=== PATIENT | male | born 1940 | race Caucasian/White ===

== ENCOUNTER → 2017-08-31 10:21 | Outpatient (CLI) | payer MEDICARE, SELFPAY ==
[2017-08-31 12:51] LABS: Prostate Specific Antigen 0.077 ng/mL (0.10-4.00)
== END ==
PROVIDERS: PCP Internal Medicine; Visit Provider Physician Assistant
DX: C61 Malignant neoplasm of prostate (principal)
CPT/HCPCS: 36415; 84153

== ENCOUNTER → 2017-11-21 11:54 | Outpatient (CLI) | payer MEDICARE, SELFPAY ==
--- NOTE | 2017-11-21 | DI.CT.S_ITS ---
PROCEDURE: CT CHEST WO CON INDICATIONS: SURVEILLANCE STAGE 1 LUNG CANCER. Per technologist, patient has had a left upper lobectomy and left nephrectomy. TECHNIQUE: Noncontrast 5 mm thick sections acquired from the pulmonary apices to the posterior costophrenic angles. 7 mm thick coronal and sagittal MIP reformats were then acquired. For radiation dose reduction, the following was used: automated exposure control, adjustment of mA and/or kV according to patient size. COMPARISON: [facility], CT, CHEST/ABDOMEN WITHOUT CONTRAST, 06/04/2017, 10:18. [facility], CT, CHEST/ABD/PEL WITHOUT CONTRAST, 12/05/2016, 9:22. [facility], CT, CHEST/ABD/PEL WITH CONTRAST, 06/02/2016, 12:06. [facility], CT, CHEST/ABDOMEN WITHOUT CONTRAST, 09/09/2015, 9:47. FINDINGS: Image quality: Excellent. Lungs and pleura: Multiple small subcentimeter bilateral pulmonary nodules, greatest at the bilateral lung bases, are stable in appearance to prior exam (with largest measuring 8 mm in the right lower lobe and been partially calcified). Left apical scarring noted. There is a small left pleural effusion with adjacent atelectasis. Central airways are clear. Mediastinum: Heart size is normal. No pericardial effusion. No mediastinal adenopathy by size criteria. Thoracic aorta and central pulmonary arteries are normal in size. Mild calcific plaque of the aorta and branch vessels. There is dense coronary artery calcification, worst along the left anterior descending coronary artery. Bones and chest wall: No suspicious bony lesions. No vertebral body compression fractures. No axillary or supraclavicular adenopathy by size criteria. There are mild multilevel degenerative changes of the thoracic spine. Abdomen: Visualized upper abdominal solid organs and bowel loops appear normal in the absence of contrast. Left kidney is not seen on this exam. IMPRESSION: Suboptimal examination of soft tissues due to the lack of intravenous contrast. #1. Stable subcentimeter pulmonary nodules in the lungs bilaterally. #2. Small left pleural effusion with adjacent atelectasis. Dictated by: Slade Patel M.D. on 11/21/2017 at 12:32 Approved by: Slade Patel M.D. on 11/21/2017 at 12:49
[2017-11-21 12:55] LABS: Add Manual Diff / Slide Review NO; Basophils Percent Auto 0.6 % (0-2); Eosinophils Percent Auto 1.2 % (2-4); Hematocrit 39.2 % (41-53); Hemoglobin 13.3 g/dL (13.5-17.5); Lymphocytes Percent Auto 17.7 % (25-40); Mean Corpuscular HGB Conc 33.9 % (30-36); Mean Corpuscular Hemoglobin 30.1 PG (26-34); Mean Corpuscular Volume 88.8 fL (80-100); Monocytes Percent Auto 7.9 % (3-14); Neutrophils Absolute Auto 4900 /uL (3000-5900); Neutrophils Percent Auto 72.6 % (50-75); Platelet Count 160 X10^3/uL (150-400); Red Blood Cell Count 4.41 X10^6/uL (4.5-5.9); Red Cell Distribution Width 13.2 % (11.6-14.8); White Blood Cell Count 6.7 X10^3/uL (4.5-11.0)
[2017-11-21 13:05] LABS: Alanine Aminotransferase 21 IU/L (21-72); Albumin 4.2 g/dL (3.5-5.0); Albumin Globulin Ratio 1.4 (1.0-2.8); Alkaline Phosphatase 108 U/L (38-126); Aspartate Aminotransferase 20 IU/L (17-59); BUN Creatinine Ratio 18.1 (6-22); Bilirubin Total 0.5 mg/dL (0.2-1.3); Blood Urea Nitrogen 29 mg/dL (9-20); Calcium 9.2 mg/dL (8.4-10.2); Carbon Dioxide 22 mmol/L (22-32); Chloride 108 mmol/L (98-107); Globulin 2.9 g/dL (1.7-4.1); Glucose 95 mg/dL (80-110); HEMOLYSIS < 15 (0-50); Potassium 4.8 mmol/L (3.4-5.1); Sodium 141 mmol/L (137-145); Total Protein 7.1 g/dL (6.3-8.2)
[2017-11-21 13:35] LABS: Prostate Specific Antigen 0.129 ng/mL (0.10-4.00)
== END ==
PROVIDERS: PCP Internal Medicine; Visit Provider Nurse Practitioner Gerontology
DX: C34.92 Malignant neoplasm of unspecified part of left bronchus or lung (principal); J90 Pleural effusion, not elsewhere classified; J98.11 Atelectasis
CPT/HCPCS: 36415; 71250; 80053; 84153; 85025

== ENCOUNTER → 2018-02-13 10:11 | Outpatient (CLI) | payer MEDICARE, SELFPAY ==
[2018-02-13 14:50] LABS: Blood Urea Nitrogen 34 mg/dL (9-20); Calcium 9.2 mg/dL (8.4-10.2); Carbon Dioxide 21 mmol/L (22-32); Chloride 107 mmol/L (98-107); Cholesterol 167 mg/dL (140-199); Estimated Glomerular Filt Rate 39.2 mL/min (>60); Glucose 92 mg/dL (80-110); HDL Cholesterol 45 mg/dL (40-60); HEMOLYSIS < 15 (0-50); LDL Cholesterol Calculated 56 mg/dL (<100); Potassium 4.8 mmol/L (3.4-5.1); Sodium 144 mmol/L (137-145); Triglycerides 330 mg/dL (35-150)
== END ==
PROVIDERS: PCP Internal Medicine; Visit Provider Internal Medicine
DX: I10 Essential (primary) hypertension (principal); E78.2 Mixed hyperlipidemia
CPT/HCPCS: 36415; 80048; 80061

== ENCOUNTER → 2018-05-27 09:57 | Outpatient (CLI) | payer MEDICARE, SELFPAY ==
[2018-04-22 16:10] VITALS: BMI 44.2
--- NOTE | 2018-05-27 | DI.CT.S_ITS ---
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 TECHNIQUE: After the administration of oral contrast, 5 mm thick sections acquired from the lung apices to the symphysis pubis. 5 mm thick coronal and sagittal reformats acquired, with additional 7 mm coronal MIP reformats through the lungs. For radiation dose reduction, the following was used: automated exposure control, adjustment of mA and/or kV according to patient size. COMPARISON: [facility], CT, CHEST/ABD/PEL WITHOUT CONTRAST, 12/05/2016, 9:22. [facility], CT, CHEST/ABD/PEL WITH CONTRAST, 06/02/2016, 12:06. [facility], [place], PET/CT WHOLE BODY EXTENDED, 10/15/2015, 10:42. [facility], CT, CHEST/ABDOMEN WITHOUT CONTRAST, 06/04/2017, 10:18. [facility], CT, CT CHEST WO CON, 11/21/2017, 12:02. FINDINGS: Image quality: Excellent. CHEST: Lungs and pleura: There is a small left effusion, unchanged from last exam. Left basilar subpleural septal thickening and mild infiltrates/atelectasis. There are tiny nodules in the left upper and lower lobes, unchanged in size; some nodules are calcified. A scarlike densities noted in the left upper lobe. Small subcentimeter calcified and noncalcified nodules are also noted in the right lower lobe measuring up to 8 mm (series 3 image 49 and 52), unchanged in size. No acute pulmonary opacities. No pleural effusions or pneumothorax. Central and peripheral airways are patent are normal in caliber. Mediastinum: Heart size is normal. No pericardial effusion. No mediastinal adenopathy by CT size criteria. Thoracic aorta and central pulmonary arteries are normal in size. Esophagus is normal in caliber. No hiatal hernia. Chest wall: No axillary or supraclavicular adenopathy by size criteria. Thyroid gland is normal. ABDOMEN: Solid organs: Liver is normal in size. Gallbladder is normal. Pancreas is normal in contours. Spleen is normal in size. No adrenal nodules. Left kidney is absent, presumably surgically removed. Right kidney is normal in size, without hydronephrosis or nephrolithiasis. Peritoneum and bowel: Small and large bowel loops are normal in caliber and wall thickness. No free fluid or air. Nodes and vessels: No retroperitoneal or mesenteric adenopathy by size criteria. There is a calcified nodule in the mesentery, probably an old granuloma. Aorta and inferior vena cava are normal in size. Miscellaneous: No ventral hernias. PELVIS: Genitourinary: Bladder wall thickness is uniform. There is mild 40 distended. The prostate contains multiple metallic implants. Miscellaneous: No inguinal hernias or adenopathy. Bones: No suspicious bony lesions. No vertebral body compression fractures. Degenerative changes are noted. IMPRESSION: 1. Stable exam. No metastatic disease identified on this non-enhanced CT chest, abdomen and pelvis. No significant change from last exam. 2. Stable subcentimeter lung nodules bilaterally. 3. Stable small left effusion. 4. Scar like density in the left upper lobe is unchanged. Dictated by: Hardy Spain M.D. on 05/27/2018 at 17:14 Approved by: Hardy Spain M.D. on 05/27/2018 at 22:57
== END ==
PROVIDERS: PCP Internal Medicine; Referring Provider Urology; Visit Provider Internal Medicine Hematology & Oncology
DX: C61 Malignant neoplasm of prostate (principal); C64.2 Malignant neoplasm of left kidney, except renal pelvis; J90 Pleural effusion, not elsewhere classified; R91.8 Other nonspecific abnormal finding of lung field
CPT/HCPCS: 71250; 74176

== ENCOUNTER → 2018-07-29 09:33 | Outpatient (CLI) | payer MEDICARE, SELFPAY ==
[2018-04-22 16:10] VITALS: BMI 44.2
--- NOTE | 2018-07-29 09:36 | DI.NM.S_ITS ---
PROCEDURE: GA BONE SCAN WHOLE BODY RADIOPHARMACEUTICAL: 20.8 mCi Tc-99m MDP IV. INDICATIONS: LUNG CANCER TECHNIQUE: Delayed whole-body scintigrams were obtained approximately 3-4 hours after intravenous injection of radiotracer. Anterior and posterior views were acquired from vertex to feet. COMPARISON: [place], [place], PET/CT WHOLE BODY EXTENDED, 10/15/2015, 10:42. [facility], STROKE PROTOCOL, 01/31/2016, 18:07. [facility], [place], BONE SCAN WHOLE BODY, 03/26/2014, 13:16. FINDINGS: As was previously the case on prior nuclear medicine bone scanning from 03/26/14 there is a mild asymmetric increased amount of isotope deposition within the orbital ridge laterally on the right, virtually identical to the previously noted finding. Knee joint osteoarthritis has been treated with what appears to be medial unicompartmental knee arthroplasty procedures bilaterally. No osseous metastatic disease is found. IMPRESSION: No airplane coverer time at the superior right lateral orbital rim on the right, where mild elevated isotope uptake is virtually identical in appearance to that present in March of 2014. No definite metastatic disease. Dictated by: aSlvador Bethea M.D. on 07/29/2018 at 15:12 Approved by: Salvador Bethea M.D. on 07/29/2018 at 15:16
== END ==
PROVIDERS: Family Provider Urology; PCP Internal Medicine; Visit Provider Internal Medicine Hematology & Oncology
DX: C34.90 Malignant neoplasm of unspecified part of unspecified bronchus or lung (principal)
CPT/HCPCS: 78306; A9503

== ENCOUNTER → 2018-09-09 12:28 | Outpatient (CLI) | payer MEDICARE, SELFPAY ==
[2018-04-22 16:10] VITALS: BMI 44.2
--- NOTE | 2018-09-09 12:29 | DI.US.S_ITS ---
PROCEDURE: US SOFT TISSUE HEAD AND NECK INDICATIONS: PROSTATE CANCER, RENAL CELL CARCINOMA, LUNG CANCER TECHNIQUE: Real-time scanning was performed of the neck region of interest, with image documentation. COMPARISON: None. FINDINGS: Focal, solid-appearing hypoechoic mass present corresponding to the palpable abnormality measuring 2.4 x 1.4 x 2.5 cm. IMPRESSION: Solid mass corresponding to the palpable abnormality. Findings are nonspecific and differential would include both benign and malignant etiology. If indicated sonographically directed fine needle aspiration could be performed for pathologic diagnosis. Dictated by: Amado FERMIN Interpreted: Salvador Bethea MD on 09/09/2018 at 14:10 Approved by: Salvador Bethea M.D. on 09/09/2018 at 14:46
== END ==
PROVIDERS: Family Provider Urology; PCP Internal Medicine; Visit Provider Internal Medicine Hematology & Oncology
DX: C61 Malignant neoplasm of prostate (principal); R22.1 Localized swelling, mass and lump, neck; C34.90 Malignant neoplasm of unspecified part of unspecified bronchus or lung; C64.9 Malignant neoplasm of unspecified kidney, except renal pelvis
CPT/HCPCS: 76536

== ENCOUNTER → 2018-10-01 09:53 | Outpatient (CLI) | payer MEDICARE, SELFPAY ==
[2018-04-22 16:10] VITALS: BMI 44.2
[2018-10-01 11:20] LABS: Add Manual Diff / Slide Review NO; Basophils Absolute Auto 0 /uL (0-100); Basophils Percent Auto 0.5 % (0-2); Eosinophils Absolute Auto 100 /uL (0-450); Eosinophils Percent Auto 1.3 % (2-4); Hematocrit 40.3 % (41-53); Hemoglobin 13.5 g/dL (13.5-17.5); Lymphocytes Absolute Auto 1100 /uL (1100-4500); Lymphocytes Percent Auto 14.8 % (25-40); Mean Corpuscular HGB Conc 33.5 % (30-36); Mean Corpuscular Hemoglobin 29.9 PG (26-34); Mean Corpuscular Volume 89.4 fL (80-100); Monocytes Absolute Auto 600 /uL (0-900); Monocytes Percent Auto 7.8 % (3-14); Neutrophils Absolute Auto 5500 /uL (1500-7000); Neutrophils Percent Auto 75.6 % (50-75); Platelet Count 171 X10^3/uL (150-400); Red Cell Distribution Width 12.8 % (11.6-14.8); White Blood Cell Count 7.3 X10^3/uL (4.5-11.0)
[2018-10-01 11:33] LABS: Alanine Aminotransferase 13 IU/L (21-72); Albumin 4.1 g/dL (3.5-5.0); Albumin Globulin Ratio 1.4 (1.0-2.8); Alkaline Phosphatase 100 U/L (38-126); Aspartate Aminotransferase 18 IU/L (17-59); BUN Creatinine Ratio 13.7 (6-22); Bilirubin Total 0.5 mg/dL (0.2-1.3); Blood Urea Nitrogen 26 mg/dL (9-20); Calcium 9.5 mg/dL (8.4-10.2); Carbon Dioxide 22 mmol/L (22-32); Chloride 109 mmol/L (98-107); Estimated Glomerular Filt Rate 34.4 mL/min (>60); Glucose 109 mg/dL (80-110); HEMOLYSIS < 15 (0-50); Lactate Dehydrogenase 421 U/L (313-618); Potassium 4.6 mmol/L (3.4-5.1); Sodium 143 mmol/L (137-145); Total Protein 7.1 g/dL (6.3-8.2)
== END ==
PROVIDERS: PCP Internal Medicine; Visit Provider Internal Medicine Hematology & Oncology
DX: C34.90 Malignant neoplasm of unspecified part of unspecified bronchus or lung (principal)
CPT/HCPCS: 80053; 83615; 85025

== ENCOUNTER 2018-10-09 07:44 | Day surgery (SDC) | payer MEDICARE, SELFPAY ==
[2018-04-22 16:10] VITALS: BMI 44.2
[2018-09-25 13:25] VITALS: BMI 45.6
[2018-10-09] VITALS (8 sets, daily range): BP systolic 96–139; BP diastolic 50–77; PULSE 67–86; RESP 13–19; TEMP 36.1–36.7; O2SAT 96–100; BMI 44.8
--- NOTE | 2018-10-09 | PATH_ITS ---
[facility] Accession Number: [id number] . 01 Material submitted: . PART A: neck - RIGHT POSTERIOR NECK MASS PART B: neck - ADDITIONAL SUPERIOR MARGIN RIGHT POSTERIOR NECK MASS . 01 Clinical history: . A. SHORT STITCH SUPERIOR; LONG STITCH LATERAL; DOUBLE STITCH DEEP . 01 Diagnosis: A. Soft Tissue, Posterior Neck Mass, Excision: Mature adipose tissue and fibrous tissue. See comment. . B. Soft Tissue, Additional Superior Margin, Right Posterior Neck Mass, Excision: Mature adipose tissue and fibrous tissue. See comment. [facility]/10/15/2018 . 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 Features of malignancy are not identified. . 01 Electronically signed: . Hanane Greenifeld MD, Pathologist NPI- [id number] . 01 Gross description: . (A) Received in formalin, labeled right posterior neck mass, long lateral, short superior, double deep, is a piece of sarah-geronimo rubbery tissue (3.7 cm AP, 2.2 cm SI, 4.5 cm ML) with an overlying ellipse of sarah-geronimo dull smooth skin (0.4 cm SI, 2.5 cm ML). The specimen is oriented with three black sutures (long-lateral, short-superior, double-deep). The tissue is fatty with a homogeneous unremarkable cut surface. Ink code: yellow-posterior; black-superior; orange-inferior; blue-lateral; green-medial. [employer] tissue with margins submitted in cassettes A1-A4. (B) Received in formalin, labeled additional superior margin right posterior neck, is an unoriented piece of geronimo-yellow rubbery adipose tissue (2.5 x 1.5 x 0.7 cm) with a homogeneous unremarkable cut surface. The tissue is inked black, bisected, and entirely submitted in cassettes A1-A2. ([id number]) /MRV . 01 Microscopic: . The slides show an adipocytic lesion composed of mature adipocytes with minimal or no variation in size and shape, traversed by fibrous bands of mature collagen. Atypical features including atypical spindle cells and adipocytes with enlarged, pleomorphic and hyperchromatic nuclei are not identified. . 01 Pathologist provided ICD-10: D17.9 . 01 CPT . 337532, [id number] Performed at: 01 [facility] [address] [place] [address] [facility], [place], [place] [id number] MD Nuar Malave MD Phone: [phone]
[2018-10-09] MEDS: LACTATED RINGERS 1,000 ML 42 ML IV (08:20)
--- NOTE | 2018-10-09 08:47 | PM.HP.1 ---
History of Present Illness Date Patient Seen: 10/09/18 Time Patient Seen: 08:47 Chief complaint: [id number] Narrative: pt seen and examened health unchanged since recent clinic note R posterior neck excisional biopsy planned Patient History Medical History (Updated 10/02/18 @ 12:07 by Eleanor Bosch, RN) Prostate cancer (Acute ~2013) CAD (coronary artery disease) (Acute) CKD (chronic kidney disease) (Acute) COPD (chronic obstructive pulmonary disease) (Acute) Dizziness (Acute) Former smoker (Acute) Glucose intolerance (Acute) HLD (hyperlipidemia) (Acute) HTN (hypertension) (Acute) LBBB (left bundle branch block) (Acute) Morbid obesity (Acute) Myocardial infarction (Acute ~2002) Perforated nasal septum (Acute) Renal carcinoma (Acute) Tibial plateau fracture, right (Acute ~09/2017) Surgical History (Updated 10/09/18 @ 08:11 by Kaylyn Maher RN) History of colonoscopy (Acute) Hx of bilateral cataract extraction (Acute ~2016) Hx of heart artery stent (Acute ~2002) H/O left nephrectomy (Resolved ~2014) History of bilateral knee replacement (Resolved) History of lobectomy of lung (Resolved ~2015) Social History (Updated 09/24/18 @ 10:45 by Padmaja Gomez RN) household members: children occupational status: previously employed Smoking Status: Current every day smoker Tobacco: How many years used: 40 alcohol intake: current substance use type: does not use Family & Social History Social History: household members children Tobacco & Substance use: Tobacco type cigarettes Smoking Status Current every day smoker Smoking packs per day 2 alcohol intake current alcohol intake frequency a few times a week Substance Use Type does not use Meds Home Medications Medication Instructions Recorded Confirmed Type Combivent Respimat 1 puff INH PRN PRN #0 12/25/16 10/09/18 History acetaminophen [Tylenol Extra 500 mg PO PRN PRN #0 03/23/17 09/25/18 History Strength] amlodipine 5 mg PO DAILY 11/26/17 10/09/18 History aspirin 81 mg PO DAILY 11/26/17 10/09/18 History atorvastatin [Lipitor] 20 mg PO DAILY 11/26/17 10/09/18 History calcium carbonate-vitamin D3 1 tab PO BID 11/26/17 10/09/18 History [Calcium with Vitamin D] carvedilol 25 mg PO BID 11/26/17 10/09/18 History doimsetd-hnv-QC-lycopen-lutein 1 tab PO DAILY 11/26/17 10/09/18 History [Centrum Silver] losartan-hydrochlorothiazide 1 tab PO DAILY 06/03/18 10/09/18 History vitamins A,C,N-itjy-csejnk 14,320 1 cap PO BID 09/24/18 10/09/18 History unit-226 mg-200 unit capsule Allergies Allergy/AdvReac Type Severity Reaction Status Date / Time tamsulosin [TAMSULOSIN] Allergy Severe DIZZINESS, Verified 10/09/18 08:02 LIGHTHEADEDNESS tetanus and diphtheria Allergy Severe HIVES Verified 10/09/18 08:02 toxoids [tetanus & diphtheria toxoids] Penicillins Allergy Unknown PT UNSURE Verified 10/09/18 08:02 OF REACTION Exam Vital Signs (past 8 hours): - 10/09/18 08:17 Temperature 97.8 F Pulse Rate 86 Respiratory Rate 16 Blood Pressure 139/77 Pulse Oximetry 97 Oxygen Delivery Method Room Air
[2018-10-09] MEDS: CEFAZOLIN 2 GM/100 ML FROZ.PIGGY IV (08:50)
[2018-10-09] MEDS: LIDOCAINE 1% W/EPI INJ 20 ML INJ (09:26)
--- NOTE | 2018-10-09 10:33 | SUR.PHASEI ---
Post op PACU Note: patient arrive to PACU sedated, respirations regular and unlabored. VSS, with O2 Sat WNL. Incision on posterior neck CDI, no drainage or swelling noted. ICE pack applied to surgical site at time of arrival. IV site patent. Pt. awake and alert at 1027. Sitting up. Tolerating PO liquids without nausea. Denies any pain or discomfort. Stable for transfer to [facility].
--- NOTE | 2018-10-09 10:52 | P.OP_ITS ---
Operative Date/Time/Diagnoses Date of procedure: 10/09/18 Time of procedure: 10:44 Pre-op diagnosis: R posterior neck mass Procedure & Clinicians Procedure: Excisional biopsy of right posterior neck mass -excise tissue 4.5 by 3 cm Same procedure as scheduled: Yes Indications: 78-year-old with known history of lung cancer presents with a enlarging mass on his posterior right neck Surgeon: Reginald Capps Click Yes if Unassisted: Yes Anesthesia Type: General Operative Notes Findings: Posterior neck mass taken with significant margin Closure Type: primary Specimen(s): other (Right posterior neck mass) Estimated Blood Loss (mL): 5 Procedure in detail: Patient was taken to the operating room he was placed in the lateral decubitus position with his left side down. He was sedated. A time-out was completed. He was prepped and draped in usual sterile fashion. The palpable right posterior neck mass which was in the midportion the posterior neck was identified and readily palpable. A field block of 1% lidocaine with epinephrine was placed. Small curvilinear incision to remove an ellipse of tissue directly over the mass was taken. The skin and subcutaneous tissue were divided until the mass was readily palpable. Small skin flaps approximately 1 cm were raised. The mass which was soft somewhat mobile was then excised out of the deep subcutaneous tissue of the neck circumferentially. The deepest margin was fascia of the erector spinae muscle. The mass was removed out of the navdeep ent oriented and marked with orientation sutures. Short stitch superior, long stitch lateral, double stitch deep -the ellipse skin marked superficial. At this point it appeared that there was a small finger-like projection of potential fatty tumor/lipoma extending superiorly -this was grasped with an Allis clamp and removed without incident with moderate. The deep tissue was then infiltrated with lidocaine. Hemostasis was confirmed several small bleeders were cauterized. The wound was then irrigated. A 3 layer closure was then performed. Two 0 Vicryl sutures were used for a deep tissue/Osorio's fascia layer as well as the deep dermal layers. Skin itself was closed using 3 0 monofilament absorbable suture in subcuticular fashion. Skin glue was applied. Patient was awakened and brought to PACU without incident Complications: none Condition: stable Disposition: PACU Plan for aftercare: Follow-up in clinic
== END 2018-10-09 11:12 | disposition home or self-care (01) ==
LOC: OR 07:47
PROVIDERS: PCP Internal Medicine; Visit Provider Surgery
PROC: (CPT 21552; principal; 2018-10-09 08:45)
DX: D17.9 Benign lipomatous neoplasm, unspecified (principal); F17.210 Nicotine dependence, cigarettes, uncomplicated; I25.10 Atherosclerotic heart disease of native coronary artery without angina pectoris; N18.9 Chronic kidney disease, unspecified; J44.9 Chronic obstructive pulmonary disease, unspecified; E66.01 Morbid (severe) obesity due to excess calories; I25.2 Old myocardial infarction; I12.9 Hypertensive chronic kidney disease with stage 1 through stage 4 chronic kidney disease, or unspecified chronic kidney disease
CPT/HCPCS: 21552; 88304; J0690; J2250; J2704

== ENCOUNTER → 2018-12-20 09:48 | Outpatient (CLI) | payer MEDICARE, SELFPAY ==
[2018-04-22 16:10] VITALS: BMI 44.2
[2018-12-20 11:12] LABS: Add Manual Diff / Slide Review NO; Basophils Absolute Auto 0 /uL (0-100); Basophils Percent Auto 0.6 % (0-2); Eosinophils Absolute Auto 100 /uL (0-450); Eosinophils Percent Auto 1.3 % (2-4); Hematocrit 40.7 % (41-53); Hemoglobin 13.6 g/dL (13.5-17.5); Lymphocytes Absolute Auto 1100 /uL (1100-4500); Lymphocytes Percent Auto 15.8 % (25-40); Mean Corpuscular HGB Conc 33.3 % (30-36); Mean Corpuscular Hemoglobin 29.5 PG (26-34); Mean Corpuscular Volume 88.7 fL (80-100); Monocytes Absolute Auto 500 /uL (0-900); Monocytes Percent Auto 7.6 % (3-14); Neutrophils Absolute Auto 5200 /uL (1500-7000); Neutrophils Percent Auto 74.7 % (50-75); Platelet Count 165 X10^3/uL (150-400); Red Blood Cell Count 4.59 X10^6/uL (4.5-5.9); Red Cell Distribution Width 13.5 % (11.6-14.8)
[2018-12-20 11:29] LABS: Alanine Aminotransferase 13 IU/L (21-72); Albumin 4.1 g/dL (3.5-5.0); Albumin Globulin Ratio 1.4 (1.0-2.8); Alkaline Phosphatase 98 U/L (38-126); Aspartate Aminotransferase 20 IU/L (17-59); BUN Creatinine Ratio 15.8 (6-22); Bilirubin Total 0.5 mg/dL (0.2-1.3); Blood Urea Nitrogen 30 mg/dL (9-20); Calcium 9.3 mg/dL (8.4-10.2); Carbon Dioxide 23 mmol/L (22-32); Chloride 107 mmol/L (98-107); Estimated Glomerular Filt Rate 34.4 mL/min (>60); Globulin 2.9 g/dL (1.7-4.1); Glucose 116 mg/dL (80-110); HEMOLYSIS < 15 (0-50); Potassium 4.9 mmol/L (3.4-5.1); Sodium 141 mmol/L (137-145)
[2018-12-20 11:56] LABS: Prostate Specific Antigen 0.195 ng/mL (0.10-4.00)
== END ==
PROVIDERS: Internal Medicine Hematology & Oncology; PCP Internal Medicine; Visit Provider Radiology Radiation Oncology
DX: Z85.46 Personal history of malignant neoplasm of prostate (principal); C34.90 Malignant neoplasm of unspecified part of unspecified bronchus or lung
CPT/HCPCS: 36415; 80053; 84153; 84403; 85025

== ENCOUNTER → 2019-09-30 09:31 | Outpatient (CLI) | payer MEDICARE, SELFPAY ==
[2018-04-22 16:10] VITALS: BMI 44.2
--- NOTE | 2019-09-30 09:37 | DI.CT.S_ITS ---
PROCEDURE: CT CHEST ABD PEL WO CON INDICATIONS: multiple cancer f/u TECHNIQUE: After the administration of oral contrast, 5 mm thick sections acquired from the lung apices to the symphysis pubis. 5 mm thick coronal and sagittal reformats acquired, with additional 7 mm coronal MIP reformats through the lungs. For radiation dose reduction, the following was used: automated exposure control, adjustment of mA and/or kV according to patient size. COMPARISON: [facility], CT, CT CHEST WO CON, 11/21/2017, 12:02. [facility], [place], [place] BONE SCAN WHOLE BODY, 07/29/2018, 12:58. [facility], CT, CT CHEST ABD PEL WO CON, 05/27/2018, 10:44. FINDINGS: Image quality: Excellent. CHEST: Lungs and pleura: Small pulmonary nodules are present bilaterally, unchanged. Some nodules are calcified, likely benign such as old granulomas. There is a scar in the left upper lobe. There is subpleural septal thickening bilaterally, more pronounced in left lung, unchanged. A small left pleural effusion is present, unchanged. No pneumothorax. Central and peripheral airways are patent are normal in caliber. Mediastinum: Heart size is normal. No pericardial effusion. There is mild to moderate coronary artery atherosclerosis. No mediastinal adenopathy by CT size criteria. Thoracic aorta and central pulmonary arteries are normal in size. Esophagus is normal in caliber. No hiatal hernia. Chest wall: No axillary or supraclavicular adenopathy by size criteria. Thyroid gland is normal. ABDOMEN: Solid organs: Liver is normal in size. Gallbladder is unremarkable. Pancreas is normal in contours. Spleen is normal in size. No adrenal nodules. Left kidney is absent. Right kidney is normal in size, without hydronephrosis or nephrolithiasis. Peritoneum and bowel: Small and large bowel loops are normal in caliber and wall thickness. No free fluid or air. Nodes and vessels: No retroperitoneal or mesenteric adenopathy by size criteria. Aorta and inferior vena cava are normal in size. Miscellaneous: No ventral hernias. PELVIS: Genitourinary: Bladder wall appears mildly thickened. No bladder stones or mass. Surgical clips in the area of the prostate. Miscellaneous: No inguinal hernias or adenopathy. Bones: No suspicious bony lesions. No vertebral body compression fractures. IMPRESSION: 1. Multiple pulmonary nodules are present bilaterally are stable. Some nodules are calcified compatible with old granulomas. 2. Stable small left effusion. 3. Mild bladder wall thickening. 4. Left nephrectomy. Please note the exam was performed without intravenous or oral contrast, which decrease the sensitivity of the test. Dictated by: Hardy Spain M.D. on 09/30/2019 at 12:24 Approved by: Hardy Spain M.D. on 10/01/2019 at 10:34
== END ==
PROVIDERS: PCP Internal Medicine; Referring Provider Internal Medicine Hematology & Oncology; Visit Provider Internal Medicine Hematology & Oncology
DX: Z08 Encounter for follow-up examination after completed treatment for malignant neoplasm; Z85.46 Personal history of malignant neoplasm of prostate; Z85.528 Personal history of other malignant neoplasm of kidney; Z85.118 Personal history of other malignant neoplasm of bronchus and lung; R91.8 Other nonspecific abnormal finding of lung field; I25.10 Atherosclerotic heart disease of native coronary artery without angina pectoris; J90 Pleural effusion, not elsewhere classified; Z90.5 Acquired absence of kidney
CPT/HCPCS: 71250; 74176

== ENCOUNTER → 2020-03-03 14:49 | Outpatient (ROUT) | payer MEDICARE, SELFPAY ==
[2018-04-22 16:10] VITALS: BMI 44.2
[2020-03-03 15:19] LABS: Add Manual Diff / Slide Review NO; Basophils Absolute Auto 100 /uL (0-100); Basophils Percent Auto 0.7 % (0-2); Eosinophils Absolute Auto 100 /uL (0-450); Eosinophils Percent Auto 1.2 % (2-4); Hematocrit 40.3 % (41-53); Hemoglobin 13.4 g/dL (13.5-17.5); Lymphocytes Absolute Auto 800 /uL (1100-4500); Mean Corpuscular HGB Conc 33.2 % (30-36); Mean Corpuscular Hemoglobin 29.3 PG (26-34); Mean Corpuscular Volume 88.3 fL (80-100); Monocytes Absolute Auto 700 /uL (0-900); Monocytes Percent Auto 9.2 % (3-14); Neutrophils Absolute Auto 5900 /uL (1500-7000); Neutrophils Percent Auto 77.9 % (50-75); Platelet Count 150 X10^3/uL (150-400); Red Blood Cell Count 4.57 X10^6/uL (4.5-5.9); Red Cell Distribution Width 13.9 % (11.6-14.8); White Blood Cell Count 7.6 X10^3/uL (4.5-11.0)
[2020-03-03 15:35] LABS: BUN Creatinine Ratio 19.4 (6-22); Blood Urea Nitrogen 30 mg/dL (9-20); Calcium 9.3 mg/dL (8.4-10.2); Carbon Dioxide 28 mmol/L (22-32); Chloride 104 mmol/L (98-107); Cholesterol 117 mg/dL (140-199); Estimated Glomerular Filt Rate 43.4 mL/min (>60); Glucose 100 mg/dL (80-110); HDL Cholesterol 39 mg/dL (40-60); HEMOLYSIS 20 (0-50); LDL Cholesterol Calculated 28 mg/dL (<100); Phosphorous 4.3 mg/dL (2.3-3.7); Sodium 139 mmol/L (137-145); Triglycerides 248 mg/dL (35-150)
[2020-03-03 15:36] LABS: Potassium 5.4 mmol/L (3.4-5.1)
[2020-03-03 15:51] LABS: Vitamin D 25 Hydroxy (D3) 31.2 ng/mL (30.0-100.0)
[2020-03-04 07:09] LABS: Parathyroid Hormone Int 60 pg/mL (15-65)
== END ==
PROVIDERS: PCP Internal Medicine; Visit Provider Internal Medicine
DX: E78.2 Mixed hyperlipidemia (principal); N18.30 Chronic kidney disease, stage 3 unspecified
CPT/HCPCS: 80048; 80061; 82306; 83970; 84100; 85025

== ENCOUNTER → 2020-04-16 09:54 | Outpatient (CLI) | payer MEDICARE, SELFPAY ==
[2018-04-22 16:10] VITALS: BMI 44.2
--- NOTE | 2020-04-16 09:56 | DI.CT.S_ITS ---
PROCEDURE: CT CHEST ABD PEL WO CON INDICATIONS: multiple cancer f/u TECHNIQUE: After the administration of oral contrast, 5 mm thick sections acquired from the lung apices to the symphysis pubis. 5 mm thick coronal and sagittal reformats acquired, with additional 7 mm coronal MIP reformats through the lungs. For radiation dose reduction, the following was used: automated exposure control, adjustment of mA and/or kV according to patient size. PO contrast. COMPARISON: [place], PET/CT WHOLE BODY EXTENDED, 10/15/2015, 10:42. [facility], CT, CT CHEST ABD PEL WO CON, 09/30/2019, 9:33. FINDINGS: Image quality: Excellent. CHEST: Lungs and pleura: Scattered calcified granuloma. Scarring in the left upper lobe. Left lower lobe a septal thickening, unchanged. Small left pleural effusion. No pneumothorax. Central and peripheral airways are patent are normal in caliber. Mediastinum: Heart size is normal. Coronary artery calcifications. No pericardial effusion. No mediastinal adenopathy by CT size criteria. Thoracic aorta and central pulmonary arteries are normal in size. Esophagus is normal in caliber. No hiatal hernia. Chest wall: No axillary or supraclavicular adenopathy by size criteria. Thyroid gland is unremarkable . ABDOMEN: Solid organs: Liver is normal in size. Hepatic steatosis. Gallbladder is within normal limits . Pancreas is normal in contours. Spleen is normal in size. No adrenal nodules. No mass in the left nephrectomy bed. Mid right ureter is patulous. No hydronephrosis of the right kidney. Peritoneum and bowel: Small and large bowel loops are normal in caliber and wall thickness. Normal appendix. No free fluid or air. Nodes and vessels: No retroperitoneal or mesenteric adenopathy by size criteria. Aorta and inferior vena cava are normal in size. Moderate calcified atherosclerotic plaque. Miscellaneous: Small fat containing periumbilical hernia. PELVIS: Genitourinary: Bladder wall thickness is normal. Miscellaneous: No inguinal hernias or adenopathy. Bones: No suspicious bony lesions. No vertebral body compression fractures. IMPRESSION: Evaluation of the solid parenchymal organs is limited without IV contrast. 1. No recurrent mass in the left nephrectomy bed. 2. No enlarged adenopathy. 3. Stable scarring in the left upper lobe. 4. Small left pleural effusion, unchanged. Dictated by: Cristian Angeles M.D. on 04/16/2020 at 10:19 Approved by: Cristian Angeles M.D. on 04/16/2020 at 10:35
== END ==
PROVIDERS: PCP Internal Medicine; Referring Provider Internal Medicine Hematology & Oncology; Visit Provider Internal Medicine Hematology & Oncology
DX: Z08 Encounter for follow-up examination after completed treatment for malignant neoplasm; Z85.46 Personal history of malignant neoplasm of prostate; Z85.528 Personal history of other malignant neoplasm of kidney; Z85.118 Personal history of other malignant neoplasm of bronchus and lung; J90 Pleural effusion, not elsewhere classified; Z90.5 Acquired absence of kidney
CPT/HCPCS: 71250; 74176

== ENCOUNTER → 2020-10-13 09:44 | Outpatient (CLI) | payer MEDICARE, SELFPAY ==
[2018-04-22 16:10] VITALS: BMI 44.2
--- NOTE | 2020-10-13 09:46 | DI.CT.S_ITS ---
PROCEDURE: CT CHEST ABD PEL WO CON INDICATIONS: 80-year-old male with history of lung, renal and prostate cancer status post left nephrectomy TECHNIQUE: After the administration of oral contrast, 5 mm thick sections acquired from the lung apices to the symphysis pubis. 5 mm thick coronal and sagittal reformats acquired, with additional 7 mm coronal MIP reformats through the lungs. For radiation dose reduction, the following was used: automated exposure control, adjustment of mA and/or kV according to patient size. COMPARISON: [facility], CT, CT CHEST ABD PEL WO CON, 04/16/2020, 10:56. FINDINGS: Chest: Cardiovascular: Heart size is normal. Atherosclerotic aortic calcification noted without evidence of aneurysm. Dense coronary artery calcification. Lungs and pleural spaces: Scattered calcified granulomas are unchanged the prior exam. There is scarring in the left upper lobe, and small to moderate left pleural effusion, stable. Emphysematous changes noted in the left upper lung with left lateral septal chronic thickening also stable. Lymph nodes: Scattered pretracheal lymph nodes are subcentimeter and unchanged with preserved fatty hilum. No adenopathy. Mediastinum: Anterior mediastinum unremarkable. No hiatal hernia. Bones: Unremarkable. No acute fracture. Other: Thyroid unremarkable. Abdomen and Pelvis: Liver: Normal in size and attenuation. No contour deformity present. Biliary system: No calcified cholelithiasis or pericholecystic inflammation. No intra or extrahepatic bile duct dilatation. Pancreas: Unremarkable without mass or inflammation evident. Spleen: Normal in size and density. Adrenals: Normal morphology and density. Reproductive system: Metallic densities in the prostate bed of the reflect fiducial markers or brachytherapy seeds, unchanged. Prostate unremarkable in size. Urinary system: Left nephrectomy. Noncontrast right kidney unremarkable without hydronephrosis or calculi. Gastrointestinal system: The bowel appears unremarkable with no evidence of bowel obstruction or inflammation. The stomach appears unremarkable. No findings to suggest acute appendicitis. Peritoneal spaces: No intra- or retroperitoneal adenopathy. No free air. No free fluid. Vasculature: Atherosclerotic calcification in the abdominal aorta noted without evidence of aneurysm. Musculoskeletal: Normal bone mineralization. No acute fractures. Abdominal wall intact without evidence of ventral or inguinal hernias. No lytic or blastic lesion. Please note, lack of intravenous contrast precludes definitive evaluation of vasculature and solid organs, particularly for neoplasm. IMPRESSION: 1. Stable CT chest abdomen and pelvis without evidence of metastatic disease. 2. Left upper lobe scarring, calcified granulomas and chronic pulmonary changes including left pleural effusion. 3. Left nephrectomy without recurrent or residual disease. 4. Stable prostate with either fiducial markers or brachytherapy seeds. Dictated by: Best Maldonado M.D. on 10/13/2020 at 14:55 Approved by: Best Maldonado M.D. on 10/13/2020 at 15:22
[2020-10-13 10:27] LABS: Add Manual Diff / Slide Review NO; Basophils Absolute Auto 0 /uL (0-100); Basophils Percent Auto 0.5 % (0-2); Eosinophils Absolute Auto 100 /uL (0-450); Eosinophils Percent Auto 1.1 % (2-4); Hematocrit 44.7 % (41-53); Lymphocytes Absolute Auto 1300 /uL (1100-4500); Lymphocytes Percent Auto 15.9 % (25-40); Mean Corpuscular HGB Conc 33.5 % (30-36); Mean Corpuscular Hemoglobin 29.5 PG (26-34); Mean Corpuscular Volume 88.2 fL (80-100); Monocytes Absolute Auto 700 /uL (0-900); Monocytes Percent Auto 8.9 % (3-14); Neutrophils Absolute Auto 6100 /uL (1500-7000); Neutrophils Percent Auto 73.6 % (50-75); Platelet Count 159 X10^3/uL (150-400); Red Blood Cell Count 5.07 X10^6/uL (4.5-5.9); Red Cell Distribution Width 13.4 % (11.6-14.8); White Blood Cell Count 8.3 X10^3/uL (4.5-11.0)
[2020-10-13 10:42] LABS: Alanine Aminotransferase 21 IU/L (<50); Albumin 4.2 g/dL (3.5-5.0); Albumin Globulin Ratio 1.3 (1.0-2.8); Alkaline Phosphatase 115 U/L (38-126); Aspartate Aminotransferase 28 IU/L (17-59); BUN Creatinine Ratio 16.4 (6-22); Bilirubin Total 0.6 mg/dL (0.2-1.3); Blood Urea Nitrogen 32 mg/dL (9-20); Calcium 9.6 mg/dL (8.4-10.2); Carbon Dioxide 21 mmol/L (22-32); Chloride 108 mmol/L (98-107); Estimated Glomerular Filt Rate 33.2 mL/min (>60); Globulin 3.2 g/dL (1.7-4.1); Glucose 106 mg/dL (80-110); HEMOLYSIS 21 (0-50); Potassium 5.3 mmol/L (3.4-5.1); Sodium 140 mmol/L (137-145); Total Protein 7.4 g/dL (6.3-8.2)
== END ==
PROVIDERS: PCP Internal Medicine; Referring Provider Internal Medicine Hematology & Oncology; Visit Provider Internal Medicine Hematology & Oncology
DX: C34.90 Malignant neoplasm of unspecified part of unspecified bronchus or lung (principal); C61 Malignant neoplasm of prostate; C64.2 Malignant neoplasm of left kidney, except renal pelvis; J98.4 Other disorders of lung; J90 Pleural effusion, not elsewhere classified; Z90.5 Acquired absence of kidney
CPT/HCPCS: 36415; 71250; 74176; 80053; 85025

== ENCOUNTER → 2021-10-05 11:06 | Outpatient (CLI) | payer MEDICARE, SELFPAY ==
[2018-04-22 16:10] VITALS: BMI 44.2
[2021-10-05 11:25] LABS: Add Manual Diff / Slide Review NO; Basophils Absolute Auto 0 /uL (0-100); Basophils Percent Auto 0.4 % (0-2); Eosinophils Absolute Auto 100 /uL (0-450); Eosinophils Percent Auto 1.4 % (2-4); Hematocrit 42.1 % (41-53); Hemoglobin 14.3 g/dL (13.5-17.5); Lymphocytes Absolute Auto 1100 /uL (1100-4500); Lymphocytes Percent Auto 13.2 % (25-40); Mean Corpuscular Hemoglobin 29.9 PG (26-34); Monocytes Absolute Auto 600 /uL (0-900); Monocytes Percent Auto 7.3 % (3-14); Neutrophils Absolute Auto 6400 /uL (1500-7000); Neutrophils Percent Auto 77.7 % (50-75); Platelet Count 152 X10^3/uL (150-400); Red Blood Cell Count 4.78 X10^6/uL (4.5-5.9); Red Cell Distribution Width 13.1 % (11.6-14.8); White Blood Cell Count 8.2 X10^3/uL (4.5-11.0)
[2021-10-05 11:43] LABS: Alanine Aminotransferase 24 IU/L (<50); Albumin 4.4 g/dL (3.5-5.0); Albumin Globulin Ratio 1.3 (1.0-2.8); Alkaline Phosphatase 113 U/L (38-126); Aspartate Aminotransferase 29 IU/L (17-59); Bilirubin Total 0.5 mg/dL (0.2-1.3); Blood Urea Nitrogen 42 mg/dL (9-20); Calcium 8.9 mg/dL (8.4-10.2); Carbon Dioxide 27 mmol/L (22-32); Chloride 104 mmol/L (98-107); Estimated Glomerular Filt Rate 31 mL/min (>60); Globulin 3.3 g/dL (1.7-4.1); Glucose 113 mg/dL (80-110); HEMOLYSIS 35 (0-50); Potassium 4.9 mmol/L (3.4-5.1); Sodium 140 mmol/L (137-145); Total Protein 7.7 g/dL (6.3-8.2)
[2021-10-05 11:44] LABS: Cholesterol 146 mg/dL (140-199); HDL Cholesterol 38 mg/dL (40-60); LDL Cholesterol Calculated 70 mg/dL (<100); Triglycerides 189 mg/dL (35-150)
[2021-10-05 12:13] LABS: Prostate Specific Antigen 0.131 ng/mL (0.10-4.00)
== END ==
PROVIDERS: PCP Internal Medicine; Referring Provider Internal Medicine Hematology & Oncology; Visit Provider Internal Medicine Hematology & Oncology
DX: E78.2 Mixed hyperlipidemia (principal); R97.20 Elevated prostate specific antigen [PSA]; C34.90 Malignant neoplasm of unspecified part of unspecified bronchus or lung; C61 Malignant neoplasm of prostate; C64.2 Malignant neoplasm of left kidney, except renal pelvis
CPT/HCPCS: 36415; 80053; 80061; 84153; 85025

== ENCOUNTER → 2021-10-12 09:55 | Outpatient (CLI) | payer MEDICARE, SELFPAY ==
[2018-04-22 16:10] VITALS: BMI 44.2
--- NOTE | 2021-10-12 09:56 | DI.CT.S_ITS ---
PROCEDURE: CT CHEST ABD PEL WO CON INDICATIONS: prostate cancer, lung cancer and RCC TECHNIQUE: After the administration of oral contrast, 5 mm thick sections acquired from the lung apices to the symphysis pubis. 5 mm thick coronal and sagittal reformats acquired, with additional 7 mm coronal MIP reformats through the lungs. For radiation dose reduction, the following was used: automated exposure control, adjustment of mA and/or kV according to patient size. COMPARISON: [facility], CT, CT CHEST ABD PEL WO CON, 10/13/2020, 9:58. FINDINGS: Image quality: Excellent. CHEST: Lungs and pleura: The lungs have emphysematous changes. Peripheral subpleural fibrotic changes are unchanged. Granulomatous calcifications are present in the lower lobes.. Small left pleural effusion. Central and peripheral airways are patent and normal in caliber. Mediastinum: Heart size is normal. The coronary arteries have atherosclerotic calcifications. No pericardial effusion. No mediastinal adenopathy by size criteria. Thoracic aorta and central pulmonary arteries are normal in size. Esophagus is normal in caliber. No hiatal hernia. Chest wall: No axillary or supraclavicular adenopathy by size criteria. Thyroid gland is normal . ABDOMEN: Solid organs: Liver: The liver has no mass or intrahepatic biliary ductal dilatation. The portal vein and hepatic veins are patent. Biliary: The gallbladder has no gallstones, pericholecystic fluid, gallbladder wall thickening, or surrounding inflammatory change. Pancreas: The pancreas has no mass or ductal dilatation. There is no surrounding inflammation. Spleen: Normal size. There are no masses. Adrenals: No hypertrophy or nodules. Kidneys: Status post left nephrectomy. The right kidney has stranding surround the kidney, likely related to age and unchanged compared to the prior CT. No solid mass. No cystic mass. Bowel: The distal esophagus and stomach are normal. The small bowel has a normal caliber and appearance. The terminal ileum is normal. The large bowel has a normal caliber and appearance. The appendix is normal. No free fluid or air. Nodes and vessels: No retroperitoneal or mesenteric adenopathy by size criteria. The aorta has atherosclerosis with no aneurysmal dilatation. The IVC has a normal caliber. Abdominal wall: No abdominal wall mass or hernia. PELVIS: Genitourinary: The bladder is decompressed with wall thickening unchanged in appearance compared to the prior CT. No bladder calcifications. The prostate contains multiple metallic beads. BONES: No suspicious bony lesions. Degenerative changes with no focal abnormality. No vertebral body compression fractures. IMPRESSION: 1. No evidence of metastatic disease to the chest, abdomen, or pelvis. 2. Left nephrectomy without recurrent or residual disease. 3. Stable appearance of the prostate with brachytherapy seeds. 4. Small left pleural effusion. Dictated by: Stephen Hamilton M.D. on 10/12/2021 at 14:40 Approved by: Stephen Hamilton M.D. on 10/12/2021 at 14:50
== END ==
PROVIDERS: PCP Internal Medicine; Referring Provider Internal Medicine Hematology & Oncology; Visit Provider Internal Medicine Hematology & Oncology
DX: Z08 Encounter for follow-up examination after completed treatment for malignant neoplasm; J90 Pleural effusion, not elsewhere classified; Z85.46 Personal history of malignant neoplasm of prostate; Z85.528 Personal history of other malignant neoplasm of kidney; Z85.118 Personal history of other malignant neoplasm of bronchus and lung; Z90.5 Acquired absence of kidney
CPT/HCPCS: 71250; 74176

== ENCOUNTER → 2022-10-06 09:08 | Outpatient (CLI) | payer MEDICARE, SELFPAY ==
[2018-04-22 16:10] VITALS: BMI 44.2
[2022-10-06 09:43] LABS: Add Manual Diff / Slide Review NO; Basophils Absolute Auto 0 /uL (0-100); Basophils Percent Auto 0.4 % (0-2); Eosinophils Absolute Auto 100 /uL (0-450); Eosinophils Percent Auto 1.2 % (2-4); Lymphocytes Absolute Auto 900 /uL (1100-4500); Lymphocytes Percent Auto 10.3 % (25-40); Mean Corpuscular HGB Conc 33.4 % (30-36); Mean Corpuscular Hemoglobin 29.3 PG (26-34); Mean Corpuscular Volume 87.7 fL (80-100); Monocytes Absolute Auto 700 /uL (0-900); Monocytes Percent Auto 7.9 % (3-14); Neutrophils Absolute Auto 6900 /uL (1500-7000); Neutrophils Percent Auto 80.2 % (50-75); Platelet Count 145 X10^3/uL (150-400); Red Blood Cell Count 4.45 X10^6/uL (4.5-5.9); White Blood Cell Count 8.6 X10^3/uL (4.5-11.0)
[2022-10-06 09:54] LABS: Alanine Aminotransferase 29 IU/L (<50); Albumin 3.9 g/dL (3.5-5.0); Albumin Globulin Ratio 1.1 (1.0-2.8); Alkaline Phosphatase 135 U/L (38-126); Aspartate Aminotransferase 28 IU/L (17-59); BUN Creatinine Ratio 20.8 (6-22); Bilirubin Total 0.5 mg/dL (0.2-1.3); Blood Urea Nitrogen 45 mg/dL (9-20); Calcium 8.8 mg/dL (8.4-10.2); Carbon Dioxide 25 mmol/L (22-32); Chloride 108 mmol/L (98-107); Estimated Glomerular Filt Rate 30 mL/min (>60); Globulin 3.4 g/dL (1.7-4.1); Glucose 110 mg/dL (80-110); HEMOLYSIS 23 (0-50); Potassium 5.2 mmol/L (3.4-5.1); Sodium 140 mmol/L (137-145); Total Protein 7.3 g/dL (6.3-8.2)
[2022-10-06 10:24] LABS: Prostate Specific Antigen 0.105 ng/mL (0.10-4.00)
[2022-10-06 10:27] LABS: Testosterone 117 ng/dL (71.8-623)
== END ==
PROVIDERS: Internal Medicine Hematology & Oncology; PCP Internal Medicine; Referring Provider Internal Medicine; Visit Provider Internal Medicine
DX: C34.90 Malignant neoplasm of unspecified part of unspecified bronchus or lung (principal); C61 Malignant neoplasm of prostate; C64.2 Malignant neoplasm of left kidney, except renal pelvis
CPT/HCPCS: 36415; 80053; 84153; 84403; 85025

== ENCOUNTER → 2022-10-12 12:44 | Outpatient (CLI) | payer MEDICARE, SELFPAY ==
[2018-04-22 16:10] VITALS: BMI 44.2
--- NOTE | 2022-10-12 12:46 | DI.CT.S_ITS ---
PROCEDURE: CT CHEST ABD PEL WO CON INDICATIONS: prostate cancer, lung cancer, RCC TECHNIQUE: After the administration of oral contrast, 5 mm thick sections acquired from the lung apices to the symphysis pubis. 5 mm thick coronal and sagittal reformats acquired, with additional 7 mm coronal MIP reformats through the lungs. For radiation dose reduction, the following was used: automated exposure control, adjustment of mA and/or kV according to patient size. COMPARISON: [facility], CT, CT CHEST ABD PEL WO CON, 10/12/2021, 10:02. FINDINGS: Image quality: Excellent. Evaluation of the solid parenchymal organs is limited without IV contrast. CHEST: Lungs and pleura: Interlobular septal thickening. Multiple scattered calcified granulomas. A few pulmonary nodules measuring 0.4 cm or less. These findings appear similar to last year. Small left pleural effusion is slightly decreased. No pneumothorax. Central and peripheral airways are patent are normal in caliber. Mediastinum: Heart size is normal. Three-vessel coronary artery calcifications. No pericardial effusion. No mediastinal adenopathy by CT size criteria. Thoracic aorta and central pulmonary arteries are normal in size. Esophagus is normal in caliber. No hiatal hernia. Chest wall: No axillary or supraclavicular adenopathy by size criteria. Thyroid gland is unremarkable. ABDOMEN: Solid organs: Liver is normal in size. Hepatic steatosis. Gallbladder is decompressed. Haziness of the pericholecystic fat, similar to last year. Pancreas is normal in contours. Spleen is normal in size. No adrenal nodules. Left nephrectomy. No mass in the nephrectomy bed. No right hydronephrosis. Peritoneum and bowel: Small and large bowel loops are normal in caliber and wall thickness. Normal appendix. No free fluid or air. Nodes and vessels: No retroperitoneal or mesenteric adenopathy by size criteria. Aorta and inferior vena cava are normal in size. Miscellaneous: No ventral hernias. PELVIS: Genitourinary: Bladder is decompressed. This limits evaluation. Prostate fiducial markers. Miscellaneous: No inguinal hernias or adenopathy. Bones: No suspicious bony lesions. DDD. No vertebral body compression fractures. IMPRESSION: Evaluation of the solid parenchymal organs is limited without IV contrast. 1. Similar pulmonary reticular thickening. Chronic small left pleural effusion is slightly decreased. 2. No enlarged lymph nodes identified. 3. Left nephrectomy. No mass. 4. Similar chronic pericholecystic fat stranding. This could be seen in the setting of chronic cholecystitis. The gallbladder is not distended. Recommend clinical correlation. 5. Prostate fiducial markers. No suspicious osseous lesion seen. Dictated by: Cristian Angeles M.D. on 10/12/2022 at 14:19 Approved by: Cristian Angeles M.D. on 10/12/2022 at 14:30
== END ==
PROVIDERS: PCP Internal Medicine; Referring Provider Internal Medicine Hematology & Oncology; Visit Provider Internal Medicine Hematology & Oncology
DX: C34.90 Malignant neoplasm of unspecified part of unspecified bronchus or lung (principal); C61 Malignant neoplasm of prostate; C64.2 Malignant neoplasm of left kidney, except renal pelvis; J90 Pleural effusion, not elsewhere classified; R91.8 Other nonspecific abnormal finding of lung field; K76.0 Fatty (change of) liver, not elsewhere classified; I25.10 Atherosclerotic heart disease of native coronary artery without angina pectoris; Z90.5 Acquired absence of kidney
CPT/HCPCS: 71250; 74176

== ENCOUNTER → 2022-11-20 10:12 | Outpatient (CLI) | payer MEDICARE, SELFPAY ==
[2018-04-22 16:10] VITALS: BMI 44.2
== END ==
PROVIDERS: PCP Internal Medicine; Referring Provider Dermatology; Visit Provider Surgery
DX: L59.8 Other specified disorders of the skin and subcutaneous tissue related to radiation (principal); S01.00XA Unspecified open wound of scalp, initial encounter
CPT/HCPCS: 11042; 99203; 99213

== ENCOUNTER → 2022-11-28 10:29 | Outpatient (CLI) | payer MEDICARE, SELFPAY ==
[2018-04-22 16:10] VITALS: BMI 44.2
== END ==
PROVIDERS: PCP Internal Medicine; Referring Provider Dermatology; Visit Provider Surgery
DX: L59.8 Other specified disorders of the skin and subcutaneous tissue related to radiation (principal); S01.00XA Unspecified open wound of scalp, initial encounter
CPT/HCPCS: 11042

== ENCOUNTER → 2022-12-05 10:26 | Outpatient (CLI) | payer MEDICARE, SELFPAY ==
[2018-04-22 16:10] VITALS: BMI 44.2
== END ==
PROVIDERS: Family Provider Internal Medicine; PCP Internal Medicine; Referring Provider Dermatology; Visit Provider Surgery
DX: L59.8 Other specified disorders of the skin and subcutaneous tissue related to radiation (principal); S01.00XA Unspecified open wound of scalp, initial encounter
CPT/HCPCS: 15275; Q4196

== ENCOUNTER → 2022-12-13 09:19 | Outpatient (CLI) | payer MEDICARE, SELFPAY ==
[2018-04-22 16:10] VITALS: BMI 44.2
== END ==
PROVIDERS: Family Provider Internal Medicine; PCP Internal Medicine; Referring Provider Dermatology; Visit Provider Surgery
DX: L59.8 Other specified disorders of the skin and subcutaneous tissue related to radiation (principal); S01.00XA Unspecified open wound of scalp, initial encounter; I89.0 Lymphedema, not elsewhere classified
CPT/HCPCS: 15275; Q4196

== ENCOUNTER → 2022-12-19 10:33 | Outpatient (CLI) | payer MEDICARE, SELFPAY ==
[2018-04-22 16:10] VITALS: BMI 44.2
== END ==
PROVIDERS: Family Provider Internal Medicine; PCP Internal Medicine; Referring Provider Dermatology; Visit Provider Surgery
DX: L59.8 Other specified disorders of the skin and subcutaneous tissue related to radiation (principal); S01.00XA Unspecified open wound of scalp, initial encounter
CPT/HCPCS: 15275; 99213; Q4196

== ENCOUNTER → 2022-12-26 10:18 | Outpatient (CLI) | payer MEDICARE, SELFPAY ==
[2018-04-22 16:10] VITALS: BMI 44.2
== END ==
PROVIDERS: Family Provider Internal Medicine; PCP Internal Medicine; Referring Provider Dermatology; Visit Provider Surgery
DX: S01.00XA Unspecified open wound of scalp, initial encounter (principal); L59.8 Other specified disorders of the skin and subcutaneous tissue related to radiation; I89.0 Lymphedema, not elsewhere classified
CPT/HCPCS: 15275; 99212; Q4196

== ENCOUNTER → 2023-01-02 10:48 | Outpatient (CLI) | payer MEDICARE, SELFPAY ==
[2018-04-22 16:10] VITALS: BMI 44.2
== END ==
PROVIDERS: Family Provider Internal Medicine; PCP Internal Medicine; Referring Provider Dermatology; Visit Provider Surgery
DX: L59.8 Other specified disorders of the skin and subcutaneous tissue related to radiation (principal); S01.00XA Unspecified open wound of scalp, initial encounter; I10 Essential (primary) hypertension; Z85.828 Personal history of other malignant neoplasm of skin; Z92.3 Personal history of irradiation; Z85.118 Personal history of other malignant neoplasm of bronchus and lung; Z85.46 Personal history of malignant neoplasm of prostate; Z85.528 Personal history of other malignant neoplasm of kidney
CPT/HCPCS: 15275; Q4160

== ENCOUNTER → 2023-01-08 11:16 | Outpatient (CLI) | payer MEDICARE, SELFPAY ==
[2018-04-22 16:10] VITALS: BMI 44.2
== END ==
PROVIDERS: Family Provider Internal Medicine; PCP Internal Medicine; Referring Provider Dermatology; Visit Provider Surgery
DX: L59.8 Other specified disorders of the skin and subcutaneous tissue related to radiation (principal); S01.00XA Unspecified open wound of scalp, initial encounter
CPT/HCPCS: 15275; Q4196

== ENCOUNTER → 2023-01-16 10:43 | Outpatient (CLI) | payer MEDICARE, SELFPAY ==
[2018-04-22 16:10] VITALS: BMI 44.2
== END ==
PROVIDERS: Family Provider Internal Medicine; PCP Internal Medicine; Referring Provider Dermatology; Visit Provider Surgery
DX: L59.8 Other specified disorders of the skin and subcutaneous tissue related to radiation (principal); S01.00XD Unspecified open wound of scalp, subsequent encounter
CPT/HCPCS: 15275; 99213; Q4160

== ENCOUNTER → 2023-01-23 09:22 | Outpatient (CLI) | payer MEDICARE, SELFPAY ==
[2018-04-22 16:10] VITALS: BMI 44.2
== END ==
PROVIDERS: Family Provider Internal Medicine; PCP Internal Medicine; Referring Provider Dermatology; Visit Provider Surgery
DX: L59.8 Other specified disorders of the skin and subcutaneous tissue related to radiation (principal); S01.00XA Unspecified open wound of scalp, initial encounter; I89.0 Lymphedema, not elsewhere classified
CPT/HCPCS: 15275; Q4160

== ENCOUNTER → 2023-01-30 10:35 | Outpatient (CLI) | payer MEDICARE, SELFPAY ==
[2018-04-22 16:10] VITALS: BMI 44.2
== END ==
PROVIDERS: Family Provider Internal Medicine; PCP Internal Medicine; Referring Provider Dermatology; Visit Provider Surgery
DX: L59.8 Other specified disorders of the skin and subcutaneous tissue related to radiation (principal); S01.00XA Unspecified open wound of scalp, initial encounter; I89.0 Lymphedema, not elsewhere classified
CPT/HCPCS: 15275; Q4160

== ENCOUNTER → 2023-02-06 10:04 | Outpatient (CLI) | payer MEDICARE, SELFPAY ==
[2018-04-22 16:10] VITALS: BMI 44.2
== END ==
PROVIDERS: Family Provider Internal Medicine; PCP Internal Medicine; Referring Provider Dermatology; Visit Provider Surgery
DX: L59.8 Other specified disorders of the skin and subcutaneous tissue related to radiation (principal); S01.00XA Unspecified open wound of scalp, initial encounter
CPT/HCPCS: 15275; Q4160

== ENCOUNTER → 2023-02-13 09:45 | Outpatient (CLI) | payer MEDICARE, SELFPAY ==
[2018-04-22 16:10] VITALS: BMI 44.2
== END ==
PROVIDERS: Family Provider Internal Medicine; PCP Internal Medicine; Referring Provider Dermatology; Visit Provider Surgery
DX: T81.89XA Other complications of procedures, not elsewhere classified, initial encounter (principal); L59.8 Other specified disorders of the skin and subcutaneous tissue related to radiation; S01.00XA Unspecified open wound of scalp, initial encounter; I10 Essential (primary) hypertension; Z85.828 Personal history of other malignant neoplasm of skin; Z85.118 Personal history of other malignant neoplasm of bronchus and lung; Z85.46 Personal history of malignant neoplasm of prostate; Z85.528 Personal history of other malignant neoplasm of kidney; Z92.3 Personal history of irradiation; Z90.5 Acquired absence of kidney
CPT/HCPCS: 15275; Q4160

== ENCOUNTER 2023-02-20 13:39 | Emergency (ER) | payer MEDICARE, SELFPAY ==
[2018-04-22 16:10] VITALS: BMI 44.2
[2023-02-20] VITALS (14 sets, daily range): BP systolic 136–161; BP diastolic 60–67; PULSE 53–65; RESP 14–24; TEMP 36.6; O2SAT 92–96; BMI 46.6
--- NOTE | 2023-02-20 13:50 | DI.RAD.S_ITS ---
PROCEDURE: XR CHEST 1V INDICATIONS: Shortness of breath TECHNIQUE: One view of the chest was acquired. COMPARISON: None. FINDINGS: Surgical changes and devices: None. Lungs and pleura: Bilateral lung interstitial prominence of central pulmonary vascular congestion. No pleural effusions or pneumothorax. Mediastinum: Mediastinal contours appear normal. Heart is enlarged. Bones and chest wall: No suspicious bony lesions. Overlying soft tissues appear unremarkable. IMPRESSION: Cardiomegaly with central pulmonary vascular congestion interstitial prominence concerning for CHF/fluid overload. Dictated by: Rosaura Orozco MD, PhD on 02/20/2023 at 14:53 Approved by: Rosaura Orozco MD, PhD on 02/20/2023 at 14:53
[2023-02-20 14:10] LABS: Add Manual Diff / Slide Review NO; Basophils Absolute Auto 0 /uL (0-100); Basophils Percent Auto 0.3 % (0-2); Eosinophils Absolute Auto 100 /uL (0-450); Eosinophils Percent Auto 0.9 % (2-4); Hematocrit 39.3 % (41-53); Hemoglobin 12.8 g/dL (13.5-17.5); Lymphocytes Absolute Auto 600 /uL (1100-4500); Lymphocytes Percent Auto 7.9 % (25-40); Mean Corpuscular HGB Conc 32.6 % (30-36); Mean Corpuscular Hemoglobin 29.1 PG (26-34); Mean Corpuscular Volume 89.3 fL (80-100); Monocytes Absolute Auto 500 /uL (0-900); Monocytes Percent Auto 6.7 % (3-14); Neutrophils Absolute Auto 6300 /uL (1500-7000); Neutrophils Percent Auto 84.2 % (50-75); Platelet Count 101 X10^3/uL (150-400); Red Cell Distribution Width 15.3 % (11.6-14.8); White Blood Cell Count 7.5 X10^3/uL (4.5-11.0)
[2023-02-20 14:17] LABS: Alanine Aminotransferase 78 IU/L (<50); Albumin Globulin Ratio 1.3 (1.0-2.8); Alkaline Phosphatase 142 U/L (38-126); Aspartate Aminotransferase 49 IU/L (17-59); BUN Creatinine Ratio 27.6 (6-22); Bilirubin Total 0.6 mg/dL (0.2-1.3); Blood Urea Nitrogen 50 mg/dL (9-20); Calcium 9.5 mg/dL (8.4-10.2); Carbon Dioxide 22 mmol/L (22-32); Chloride 109 mmol/L (98-107); Creatine Kinase 116 U/L (55-170); Estimated Glomerular Filt Rate 37 mL/min (>60); Globulin 3.2 g/dL (1.7-4.1); Glucose 89 mg/dL (80-110); HEMOLYSIS 16 (0-50); Lipase 142 U/L (23-300); Sodium 139 mmol/L (137-145); Total Protein 7.2 g/dL (6.3-8.2)
[2023-02-20 14:26] LABS: NT-proBNP (BNP-Adult 18+) 555 pg/mL (<450)
[2023-02-20 14:29] LABS: Troponin I < 0.012 ng/mL (0.01-0.034)
--- NOTE | 2023-02-20 14:32 | ED.GENADULT ---
HPI - General Adult General Chief complaint: Shortness of Breath/Dyspnea Stated complaint: sent from [facility] shortness of breath dizzy Time Seen by Provider: 02/20/23 13:49 Source: patient and family Mode of arrival: Wheelchair History of Present Illness HPI narrative: 82-year-old male. Is somewhat hard of hearing so much of the HPI and review of systems is provided by family at bedside. Patient was sent from the walk-in clinic for evaluation of shortness of breath. He has a history of COPD. No known diagnosis of heart failure although he is on carvedilol. He is not on anticoagulation. He is a DNR. Has had a cough. Not on oxygen. Patient's family at bedside states that he has been progressively worsening shortness of breath specifically with exertion for some time now. It was his family that brought him to the walk-in clinic and eventually to the emergency department today. Patient denies chest pain. Does have lower extremity swelling with this does not appear to be new. Related Data Home Medications Medication Instructions Recorded Confirmed ipratropium 20 mcg-albuterol 100 1 puff INH PRN PRN COPD ##0 12/25/16 02/20/23 mcg/actuation mist for inhalation (Combivent Respimat) acetaminophen 500 mg tablet 500 mg PO PRN PRN Pain (Scale 03/23/17 02/20/23 (Tylenol Extra Strength) Score 4-6) ##0 aspirin 81 mg tablet,delayed 81 mg PO DAILY 11/26/17 02/20/23 release calcium carbonate 600 mg-vitamin 1 tab PO BID 11/26/17 02/20/23 D3 10 mcg (400 unit) tablet (Calcium with Vitamin D) omyzzhpd-bni-rhcsp acid 0.4 1 tab PO DAILY 11/26/17 02/20/23 mg-lycopene 300 mcg-lutein 250 mcg tablet (Centrum Silver) vitamins A,C,Z-hmec-jtsgyv 4,296 1 cap PO BID 09/24/18 02/20/23 mcg-226 mg-90 mg capsule (PreserVision AREDS) metronidazole 0.75 % topical cream 1 applic topical BID 10/05/21 02/20/23 Previous Rx's Medication Instructions Recorded losartan 100 1 tab PO DAILY #90 tabs 06/01/22 mg-hydrochlorothiazide 25 mg tablet triamcinolone acetonide 0.1 % 1 applic topical TID PRN Rash #30 09/14/22 topical cream grams atorvastatin 20 mg tablet (Lipitor) 20 mg PO DAILY #90 tabs 10/02/22 mupirocin 2 % topical ointment 1 applic topical TID #15 grams 01/06/23 amlodipine 5 mg tablet 5 mg PO DAILY #90 tabs 02/19/23 carvedilol 25 mg tablet 25 mg PO BID #180 tabs 02/19/23 furosemide 20 mg tablet (Lasix) 40 mg (2 x 20 mg) PO DAILY #60 tabs 02/20/23 Allergies Allergy/AdvReac Type Severity Reaction Status Date / Time tamsulosin [TAMSULOSIN] Allergy Severe DIZZINESS, Verified 02/20/23 13:09 LIGHTHEADEDNESS tetanus and diphtheria Allergy Severe HIVES Verified 02/20/23 13:09 toxoids [tetanus & diphtheria toxoids] Penicillins Allergy Unknown PT UNSURE Verified 02/20/23 13:09 OF REACTION Review of Systems Constitutional Constitutional: Reports system reviewed and no additional complaints, except as documented Cardiovascular Cardiovascular: Reports system reviewed and no additional complaints, except as documented Respiratory Respiratory: Reports system reviewed and no additional complaints, except as documented Gastrointestinal Gastrointestinal: Reports system reviewed and no additional complaints, except as documented Musculoskeletal Musculoskeletal: Reports system reviewed and no additional complaints, except as documented Integumentary/Breasts Skin/Breast: Reports system reviewed and no additional complaints, except as documented Neurologic Neurologic: Reports system reviewed and no additional complaints, except as documented Patient History Medical History Allergic rhinitis 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 Do not resuscitate Severe obesity (BMI >= 40) Chronic kidney disease, stage 3b Mixed hyperlipidemia Essential hypertension Fractures Mumps Measles Chicken pox Retinal detachment Hearing loss Cataracts, bilateral Tibial plateau fracture, right (~09/2017) Dizziness Perforated nasal septum Glucose intolerance LBBB (left bundle branch block) CKD (chronic kidney disease) CAD (coronary artery disease) Former smoker COPD (chronic obstructive pulmonary disease) Surgical History Anesthesia Hx of bilateral cataract extraction (~2016) History of colonoscopy Hx of heart artery stent (~2002) History of bilateral knee replacement History of lobectomy of lung (~2015) H/O left nephrectomy (~2014) Social History household members: children occupational status: previously employed Smoking Status: Former smoker Tobacco: How many years used: 40 alcohol intake: current substance use type: does not use Smoking Status: Former smoker alcohol intake frequency: a few times a week Substance Use Type: does not use Exam Initial Vital Signs Initial Vital Signs: Vital Signs Temperature 97.9 F 02/20/23 13:42 Pulse Rate 65 02/20/23 13:42 Respiratory Rate 24 02/20/23 13:42 Blood Pressure 141/63 H 02/20/23 13:42 Pulse Oximetry 96 02/20/23 13:42 Oxygen Delivery Method Room Air 02/20/23 13:42 HENMT Head: normal to inspection and normocephalic Resp Effort & Inspection: not labored and tachypneic Auscultation: clear to auscultation bilaterally Cardio Rate: regular rate Rhythm: regular rhythm GI Inspection: normal to inspection Skin General: no rashes or lesions noted Neuro General: patient alert, patient awake and moves all extremities Extrem General: edema Course Orders Ordered: ED Orders 02/20/23 13:50 XR chest 1V Stat EKG-12 Lead Stat Measure peak expiratory flow ONCE RT Consult Eval and Treat NOW 02/20/23 14:00 Complete Blood Count AUTO DIFF Stat Comprehensive Metabolic Panel Stat D Dimer Stat Lipase Stat NT-proBNP (BNP-Adult 18+) Stat Troponin & CK Cardiac Panel Stat 02/20/23 14:24 Respiratory Panel (Film Array) Stat 02/20/23 14:31 ABG [Arterial Blood Gas] Stat 02/20/23 15:50 Venous Blood Gas Stat Discontinued Medications Furosemide 60 mg/ Sodium (Chloride) 56 mls @ 112 mls/hr IV NOW ONE Stop: 02/20/23 15:19 Last Infusion: 02/20/23 16:10 Dose: Infused Documented By: Admin: 02/20/23 15:50 Dose: 112 mls/hr Documented By: TRAVIS Vital Signs Vital signs: Vital Signs - 8 hr 02/20/23 13:42 02/20/23 14:35 02/20/23 15:00 Temperature 97.9 F Pulse Rate 65 58 L 53 L Respiratory Rate 24 15 16 Blood Pressure 141/63 H Pulse Oximetry 96 95 92 Oxygen Delivery Method Room Air 02/20/23 15:06 02/20/23 15:06 02/20/23 15:30 Temperature Pulse Rate 56 L 59 L Respiratory Rate 16 14 Blood Pressure 161/67 H Pulse Oximetry 93 92 Oxygen Delivery Method 02/20/23 15:31 02/20/23 15:31 02/20/23 16:00 Temperature Pulse Rate 59 L 55 L Respiratory Rate 15 14 Blood Pressure 136/65 Pulse Oximetry 93 95 Oxygen Delivery Method 02/20/23 16:02 02/20/23 16:02 02/20/23 16:30 Temperature Pulse Rate 53 L 55 L Respiratory Rate 15 18 Blood Pressure 141/65 H Pulse Oximetry 94 95 Oxygen Delivery Method 02/20/23 17:00 02/20/23 17:30 02/20/23 18:00 Temperature Pulse Rate 55 L 63 Respiratory Rate 14 15 Blood Pressure 145/60 H Pulse Oximetry 95 94 Oxygen Delivery Method 02/20/23 18:00 02/20/23 18:30 02/20/23 18:31 Temperature Pulse Rate 53 L 58 L 56 L Respiratory Rate 14 19 18 Blood Pressure Pulse Oximetry 94 95 95 Oxygen Delivery Method Room Air 02/20/23 18:31 Temperature Pulse Rate Respiratory Rate Blood Pressure 145/67 H Pulse Oximetry Oxygen Delivery Method Medical Decision Making Lab Data Lab results reviewed: Yes I reviewed the patient's lab results. 02/20/23 14:00 02/20/23 14:00 Labs: Lab Results 02/20/23 02/20/23 02/20/23 Range/Units 14:00 14:00 14:24 WBC 7.5 (4.5-11.0) X10^3/uL RBC 4.40 L (4.5-5.9) X10^6/uL Hgb 12.8 L (13.5-17.5) g/dL Hct 39.3 L (41-53) % MCV 89.3 (80-100) fL MCH 29.1 (26-34) PG MCHC 32.6 (30-36) % RDW 15.3 H (11.6-14.8) % Plt Count 101 L (150-400) X10^3/uL Neut % (Auto) 84.2 H (50-75) % Lymph % (Auto) 7.9 L (25-40) % Lucas % (Auto) 6.7 (3-14) % Eos % (Auto) 0.9 L (2-4) % Baso % (Auto) 0.3 (0-2) % Neut # (Auto) 6300 (8369-1446) /uL Lymph # (Auto) 600 L (8878-8583) /uL Lucas # (Auto) 500 (0-900) /uL Eos # (Auto) 100 (0-450) /uL Baso # (Auto) 0 (0-100) /uL D-Dimer 328 (<500) ng/ml VBG pH (7.33-7.43) VBG pCO2 (45-50) mmHg VBG pO2 (35-45) mmHg VBG HCO3 (24-28) mmol/L VBG Total CO2 (24-29) mmol/L VBG O2 Saturation (70-75) % VBG Base Excess (0-4) mmol/L FiO2 Sodium 139 (137-145) mmol/L Potassium 5.0 (3.4-5.1) mmol/L Chloride 109 H (98-107) mmol/L Carbon Dioxide 22 (22-32) mmol/L BUN 50 H (9-20) mg/dL Creatinine 1.81 H (0.66-1.25) mg/dL Estimated GFR 37 L (>60) mL/min BUN/Creatinine Ratio 27.6 H (6-22) Glucose 89 (80-110) mg/dL Calcium 9.5 (8.4-10.2) mg/dL Total Bilirubin 0.6 (0.2-1.3) mg/dL AST 49 (17-59) IU/L ALT 78 H (<50) IU/L Alkaline Phosphatase 142 H (38-126) U/L Total Creatine Kinase 116 (55-170) U/L Troponin I Cancelled < 0.012 NT-Pro-B Natriuret Pep 555 H (<450) pg/mL Total Protein 7.2 (6.3-8.2) g/dL Albumin 4.0 (3.5-5.0) g/dL Globulin 3.2 (1.7-4.1) g/dL Albumin/Globulin Ratio 1.3 (1.0-2.8) Lipase 142 (23-300) U/L Chlamy pneumoniae PCR Not detected (Not Detect) Adenovirus (PCR) Not detected (Not Detect) B.parapertussis DNA PCR Not detected (Not Detecte) Coronavirus OC43 (PCR) Not detected (Not Detect) Coronavirus HKU1 (PCR) Not detected (Not Detect) Coronavirus 229E (PCR) Not detected (Not Detect) SARS-CoV-2 (PCR) Not detected (Not Detecte) Coronavirus NL63 (PCR) Not detected (Not Detect) Human Metapneumovir PCR Not detected (Not Detect) Influenza Type A (PCR) Not detected (Not Detect) Influenza Type B (PCR) Not detected (Not Detect) M. pneumoniae (PCR) Not detected (Not Detect) Parainfluenza 1 (PCR) Not detected (Not Detect) Parainfluenza 2 (PCR) Not detected (Not Detect) Parainfluenza 3 (PCR) Not detected (Not Detect) Parainfluenza 4 (PCR) Not detected (Not Detect) RSV (PCR) Not detected (Not Detect) Entero/Rhino (PCR) Not detected (Not Detect) 02/20/23 Range/Units 15:50 WBC (4.5-11.0) X10^3/uL RBC (4.5-5.9) X10^6/uL Hgb (13.5-17.5) g/dL Hct (41-53) % MCV (80-100) fL MCH (26-34) PG MCHC (30-36) % RDW (11.6-14.8) % Plt Count (150-400) X10^3/uL Neut % (Auto) (50-75) % Lymph % (Auto) (25-40) % Lucas % (Auto) (3-14) % Eos % (Auto) (2-4) % Baso % (Auto) (0-2) % Neut # (Auto) (3854-3114) /uL Lymph # (Auto) (3300-6152) /uL Lucas # (Auto) (0-900) /uL Eos # (Auto) (0-450) /uL Baso # (Auto) (0-100) /uL D-Dimer (<500) ng/ml VBG pH 7.25 L (7.33-7.43) VBG pCO2 53.3 H (45-50) mmHg VBG pO2 59 H (35-45) mmHg VBG HCO3 23 L (24-28) mmol/L VBG Total CO2 25 (24-29) mmol/L VBG O2 Saturation 85 H (70-75) % VBG Base Excess -4.0 L (0-4) mmol/L FiO2 21 Sodium (137-145) mmol/L Potassium (3.4-5.1) mmol/L Chloride (98-107) mmol/L Carbon Dioxide (22-32) mmol/L BUN (9-20) mg/dL Creatinine (0.66-1.25) mg/dL Estimated GFR (>60) mL/min BUN/Creatinine Ratio (6-22) Glucose (80-110) mg/dL Calcium (8.4-10.2) mg/dL Total Bilirubin (0.2-1.3) mg/dL AST (17-59) IU/L ALT (<50) IU/L Alkaline Phosphatase (38-126) U/L Total Creatine Kinase (55-170) U/L Troponin I NT-Pro-B Natriuret Pep (<450) pg/mL Total Protein (6.3-8.2) g/dL Albumin (3.5-5.0) g/dL Globulin (1.7-4.1) g/dL Albumin/Globulin Ratio (1.0-2.8) Lipase (23-300) U/L Chlamy pneumoniae PCR (Not Detect) Adenovirus (PCR) (Not Detect) B.parapertussis DNA PCR (Not Detecte) Coronavirus OC43 (PCR) (Not Detect) Coronavirus HKU1 (PCR) (Not Detect) Coronavirus 229E (PCR) (Not Detect) SARS-CoV-2 (PCR) (Not Detecte) Coronavirus NL63 (PCR) (Not Detect) Human Metapneumovir PCR (Not Detect) Influenza Type A (PCR) (Not Detect) Influenza Type B (PCR) (Not Detect) M. pneumoniae (PCR) (Not Detect) Parainfluenza 1 (PCR) (Not Detect) Parainfluenza 2 (PCR) (Not Detect) Parainfluenza 3 (PCR) (Not Detect) Parainfluenza 4 (PCR) (Not Detect) RSV (PCR) (Not Detect) Entero/Rhino (PCR) (Not Detect) Imaging Data Chest x-ray: Radiologist's Impression: PROCEDURE: XR CHEST 1V INDICATIONS: Shortness of breath TECHNIQUE: One view of the chest was acquired. COMPARISON: None. FINDINGS: Surgical changes and devices: None. Lungs and pleura: Bilateral lung interstitial prominence of central pulmonary vascular congestion. No pleural effusions or pneumothorax. Mediastinum: Mediastinal contours appear normal. Heart is enlarged. Bones and chest wall: No suspicious bony lesions. Overlying soft tissues appear unremarkable. IMPRESSION: Cardiomegaly with central pulmonary vascular congestion interstitial prominence concerning for CHF/fluid overload. ECG Data Attestation: I personally reviewed and interpreted this ECG as follows: Interpretation: Ventricular rate of 66 Left bundle-branch block QTC 515 MDM Narrative Medical decision making narrative: Patient does have history of COPD. He is not retaining CO2. His chest x-ray does show pulmonary edema but no signs of pneumonia. The rest of his respiratory panel is negative. Kidney functions unremarkable. He does have lower extremity edema. D-dimer is negative. Low suspicion for ACS. He ambulated around the emergency department here. Lowest oxygen saturation was 93%. He stated that he was not short of breath. He did diurese after receiving IV Lasix. Plan will be to discharge home with Lasix. He should follow-up with his primary doctor to discuss the indications for an echocardiogram. He was given return precautions. Discharge Plan Departure Patient Disposition: Home Clinical Impression: Pulmonary edema, Shortness of breath Instructions: DI for Shortness of Breath Activity Restrictions/Additional Instructions: Recommend that you continue to take all of your medications as directed. We are going to start you on a medicine called furosemide/Lasix. This medicine will make you urinate so I suggest that you take it in the morning. Also recommend that tomorrow you contact your primary doctor for follow-up to discuss the indications for a echocardiogram. Return to the emergency department for new or worsening symptoms. Prescriptions: New furosemide [Lasix] 20 mg tablet 40 mg PO DAILY Qty: 60 0RF No Action mupirocin 2 % ointment 1 applic topical TID Qty: 15 0RF Combivent Respimat 4 GM mist 1 puff INH PRN PRN (Reason: COPD) Qty: 0 Patient Comments: ? 2 months ago acetaminophen [Tylenol Extra Strength] 500 MG tablet 500 mg PO PRN PRN (Reason: Pain (Scale Score 4-6)) Qty: 0 losartan-hydrochlorothiazide 100-25 mg tablet 1 tab PO DAILY Qty: 90 3RF atorvastatin [Lipitor] 20 mg tablet 20 mg PO DAILY Qty: 90 3RF amlodipine 5 mg tablet 5 mg PO DAILY Qty: 90 4RF carvedilol 25 mg tablet 25 mg PO BID Qty: 180 4RF metronidazole 0.75 % cream 1 applic topical BID Patient Comments: APPLY TOPICALLY A THIN LAYER TO WHOLE FACE EVERY MORNING AND NIGHT triamcinolone acetonide 0.1 % cream 1 applic topical TID PRN (Reason: Rash) Qty: 30 5RF PreserVision AREDS 14,320-226-200 fgkc-mp-bfhz capsule 1 cap PO BID aspirin 81 mg Tablet,Delayed Release (Dr/Ec) 81 mg PO DAILY Centrum Silver 0.4-300-250 mg-mcg-mcg Tablet 1 tab PO DAILY calcium carbonate-vitamin D3 [Calcium with Vitamin D] 600 mg(1,500mg) -400 unit Tablet 1 tab PO BID Referrals: Sam Danielson MD [Primary Care Provider] - Stand Alone Forms: Patient Portal/API
[2023-02-20] MEDS: FUROSEMIDE 60 MG in SODIUM CHLORIDE 0.9% 50 ML 112 MG IV (15:50)
[2023-02-20 15:53] LABS: Adenovirus Not Detected (Not Detect); B. parapertussis Not Detected (Not Detecte); Bordetella pertussis Not Detected (Not Detect); Chlamydophila pneumoniae Not Detected (Not Detect); Coronavirus 229E Not Detected (Not Detect); Coronavirus HKU1 Not Detected (Not Detect); Coronavirus NL 63 Not Detected (Not Detect); Coronavirus OC43 Not Detected (Not Detect); Human Metapneumovirus Not Detected (Not Detect); Human Rhinovirus/Enterovirus Not Detected (Not Detect); Influenza A Not Detected (Not Detect); Influenza B Not Detected (Not Detect); Mycoplasma pneumoniae Not Detected (Not Detect); Parainfluenza Virus 1 Not Detected (Not Detect); Parainfluenza Virus 2 Not Detected (Not Detect); Parainfluenza Virus 3 Not Detected (Not Detect); Parainfluenza Virus 4 Not Detected (Not Detect); Respiratory Syncytial Virus Not Detected (Not Detect); SARS- CoV-2 Not Detected (Not Detecte)
[2023-02-20 16:08] LABS: pH VBG 7.25 (7.33-7.43)
[2023-02-20 16:09] LABS: HCO3 VBG 23 mmol/L (24-28); Oxygen Saturation VBG 85 % (70-75); PCO2 VBG 53.3 mmHg (45-50); PO2 VBG 59 mmHg (35-45); Total CO2 VBG 25 mmol/L (24-29)
[2023-02-20 16:17] LABS: D Dimer 328 ng/ml (<500)
[2023-02-20 16:19] LABS: Fractionated Inspired Oxygen 21
== END 2023-02-20 18:55 | disposition home or self-care (01) ==
PROVIDERS: Emergency Provider Emergency Medicine; Family Provider Internal Medicine; PCP Internal Medicine
DX: J81.1 Chronic pulmonary edema (principal); R06.02 Shortness of breath; J44.9 Chronic obstructive pulmonary disease, unspecified; Z20.822 Contact with and (suspected) exposure to COVID-19
CPT/HCPCS: 36415; 71045; 80053; 82550; 82805; 83690; 83880; 84484; 85025; 85379; 87633; 93005; 93010; 96365; 99284; J1940

== ENCOUNTER → 2023-02-27 11:10 | Outpatient (CLI) | payer MEDICARE, SELFPAY ==
[2018-04-22 16:10] VITALS: BMI 44.2
[2023-02-27 13:36] LABS: BUN Creatinine Ratio 26.6 (6-22); Blood Urea Nitrogen 62 mg/dL (9-20); Calcium 9.4 mg/dL (8.4-10.2); Carbon Dioxide 29 mmol/L (22-32); Chloride 102 mmol/L (98-107); Estimated Glomerular Filt Rate 27 mL/min (>60); Glucose 74 mg/dL (80-110); HEMOLYSIS < 15 (0-50); Potassium 4.5 mmol/L (3.4-5.1); Sodium 140 mmol/L (137-145)
== END ==
PROVIDERS: Family Provider Internal Medicine; PCP Internal Medicine; Referring Provider Internal Medicine; Visit Provider Internal Medicine
DX: J81.1 Chronic pulmonary edema (principal); R06.02 Shortness of breath
CPT/HCPCS: 36415; 80048

== ENCOUNTER → 2023-02-27 11:20 | Outpatient (CLI) | payer MEDICARE, SELFPAY ==
[2018-04-22 16:10] VITALS: BMI 44.2
== END ==
PROVIDERS: Family Provider Internal Medicine; PCP Internal Medicine; Referring Provider Internal Medicine; Visit Provider Surgery
DX: L59.8 Other specified disorders of the skin and subcutaneous tissue related to radiation (principal); I89.0 Lymphedema, not elsewhere classified; S01.00XD Unspecified open wound of scalp, subsequent encounter; I10 Essential (primary) hypertension
CPT/HCPCS: 15275; 99212; 99214; Q4196

== ENCOUNTER → 2023-03-06 14:37 | Outpatient (CLI) | payer MEDICARE, SELFPAY ==
[2018-04-22 16:10] VITALS: BMI 44.2
== END ==
PROVIDERS: Family Provider Internal Medicine; PCP Internal Medicine; Referring Provider Dermatology; Visit Provider Surgery
DX: L59.8 Other specified disorders of the skin and subcutaneous tissue related to radiation (principal); I89.0 Lymphedema, not elsewhere classified; S01.00XD Unspecified open wound of scalp, subsequent encounter
CPT/HCPCS: 15275; 99212; Q4160

== ENCOUNTER → 2023-03-08 09:05 | Outpatient (CLI) | payer MEDICARE, SELFPAY ==
[2018-04-22 16:10] VITALS: BMI 44.2
--- NOTE | 2023-03-08 | DI.ECHO.S_ITS ---
[facility]---------+ [facility] +---------+ : : [address] [place] : : : : [id number] : : : : Phone: [phone]---------+ Echocardiogram Report + + :Name: PRINCESS DILLARD Study Date: 03/08/2023 Height: 68 in : :[facility] ReadingLocation: Weight: 294 lb : : Gender: Male BSA: 2.4 m2 : :: 1940 Age: 82 yrs BP: 138/68 mmHg: :Reason For Study: HEART FAILURE : :Ordering Physician: LAURI, : :TENNILLE Performed By: Halle Palumbo : :Referring: TENNILLE CARREON : + + Interpretation Summary The left ventricle is normal in size and wall thickness. The ejection fraction is estimated to be 55-60%. There is basal inferior wall akinesis. Thin and bright LV wall segment suggests a myocardial infarction along the same basal inferior segment. The right ventricle is grossly normal size. The right ventricular systolic function is normal. The right ventricular systolic pressure is estimated to be at least 55 mmHg based on an estimated right atrial pressure of 15 mm Hg. Procedure: A two-dimensional transthoracic echocardiogram with color flow and Doppler was performed in limited views only. The study quality was technically difficult. A contrast injection of Definity was performed to improve assessment of LV function. The patient was in sinus rhythm with heart rates between 62-70 bpm during the exam. Left Ventricle: The left ventricle is normal in size and wall thickness. The ejection fraction is estimated to be 55-60%. There is basal inferior wall akinesis. Thin and bright LV wall segment suggests a myocardial infarction. Right Ventricle: The right ventricle is grossly normal size. The right ventricular systolic function is normal. Aortic Valve: The aortic valve opens well. There is no aortic valve stenosis. Tricuspid Valve: There is mild tricuspid regurgitation. The right ventricular systolic pressure is estimated to be at least 55 mmHg based on an estimated right atrial pressure of 15 mm Hg. Great Vessels: The IVC is dilated (diameter is greater than 2.1 cm) and it collapses less than 50% with a sniff. This suggests a high right atrial pressure of 15 mm Hg. Pericardium/ Pleura There is no pericardial effusion. There is no pleural effusion. MMode/2D Measurements & Calculations LVIDd: 4.6 cm LA A4 area: 20.4 cm2 LVIDs: 3.0 cm FS: 34.1 % IVSd: 1.1 cm LVPWd: 0.94 cm LV wick. diameter/BSA (cm/m^2): 1.9 LV sys. diameter/BSA (cm/m^2): 1.3 RA area: 19.4 cm2 TAPSE: 1.7 cm IVC diam: 2.1 cm Doppler Measurements & Calculations Ao V2 max: 148.5 cm/sec LVOT Max Mario: 97.8 cm/sec Ao V2 mean: 98.8 cm/sec LV V1 max P.8 mmHg Ao max P.8 mmHg LV V1 VTI: 21.0 cm Ao mean P.6 mmHg sev ratio: 0.67 Ao V2 VTI: 31.6 cm TR max mario: 314.5 cm/sec TR max P.6 mmHg Reading Physician:04:16 PM
== END ==
PROVIDERS: Family Provider Internal Medicine; PCP Internal Medicine; Referring Provider Internal Medicine; Visit Provider Internal Medicine
DX: I07.1 Rheumatic tricuspid insufficiency (principal); J81.1 Chronic pulmonary edema; I50.9 Heart failure, unspecified; R06.02 Shortness of breath
CPT/HCPCS: 93307; Q9957

== ENCOUNTER → 2023-03-14 09:53 | Outpatient (CLI) | payer MEDICARE, SELFPAY ==
[2018-04-22 16:10] VITALS: BMI 44.2
== END ==
PROVIDERS: Family Provider Internal Medicine; PCP Internal Medicine; Referring Provider Dermatology; Visit Provider Surgery
DX: S01.00XA Unspecified open wound of scalp, initial encounter (principal); L59.8 Other specified disorders of the skin and subcutaneous tissue related to radiation; Z90.5 Acquired absence of kidney; I25.2 Old myocardial infarction; I10 Essential (primary) hypertension
CPT/HCPCS: 15275; 99213; Q4160

== ENCOUNTER → 2023-03-19 11:32 | Outpatient (CLI) | payer MEDICARE, SELFPAY ==
[2018-04-22 16:10] VITALS: BMI 44.2
[2023-03-19 17:46] LABS: BUN Creatinine Ratio 21.1 (6-22); Blood Urea Nitrogen 48 mg/dL (9-20); Calcium 9.5 mg/dL (8.4-10.2); Carbon Dioxide 23 mmol/L (22-32); Chloride 106 mmol/L (98-107); Estimated Glomerular Filt Rate 28 mL/min (>60); Glucose 88 mg/dL (80-110); HEMOLYSIS < 15 (0-50); Potassium 5.1 mmol/L (3.4-5.1); Sodium 138 mmol/L (137-145)
[2023-03-21 17:36] LABS: Prostate Specific Antigen 0.162 ng/mL (0.10-4.00)
== END ==
PROVIDERS: Family Provider Internal Medicine; PCP Internal Medicine; Referring Provider Internal Medicine; Visit Provider Internal Medicine
DX: N18.32 Chronic kidney disease, stage 3b (principal); C61 Malignant neoplasm of prostate
CPT/HCPCS: 36415; 80048; 84153

== ENCOUNTER → 2023-03-20 10:00 | Outpatient (CLI) | payer MEDICARE, SELFPAY ==
[2018-04-22 16:10] VITALS: BMI 44.2
--- NOTE | 2023-03-22 11:41 | PC.NURSE ---
SHANTEL: left voicemail for patient to call and discuss.
== END ==
PROVIDERS: Family Provider Internal Medicine; PCP Internal Medicine; Referring Provider Dermatology; Visit Provider Surgery
DX: L59.8 Other specified disorders of the skin and subcutaneous tissue related to radiation (principal); S01.00XA Unspecified open wound of scalp, initial encounter; I11.0 Hypertensive heart disease with heart failure; I25.2 Old myocardial infarction
CPT/HCPCS: 15275; Q4160

== ENCOUNTER → 2023-03-26 10:01 | Outpatient (CLI) | payer MEDICARE, SELFPAY ==
[2018-04-22 16:10] VITALS: BMI 44.2
--- NOTE | 2023-03-26 10:04 | DI.CT.S_ITS ---
PROCEDURE: CT CHEST ABD PEL WO CON INDICATIONS: prostate,kidney and lung cancers TECHNIQUE: After the administration of oral contrast, 5 mm thick sections acquired from the lung apices to the symphysis pubis. 5 mm thick coronal and sagittal reformats acquired, with additional 7 mm coronal MIP reformats through the lungs. For radiation dose reduction, the following was used: automated exposure control, adjustment of mA and/or kV according to patient size. COMPARISON: [facility], CT, CT CHEST ABD PEL WO CON, 10/12/2022, 13:07. FINDINGS: Image quality: Excellent. CHEST: Lungs and pleura: Stable tree-in-bud nodules within the upper lobes. Stable reticulation of the lung bases. Calcified granuloma in the right lower lobe. Small left pleural effusion, decreased from prior. Similar pulmonary micro nodules. Mediastinum: Heart size is mildly enlarged. No pericardial effusion. No mediastinal adenopathy by CT size criteria. Thoracic aorta and central pulmonary arteries are normal in size. Esophagus is normal in caliber. No hiatal hernia. Three-vessel coronary calcifications. Chest wall: No axillary or supraclavicular adenopathy by size criteria. Thyroid gland is unremarkable . ABDOMEN: Solid organs: Liver is normal in size. Gallbladder demonstrates pericholecystic fat stranding but no hydrops or radiopaque stones. . Pancreas is normal in contours. Spleen is normal in size. No adrenal nodules. Left nephrectomy. Normal appearance of the right kidney. Peritoneum and bowel: Small and large bowel loops are normal in caliber and wall thickness. No free fluid or air. Nodes and vessels: No retroperitoneal or mesenteric adenopathy by size criteria. Aorta and inferior vena cava are normal in size. Miscellaneous: No ventral hernias. PELVIS: Genitourinary: Bladder wall thickness is normal. Prostate fiducial markers. Miscellaneous: Trace fat within the left inguinal canal. No adenopathy. Bones: No suspicious bony lesions. No vertebral body compression fractures. Stable dense lesions within the L3 vertebral body and T6. IMPRESSION: Similar bibasilar reticulation within the lungs, and small left pleural effusion. No measurable pulmonary malignancy. Left nephrectomy without evidence of local recurrence or belkys disease. Prostate fiducial markers, without pelvic adenopathy or aggressive bony abnormality. Dictated by: Bartolo Gifford M.D. on 03/26/2023 at 12:57 Approved by: Bartolo Gifford M.D. on 03/26/2023 at 13:01
== END ==
PROVIDERS: Family Provider Internal Medicine; PCP Internal Medicine; Referring Provider Internal Medicine; Visit Provider Internal Medicine
DX: C34.90 Malignant neoplasm of unspecified part of unspecified bronchus or lung (principal); C61 Malignant neoplasm of prostate; C64.2 Malignant neoplasm of left kidney, except renal pelvis; J90 Pleural effusion, not elsewhere classified; Z90.5 Acquired absence of kidney
CPT/HCPCS: 71250; 74176

== ENCOUNTER → 2023-03-26 13:42 | Outpatient (CLI) | payer MEDICARE, SELFPAY ==
[2018-04-22 16:10] VITALS: BMI 44.2
== END ==
PROVIDERS: Family Provider Internal Medicine; PCP Internal Medicine; Referring Provider Dermatology; Visit Provider Surgery
DX: L59.8 Other specified disorders of the skin and subcutaneous tissue related to radiation (principal); I89.0 Lymphedema, not elsewhere classified; S01.00XD Unspecified open wound of scalp, subsequent encounter; C34.90 Malignant neoplasm of unspecified part of unspecified bronchus or lung; C61 Malignant neoplasm of prostate; C64.2 Malignant neoplasm of left kidney, except renal pelvis; J90 Pleural effusion, not elsewhere classified; Z90.5 Acquired absence of kidney
CPT/HCPCS: 71250; 74176; 99183; G0277

== ENCOUNTER → 2023-03-27 14:01 | Outpatient (CLI) | payer MEDICARE, SELFPAY ==
[2018-04-22 16:10] VITALS: BMI 44.2
== END ==
PROVIDERS: Family Provider Internal Medicine; PCP Internal Medicine; Referring Provider Dermatology; Visit Provider Surgery
DX: L59.8 Other specified disorders of the skin and subcutaneous tissue related to radiation (principal); I89.0 Lymphedema, not elsewhere classified; S01.00XD Unspecified open wound of scalp, subsequent encounter
CPT/HCPCS: 15275; 99183; 99212; 99213; G0277; Q4160

== ENCOUNTER → 2023-03-28 14:08 | Outpatient (CLI) | payer MEDICARE, SELFPAY ==
[2018-04-22 16:10] VITALS: BMI 44.2
== END ==
PROVIDERS: Family Provider Internal Medicine; PCP Internal Medicine; Referring Provider Dermatology; Visit Provider Surgery
DX: L59.8 Other specified disorders of the skin and subcutaneous tissue related to radiation (principal); I89.0 Lymphedema, not elsewhere classified; S01.00XD Unspecified open wound of scalp, subsequent encounter
CPT/HCPCS: 99183; G0277

== ENCOUNTER → 2023-03-29 14:13 | Outpatient (CLI) | payer MEDICARE, SELFPAY ==
[2018-04-22 16:10] VITALS: BMI 44.2
== END ==
PROVIDERS: Family Provider Internal Medicine; PCP Internal Medicine; Referring Provider Dermatology; Visit Provider Physician Assistant
DX: L59.8 Other specified disorders of the skin and subcutaneous tissue related to radiation (principal); I89.0 Lymphedema, not elsewhere classified; S01.00XD Unspecified open wound of scalp, subsequent encounter
CPT/HCPCS: 99183; G0277

== ENCOUNTER → 2023-04-04 13:23 | Outpatient (CLI) | payer MEDICARE, SELFPAY ==
[2018-04-22 16:10] VITALS: BMI 44.2
== END ==
LOC: WC 13:24
PROVIDERS: Family Provider Internal Medicine; PCP Internal Medicine; Referring Provider Internal Medicine; Visit Provider Surgery
DX: L59.8 Other specified disorders of the skin and subcutaneous tissue related to radiation (principal); S01.00XA Unspecified open wound of scalp, initial encounter
CPT/HCPCS: 99183; 99212; G0277

== ENCOUNTER → 2023-04-05 13:27 | Outpatient (CLI) | payer MEDICARE, SELFPAY ==
[2018-04-22 16:10] VITALS: BMI 44.2
== END ==
LOC: WC 13:28
PROVIDERS: Family Provider Internal Medicine; PCP Internal Medicine; Referring Provider Dermatology; Visit Provider Physician Assistant
DX: L59.8 Other specified disorders of the skin and subcutaneous tissue related to radiation (principal); I89.0 Lymphedema, not elsewhere classified; S01.00XD Unspecified open wound of scalp, subsequent encounter
CPT/HCPCS: 99183; G0277

== ENCOUNTER → 2023-04-06 13:02 | Outpatient (CLI) | payer MEDICARE, SELFPAY ==
[2018-04-22 16:10] VITALS: BMI 44.2
== END ==
LOC: WC 13:07
PROVIDERS: Family Provider Internal Medicine; PCP Internal Medicine; Referring Provider Dermatology; Visit Provider Surgery
DX: L59.8 Other specified disorders of the skin and subcutaneous tissue related to radiation (principal); I89.0 Lymphedema, not elsewhere classified; S01.00XD Unspecified open wound of scalp, subsequent encounter
CPT/HCPCS: 99183; G0277

== ENCOUNTER → 2023-04-10 14:48 | Outpatient (CLI) | payer MEDICARE, SELFPAY ==
[2018-04-22 16:10] VITALS: BMI 44.2
== END ==
LOC: WC 14:50
PROVIDERS: Family Provider Internal Medicine; PCP Internal Medicine; Referring Provider Dermatology; Visit Provider Surgery
DX: L59.8 Other specified disorders of the skin and subcutaneous tissue related to radiation (principal); I89.0 Lymphedema, not elsewhere classified; S01.00XD Unspecified open wound of scalp, subsequent encounter
CPT/HCPCS: 99183; G0277

== ENCOUNTER → 2023-04-11 12:58 | Outpatient (CLI) | payer MEDICARE, SELFPAY ==
[2018-04-22 16:10] VITALS: BMI 44.2
== END ==
LOC: WC 13:00
PROVIDERS: Family Provider Internal Medicine; PCP Internal Medicine; Referring Provider Dermatology; Visit Provider Surgery
DX: L59.8 Other specified disorders of the skin and subcutaneous tissue related to radiation (principal); S01.00XA Unspecified open wound of scalp, initial encounter; H91.23 Sudden idiopathic hearing loss, bilateral; I10 Essential (primary) hypertension
CPT/HCPCS: 97602; 99214

== ENCOUNTER → 2023-04-16 13:04 | Outpatient (CLI) | payer MEDICARE, SELFPAY ==
[2018-04-22 16:10] VITALS: BMI 44.2
== END ==
LOC: WC 13:07
PROVIDERS: Family Provider Internal Medicine; PCP Internal Medicine; Referring Provider Dermatology; Visit Provider Surgery
DX: L59.8 Other specified disorders of the skin and subcutaneous tissue related to radiation (principal); S01.00XD Unspecified open wound of scalp, subsequent encounter
CPT/HCPCS: 99212; 99213

== ENCOUNTER 2023-04-18 14:30 | Outpatient (RCR) | payer MEDICARE, SELFPAY ==
[2018-04-22 16:10] VITALS: BMI 44.2
--- NOTE | 2023-01-02 16:00 | PT.OPPOC ---
Physical, Occupational & Speech Therapy At [facility] Current Diagnoses Lymphedema, not elsewhere classified (01/03/23) Visit Care Team Role Provider Type Sam Danielson MD Family Provider Physician Primary Care Provider Specialty: Internal Medicine Address: [address] [place] [address], [id number] Email: [email or web address] Vora MD Attending Provider Physician Referring Provider Specialty: Wound Care Address: [address] [place] [address], [id number] Email: [email or web address] Plan Of Care PT-OP-T Assessment and Plan Start: 01/01/23 14:47 Freq: Status: Active Protocol: Document 01/02/23 12:31 SAK (Rec: 01/02/23 17:55 [facility] [id number]) Physical Therapy Assessment Rehab Potential Rehabilitation Potential Good Evaluation Complexity Number of Personal Factors/Comorbidities 3 or More Number of Body Systems Impaired 3 Clinical Presentation at Evaluation Evolving Impairments Impairments Activity Tolerance,Edema Goals Two Impairment activity intolerance Impairment LYmphedema Life impact scale 48% Short Term Goal (STG) Improve Lymphedema Life Impact scale to no greater than 38% as measure of improved activity tolerance and quality of life STG Duration 02/16/23 [facility] Goal (LTG) Improve lymphedema Life Impact scale to no greater than 25% as measure of improved activity tolerance and quality of life. LTG Duration 04/02/23 One Impairment lymphedema manny LE's Short Term Goal (STG) Patient to be instructed in all aspects of lymphedema care to include skin care, manual lymphatic drainage, compression and lymphedema exercises STG Duration 02/16/23 Engineer Systems Goal (LTG) Decrease lymphedema to stable level (no increase or decrease greater than 1 cm over the course of 1 week), patient to be independent with all aspects of lymphedema self- care including obtaining appropriate compression garments. LTG Duration 04/02/23 Assessment Summary Assessment Patient presents to PT with 2 year history function-limiting and worsening lymphedema stage III with skin changes including hyperkeratosis, fibrosis, and papillomas lower legs and hyperkeratosis and fibrosis upper legs. Currently wearing knee high compression stockings but only 30% of the time per his report. Has had no other treatment for his lymphedema. He is at high risk for further complications of lymphedema such as cellulitis and open wounds due to his poorly managed lymphedema. He has sedentary lifestyle. Lives with his daughter who is a nurse and will be included in patient education as able to help her father manage his lymphedema. Recommend CDT ( complete decongestive therapy) which includes skin care, manual lymphatic drainage, compression, and lymphedema exercises. POC was discussed and patient was in agreement. Physical Therapy Plan Frequency and Duration Frequency of Treatment 20 visits Duration of treatment (weeks) 12 Plan of Care Start Date 01/02/23 Plan of Care End Date 04/03/23 Therapeutic Interventions Therapeutic Interventions Gait Training,Home Exercise Program,Lymphedema Management, Manual Therapy,Self-Care/Home Management,Soft Tissue Mobilization,Therapeutic Activities,Therapeutic Exercises Modalities Vasopneumatic Devices Next Visit Focus/Plan Next Note Type Treatment Note Next Visit Plan Provide skin care and MLD, trial sequential pneumatic pump, application of compression which may be current compression stockings with Comprilan trial if doesn' t have larger footwear. REview lymphedema exercises and self MLD. Plan of Care Dates Plan of Care Start Date 01/02/23 Plan of Care End Date 04/03/23 Electronically Signed by: Radha Tobias, PT 01/03/23 0849 If you are in agreement with this Plan of Care, please return a signed and dated copy. I have reviewed this Plan of Care and certify that the skilled therapy services above are required to meet the patient?s needs. Physician Signature Date Printed Name and Credentials Clinical Instructor Signature Printed Name and Credentials
--- NOTE | 2023-01-02 16:00 | PT.OIE ---
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 Tibial plateau fracture, right (~09/2017) Past Surgical History (Last Reviewed 09/14/22 @ 03:52 by Sam Danielson MD) Anesthesia H/O left nephrectomy (~2014) History of bilateral knee replacement History of colonoscopy History of lobectomy of lung (~2015) Hx of bilateral cataract extraction (~2016) Hx of heart artery stent (~2002) Visit Care Team Role Provider Type Sam Danielson MD Family Provider Physician Primary Care Provider Specialty: Internal Medicine Address: [address] [place] [address], [facility] Email: [email or web address] Vora MD Attending Provider Physician Referring Provider Specialty: Wound Care Address: [address] [place] [address], [facility] Email: [email or web address] Physical Therapy Initial Evaluation PT-OP-A Visit Information Start: 01/01/23 14:47 Freq: Status: Active Protocol: Document 01/02/23 12:31 [facility]LEJANDR[facility] (Rec: 01/02/23 13:53 [facility] [id number]) Out-Patient Physical Therapy Visit Information Visit Information Visit Type Initial Evaluation Visit Start Time 12:31 Visit Stop Time 14:00 Total Visit Minutes 89 Visit Number 1 Evaluation Information Evaluation Date 01/02/23 Precautions Precautions PMH:Medical History (Updated 09/14/22 @ 10:43 by Sam Danielson MD) Allergic rhinitis CAD (coronary artery disease) Cataracts, bilateral Chicken pox Chronic kidney disease, stage 3b CKD (chronic kidney disease) COPD (chronic obstructive pulmonary disease) Dizziness Do not resuscitate Essential hypertension Former smoker Fractures Glucose intolerance Hearing loss LBBB (left bundle branch block ) Measles Mixed hyperlipidemia Mumps Perforated nasal septum Retinal detachment Severe obesity (BMI >= 40) 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 Tibial plateau fracture, right (~09/2017) Prostate cancer with radiation Surgical History (Reviewed 11/29 @ 03:52 by Sam Dnaielson MD) Anesthesia H/O left nephrectomy (~2014) History of bilateral knee replacement History of colonoscopy History of lobectomy of lung ( ~2015) Hx of bilateral cataract extraction (~2016) Hx of heart artery stent (~ 2002) PT-OP-B Current Condition Start: 01/01/23 14:47 Freq: Status: Active Protocol: Document 01/02/23 12:31 [facility] (Rec: 01/02/23 13:53 [facility] [id number]) Current Condition History of Current Condition Onset Date 2 years ago Current Complaints swelling bilateral legs History of Current Condition First noticed swelling bilateral legs about 2 years ago, [facility] doctor recommended compression stockings, has been wearing knee high compression stockings since then but admits to only wearing about 30% of the time . States seems like getting worse and has skin changes with thickening and blistering . Patient admits to sedentary lifestyle, only exercise is 2days per week pulmonary rehab maintenance. States sits and reads and watches TV a lot. No other treatment for his lymphedema. Lives with daughter (nurse at ) and son -in-law. Prior Treatments and Tests radiation to prostate, left kidney removed, left upper lung lobe removed. 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 Dr. Andrews for kidney issues. 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 Baseline Function- Recreation/Hobbies reads and watches TV Current Functional Impairments (Reported) Functional Limitations- ADL's increased time Functional Limitations- Mobility/Gait more limited, legs are heavy Functional Limitations- Work/School retired Functional Limitations- Recreation/ able to read and watch TV Hobbies PT-OP-C Subjective Start: 01/01/23 14:47 Freq: Status: Active Protocol: Document 01/02/23 12:31 [facility] (Rec: 01/02/23 17:55 [facility] [id number]) Patient Questionnaires Lymphedema Life Impact Score Lymphedema Score 47 OP-PT Pain Assessment Pain Assessment Grid Paper Pain Assessment Grid Completed Yes Location manny LE's Intensity 3 PT-OP-G Mobility & Gait Start: 01/01/23 14:47 Freq: Status: Active Protocol: Document 01/02/23 12:31 [facility] (Rec: 01/02/23 17:55 [facility] [id number]) OP Mobility Evaluation Bed Mobility Supine to and from Sit indep but labored Transfers Sit to Stand indep but labored OP Gait Assessment Gait Gait Assistance Required: Independent Assistive Devices Assistive Device Tripod Cane/Hurry Cane Gait Deviations General Gait Pattern Decreased Stride Length, Decreased Feet Clearance Comments Gait Comments limited by edema, generalized weakness PT-OP-J Posture/Palpation/Skin Start: 01/01/23 14:47 Freq: Status: Active Protocol: Document 01/02/23 12:31 [facility] (Rec: 01/02/23 17:55 [facility] [id number]) Palpation Assessment Location manny LE's Palpation Findings Edema,Soft Tissue Tightness Skin Assessment Other Assessments Skin Assessment Comments hyperkeratosis, multiple areas of pappilomas PT-OP-M Strength Start: 01/01/23 14:47 Freq: Status: Active Protocol: Document 01/02/23 12:31 [facility] (Rec: 01/02/23 17:55 [facility] [id number]) Hip Strength Hip Manual Muscle Testing manny Comments grossly 3+ throughout Knee Strength Knee Manual Muscle Testing manny Flexion (S2) 4 Good Extension (L3) 4 Good Ankle/Foot Strength Ankle and Foot Manual Muscle Testing manny Dorsiflexion (L4) 4- Good- Plantarflexion (S1) 4- Good- PT-OP-N Lymphedema Start: 01/01/23 14:47 Freq: Status: Active Protocol: Document 01/02/23 12:31 [facility] (Rec: 01/02/23 13:53 [facility] [id number]) Lymphedema Measurements Lower Extremity Circumference Measurements Right Affected MT Heads 26.8 cm Mid-foot 26.8 cm Medial Malleolus 36.3 cm 10 cm From Medial Malleolus 40.9 cm 20 cm From Medial Malleolus 50.3 cm 30 cm From Medial Malleolus 52.3 cm 40 cm From Medial Malleolus 51.7 cm 50 cm From Medial Malleolus 59.8 cm 60 cm From Medial Malleolus 68.1 cm 70 cm From Medial Malleolus 73.4 cm Knee Joint 51.7 cm Left Affected MT Heads 27.2 cm Mid-foot 27.6 cm Medial Malleolus 37.8 cm 10 cm From Medial Malleolus 40.1 cm 20 cm From Medial Malleolus 49.9 cm 30 cm From Medial Malleolus 52.2 cm 40 cm From Medial Malleolus 50.4 cm 50 cm From Medial Malleolus 57.3 cm 60 cm From Medial Malleolus 66.2 cm 70 cm From Medial Malleolus 72.7 cm Knee Joint 50.4 cm - from anterior ankle crease Comments Lymphedema Comments manny LE lymphedema most severe below the knee with multiple areas of hyperkeratosis and pappilomas, no open areas at this time. Positive Stemmer sign PT-OP-Q Treatments Start: 01/01/23 14:47 Freq: Status: Active Protocol: Document 01/02/23 12:31 [facility] (Rec: 01/02/23 17:55 [facility] [id number]) Lymphedema Treatment Manual Lymphatic Drainage Location manny LE's Duration 20 Lymphedema Wrapping Body Location left LE Materials Tricofix size G, Artiflex (2), Comprilan 6,8,10 Other demonstration to patient what is involved in bandaging; unable to fit foot in shoe and not willing to wear slipper or shoe cover; patient to try to find or obtain appropriate footwear to allow him to be bandaged. Sequential Lymphedema Exercises Location instructed and issued written handout Compression Garment Assessment Compression Garment Assessment Details patient educated in importance of wearing daily Patient Education Lymphedema Pathology patient educated usingposters Lymphedema Prevention patient educated in importance of increased movement and exercise Lymphedema Precautions patient educated Compression Garments initiated instruction in options Self Manual Lymphatic Drainage instructed and issued handout Sequential Lymphedema Exercises instructed including importance of exercise while wearing compression PT-OP-T Assessment and Plan Start: 01/01/23 14:47 Freq: Status: Active Protocol: Document 01/02/23 12:31 [facility] (Rec: 01/02/23 17:55 [facility] [id number]) Physical Therapy Assessment Rehab Potential Rehabilitation Potential Good Evaluation Complexity Number of Personal Factors/Comorbidities 3 or More Number of Body Systems Impaired 3 Clinical Presentation at Evaluation Evolving Impairments Impairments Activity Tolerance,Edema Goals Two Impairment activity intolerance Impairment LYmphedema Life impact scale 48% Short Term Goal (STG) Improve Lymphedema Life Impact scale to no greater than 38% as measure of improved activity tolerance and quality of life STG Duration 02/16/23 [employer] Goal (LTG) Improve lymphedema Life Impact scale to no greater than 25% as measure of improved activity tolerance and quality of life. LTG Duration 04/02/23 One Impairment lymphedema manny LE's Short Term Goal (STG) Patient to be instructed in all aspects of lymphedema care to include skin care, manual lymphatic drainage, compression and lymphedema exercises STG Duration 02/16/23 [employer] Goal (LTG) Decrease lymphedema to stable level (no increase or decrease greater than 1 cm over the course of 1 week), patient to be independent with all aspects of lymphedema self- care including obtaining appropriate compression garments. LTG Duration 04/02/23 Assessment Summary Assessment Patient presents to PT with 2 year history function-limiting and worsening lymphedema stage III with skin changes including hyperkeratosis, fibrosis, and papillomas lower legs and hyperkeratosis and fibrosis upper legs. Currently wearing knee high compression stockings but only 30% of the time per his report. Has had no other treatment for his lymphedema. He is at high risk for further complications of lymphedema such as cellulitis and open wounds due to his poorly managed lymphedema. He has sedentary lifestyle. Lives with his daughter who is a nurse and will be included in patient education as able to help her father manage his lymphedema. Recommend CDT ( complete decongestive therapy) which includes skin care, manual lymphatic drainage, compression, and lymphedema exercises. POC was discussed and patient was in agreement. Physical Therapy Plan Frequency and Duration Frequency of Treatment 20 visits Duration of treatment (weeks) 12 Plan of Care Start Date 01/02/23 Plan of Care End Date 04/03/23 Therapeutic Interventions Therapeutic Interventions Gait Training,Home Exercise Program,Lymphedema Management, Manual Therapy,Self-Care/Home Management,Soft Tissue Mobilization,Therapeutic Activities,Therapeutic Exercises Modalities Vasopneumatic Devices Next Visit Focus/Plan Next Note Type Treatment Note Next Visit Plan Provide skin care and MLD, trial sequential pneumatic pump, application of compression which may be current compression stockings with Comprilan trial if doesn' t have larger footwear. REview lymphedema exercises and self MLD.
--- NOTE | 2023-01-03 12:29 | PT.OTN ---
Current Diagnoses Lymphedema, not elsewhere classified (01/03/23) Physical Therapy Treatment Note PT-OP-A Visit Information Start: 01/01/23 14:47 Freq: Status: Active Protocol: Document 01/03/23 10:12 [facility] (Rec: 01/03/23 10:17 [facility] [id number]) Out-Patient Physical Therapy Visit Information Visit Information Visit Type Treatment Note Visit Start Time 08:45 Visit Stop Time 10:10 Total Visit Minutes 85 Visit Number 2 Evaluation Information Evaluation Date 01/02/23 Precautions Precautions PMH:Medical History (Updated 09/14/22 @ 10:43 by Sam Danielson MD) Allergic rhinitis CAD (coronary artery disease) Cataracts, bilateral Chicken pox Chronic kidney disease, stage 3b CKD (chronic kidney disease) COPD (chronic obstructive pulmonary disease) Dizziness Do not resuscitate Essential hypertension Former smoker Fractures Glucose intolerance Hearing loss LBBB (left bundle branch block ) Measles Mixed hyperlipidemia Mumps Perforated nasal septum Retinal detachment Severe obesity (BMI >= 40) 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 Tibial plateau fracture, right (~09/2017) Prostate cancer with radiation Surgical History (Reviewed 11/29 @ 03:52 by Sam Danielson MD) Anesthesia H/O left nephrectomy (~2014) History of bilateral knee replacement History of colonoscopy History of lobectomy of lung ( ~2015) Hx of bilateral cataract extraction (~2016) Hx of heart artery stent (~ 2002) PT-OP-B Current Condition Start: 01/01/23 14:47 Freq: Status: Active Protocol: Document 01/03/23 10:12 [facility] (Rec: 01/03/23 10:17 [facility] [id number]) Current Condition History of Current Condition Onset Date 2 years ago Current Complaints swelling bilateral legs History of Current Condition First noticed swelling bilateral legs about 2 years ago, [facility] doctor recommended compression stockings, has been wearing knee high compression stockings since then but admits to only wearing about 30% of the time . States seems like getting worse and has skin changes with thickening and blistering . Patient admits to sedentary lifestyle, only exercise is 2days per week pulmonary rehab maintenance. States sits and reads and watches TV a lot. No other treatment for his lymphedema. Lives with daughter (nurse at ) and son -in-law. Prior Treatments and Tests radiation to prostate, left kidney removed, left upper lung lobe removed. 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 Dr. Andrews for kidney issues. Treatment Goals Patient/Caregiver Goals Decrease swelling and help him to self-manage his edema, prevent worsening PT-OP-C Subjective Start: 01/01/23 14:47 Freq: Status: Active Protocol: Document 01/02/23 12:31 [facility] (Rec: 01/02/23 17:55 [facility] [id number]) Patient Questionnaires Lymphedema Life Impact Score Lymphedema Score 47 OP-PT Pain Assessment Pain Assessment Grid Paper Pain Assessment Grid Completed Yes Location manny LE's Intensity 3 PT-OP-G Mobility & Gait Start: 01/01/23 14:47 Freq: Status: Active Protocol: Document 01/02/23 12:31 [facility] (Rec: 01/02/23 17:55 [facility] [id number]) OP Mobility Evaluation Bed Mobility Supine to and from Sit indep but labored Transfers Sit to Stand indep but labored OP Gait Assessment Gait Gait Assistance Required: Independent Assistive Devices Assistive Device Tripod Cane/Hurry Cane Gait Deviations General Gait Pattern Decreased Stride Length, Decreased Feet Clearance Comments Gait Comments limited by edema, generalized weakness PT-OP-J Posture/Palpation/Skin Start: 01/01/23 14:47 Freq: Status: Active Protocol: Document 01/02/23 12:31 [facility] (Rec: 01/02/23 17:55 [facility] [id number]) Palpation Assessment Location manny LE's Palpation Findings Edema,Soft Tissue Tightness Skin Assessment Other Assessments Skin Assessment Comments hyperkeratosis, multiple areas of pappilomas PT-OP-M Strength Start: 01/01/23 14:47 Freq: Status: Active Protocol: Document 01/02/23 12:31 [facility] (Rec: 01/02/23 17:55 [facility] [id number]) Hip Strength Hip Manual Muscle Testing manny Comments grossly 3+ throughout Knee Strength Knee Manual Muscle Testing manny Flexion (S2) 4 Good Extension (L3) 4 Good Ankle/Foot Strength Ankle and Foot Manual Muscle Testing manny Dorsiflexion (L4) 4- Good- Plantarflexion (S1) 4- Good- PT-OP-N Lymphedema Start: 01/01/23 14:47 Freq: Status: Active Protocol: Document 01/02/23 12:31 [facility] (Rec: 01/02/23 13:53 [facility] [id number]) Lymphedema Measurements Lower Extremity Circumference Measurements Right Affected MT Heads 26.8 cm Mid-foot 26.8 cm Medial Malleolus 36.3 cm 10 cm From Medial Malleolus 40.9 cm 20 cm From Medial Malleolus 50.3 cm 30 cm From Medial Malleolus 52.3 cm 40 cm From Medial Malleolus 51.7 cm 50 cm From Medial Malleolus 59.8 cm 60 cm From Medial Malleolus 68.1 cm 70 cm From Medial Malleolus 73.4 cm Knee Joint 51.7 cm Left Affected MT Heads 27.2 cm Mid-foot 27.6 cm Medial Malleolus 37.8 cm 10 cm From Medial Malleolus 40.1 cm 20 cm From Medial Malleolus 49.9 cm 30 cm From Medial Malleolus 52.2 cm 40 cm From Medial Malleolus 50.4 cm 50 cm From Medial Malleolus 57.3 cm 60 cm From Medial Malleolus 66.2 cm 70 cm From Medial Malleolus 72.7 cm Knee Joint 50.4 cm - from anterior ankle crease Comments Lymphedema Comments manny LE lymphedema most severe below the knee with multiple areas of hyperkeratosis and pappilomas, no open areas at this time. Positive Stemmer sign PT-OP-Q Treatments Start: 01/01/23 14:47 Freq: Status: Active Protocol: Document 01/03/23 10:12 [facility] (Rec: 01/03/23 10:19 [facility] [id number]) Lymphedema Treatment Manual Lymphatic Drainage Location manny LE's Duration 60 Comments alternating with sequential pneumatic pump each leg 30 min each Lymphedema Wrapping Materials patient compression stockings, black foam, coban toes to knee. Sequential Lymphedema Exercises Location reviewed and stressed importance Compression Garment Assessment Compression Garment Assessment Details good fit of compression garments don't appear to be 20 -30 mm Hg, compression not adequate. Encouraged daily wear, consider thigh high garments. Trial today Coban over stockings, thinner than Comprilan to allow patient to don shoes. PT-OP-T Assessment and Plan Start: 01/01/23 14:47 Freq: Status: Active Protocol: Document 01/03/23 10:12 [facility] (Rec: 01/03/23 10:17 [facility] [id number]) Physical Therapy Assessment Impairments Impairments Activity Tolerance,Edema Goals Two Impairment activity intolerance Impairment LYmphedema Life impact scale 48% Short Term Goal (STG) Improve Lymphedema Life Impact scale to no greater than 38% as measure of improved activity tolerance and quality of life STG Duration 02/16/23 Group Home Goal (LTG) Improve lymphedema Life Impact scale to no greater than 25% as measure of improved activity tolerance and quality of life. LTG Duration 04/02/23 One Impairment lymphedema manny LE's Short Term Goal (STG) Patient to be instructed in all aspects of lymphedema care to include skin care, manual lymphatic drainage, compression and lymphedema exercises STG Duration 02/16/23 Group Home Goal (LTG) Decrease lymphedema to stable level (no increase or decrease greater than 1 cm over the course of 1 week), patient to be independent with all aspects of lymphedema self- care including obtaining appropriate compression garments. LTG Duration 04/02/23 Assessment Summary Assessment Trial sequential pneumatic pump low pressure to assess tolerance, MLD, review lymphedema exercises, trial Coban over patient current compression garments with black foam over papillomas bilateral lower legs under Coban for cushion and massage effect. Physical Therapy Plan Frequency and Duration Frequency of Treatment 20 visits Duration of treatment (weeks) 12 Plan of Care Start Date 01/02/23 Plan of Care End Date 04/03/23 Therapeutic Interventions Therapeutic Interventions Gait Training,Home Exercise Program,Lymphedema Management, Manual Therapy,Self-Care/Home Management,Soft Tissue Mobilization,Therapeutic Activities,Therapeutic Exercises Modalities Vasopneumatic Devices Next Visit Focus/Plan Next Note Type Treatment Note Next Visit Plan ASsess response to today's treatment, continue CDT for lymphedema management. Modify compression as indicated. End with recumbant elliptical after MLD and compression application to facilitate further lymphatic flow.
--- NOTE | 2023-01-03 12:30 | PT.OTN ---
Current Diagnoses Lymphedema, not elsewhere classified (01/03/23) Physical Therapy Treatment Note PT-OP-A Visit Information Start: 01/01/23 14:47 Freq: Status: Active Protocol: Document 01/03/23 10:12 [facility] (Rec: 01/03/23 10:17 [facility] [id number]) Out-Patient Physical Therapy Visit Information Visit Information Visit Type Treatment Note Visit Start Time 08:45 Visit Stop Time 10:10 Total Visit Minutes 85 Visit Number 2 Evaluation Information Evaluation Date 01/02/23 Precautions Precautions PMH:Medical History (Updated 09/14/22 @ 10:43 by Sam Danielson MD) Allergic rhinitis CAD (coronary artery disease) Cataracts, bilateral Chicken pox Chronic kidney disease, stage 3b CKD (chronic kidney disease) COPD (chronic obstructive pulmonary disease) Dizziness Do not resuscitate Essential hypertension Former smoker Fractures Glucose intolerance Hearing loss LBBB (left bundle branch block ) Measles Mixed hyperlipidemia Mumps Perforated nasal septum Retinal detachment Severe obesity (BMI >= 40) 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 Tibial plateau fracture, right (~09/2017) Prostate cancer with radiation Surgical History (Reviewed 11/29 @ 03:52 by Sam Danielson MD) Anesthesia H/O left nephrectomy (~2014) History of bilateral knee replacement History of colonoscopy History of lobectomy of lung ( ~2015) Hx of bilateral cataract extraction (~2016) Hx of heart artery stent (~ 2002) PT-OP-B Current Condition Start: 01/01/23 14:47 Freq: Status: Active Protocol: Document 01/03/23 10:12 [facility] (Rec: 01/03/23 10:17 [facility] [id number]) Current Condition History of Current Condition Onset Date 2 years ago Current Complaints swelling bilateral legs History of Current Condition First noticed swelling bilateral legs about 2 years ago, [facility] doctor recommended compression stockings, has been wearing knee high compression stockings since then but admits to only wearing about 30% of the time . States seems like getting worse and has skin changes with thickening and blistering . Patient admits to sedentary lifestyle, only exercise is 2days per week pulmonary rehab maintenance. States sits and reads and watches TV a lot. No other treatment for his lymphedema. Lives with daughter (nurse at ) and son -in-law. Prior Treatments and Tests radiation to prostate, left kidney removed, left upper lung lobe removed. 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 Dr. Andrews for kidney issues. Treatment Goals Patient/Caregiver Goals Decrease swelling and help him to self-manage his edema, prevent worsening PT-OP-C Subjective Start: 01/01/23 14:47 Freq: Status: Active Protocol: Document 01/02/23 12:31 [facility] (Rec: 01/02/23 17:55 [facility] [id number]) Patient Questionnaires Lymphedema Life Impact Score Lymphedema Score 47 OP-PT Pain Assessment Pain Assessment Grid Paper Pain Assessment Grid Completed Yes Location manny LE's Intensity 3 PT-OP-G Mobility & Gait Start: 01/01/23 14:47 Freq: Status: Active Protocol: Document 01/02/23 12:31 [facility] (Rec: 01/02/23 17:55 [facility] [id number]) OP Mobility Evaluation Bed Mobility Supine to and from Sit indep but labored Transfers Sit to Stand indep but labored OP Gait Assessment Gait Gait Assistance Required: Independent Assistive Devices Assistive Device Tripod Cane/Hurry Cane Gait Deviations General Gait Pattern Decreased Stride Length, Decreased Feet Clearance Comments Gait Comments limited by edema, generalized weakness PT-OP-J Posture/Palpation/Skin Start: 01/01/23 14:47 Freq: Status: Active Protocol: Document 01/02/23 12:31 [facility] (Rec: 01/02/23 17:55 [facility] [id number]) Palpation Assessment Location manny LE's Palpation Findings Edema,Soft Tissue Tightness Skin Assessment Other Assessments Skin Assessment Comments hyperkeratosis, multiple areas of pappilomas PT-OP-M Strength Start: 01/01/23 14:47 Freq: Status: Active Protocol: Document 01/02/23 12:31 [facility] (Rec: 01/02/23 17:55 [facility] [id number]) Hip Strength Hip Manual Muscle Testing manny Comments grossly 3+ throughout Knee Strength Knee Manual Muscle Testing manny Flexion (S2) 4 Good Extension (L3) 4 Good Ankle/Foot Strength Ankle and Foot Manual Muscle Testing manny Dorsiflexion (L4) 4- Good- Plantarflexion (S1) 4- Good- PT-OP-N Lymphedema Start: 01/01/23 14:47 Freq: Status: Active Protocol: Document 01/02/23 12:31 [facility] (Rec: 01/02/23 13:53 [facility] [id number]) Lymphedema Measurements Lower Extremity Circumference Measurements Right Affected MT Heads 26.8 cm Mid-foot 26.8 cm Medial Malleolus 36.3 cm 10 cm From Medial Malleolus 40.9 cm 20 cm From Medial Malleolus 50.3 cm 30 cm From Medial Malleolus 52.3 cm 40 cm From Medial Malleolus 51.7 cm 50 cm From Medial Malleolus 59.8 cm 60 cm From Medial Malleolus 68.1 cm 70 cm From Medial Malleolus 73.4 cm Knee Joint 51.7 cm Left Affected MT Heads 27.2 cm Mid-foot 27.6 cm Medial Malleolus 37.8 cm 10 cm From Medial Malleolus 40.1 cm 20 cm From Medial Malleolus 49.9 cm 30 cm From Medial Malleolus 52.2 cm 40 cm From Medial Malleolus 50.4 cm 50 cm From Medial Malleolus 57.3 cm 60 cm From Medial Malleolus 66.2 cm 70 cm From Medial Malleolus 72.7 cm Knee Joint 50.4 cm - from anterior ankle crease Comments Lymphedema Comments manny LE lymphedema most severe below the knee with multiple areas of hyperkeratosis and pappilomas, no open areas at this time. Positive Stemmer sign PT-OP-Q Treatments Start: 01/01/23 14:47 Freq: Status: Active Protocol: Document 01/03/23 10:12 [facility] (Rec: 01/03/23 10:19 [facility] [id number]) Lymphedema Treatment Manual Lymphatic Drainage Location manny LE's Duration 60 Comments alternating with sequential pneumatic pump each leg 30 min each Lymphedema Wrapping Materials patient compression stockings, black foam, coban toes to knee. Sequential Lymphedema Exercises Location reviewed and stressed importance Compression Garment Assessment Compression Garment Assessment Details good fit of compression garments don't appear to be 20 -30 mm Hg, compression not adequate. Encouraged daily wear, consider thigh high garments. Trial today Coban over stockings, thinner than Comprilan to allow patient to don shoes. PT-OP-R Modalities Start: 01/01/23 14:47 Freq: Status: Active Protocol: Document 01/03/23 10:12 [facility] (Rec: 01/03/23 12:30 [facility] [id number]) Compression Pump Treatment Treatment Location Left Leg Pressure Amount (mmHg) (mmHG) 35 Inflation Time (Seconds) 30 Deflation Time (Seconds) 10 Treatment Duration (minutes) 30 Treatment Tolerance Good Right Leg Pressure Amount (mmHg) (mmHG) 35 Inflation Time (Seconds) 30 Deflation Time (Seconds) 10 Treatment Duration (minutes) 30 Treatment Tolerance Good PT-OP-T Assessment and Plan Start: 01/01/23 14:47 Freq: Status: Active Protocol: Document 01/03/23 10:12 [facility] (Rec: 01/03/23 10:17 [facility] [id number]) Physical Therapy Assessment Impairments Impairments Activity Tolerance,Edema Goals Two Impairment activity intolerance Impairment LYmphedema Life impact scale 48% Short Term Goal (STG) Improve Lymphedema Life Impact scale to no greater than 38% as measure of improved activity tolerance and quality of life STG Duration 02/16/23 Community Association Manager Goal (LTG) Improve lymphedema Life Impact scale to no greater than 25% as measure of improved activity tolerance and quality of life. LTG Duration 04/02/23 One Impairment lymphedema manny LE's Short Term Goal (STG) Patient to be instructed in all aspects of lymphedema care to include skin care, manual lymphatic drainage, compression and lymphedema exercises STG Duration 02/16/23 Community Association Manager Goal (LTG) Decrease lymphedema to stable level (no increase or decrease greater than 1 cm over the course of 1 week), patient to be independent with all aspects of lymphedema self- care including obtaining appropriate compression garments. LTG Duration 04/02/23 Assessment Summary Assessment Trial sequential pneumatic pump low pressure to assess tolerance, MLD, review lymphedema exercises, trial Coban over patient current compression garments with black foam over papillomas bilateral lower legs under Coban for cushion and massage effect. Physical Therapy Plan Frequency and Duration Frequency of Treatment 20 visits Duration of treatment (weeks) 12 Plan of Care Start Date 01/02/23 Plan of Care End Date 04/03/23 Therapeutic Interventions Therapeutic Interventions Gait Training,Home Exercise Program,Lymphedema Management, Manual Therapy,Self-Care/Home Management,Soft Tissue Mobilization,Therapeutic Activities,Therapeutic Exercises Modalities Vasopneumatic Devices Next Visit Focus/Plan Next Note Type Treatment Note Next Visit Plan ASsess response to today's treatment, continue CDT for lymphedema management. Modify compression as indicated. End with recumbant elliptical after MLD and compression application to facilitate further lymphatic flow.
--- NOTE | 2023-01-09 15:20 | PT.OTN ---
Current Diagnoses Lymphedema, not elsewhere classified (01/09/23) Physical Therapy Treatment Note PT-OP-A Visit Information Start: 01/01/23 14:47 Freq: Status: Active Protocol: Document 01/09/23 13:30 [facility] (Rec: 01/09/23 13:45 [facility] [id number]) Out-Patient Physical Therapy Visit Information Visit Information Visit Type Treatment Note Visit Note Had difficulty trying to self- bandage with Coban. On antibiotics for ingrown toenail Visit Start Time 13:30 Visit Stop Time 15:00 Total Visit Minutes 90 Visit Number 3 Evaluation Information Evaluation Date 01/02/23 Precautions Precautions PMH:Medical History (Updated 09/14/22 @ 10:43 by Sam Danielson MD) Allergic rhinitis CAD (coronary artery disease) Cataracts, bilateral Chicken pox Chronic kidney disease, stage 3b CKD (chronic kidney disease) COPD (chronic obstructive pulmonary disease) Dizziness Do not resuscitate Essential hypertension Former smoker Fractures Glucose intolerance Hearing loss LBBB (left bundle branch block ) Measles Mixed hyperlipidemia Mumps Perforated nasal septum Retinal detachment Severe obesity (BMI >= 40) 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 Tibial plateau fracture, right (~09/2017) Prostate cancer with radiation Surgical History (Reviewed 11/29 @ 03:52 by Sam Danielson MD) Anesthesia H/O left nephrectomy (~2014) History of bilateral knee replacement History of colonoscopy History of lobectomy of lung ( ~2015) Hx of bilateral cataract extraction (~2016) Hx of heart artery stent (~ 2002) PT-OP-B Current Condition Start: 01/01/23 14:47 Freq: Status: Active Protocol: Document 01/09/23 13:30 [facility] (Rec: 01/09/23 13:45 [facility] [id number]) Current Condition History of Current Condition Onset Date 2 years ago Current Complaints swelling bilateral legs History of Current Condition First noticed swelling bilateral legs about 2 years ago, [facility] doctor recommended compression stockings, has been wearing knee high compression stockings since then but admits to only wearing about 30% of the time . States seems like getting worse and has skin changes with thickening and blistering . Patient admits to sedentary lifestyle, only exercise is 2days per week pulmonary rehab maintenance. States sits and reads and watches TV a lot. No other treatment for his lymphedema. Lives with daughter (nurse at ) and son -in-law. Prior Treatments and Tests radiation to prostate, left kidney removed, left upper lung lobe removed. 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 Dr. Andrews for kidney issues. Treatment Goals Patient/Caregiver Goals Decrease swelling and help him to self-manage his edema, prevent worsening PT-OP-C Subjective Start: 01/01/23 14:47 Freq: Status: Active Protocol: Document 01/09/23 13:30 [facility] (Rec: 01/09/23 15:06 [facility] [id number]) OP-PT Subjective Patient Comments Patient Comments No new c/o. Didn't look at compression options. Coban and foam felt ok, not sure if noticing change in circumference. PT-OP-G Mobility & Gait Start: 01/01/23 14:47 Freq: Status: Active Protocol: Document 01/02/23 12:31 [facility] (Rec: 01/02/23 17:55 [facility] [id number]) OP Mobility Evaluation Bed Mobility Supine to and from Sit indep but labored Transfers Sit to Stand indep but labored OP Gait Assessment Gait Gait Assistance Required: Independent Assistive Devices Assistive Device Tripod Cane/Hurry Cane Gait Deviations General Gait Pattern Decreased Stride Length, Decreased Feet Clearance Comments Gait Comments limited by edema, generalized weakness PT-OP-J Posture/Palpation/Skin Start: 01/01/23 14:47 Freq: Status: Active Protocol: Document 01/02/23 12:31 [facility] (Rec: 01/02/23 17:55 [facility] [id number]) Palpation Assessment Location manny LE's Palpation Findings Edema,Soft Tissue Tightness Skin Assessment Other Assessments Skin Assessment Comments hyperkeratosis, multiple areas of pappilomas PT-OP-M Strength Start: 01/01/23 14:47 Freq: Status: Active Protocol: Document 01/02/23 12:31 [facility] (Rec: 01/02/23 17:55 [facility] [id number]) Hip Strength Hip Manual Muscle Testing manny Comments grossly 3+ throughout Knee Strength Knee Manual Muscle Testing manny Flexion (S2) 4 Good Extension (L3) 4 Good Ankle/Foot Strength Ankle and Foot Manual Muscle Testing manny Dorsiflexion (L4) 4- Good- Plantarflexion (S1) 4- Good- PT-OP-N Lymphedema Start: 01/01/23 14:47 Freq: Status: Active Protocol: Document 01/09/23 13:30 [facility] (Rec: 01/09/23 14:00 [facility] [id number]) Lymphedema Measurements Lower Extremity Circumference Measurements Right Affected MT Heads 26.1 cm Mid-foot 26.9 cm Medial Malleolus 35.4 cm 10 cm From Medial Malleolus 39.6 cm 20 cm From Medial Malleolus 48.1 cm 30 cm From Medial Malleolus 49.2 cm 40 cm From Medial Malleolus 50.2 cm 50 cm From Medial Malleolus 58.3 cm 60 cm From Medial Malleolus 66.4 cm 70 cm From Medial Malleolus 72.8 cm Knee Joint 50.2 cm Left Affected MT Heads 26 cm Mid-foot 27 cm Medial Malleolus 36 cm 10 cm From Medial Malleolus 39 cm 20 cm From Medial Malleolus 48.5 cm 30 cm From Medial Malleolus 50.5 cm 40 cm From Medial Malleolus 49.2 cm 50 cm From Medial Malleolus 57 cm 60 cm From Medial Malleolus 64 cm 70 cm From Medial Malleolus 73 cm Knee Joint 49.2 cm - from anterior ankle crease PT-OP-Q Treatments Start: 01/01/23 14:47 Freq: Status: Active Protocol: Document 01/09/23 13:30 [facility] (Rec: 01/09/23 13:45 [facility] [id number]) Cardio Equipment Recumbent Stepper (Sci-Fit) Duration (Minutes) 5 Resistance 1 Seat Position 10 Other To facilitate lymphatic flow after application of compression Lymphedema Treatment Manual Lymphatic Drainage Location manny LE's Duration 60 Comments alternating with sequential pneumatic pump each leg 30 min each at 40 mm Hg Lymphedema Wrapping Materials patient compression stockings with PT assist, black foam, coban toes to knee. Sequential Lymphedema Exercises Comments Sci-Fit as above Compression Garment Assessment Compression Garment Assessment Details Wearing 20-30 mm Hg compression today, agreeable to bring second pair compression stockings next session for trial layering Other Other Cetaphil lotion application manny LE's PT-OP-R Modalities Start: 01/01/23 14:47 Freq: Status: Active Protocol: Document 01/09/23 13:30 [facility] (Rec: 01/09/23 13:45 [facility] [id number]) Compression Pump Treatment Treatment Location Left Leg Pressure Amount (mmHg) (mmHG) 40 Inflation Time (Seconds) 30 Deflation Time (Seconds) 10 Treatment Duration (minutes) 30 Treatment Tolerance Good Treatment Comments decreased circumferential measurements with flattening of areas of elephentiasis/ hyperkeratosis Right Leg Pressure Amount (mmHg) (mmHG) 40 Inflation Time (Seconds) 30 Deflation Time (Seconds) 10 Treatment Duration (minutes) 30 Treatment Tolerance Good Treatment Comments decreased circumferential measurements after with visible flattending of areas of elephantiasis/ hyperkeratosis PT-OP-T Assessment and Plan Start: 01/01/23 14:47 Freq: Status: Active Protocol: Document 01/09/23 13:30 [facility] (Rec: 01/09/23 13:45 [facility] [id number]) Physical Therapy Assessment Impairments Impairments Activity Tolerance,Edema Goals Two Impairment activity intolerance Impairment LYmphedema Life impact scale 48% Short Term Goal (STG) Improve Lymphedema Life Impact scale to no greater than 38% as measure of improved activity tolerance and quality of life STG Duration 02/16/23 Halfway Goal (LTG) Improve lymphedema Life Impact scale to no greater than 25% as measure of improved activity tolerance and quality of life. LTG Duration 04/02/23 One Impairment lymphedema manny LE's Short Term Goal (STG) Patient to be instructed in all aspects of lymphedema care to include skin care, manual lymphatic drainage, compression and lymphedema exercises STG Duration 02/16/23 Sign Painter Apprentice Goal (LTG) Decrease lymphedema to stable level (no increase or decrease greater than 1 cm over the course of 1 week), patient to be independent with all aspects of lymphedema self- care including obtaining appropriate compression garments. LTG Duration 04/02/23 Assessment Summary Assessment Circumferential measurements consistently decreased. Better tolerance for new Aeros pneumatic pump just obtained in PT department, inc pressure to 40 mm Hg. Improving skin condition with lotion application and MLD with extra attention to fibrotic areas of skin. Physical Therapy Plan Frequency and Duration Frequency of Treatment 20 visits Duration of treatment (weeks) 12 Plan of Care Start Date 01/02/23 Plan of Care End Date 04/03/23 Therapeutic Interventions Therapeutic Interventions Gait Training,Home Exercise Program,Lymphedema Management, Manual Therapy,Self-Care/Home Management,Soft Tissue Mobilization,Therapeutic Activities,Therapeutic Exercises Modalities Vasopneumatic Devices Next Visit Focus/Plan Next Note Type Treatment Note Next Visit Plan Continue CDT for lymphedema management. Increase compression of pump to 45 mm Hg if tolerated. Trial double layer compression if patient brings second pair of compression stockings. Further discussion of compression options.
--- NOTE | 2023-01-11 14:53 | PT.OTN ---
Current Diagnoses Lymphedema, not elsewhere classified (01/11/23) Physical Therapy Treatment Note PT-OP-A Visit Information Start: 01/01/23 14:47 Freq: Status: Active Protocol: Document 01/11/23 13:18 [facility] (Rec: 01/11/23 13:53 [facility] [id number]) Out-Patient Physical Therapy Visit Information Visit Information Visit Type Treatment Note Visit Start Time 13:30 Visit Stop Time 15:00 Total Visit Minutes 90 Visit Number 3 Evaluation Information Evaluation Date 01/02/23 Precautions Precautions PMH:Medical History (Updated 09/14/22 @ 10:43 by Sam Danielson MD) Allergic rhinitis CAD (coronary artery disease) Cataracts, bilateral Chicken pox Chronic kidney disease, stage 3b CKD (chronic kidney disease) COPD (chronic obstructive pulmonary disease) Dizziness Do not resuscitate Essential hypertension Former smoker Fractures Glucose intolerance Hearing loss LBBB (left bundle branch block ) Measles Mixed hyperlipidemia Mumps Perforated nasal septum Retinal detachment Severe obesity (BMI >= 40) 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 Tibial plateau fracture, right (~09/2017) Prostate cancer with radiation Surgical History (Reviewed 11/29 @ 03:52 by Sam Danielson MD) Anesthesia H/O left nephrectomy (~2014) History of bilateral knee replacement History of colonoscopy History of lobectomy of lung ( ~2015) Hx of bilateral cataract extraction (~2016) Hx of heart artery stent (~ 2002) PT-OP-B Current Condition Start: 01/01/23 14:47 Freq: Status: Active Protocol: Document 01/09/23 13:30 [facility] (Rec: 01/09/23 13:45 [facility] [id number]) Current Condition History of Current Condition Onset Date 2 years ago Current Complaints swelling bilateral legs History of Current Condition First noticed swelling bilateral legs about 2 years ago, [facility] doctor recommended compression stockings, has been wearing knee high compression stockings since then but admits to only wearing about 30% of the time . States seems like getting worse and has skin changes with thickening and blistering . Patient admits to sedentary lifestyle, only exercise is 2days per week pulmonary rehab maintenance. States sits and reads and watches TV a lot. No other treatment for his lymphedema. Lives with daughter (nurse at ) and son -in-law. Prior Treatments and Tests radiation to prostate, left kidney removed, left upper lung lobe removed. 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 Dr. Andrews for kidney issues. Treatment Goals Patient/Caregiver Goals Decrease swelling and help him to self-manage his edema, prevent worsening PT-OP-C Subjective Start: 01/01/23 14:47 Freq: Status: Active Protocol: Document 01/11/23 13:18 [facility] (Rec: 01/11/23 13:53 [facility] [id number]) OP-PT Subjective Patient Comments Patient Comments no new c/o. PT-OP-G Mobility & Gait Start: 01/01/23 14:47 Freq: Status: Active Protocol: Document 01/02/23 12:31 [facility] (Rec: 01/02/23 17:55 [facility] [id number]) OP Mobility Evaluation Bed Mobility Supine to and from Sit indep but labored Transfers Sit to Stand indep but labored OP Gait Assessment Gait Gait Assistance Required: Independent Assistive Devices Assistive Device Tripod Cane/Hurry Cane Gait Deviations General Gait Pattern Decreased Stride Length, Decreased Feet Clearance Comments Gait Comments limited by edema, generalized weakness PT-OP-J Posture/Palpation/Skin Start: 01/01/23 14:47 Freq: Status: Active Protocol: Document 01/02/23 12:31 [facility] (Rec: 01/02/23 17:55 [facility] [id number]) Palpation Assessment Location manny LE's Palpation Findings Edema,Soft Tissue Tightness Skin Assessment Other Assessments Skin Assessment Comments hyperkeratosis, multiple areas of pappilomas PT-OP-M Strength Start: 01/01/23 14:47 Freq: Status: Active Protocol: Document 01/02/23 12:31 [facility] (Rec: 01/02/23 17:55 [facility] [id number]) Hip Strength Hip Manual Muscle Testing manny Comments grossly 3+ throughout Knee Strength Knee Manual Muscle Testing manny Flexion (S2) 4 Good Extension (L3) 4 Good Ankle/Foot Strength Ankle and Foot Manual Muscle Testing manny Dorsiflexion (L4) 4- Good- Plantarflexion (S1) 4- Good- PT-OP-N Lymphedema Start: 01/01/23 14:47 Freq: Status: Active Protocol: Document 01/11/23 13:18 [facility] (Rec: 01/11/23 13:53 [facility] [id number]) Lymphedema Measurements Lower Extremity Circumference Measurements Right Affected MT Heads 27 cm Mid-foot 26 cm Medial Malleolus 33.8 cm 10 cm From Medial Malleolus 37.1 cm 20 cm From Medial Malleolus 46.8 cm 30 cm From Medial Malleolus 47.5 cm 40 cm From Medial Malleolus 53 cm 50 cm From Medial Malleolus 58 cm 60 cm From Medial Malleolus 66.8 cm 70 cm From Medial Malleolus 72 cm Knee Joint 49 cm - from anterior ankle crease Left Affected MT Heads 26.7 cm Mid-foot 26.6 cm Medial Malleolus 34.4 cm 10 cm From Medial Malleolus 37.4 cm 20 cm From Medial Malleolus 47 cm 30 cm From Medial Malleolus 49.2 cm 40 cm From Medial Malleolus 48.8 cm 50 cm From Medial Malleolus 57 cm 60 cm From Medial Malleolus 66 cm 70 cm From Medial Malleolus 72 cm Knee Joint 48.8 cm - from anterior ankle crease PT-OP-Q Treatments Start: 01/01/23 14:47 Freq: Status: Active Protocol: Document 01/11/23 13:18 [facility] (Rec: 01/11/23 14:50 [facility] [id number]) Cardio Equipment Recumbent Stepper (Sci-Fit) Duration (Minutes) 5 Resistance 1 Seat Position 10 Other To facilitate lymphatic flow after application of compression Lymphedema Treatment Manual Lymphatic Drainage Location manny LE's Duration 60 Comments alternating with sequential pneumatic pump each leg 30 min each at 40 mm Hg Lymphedema Wrapping Materials patient compression stockings with PT assist: right with 20- 30 mm Hg stocking topped with 15-20 mm Hg stocking. Left side 20-30 mm Hg stocking only due to ingrown toenail, couldn't tolerate second stocking Sequential Lymphedema Exercises Comments Sci-Fit as above Patient reports compliance to HEP Compression Garment Assessment Compression Garment Assessment Details Good fit of 2 compression stockings layered on right, unable to tolerate on left due to ingrown toenail Other Other Cetaphil lotion application manny LE's PT-OP-R Modalities Start: 01/01/23 14:47 Freq: Status: Active Protocol: Document 01/11/23 13:18 [facility] (Rec: 01/11/23 14:50 [facility] [id number]) Compression Pump Treatment Treatment Location Left Leg Pressure Amount (mmHg) (mmHG) 45 Inflation Time (Seconds) 30 Deflation Time (Seconds) 10 Treatment Duration (minutes) 30 Treatment Tolerance Good Treatment Comments decreased circumferential measurements with flattening of areas of elephentiasis/ hyperkeratosis Right Leg Pressure Amount (mmHg) (mmHG) 45 Inflation Time (Seconds) 30 Deflation Time (Seconds) 10 Treatment Duration (minutes) 30 Treatment Tolerance Good Treatment Comments decreased circumferential measurements after with visible flattending of areas of elephantiasis/ hyperkeratosis PT-OP-T Assessment and Plan Start: 01/01/23 14:47 Freq: Status: Active Protocol: Document 01/11/23 13:18 [facility] (Rec: 01/11/23 13:53 [facility] [id number]) Physical Therapy Assessment Impairments Impairments Activity Tolerance,Edema Goals Two Impairment activity intolerance Impairment LYmphedema Life impact scale 48% Short Term Goal (STG) Improve Lymphedema Life Impact scale to no greater than 38% as measure of improved activity tolerance and quality of life STG Duration 02/16/23 Laborer Tree Tapping Goal (LTG) Improve lymphedema Life Impact scale to no greater than 25% as measure of improved activity tolerance and quality of life. LTG Duration 04/02/23 One Impairment lymphedema manny LE's Short Term Goal (STG) Patient to be instructed in all aspects of lymphedema care to include skin care, manual lymphatic drainage, compression and lymphedema exercises STG Duration 02/16/23 Fdc Goal (LTG) Decrease lymphedema to stable level (no increase or decrease greater than 1 cm over the course of 1 week), patient to be independent with all aspects of lymphedema self- care including obtaining appropriate compression garments. LTG Duration 04/02/23 Assessment Summary Assessment Further improvement in circumferential measurements noted. Patient compliant to HEP, wearing compression stockings daily now per PT education Physical Therapy Plan Frequency and Duration Frequency of Treatment 20 visits Duration of treatment (weeks) 12 Plan of Care Start Date 01/02/23 Plan of Care End Date 04/03/23 Therapeutic Interventions Therapeutic Interventions Gait Training,Home Exercise Program,Lymphedema Management, Manual Therapy,Self-Care/Home Management,Soft Tissue Mobilization,Therapeutic Activities,Therapeutic Exercises Modalities Vasopneumatic Devices Next Visit Focus/Plan Next Note Type Treatment Note Next Visit Plan Continue CDT for lymphedema management. Increase compression of pump to 50 mm Hg if tolerated. Assess response to layered compression stockings.
--- NOTE | 2023-01-16 14:26 | PT.OTN ---
Current Diagnoses Lymphedema, not elsewhere classified (01/16/23) Physical Therapy Treatment Note PT-OP-A Visit Information Start: 01/01/23 14:47 Freq: Status: Active Protocol: Document 01/16/23 10:35 [facility] (Rec: 01/16/23 12:25 [facility] [id number]) Out-Patient Physical Therapy Visit Information Visit Information Visit Type Treatment Note Visit Start Time 10:35 Visit Stop Time 12:00 Total Visit Minutes 85 Visit Number 4 Evaluation Information Evaluation Date 01/02/23 Precautions Precautions PMH:Medical History (Updated 09/14/22 @ 10:43 by Sam Danielson MD) Allergic rhinitis CAD (coronary artery disease) Cataracts, bilateral Chicken pox Chronic kidney disease, stage 3b CKD (chronic kidney disease) COPD (chronic obstructive pulmonary disease) Dizziness Do not resuscitate Essential hypertension Former smoker Fractures Glucose intolerance Hearing loss LBBB (left bundle branch block ) Measles Mixed hyperlipidemia Mumps Perforated nasal septum Retinal detachment Severe obesity (BMI >= 40) 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 Tibial plateau fracture, right (~09/2017) Prostate cancer with radiation Surgical History (Reviewed 11/29 @ 03:52 by Sam Danielson MD) Anesthesia H/O left nephrectomy (~2014) History of bilateral knee replacement History of colonoscopy History of lobectomy of lung ( ~2015) Hx of bilateral cataract extraction (~2016) Hx of heart artery stent (~ 2002) PT-OP-B Current Condition Start: 01/01/23 14:47 Freq: Status: Active Protocol: Document 01/16/23 10:35 [facility] (Rec: 01/16/23 12:25 [facility] [id number]) Current Condition History of Current Condition Onset Date 2 years ago Current Complaints swelling bilateral legs History of Current Condition First noticed swelling bilateral legs about 2 years ago, [facility] doctor recommended compression stockings, has been wearing knee high compression stockings since then but admits to only wearing about 30% of the time . States seems like getting worse and has skin changes with thickening and blistering . Patient admits to sedentary lifestyle, only exercise is 2days per week pulmonary rehab maintenance. States sits and reads and watches TV a lot. No other treatment for his lymphedema. Lives with daughter (nurse at ) and son -in-law. Prior Treatments and Tests radiation to prostate, left kidney removed, left upper lung lobe removed. 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 Dr. Andrews for kidney issues. Treatment Goals Patient/Caregiver Goals Decrease swelling and help him to self-manage his edema, prevent worsening PT-OP-C Subjective Start: 01/01/23 14:47 Freq: Status: Active Protocol: Document 01/16/23 10:35 [facility] (Rec: 01/16/23 12:25 [facility] [id number]) OP-PT Subjective Patient Comments Patient Comments Nothing new to report. Layered compression got to be irritating, couldn't tell if swelling improved with layering. Has already done pulmonary rehab, then wound care for head. Skipped 1 day of compression PT-OP-G Mobility & Gait Start: 01/01/23 14:47 Freq: Status: Active Protocol: Document 01/02/23 12:31 [facility] (Rec: 01/02/23 17:55 [facility] [id number]) OP Mobility Evaluation Bed Mobility Supine to and from Sit indep but labored Transfers Sit to Stand indep but labored OP Gait Assessment Gait Gait Assistance Required: Independent Assistive Devices Assistive Device Tripod Cane/Hurry Cane Gait Deviations General Gait Pattern Decreased Stride Length, Decreased Feet Clearance Comments Gait Comments limited by edema, generalized weakness PT-OP-J Posture/Palpation/Skin Start: 01/01/23 14:47 Freq: Status: Active Protocol: Document 01/02/23 12:31 [facility] (Rec: 01/02/23 17:55 [facility] [id number]) Palpation Assessment Location manny LE's Palpation Findings Edema,Soft Tissue Tightness Skin Assessment Other Assessments Skin Assessment Comments hyperkeratosis, multiple areas of pappilomas PT-OP-M Strength Start: 01/01/23 14:47 Freq: Status: Active Protocol: Document 01/02/23 12:31 [facility] (Rec: 01/02/23 17:55 [facility] [id number]) Hip Strength Hip Manual Muscle Testing manny Comments grossly 3+ throughout Knee Strength Knee Manual Muscle Testing manny Flexion (S2) 4 Good Extension (L3) 4 Good Ankle/Foot Strength Ankle and Foot Manual Muscle Testing manny Dorsiflexion (L4) 4- Good- Plantarflexion (S1) 4- Good- PT-OP-N Lymphedema Start: 01/01/23 14:47 Freq: Status: Active Protocol: Document 01/16/23 10:35 [facility] (Rec: 01/16/23 12:25 [facility] [id number]) Lymphedema Measurements Lower Extremity Circumference Measurements Right Affected MT Heads 25.5 cm Mid-foot 26.4 cm Medial Malleolus 35.2 cm 10 cm From Medial Malleolus 37.5 cm 20 cm From Medial Malleolus 47.5 cm 30 cm From Medial Malleolus 49 cm 40 cm From Medial Malleolus 52 cm 50 cm From Medial Malleolus 58.7 cm 60 cm From Medial Malleolus 66.4 cm 70 cm From Medial Malleolus 72.5 cm Knee Joint 52 cm Left Affected MT Heads 26 cm Mid-foot 26.5 cm Medial Malleolus 35.2 cm 10 cm From Medial Malleolus 38 cm 20 cm From Medial Malleolus 47.4 cm 30 cm From Medial Malleolus 50 cm 40 cm From Medial Malleolus 49.2 cm 50 cm From Medial Malleolus 56.6 cm 60 cm From Medial Malleolus 64.5 cm 70 cm From Medial Malleolus 70.4 cm Knee Joint 49.2 cm - from anterior ankle crease PT-OP-Q Treatments Start: 01/01/23 14:47 Freq: Status: Active Protocol: Document 01/16/23 10:35 [facility] (Rec: 01/16/23 12:25 [facility] [id number]) Cardio Equipment Recumbent Stepper (Sci-Fit) Duration (Minutes) 5 Resistance 1 Seat Position 10 Other To facilitate lymphatic flow after application of compression Lymphedema Treatment Manual Lymphatic Drainage Location manny LE's Duration 60 Comments alternating with sequential pneumatic pump each leg 30 min each at 40 mm Hg Lymphedema Wrapping Materials patient compression stockings with PT assist; manny 20-30 mm Hg topped with comprilan over black foam on areas of hyperkeratosis on left and black foam inside right compression stocking. Sequential Lymphedema Exercises Comments Sci-Fit as above Patient reports compliance to HEP Other Other Cetaphil lotion application manny LE's PT-OP-R Modalities Start: 01/01/23 14:47 Freq: Status: Active Protocol: Document 01/11/23 13:18 [facility] (Rec: 01/11/23 14:50 [facility] [id number]) Compression Pump Treatment Treatment Location Left Leg Pressure Amount (mmHg) (mmHG) 45 Inflation Time (Seconds) 30 Deflation Time (Seconds) 10 Treatment Duration (minutes) 30 Treatment Tolerance Good Treatment Comments decreased circumferential measurements with flattening of areas of elephentiasis/ hyperkeratosis Right Leg Pressure Amount (mmHg) (mmHG) 45 Inflation Time (Seconds) 30 Deflation Time (Seconds) 10 Treatment Duration (minutes) 30 Treatment Tolerance Good Treatment Comments decreased circumferential measurements after with visible flattending of areas of elephantiasis/ hyperkeratosis PT-OP-T Assessment and Plan Start: 01/01/23 14:47 Freq: Status: Active Protocol: Document 01/16/23 10:35 [facility] (Rec: 01/16/23 12:25 [facility] [id number]) Physical Therapy Assessment Impairments Impairments Activity Tolerance,Edema Goals Two Impairment activity intolerance Impairment LYmphedema Life impact scale 48% Short Term Goal (STG) Improve Lymphedema Life Impact scale to no greater than 38% as measure of improved activity tolerance and quality of life STG Duration 02/16/23 Longterm Goal (LTG) Improve lymphedema Life Impact scale to no greater than 25% as measure of improved activity tolerance and quality of life. LTG Duration 04/02/23 One Impairment lymphedema manny LE's Short Term Goal (STG) Patient to be instructed in all aspects of lymphedema care to include skin care, manual lymphatic drainage, compression and lymphedema exercises STG Duration 02/16/23 Capacity Planning Engineer Goal (LTG) Decrease lymphedema to stable level (no increase or decrease greater than 1 cm over the course of 1 week), patient to be independent with all aspects of lymphedema self- care including obtaining appropriate compression garments. LTG Duration 04/02/23 Assessment Summary Assessment Circumferential measurements decreased from last Sunday, but not as good as indicating worsening without PT treatment as well as taking break from compression. Cont to encourage increased activity and need for compression in areas of thickened tissue especially. On left today trial Comprilan over black foam on lower leg and on right foam only inside of compression stockings Benefits highly from use of sequential pneumatic pumps, will request order after 30 days conservative treatment required. Physical Therapy Plan Frequency and Duration Frequency of Treatment 20 visits Duration of treatment (weeks) 12 Plan of Care Start Date 01/02/23 Plan of Care End Date 04/03/23 Therapeutic Interventions Therapeutic Interventions Gait Training,Home Exercise Program,Lymphedema Management, Manual Therapy,Self-Care/Home Management,Soft Tissue Mobilization,Therapeutic Activities,Therapeutic Exercises Modalities Vasopneumatic Devices Next Visit Focus/Plan Next Note Type Treatment Note Next Visit Plan Continue CDT for lymphedema management. Increase compression of pump to 50 mm Hg if tolerated. Assess response to comprilan over foam and foam inside of compression stockings.
--- NOTE | 2023-01-18 11:28 | PT.OTN ---
Current Diagnoses Lymphedema, not elsewhere classified (01/18/23) Physical Therapy Treatment Note PT-OP-A Visit Information Start: 01/01/23 14:47 Freq: Status: Active Protocol: Document 01/18/23 10:30 [facility] (Rec: 01/18/23 11:00 [facility] [id number]) Out-Patient Physical Therapy Visit Information Visit Information Visit Type Treatment Note Visit Start Time 10:31 Visit Stop Time 12:00 Total Visit Minutes 89 Visit Number 5 Evaluation Information Evaluation Date 01/02/23 Precautions Precautions PMH:Medical History (Updated 09/14/22 @ 10:43 by Sam Danielson MD) Allergic rhinitis CAD (coronary artery disease) Cataracts, bilateral Chicken pox Chronic kidney disease, stage 3b CKD (chronic kidney disease) COPD (chronic obstructive pulmonary disease) Dizziness Do not resuscitate Essential hypertension Former smoker Fractures Glucose intolerance Hearing loss LBBB (left bundle branch block ) Measles Mixed hyperlipidemia Mumps Perforated nasal septum Retinal detachment Severe obesity (BMI >= 40) 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 Tibial plateau fracture, right (~09/2017) Prostate cancer with radiation Surgical History (Reviewed 11/29 @ 03:52 by Sam Danielson MD) Anesthesia H/O left nephrectomy (~2014) History of bilateral knee replacement History of colonoscopy History of lobectomy of lung ( ~2015) Hx of bilateral cataract extraction (~2016) Hx of heart artery stent (~ 2002) PT-OP-B Current Condition Start: 01/01/23 14:47 Freq: Status: Active Protocol: Document 01/18/23 10:30 [facility] (Rec: 01/18/23 11:00 [facility] [id number]) Current Condition History of Current Condition Onset Date 2 years ago Current Complaints swelling bilateral legs History of Current Condition First noticed swelling bilateral legs about 2 years ago, [facility] doctor recommended compression stockings, has been wearing knee high compression stockings since then but admits to only wearing about 30% of the time . States seems like getting worse and has skin changes with thickening and blistering . Patient admits to sedentary lifestyle, only exercise is 2days per week pulmonary rehab maintenance. States sits and reads and watches TV a lot. No other treatment for his lymphedema. Lives with daughter (nurse at ) and son -in-law. Prior Treatments and Tests radiation to prostate, left kidney removed, left upper lung lobe removed. 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 Dr. Andrews for kidney issues. PT-OP-C Subjective Start: 01/01/23 14:47 Freq: Status: Active Protocol: Document 01/18/23 10:30 [facility] (Rec: 01/18/23 11:23 [facility] [id number]) OP-PT Subjective Patient Comments Patient Comments Wearing foam on right LE in front, unable to get in back inside compression. Planning to order some new compression stockings soon, willing to consider thigh high. Needs measurements PT-OP-G Mobility & Gait Start: 01/01/23 14:47 Freq: Status: Active Protocol: Document 01/02/23 12:31 [facility] (Rec: 01/02/23 17:55 [facility] [id number]) OP Mobility Evaluation Bed Mobility Supine to and from Sit indep but labored Transfers Sit to Stand indep but labored OP Gait Assessment Gait Gait Assistance Required: Independent Assistive Devices Assistive Device Tripod Cane/Hurry Cane Gait Deviations General Gait Pattern Decreased Stride Length, Decreased Feet Clearance Comments Gait Comments limited by edema, generalized weakness PT-OP-J Posture/Palpation/Skin Start: 01/01/23 14:47 Freq: Status: Active Protocol: Document 01/02/23 12:31 [facility] (Rec: 01/02/23 17:55 [facility] [id number]) Palpation Assessment Location manny LE's Palpation Findings Edema,Soft Tissue Tightness Skin Assessment Other Assessments Skin Assessment Comments hyperkeratosis, multiple areas of pappilomas PT-OP-M Strength Start: 01/01/23 14:47 Freq: Status: Active Protocol: Document 01/02/23 12:31 [facility] (Rec: 01/02/23 17:55 [facility] [id number]) Hip Strength Hip Manual Muscle Testing manny Comments grossly 3+ throughout Knee Strength Knee Manual Muscle Testing manny Flexion (S2) 4 Good Extension (L3) 4 Good Ankle/Foot Strength Ankle and Foot Manual Muscle Testing manny Dorsiflexion (L4) 4- Good- Plantarflexion (S1) 4- Good- PT-OP-N Lymphedema Start: 01/01/23 14:47 Freq: Status: Active Protocol: Document 01/18/23 10:30 [facility] (Rec: 01/18/23 11:00 [facility] [id number]) Lymphedema Measurements Lower Extremity Circumference Measurements Right Affected MT Heads 25.5 cm Mid-foot 26.4 cm Medial Malleolus 34.5 cm 10 cm From Medial Malleolus 37.4 cm 20 cm From Medial Malleolus 48 cm 30 cm From Medial Malleolus 48.2 cm 40 cm From Medial Malleolus 52.8 cm 50 cm From Medial Malleolus 59.4 cm 60 cm From Medial Malleolus 67 cm 70 cm From Medial Malleolus 72 cm Knee Joint 52.8 cm - from anterior ankle crease Left Affected MT Heads 26.2 cm Mid-foot 26.5 cm Medial Malleolus 35.2 cm 10 cm From Medial Malleolus 37.4 cm 20 cm From Medial Malleolus 48.1 cm 30 cm From Medial Malleolus 50 cm 40 cm From Medial Malleolus 49.9 cm 50 cm From Medial Malleolus 58.3 cm 60 cm From Medial Malleolus 66.1 cm 70 cm From Medial Malleolus 72 cm Knee Joint 49.9 cm - from anterior ankle crease PT-OP-Q Treatments Start: 01/01/23 14:47 Freq: Status: Active Protocol: Document 01/18/23 10:30 [facility] (Rec: 01/18/23 11:23 [facility] [id number]) Cardio Equipment Recumbent Stepper (Sci-Fit) Other not done today, too sore Lymphedema Treatment Manual Lymphatic Drainage Location manny LE's Duration 60 Comments alternating with sequential pneumatic pump each leg 30 min each at 45 mm Hg Lymphedema Wrapping Materials patient compression stockings with PT assist; manny 20-30 mm Hg topped with comprilan over black foam on areas of hyperkeratosis on left and right Sequential Lymphedema Exercises Comments No Sci-Fit today due to LBP Other Other Cetaphil lotion application manny LE's PT-OP-R Modalities Start: 01/01/23 14:47 Freq: Status: Active Protocol: Document 01/18/23 10:30 [facility] (Rec: 01/18/23 11:23 [facility] [id number]) Compression Pump Treatment Treatment Location Left Leg Pressure Amount (mmHg) (mmHG) 45 Inflation Time (Seconds) 30 Deflation Time (Seconds) 10 Treatment Duration (minutes) 30 Treatment Tolerance Good Treatment Comments decreased circumferential measurements with flattening of areas of elephentiasis/ hyperkeratosis Right Leg Pressure Amount (mmHg) (mmHG) 45 Inflation Time (Seconds) 30 Deflation Time (Seconds) 10 Treatment Duration (minutes) 30 Treatment Tolerance Good Treatment Comments decreased circumferential measurements after with visible flattending of areas of elephantiasis/ hyperkeratosis PT-OP-T Assessment and Plan Start: 01/01/23 14:47 Freq: Status: Active Protocol: Document 01/18/23 10:30 [facility] (Rec: 01/18/23 11:00 [facility] [id number]) Physical Therapy Assessment Impairments Impairments Activity Tolerance,Edema Goals Two Impairment activity intolerance Impairment LYmphedema Life impact scale 48% Short Term Goal (STG) Improve Lymphedema Life Impact scale to no greater than 38% as measure of improved activity tolerance and quality of life STG Duration 02/16/23 Respiratory Clinician Goal (LTG) Improve lymphedema Life Impact scale to no greater than 25% as measure of improved activity tolerance and quality of life. LTG Duration 04/02/23 One Impairment lymphedema manny LE's Short Term Goal (STG) Patient to be instructed in all aspects of lymphedema care to include skin care, manual lymphatic drainage, compression and lymphedema exercises STG Duration 02/16/23 Detention Goal (LTG) Decrease lymphedema to stable level (no increase or decrease greater than 1 cm over the course of 1 week), patient to be independent with all aspects of lymphedema self- care including obtaining appropriate compression garments. LTG Duration 04/02/23 Assessment Summary Assessment measurements decreased mid lower leg in region of hyperkeratosis after use of black foam in those areas with observable flattening. Discussed causes of lymphedema with PT stressing need for patient to try to be more physically active to make use of muscular pump for facilitation of lymphatic flow . He is hindered by knee and LBP Physical Therapy Plan Frequency and Duration Frequency of Treatment 20 visits Duration of treatment (weeks) 12 Plan of Care Start Date 01/02/23 Plan of Care End Date 04/03/23 Therapeutic Interventions Therapeutic Interventions Gait Training,Home Exercise Program,Lymphedema Management, Manual Therapy,Self-Care/Home Management,Soft Tissue Mobilization,Therapeutic Activities,Therapeutic Exercises Modalities Vasopneumatic Devices Next Visit Focus/Plan Next Note Type Treatment Note Next Visit Plan Continue CDT for lymphedema management. Increase compression of pump to 50 mm Hg if tolerated. Continue CDT for lymphedema management. Request order for sequential pneumatic pump after 30 days of conservative treatment completed.
--- NOTE | 2023-01-22 16:18 | PT.OTN ---
Current Diagnoses Lymphedema, not elsewhere classified (01/22/23) Physical Therapy Treatment Note PT-OP-A Visit Information Start: 01/01/23 14:47 Freq: Status: Active Protocol: Document 01/22/23 12:32 [facility] (Rec: 01/22/23 12:41 [facility] [id number]) Out-Patient Physical Therapy Visit Information Visit Information Visit Type Treatment Note Visit Start Time 12:33 Visit Stop Time 14:00 Total Visit Minutes 87 Visit Number 6 Evaluation Information Evaluation Date 01/02/23 Precautions Precautions PMH:Medical History (Updated 09/14/22 @ 10:43 by Sam Danielson MD) Allergic rhinitis CAD (coronary artery disease) Cataracts, bilateral Chicken pox Chronic kidney disease, stage 3b CKD (chronic kidney disease) COPD (chronic obstructive pulmonary disease) Dizziness Do not resuscitate Essential hypertension Former smoker Fractures Glucose intolerance Hearing loss LBBB (left bundle branch block ) Measles Mixed hyperlipidemia Mumps Perforated nasal septum Retinal detachment Severe obesity (BMI >= 40) 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 Tibial plateau fracture, right (~09/2017) Prostate cancer with radiation Surgical History (Reviewed 11/29 @ 03:52 by aSm Danielson MD) Anesthesia H/O left nephrectomy (~2014) History of bilateral knee replacement History of colonoscopy History of lobectomy of lung ( ~2015) Hx of bilateral cataract extraction (~2016) Hx of heart artery stent (~ 2002) PT-OP-B Current Condition Start: 01/01/23 14:47 Freq: Status: Active Protocol: Document 01/22/23 12:32 [facility] (Rec: 01/22/23 12:41 [facility] [id number]) Current Condition History of Current Condition Onset Date 2 years ago Current Complaints swelling bilateral legs History of Current Condition First noticed swelling bilateral legs about 2 years ago, [facility] doctor recommended compression stockings, has been wearing knee high compression stockings since then but admits to only wearing about 30% of the time . States seems like getting worse and has skin changes with thickening and blistering . Patient admits to sedentary lifestyle, only exercise is 2days per week pulmonary rehab maintenance. States sits and reads and watches TV a lot. No other treatment for his lymphedema. Lives with daughter (nurse at ) and son -in-law. Prior Treatments and Tests radiation to prostate, left kidney removed, left upper lung lobe removed. 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 Dr. Andrews for kidney issues. Treatment Goals Patient/Caregiver Goals Decrease swelling and help him to self-manage his edema, prevent worsening PT-OP-C Subjective Start: 01/01/23 14:47 Freq: Status: Active Protocol: Document 01/22/23 12:32 [facility] (Rec: 01/22/23 12:41 [facility] [id number]) OP-PT Subjective Patient Comments Patient Comments Reports wearing the foam helped in the front of his legs, but not so much on the back. Trying to be more active but is difficult due to right knee pain. Wore compression consistently except took break for 1/2 day yesterday PT-OP-G Mobility & Gait Start: 01/01/23 14:47 Freq: Status: Active Protocol: Document 01/02/23 12:31 [facility] (Rec: 01/02/23 17:55 [facility] [id number]) OP Mobility Evaluation Bed Mobility Supine to and from Sit indep but labored Transfers Sit to Stand indep but labored OP Gait Assessment Gait Gait Assistance Required: Independent Assistive Devices Assistive Device Tripod Cane/Hurry Cane Gait Deviations General Gait Pattern Decreased Stride Length, Decreased Feet Clearance Comments Gait Comments limited by edema, generalized weakness PT-OP-J Posture/Palpation/Skin Start: 01/01/23 14:47 Freq: Status: Active Protocol: Document 01/02/23 12:31 [facility] (Rec: 01/02/23 17:55 [facility] [id number]) Palpation Assessment Location manny LE's Palpation Findings Edema,Soft Tissue Tightness Skin Assessment Other Assessments Skin Assessment Comments hyperkeratosis, multiple areas of pappilomas PT-OP-M Strength Start: 01/01/23 14:47 Freq: Status: Active Protocol: Document 01/02/23 12:31 [facility] (Rec: 01/02/23 17:55 [facility] [id number]) Hip Strength Hip Manual Muscle Testing manny Comments grossly 3+ throughout Knee Strength Knee Manual Muscle Testing manny Flexion (S2) 4 Good Extension (L3) 4 Good Ankle/Foot Strength Ankle and Foot Manual Muscle Testing manny Dorsiflexion (L4) 4- Good- Plantarflexion (S1) 4- Good- PT-OP-N Lymphedema Start: 01/01/23 14:47 Freq: Status: Active Protocol: Document 01/18/23 10:30 [facility] (Rec: 01/18/23 11:00 [facility] [id number]) Lymphedema Measurements Lower Extremity Circumference Measurements Right Affected MT Heads 25.5 cm Mid-foot 26.4 cm Medial Malleolus 34.5 cm 10 cm From Medial Malleolus 37.4 cm 20 cm From Medial Malleolus 48 cm 30 cm From Medial Malleolus 48.2 cm 40 cm From Medial Malleolus 52.8 cm 50 cm From Medial Malleolus 59.4 cm 60 cm From Medial Malleolus 67 cm 70 cm From Medial Malleolus 72 cm Knee Joint 52.8 cm - from anterior ankle crease Left Affected MT Heads 26.2 cm Mid-foot 26.5 cm Medial Malleolus 35.2 cm 10 cm From Medial Malleolus 37.4 cm 20 cm From Medial Malleolus 48.1 cm 30 cm From Medial Malleolus 50 cm 40 cm From Medial Malleolus 49.9 cm 50 cm From Medial Malleolus 58.3 cm 60 cm From Medial Malleolus 66.1 cm 70 cm From Medial Malleolus 72 cm Knee Joint 49.9 cm - from anterior ankle crease PT-OP-Q Treatments Start: 01/01/23 14:47 Freq: Status: Active Protocol: Document 01/22/23 12:32 [facility] (Rec: 01/22/23 16:18 [facility] [id number]) Lymphedema Treatment Manual Lymphatic Drainage Location manny LE's Duration 60 Comments alternating with sequential pneumatic pump each leg 30 min each at 50 mm Hg Lymphedema Wrapping Materials patient compression stockings with PT assist; manny 20-30 mm Hg topped with comprilan over black foam on areas of hyperkeratosis on left and right with 1 roll comprilan over from ankle to knee. Sequential Lymphedema Exercises Comments Sci-Fit as above Patient reports compliance to HEP Other Other Cetaphil lotion application manny LE's PT-OP-R Modalities Start: 01/01/23 14:47 Freq: Status: Active Protocol: Document 01/22/23 12:32 [facility] (Rec: 01/22/23 16:18 [facility] [id number]) Compression Pump Treatment Treatment Location Left Leg Pressure Amount (mmHg) (mmHG) 50 Inflation Time (Seconds) 30 Deflation Time (Seconds) 10 Treatment Duration (minutes) 30 Treatment Tolerance Good Treatment Comments decreased circumferential measurements with flattening of areas of elephentiasis/ hyperkeratosis Right Leg Pressure Amount (mmHg) (mmHG) 50 Inflation Time (Seconds) 30 Deflation Time (Seconds) 10 Treatment Duration (minutes) 30 Treatment Tolerance Good Treatment Comments decreased circumferential measurements after with visible flattending of areas of elephantiasis/ hyperkeratosis PT-OP-T Assessment and Plan Start: 01/01/23 14:47 Freq: Status: Active Protocol: Document 01/22/23 12:32 [facility] (Rec: 01/22/23 12:41 [facility] [id number]) Physical Therapy Assessment Impairments Impairments Activity Tolerance,Edema Goals Two Impairment activity intolerance Impairment LYmphedema Life impact scale 48% Short Term Goal (STG) Improve Lymphedema Life Impact scale to no greater than 38% as measure of improved activity tolerance and quality of life STG Duration 02/16/23 Fpc Goal (LTG) Improve lymphedema Life Impact scale to no greater than 25% as measure of improved activity tolerance and quality of life. LTG Duration 04/02/23 One Impairment lymphedema manny LE's Short Term Goal (STG) Patient to be instructed in all aspects of lymphedema care to include skin care, manual lymphatic drainage, compression and lymphedema exercises STG Duration 02/16/23 Fpc Goal (LTG) Decrease lymphedema to stable level (no increase or decrease greater than 1 cm over the course of 1 week), patient to be independent with all aspects of lymphedema self- care including obtaining appropriate compression garments. LTG Duration 04/02/23 Assessment Summary Assessment No significant change in measurements today, not wearing foam and too, 1/2 day off from compression yesterday . Overall improved compliance with wearing compression stockings. Multiple co- morbidities limit ability to exercise more. States trying to elevate his legs more as instructed. Physical Therapy Plan Frequency and Duration Frequency of Treatment 20 visits Duration of treatment (weeks) 12 Plan of Care Start Date 01/02/23 Plan of Care End Date 04/03/23 Therapeutic Interventions Therapeutic Interventions Gait Training,Home Exercise Program,Lymphedema Management, Manual Therapy,Self-Care/Home Management,Soft Tissue Mobilization,Therapeutic Activities,Therapeutic Exercises Modalities Vasopneumatic Devices Next Visit Focus/Plan Next Note Type Treatment Note Next Visit Plan Continue CDT for lymphedema management. Encourage increased exercise and elevation.
--- NOTE | 2023-01-24 13:25 | PT.OTN ---
Current Diagnoses Lymphedema, not elsewhere classified (01/24/23) Physical Therapy Treatment Note PT-OP-A Visit Information Start: 01/01/23 14:47 Freq: Status: Active Protocol: Document 01/24/23 12:30 [facility] (Rec: 01/24/23 12:44 [facility] [id number]) Out-Patient Physical Therapy Visit Information Visit Information Visit Type Treatment Note Visit Start Time 12:30 Visit Stop Time 13:59 Total Visit Minutes 89 Visit Number 7 Evaluation Information Evaluation Date 01/02/23 Precautions Precautions PMH:Medical History (Updated 09/14/22 @ 10:43 by Sam Danielson MD) Allergic rhinitis CAD (coronary artery disease) Cataracts, bilateral Chicken pox Chronic kidney disease, stage 3b CKD (chronic kidney disease) COPD (chronic obstructive pulmonary disease) Dizziness Do not resuscitate Essential hypertension Former smoker Fractures Glucose intolerance Hearing loss LBBB (left bundle branch block ) Measles Mixed hyperlipidemia Mumps Perforated nasal septum Retinal detachment Severe obesity (BMI >= 40) 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 (Rec: 01/24/23 12:44 [facility] [id number]) Current Condition History of Current Condition Onset Date 2 years ago Current Complaints swelling bilateral legs History of Current Condition First noticed swelling bilateral legs about 2 years ago, [facility] doctor recommended compression stockings, has been wearing knee high compression stockings since then but admits to only wearing about 30% of the time . States seems like getting worse and has skin changes with thickening and blistering . Patient admits to sedentary lifestyle, only exercise is 2days per week pulmonary rehab maintenance. States sits and reads and watches TV a lot. No other treatment for his lymphedema. Lives with daughter (nurse at ) and son -in-law. Prior Treatments and Tests radiation to prostate, left kidney removed, left upper lung lobe removed. 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 Dr. Andrews for kidney issues. Treatment Goals Patient/Caregiver Goals Decrease swelling and help him to self-manage his edema, prevent worsening PT-OP-C Subjective Start: 01/01/23 14:47 Freq: Status: Active Protocol: Document 01/24/23 12:30 [facility] (Rec: 01/24/23 12:44 [facility] [id number]) OP-PT Subjective Patient Comments Patient Comments Reports lousy day today; shoulder and back pain. Has difficulty putting foam inside compression stockings. WEaring 20-30 mm Hg. Doing HEP, compression stockings daily, elevating, skin care. Does self-MLD at collarbones, under arms, belly, and groin but can't reach legs and has moderate to severe pain left shoulder. PT-OP-G Mobility & Gait Start: 01/01/23 14:47 Freq: Status: Active Protocol: Document 01/02/23 12:31 [facility] (Rec: 01/02/23 17:55 [facility] [id number]) OP Mobility Evaluation Bed Mobility Supine to and from Sit indep but labored Transfers Sit to Stand indep but labored OP Gait Assessment Gait Gait Assistance Required: Independent Assistive Devices Assistive Device Tripod Cane/Hurry Cane Gait Deviations General Gait Pattern Decreased Stride Length, Decreased Feet Clearance Comments Gait Comments limited by edema, generalized weakness PT-OP-J Posture/Palpation/Skin Start: 01/01/23 14:47 Freq: Status: Active Protocol: Document 01/02/23 12:31 [facility] (Rec: 01/02/23 17:55 [facility] [id number]) Palpation Assessment Location manny LE's Palpation Findings Edema,Soft Tissue Tightness Skin Assessment Other Assessments Skin Assessment Comments hyperkeratosis, multiple areas of pappilomas PT-OP-M Strength Start: 01/01/23 14:47 Freq: Status: Active Protocol: Document 01/02/23 12:31 [facility] (Rec: 01/02/23 17:55 [facility] [id number]) Hip Strength Hip Manual Muscle Testing manny Comments grossly 3+ throughout Knee Strength Knee Manual Muscle Testing manny Flexion (S2) 4 Good Extension (L3) 4 Good Ankle/Foot Strength Ankle and Foot Manual Muscle Testing manny Dorsiflexion (L4) 4- Good- Plantarflexion (S1) 4- Good- PT-OP-N Lymphedema Start: 01/01/23 14:47 Freq: Status: Active Protocol: Document 01/18/23 10:30 [facility] (Rec: 01/18/23 11:00 [facility] [id number]) Lymphedema Measurements Lower Extremity Circumference Measurements Right Affected MT Heads 25.5 cm Mid-foot 26.4 cm Medial Malleolus 34.5 cm 10 cm From Medial Malleolus 37.4 cm 20 cm From Medial Malleolus 48 cm 30 cm From Medial Malleolus 48.2 cm 40 cm From Medial Malleolus 52.8 cm 50 cm From Medial Malleolus 59.4 cm 60 cm From Medial Malleolus 67 cm 70 cm From Medial Malleolus 72 cm Knee Joint 52.8 cm - from anterior ankle crease Left Affected MT Heads 26.2 cm Mid-foot 26.5 cm Medial Malleolus 35.2 cm 10 cm From Medial Malleolus 37.4 cm 20 cm From Medial Malleolus 48.1 cm 30 cm From Medial Malleolus 50 cm 40 cm From Medial Malleolus 49.9 cm 50 cm From Medial Malleolus 58.3 cm 60 cm From Medial Malleolus 66.1 cm 70 cm From Medial Malleolus 72 cm Knee Joint 49.9 cm - from anterior ankle crease PT-OP-Q Treatments Start: 01/01/23 14:47 Freq: Status: Active Protocol: Document 01/24/23 12:30 [facility] (Rec: 01/24/23 12:44 [facility] [id number]) Lymphedema Treatment Manual Lymphatic Drainage Location manny LE's Duration 60 Comments alternating with sequential pneumatic pump each leg 30 min each at 50 mm Hg Lymphedema Wrapping Materials patient compression stockings with PT assist; manny 20-30 mm Hg topped with comprilan over black foam on areas of hyperkeratosis on left and right with 1 roll comprilan over from ankle to knee; have been putting foam on inside of compressiion stockings but patient unable to do. Today trial with foam outside of compression stockings under Comprilan Sequential Lymphedema Exercises Comments Sci-Fit as above Patient reports compliance to HEP Other Other Cetaphil lotion application manny LE's PT-OP-R Modalities Start: 01/01/23 14:47 Freq: Status: Active Protocol: Document 01/24/23 12:30 [facility] (Rec: 01/24/23 12:44 [facility] [id number]) Compression Pump Treatment Treatment Location Left Leg Pressure Amount (mmHg) (mmHG) 50 Inflation Time (Seconds) 30 Deflation Time (Seconds) 10 Treatment Duration (minutes) 30 Treatment Tolerance Good Treatment Comments decreased circumferential measurements with flattening of areas of elephentiasis/ hyperkeratosis Right Leg Pressure Amount (mmHg) (mmHG) 50 Inflation Time (Seconds) 30 Deflation Time (Seconds) 10 Treatment Duration (minutes) 30 Treatment Tolerance Good Treatment Comments decreased circumferential measurements after with visible flattending of areas of elephantiasis/ hyperkeratosis PT-OP-T Assessment and Plan Start: 01/01/23 14:47 Freq: Status: Active Protocol: Document 01/24/23 12:30 [facility] (Rec: 01/24/23 12:44 [facility] [id number]) Physical Therapy Assessment Impairments Impairments Activity Tolerance,Edema Goals Two Impairment activity intolerance Impairment LYmphedema Life impact scale 48% Short Term Goal (STG) Improve Lymphedema Life Impact scale to no greater than 38% as measure of improved activity tolerance and quality of life STG Duration 02/16/23 Jail Goal (LTG) Improve lymphedema Life Impact scale to no greater than 25% as measure of improved activity tolerance and quality of life. LTG Duration 04/02/23 One Impairment lymphedema manny LE's Short Term Goal (STG) Patient to be instructed in all aspects of lymphedema care to include skin care, manual lymphatic drainage, compression and lymphedema exercises STG Duration 02/16/23 Jail Goal (LTG) Decrease lymphedema to stable level (no increase or decrease greater than 1 cm over the course of 1 week), patient to be independent with all aspects of lymphedema self- care including obtaining appropriate compression garments. LTG Duration 04/02/23 Progress Towards Goals Progress Towards Goals Progressing Toward Goals Assessment Summary Assessment Improving skin health, some scabbed areas in hyperkeratosis areas after leakage of fluid but healing well. Patient elevating and exercise increased. Patient unable to insert marcus inside of compression stockings as PT does so trial with foam outside topped with Comprilan today. Feel patient will benefit highly from use of sequential pneumatic pump for manny LE's due to difficulty with self management due to back and shoulder pain. Physical Therapy Plan Frequency and Duration Frequency of Treatment 20 visits Duration of treatment (weeks) 12 Plan of Care Start Date 01/02/23 Plan of Care End Date 04/03/23 Therapeutic Interventions Therapeutic Interventions Gait Training,Home Exercise Program,Lymphedema Management, Manual Therapy,Self-Care/Home Management,Soft Tissue Mobilization,Therapeutic Activities,Therapeutic Exercises Modalities Vasopneumatic Devices Next Visit Focus/Plan Next Note Type Treatment Note Next Visit Plan Continue CDT for lymphedema management. Circumferential measurements. Complete paperwork for sequential pneumatic pumps. Assess response to foam outside of compression stockings and patient ability to apply Comprilan
--- NOTE | 2023-02-07 15:59 | PT.OTN ---
Current Diagnoses Lymphedema, not elsewhere classified (02/07/23) Physical Therapy Treatment Note PT-OP-A Visit Information Start: 01/01/23 14:47 Freq: Status: Active Protocol: Document 02/07/23 14:53 [facility] (Rec: 02/07/23 14:59 [facility] [id number]) Out-Patient Physical Therapy Visit Information Visit Information Visit Type Treatment Note Visit Start Time 15:00 Visit Stop Time 16:30 Total Visit Minutes 89 Visit Number 8 Evaluation Information Evaluation Date 01/02/23 Precautions Precautions PMH:Medical History (Updated 09/14/22 @ 10:43 by Sam Danielson MD) Allergic rhinitis CAD (coronary artery disease) Cataracts, bilateral Chicken pox Chronic kidney disease, stage 3b CKD (chronic kidney disease) COPD (chronic obstructive pulmonary disease) Dizziness Do not resuscitate Essential hypertension Former smoker Fractures Glucose intolerance Hearing loss LBBB (left bundle branch block ) Measles Mixed hyperlipidemia Mumps Perforated nasal septum Retinal detachment Severe obesity (BMI >= 40) 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 Tibial plateau fracture, right (~09/2017) Prostate cancer with radiation Surgical History (Reviewed 11/29 @ 03:52 by Sam Danielson MD) Anesthesia H/O left nephrectomy (~2014) History of bilateral knee replacement History of colonoscopy History of lobectomy of lung ( ~2015) Hx of bilateral cataract extraction (~2016) Hx of heart artery stent (~ 2002) PT-OP-B Current Condition Start: 01/01/23 14:47 Freq: Status: Active Protocol: Document 02/07/23 14:53 [facility] (Rec: 02/07/23 14:59 [facility] [id number]) Current Condition History of Current Condition Onset Date 2 years ago Current Complaints swelling bilateral legs History of Current Condition First noticed swelling bilateral legs about 2 years ago, [facility] doctor recommended compression stockings, has been wearing knee high compression stockings since then but admits to only wearing about 30% of the time . States seems like getting worse and has skin changes with thickening and blistering . Patient admits to sedentary lifestyle, only exercise is 2days per week pulmonary rehab maintenance. States sits and reads and watches TV a lot. No other treatment for his lymphedema. Lives with daughter (nurse at ) and son -in-law. Prior Treatments and Tests radiation to prostate, left kidney removed, left upper lung lobe removed. 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 Dr. Andrews for kidney issues. Treatment Goals Patient/Caregiver Goals Decrease swelling and help him to self-manage his edema, prevent worsening PT-OP-C Subjective Start: 01/01/23 14:47 Freq: Status: Active Protocol: Document 02/07/23 14:53 [facility] (Rec: 02/07/23 14:59 [facility] [id number]) OP-PT Subjective Patient Comments Patient Comments Has been compliant with all aspects of lymphedema care as instructed; skin care, manual lymphatic drainage (proximally as has difficulty reaching lower legs), elevation, exercise, and compression. Continues to have difficulty keeping edema down. Improved after PT sessions PT-OP-G Mobility & Gait Start: 01/01/23 14:47 Freq: Status: Active Protocol: Document 01/02/23 12:31 [facility] (Rec: 01/02/23 17:55 [facility] [id number]) OP Mobility Evaluation Bed Mobility Supine to and from Sit indep but labored Transfers Sit to Stand indep but labored OP Gait Assessment Gait Gait Assistance Required: Independent Assistive Devices Assistive Device Tripod Cane/Hurry Cane Gait Deviations General Gait Pattern Decreased Stride Length, Decreased Feet Clearance Comments Gait Comments limited by edema, generalized weakness PT-OP-J Posture/Palpation/Skin Start: 01/01/23 14:47 Freq: Status: Active Protocol: Document 01/02/23 12:31 [facility] (Rec: 01/02/23 17:55 [facility] [id number]) Palpation Assessment Location manny LE's Palpation Findings Edema,Soft Tissue Tightness Skin Assessment Other Assessments Skin Assessment Comments hyperkeratosis, multiple areas of pappilomas PT-OP-M Strength Start: 01/01/23 14:47 Freq: Status: Active Protocol: Document 01/02/23 12:31 [facility] (Rec: 01/02/23 17:55 [facility] [id number]) Hip Strength Hip Manual Muscle Testing manny Comments grossly 3+ throughout Knee Strength Knee Manual Muscle Testing manny Flexion (S2) 4 Good Extension (L3) 4 Good Ankle/Foot Strength Ankle and Foot Manual Muscle Testing manny Dorsiflexion (L4) 4- Good- Plantarflexion (S1) 4- Good- PT-OP-N Lymphedema Start: 01/01/23 14:47 Freq: Status: Active Protocol: Document 02/07/23 14:53 [facility] (Rec: 02/07/23 15:21 [facility] [id number]) Lymphedema Measurements Lower Extremity Circumference Measurements Right Affected MT Heads 25.8 cm Mid-foot 26.2 cm Medial Malleolus 34.6 cm 10 cm From Medial Malleolus 38.3 cm 20 cm From Medial Malleolus 41 cm 30 cm From Medial Malleolus 49.4 cm 40 cm From Medial Malleolus 51.9 cm 50 cm From Medial Malleolus 60.5 cm 60 cm From Medial Malleolus 69.3 cm 70 cm From Medial Malleolus 73 cm Knee Joint 51.9 cm - from anterior ankle crease Left Affected MT Heads 26.5 cm Mid-foot 27 cm Medial Malleolus 34.9 cm 10 cm From Medial Malleolus 37.4 cm 20 cm From Medial Malleolus 48 cm 30 cm From Medial Malleolus 50.9 cm 40 cm From Medial Malleolus 49.1 cm 50 cm From Medial Malleolus 57.2 cm 60 cm From Medial Malleolus 64.8 cm 70 cm From Medial Malleolus 71.2 cm Knee Joint 49.1 cm - from anterior ankle crease PT-OP-Q Treatments Start: 01/01/23 14:47 Freq: Status: Active Protocol: Document 02/07/23 14:53 [facility] (Rec: 02/07/23 15:53 [facility] [id number]) Lymphedema Treatment Manual Lymphatic Drainage Location manny LE's Duration 60 Comments alternating with sequential pneumatic pump each leg 30 min each at 50 mm Hg Lymphedema Wrapping Materials patient compression stockings with PT assist; manny 20-30 mm Hg topped with comprilan over black foam on areas of hyperkeratosis on left and right with 1 roll comprilan over from ankle to knee. Review technique for patient to perform at home. Sequential Lymphedema Exercises Location manny LE's Duration 10x Compression Garment Assessment Compression Garment Assessment Details Good fit of compression stockings manny LE's Other Other Cetaphil lotion application manny LE's PT-OP-R Modalities Start: 01/01/23 14:47 Freq: Status: Active Protocol: Document 02/07/23 14:53 [facility] (Rec: 02/07/23 14:59 [facility] [id number]) Compression Pump Treatment Treatment Location Left Leg Pressure Amount (mmHg) (mmHG) 50 Inflation Time (Seconds) 30 Deflation Time (Seconds) 10 Treatment Duration (minutes) 30 Treatment Tolerance Good Treatment Comments decreased circumferential measurements with flattening of areas of elephentiasis/ hyperkeratosis Right Leg Pressure Amount (mmHg) (mmHG) 50 Inflation Time (Seconds) 30 Deflation Time (Seconds) 10 Treatment Duration (minutes) 30 Treatment Tolerance Good Treatment Comments decreased circumferential measurements after with visible flattending of areas of elephantiasis/ hyperkeratosis PT-OP-T Assessment and Plan Start: 01/01/23 14:47 Freq: Status: Active Protocol: Document 02/07/23 14:53 [facility] (Rec: 02/07/23 14:59 [facility] [id number]) Physical Therapy Assessment Impairments Impairments Activity Tolerance,Edema Goals Two Impairment activity intolerance Impairment LYmphedema Life impact scale 48% Short Term Goal (STG) Improve Lymphedema Life Impact scale to no greater than 38% as measure of improved activity tolerance and quality of life 02/07/23: goal met STG Duration 02/16/23 Intermediate Goal (LTG) Improve lymphedema Life Impact scale to no greater than 25% as measure of improved activity tolerance and quality of life. LTG Duration 04/02/23 One Impairment lymphedema manny LE's Short Term Goal (STG) Patient to be instructed in all aspects of lymphedema care to include skin care, manual lymphatic drainage, compression and lymphedema exercises 02/07/23: goal met STG Duration 02/16/23 Intermediate Goal (LTG) Decrease lymphedema to stable level (no increase or decrease greater than 1 cm over the course of 1 week), patient to be independent with all aspects of lymphedema self- care including obtaining appropriate compression garments. LTG Duration 04/02/23 Assessment Summary Assessment Despite demonstrating good compliance to all aspects of lymphedema care including skin care, elevation, manual lymphatic drainage, exercise, and compression this patient continues to have difficulty managing his lymphedema after more than 30 days of treatment (first seen in PT 01/02/23). He has hyperkeratosis manny LE's which is improved with compression, but even further with use sequential pneumatic pump trial in PT. He has pain in his back and left shoulder that make doing full manual lymphatic drainage difficult in the home. As an adjunct to his self management of lymphedema in the home I feel he would benefit highly from the use of a sequential pneumatic pump for home use. He is very receptive to the potential for the use of a pump in the home. Physical Therapy Plan Frequency and Duration Frequency of Treatment 20 visits Duration of treatment (weeks) 12 Plan of Care Start Date 01/02/23 Plan of Care End Date 04/03/23 Therapeutic Interventions Therapeutic Interventions Gait Training,Home Exercise Program,Lymphedema Management, Manual Therapy,Self-Care/Home Management,Soft Tissue Mobilization,Therapeutic Activities,Therapeutic Exercises Modalities Vasopneumatic Devices Next Visit Focus/Plan Next Note Type Treatment Note Next Visit Plan Continue Complete Decongestive Therapy to address patient's lymphedema. Complete paperwork for possible sequential pneumatic pump in the home.
--- NOTE | 2023-02-14 11:26 | PT.OTN ---
Current Diagnoses Lymphedema, not elsewhere classified (02/14/23) Physical Therapy Treatment Note PT-OP-A Visit Information Start: 01/01/23 14:47 Freq: Status: Active Protocol: Document 02/14/23 10:30 [facility] (Rec: 02/14/23 10:54 [facility] [id number]) Out-Patient Physical Therapy Visit Information Visit Information Visit Type Treatment Note Visit Start Time 10:31 Visit Stop Time 11:59 Total Visit Minutes 88 Visit Number 9 Evaluation Information Evaluation Date 01/02/23 Precautions Precautions PMH:Medical History (Updated 09/14/22 @ 10:43 by Sam Danielson MD) Allergic rhinitis CAD (coronary artery disease) Cataracts, bilateral Chicken pox Chronic kidney disease, stage 3b CKD (chronic kidney disease) COPD (chronic obstructive pulmonary disease) Dizziness Do not resuscitate Essential hypertension Former smoker Fractures Glucose intolerance Hearing loss LBBB (left bundle branch block ) Measles Mixed hyperlipidemia Mumps Perforated nasal septum Retinal detachment Severe obesity (BMI >= 40) 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 Tibial plateau fracture, right (~09/2017) Prostate cancer with radiation Surgical History (Reviewed 11/29 @ 03:52 by Sam Danielson MD) Anesthesia H/O left nephrectomy (~2014) History of bilateral knee replacement History of colonoscopy History of lobectomy of lung ( ~2015) Hx of bilateral cataract extraction (~2016) Hx of heart artery stent (~ 2002) PT-OP-B Current Condition Start: 01/01/23 14:47 Freq: Status: Active Protocol: Document 02/14/23 10:30 [facility] (Rec: 02/14/23 10:54 [facility] [id number]) Current Condition History of Current Condition Onset Date 2 years ago Current Complaints swelling bilateral legs History of Current Condition First noticed swelling bilateral legs about 2 years ago, [facility] doctor recommended compression stockings, has been wearing knee high compression stockings since then but admits to only wearing about 30% of the time . States seems like getting worse and has skin changes with thickening and blistering . Patient admits to sedentary lifestyle, only exercise is 2days per week pulmonary rehab maintenance. States sits and reads and watches TV a lot. No other treatment for his lymphedema. Lives with daughter (nurse at ) and son -in-law. Prior Treatments and Tests radiation to prostate, left kidney removed, left upper lung lobe removed. 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 Dr. Andrews for kidney issues. Treatment Goals Patient/Caregiver Goals Decrease swelling and help him to self-manage his edema, prevent worsening PT-OP-C Subjective Start: 01/01/23 14:47 Freq: Status: Active Protocol: Document 02/14/23 10:30 [facility] (Rec: 02/14/23 10:54 [facility] [id number]) OP-PT Subjective Patient Comments Patient Comments Poor sleep last night, unsure why, very tired today. Had flu, Covid update, and RSV vaccinations Feb 02. Reports weight stable. Hasn't been able to apply foam and Comprilan himself; too difficult to do. Hopeful that he will have pump soon for self management. PT-OP-G Mobility & Gait Start: 01/01/23 14:47 Freq: Status: Active Protocol: Document 01/02/23 12:31 [facility] (Rec: 01/02/23 17:55 [facility] [id number]) OP Mobility Evaluation Bed Mobility Supine to and from Sit indep but labored Transfers Sit to Stand indep but labored OP Gait Assessment Gait Gait Assistance Required: Independent Assistive Devices Assistive Device Tripod Cane/Hurry Cane Gait Deviations General Gait Pattern Decreased Stride Length, Decreased Feet Clearance Comments Gait Comments limited by edema, generalized weakness PT-OP-J Posture/Palpation/Skin Start: 01/01/23 14:47 Freq: Status: Active Protocol: Document 01/02/23 12:31 [facility] (Rec: 01/02/23 17:55 [facility] [id number]) Palpation Assessment Location manny LE's Palpation Findings Edema,Soft Tissue Tightness Skin Assessment Other Assessments Skin Assessment Comments hyperkeratosis, multiple areas of pappilomas PT-OP-M Strength Start: 01/01/23 14:47 Freq: Status: Active Protocol: Document 01/02/23 12:31 [facility] (Rec: 01/02/23 17:55 [facility] [id number]) Hip Strength Hip Manual Muscle Testing manny Comments grossly 3+ throughout Knee Strength Knee Manual Muscle Testing manny Flexion (S2) 4 Good Extension (L3) 4 Good Ankle/Foot Strength Ankle and Foot Manual Muscle Testing manny Dorsiflexion (L4) 4- Good- Plantarflexion (S1) 4- Good- PT-OP-N Lymphedema Start: 01/01/23 14:47 Freq: Status: Active Protocol: Document 02/14/23 10:30 [facility] (Rec: 02/14/23 10:54 [facility] [id number]) Lymphedema Measurements Lower Extremity Circumference Measurements Right Affected MT Heads 26.2 cm Mid-foot 26.8 cm Medial Malleolus 34.8 cm 10 cm From Medial Malleolus 38 cm 20 cm From Medial Malleolus 48.8 cm 30 cm From Medial Malleolus 51.1 cm 40 cm From Medial Malleolus 52.5 cm 50 cm From Medial Malleolus 59.6 cm 60 cm From Medial Malleolus 68 cm 70 cm From Medial Malleolus 73.4 cm Knee Joint 49.3 cm - from anterior ankle crease Left Affected MT Heads 25.2 cm Mid-foot 26.6 cm Medial Malleolus 35.4 cm 10 cm From Medial Malleolus 38.1 cm 20 cm From Medial Malleolus 48 cm 30 cm From Medial Malleolus 51.5 cm 40 cm From Medial Malleolus 50.6 cm 50 cm From Medial Malleolus 57.1 cm 60 cm From Medial Malleolus 66.5 cm 70 cm From Medial Malleolus 73.8 cm Knee Joint 48.6 cm - from anterior ankle crease PT-OP-Q Treatments Start: 01/01/23 14:47 Freq: Status: Active Protocol: Document 02/14/23 10:30 [facility] (Rec: 02/14/23 10:54 [facility] [id number]) Lymphedema Treatment Manual Lymphatic Drainage Location manny LE's Duration 60 Comments alternating with sequential pneumatic pump each leg 30 min each at 50 mm Hg Lymphedema Wrapping Materials patient compression stockings with PT assist; manny 20-30 mm Hg topped with comprilan over black foam on areas of hyperkeratosis on left and right with 1 roll comprilan over from ankle to knee. Review technique for patient to perform at home. Sequential Lymphedema Exercises Location manny LE's Duration 10x Compression Garment Assessment Compression Garment Assessment Details Good fit of compression stockings manny LE's Other Other Cetaphil lotion application manny LE's PT-OP-R Modalities Start: 01/01/23 14:47 Freq: Status: Active Protocol: Document 02/14/23 10:30 [facility] (Rec: 02/14/23 11:20 [facility] [id number]) Compression Pump Treatment Treatment Location Left Leg Pressure Amount (mmHg) (mmHG) 50 Inflation Time (Seconds) 30 Deflation Time (Seconds) 10 Treatment Duration (minutes) 30 Treatment Tolerance Good Treatment Comments decreased circumferential measurements with flattening of areas of elephentiasis/ hyperkeratosis Right Leg Pressure Amount (mmHg) (mmHG) 50 Inflation Time (Seconds) 30 Deflation Time (Seconds) 10 Treatment Duration (minutes) 60 Treatment Tolerance Good Treatment Comments decreased circumferential measurements after with visible flattending of areas of elephantiasis/ hyperkeratosis PT-OP-T Assessment and Plan Start: 01/01/23 14:47 Freq: Status: Active Protocol: Document 02/14/23 10:30 [facility] (Rec: 02/14/23 10:54 [facility] [id number]) Physical Therapy Assessment Goals Two Impairment activity intolerance Impairment LYmphedema Life impact scale 48% Short Term Goal (STG) Improve Lymphedema Life Impact scale to no greater than 38% as measure of improved activity tolerance and quality of life 02/07/23: goal met STG Duration 02/16/23 Custodial Goal (LTG) Improve lymphedema Life Impact scale to no greater than 25% as measure of improved activity tolerance and quality of life. LTG Duration 04/02/23 One Impairment lymphedema manny LE's Short Term Goal (STG) Patient to be instructed in all aspects of lymphedema care to include skin care, manual lymphatic drainage, compression and lymphedema exercises 02/07/23: goal met STG Duration 02/16/23 Custodial Goal (LTG) Decrease lymphedema to stable level (no increase or decrease greater than 1 cm over the course of 1 week), patient to be independent with all aspects of lymphedema self- care including obtaining appropriate compression garments. LTG Duration 04/02/23 Assessment Summary Assessment Increased circumferential measurements majority of measurements right and 50% on left, most at ankle and mid calf. Patient reports he is doing all self-care as able including exercise, elevation, self-massage (can only do proximal due to left shoulder pain, difficult reaching lower legs), compression stockings. Will benefit from use of sequential pneumatic pump in the home. Physical Therapy Plan Frequency and Duration Frequency of Treatment 20 visits Duration of treatment (weeks) 12 Plan of Care Start Date 01/02/23 Plan of Care End Date 04/03/23 Therapeutic Interventions Therapeutic Interventions Gait Training,Home Exercise Program,Lymphedema Management, Manual Therapy,Self-Care/Home Management,Soft Tissue Mobilization,Therapeutic Activities,Therapeutic Exercises Modalities Vasopneumatic Devices Next Visit Focus/Plan Next Note Type Re-Evaluation Next Visit Plan Continue Complete Decongestive Therapy to address patient's lymphedema. Train in use of sequential pneumatic pump whenarrives.
--- NOTE | 2023-02-27 16:00 | PT.OPPN ---
Current Diagnoses Lymphedema, not elsewhere classified (02/14/23) Physical Therapy Progress Note PT-OP-A Visit Information Start: 01/01/23 14:47 Freq: Status: Active Protocol: Document 02/27/23 09:04 [facility] (Rec: 02/27/23 09:25 [facility] [id number]) Out-Patient Physical Therapy Visit Information Visit Information Visit Type Cancellation Visit Start Time 09:15 Evaluation Information Evaluation Date 02/27/23 Precautions Precautions PMH:Medical History (Updated 09/14/22 @ 10:43 by Sam Danielson MD) Allergic rhinitis CAD (coronary artery disease) Cataracts, bilateral Chicken pox Chronic kidney disease, stage 3b CKD (chronic kidney disease) COPD (chronic obstructive pulmonary disease) Dizziness Do not resuscitate Essential hypertension Former smoker Fractures Glucose intolerance Hearing loss LBBB (left bundle branch block ) Measles Mixed hyperlipidemia Mumps Perforated nasal septum Retinal detachment Severe obesity (BMI >= 40) 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 Tibial plateau fracture, right (~09/2017) Prostate cancer with radiation Surgical History (Reviewed 11/29 @ 03:52 by Sam Danielson MD) Anesthesia H/O left nephrectomy (~2014) History of bilateral knee replacement History of colonoscopy History of lobectomy of lung ( ~2015) Hx of bilateral cataract extraction (~2016) Hx of heart artery stent (~ 2002) PT-OP-B Current Condition Start: 01/01/23 14:47 Freq: Status: Active Protocol: Document 02/27/23 09:04 [facility] (Rec: 02/27/23 09:25 [facility] [id number]) Current Condition History of Current Condition Onset Date 2 years ago Current Complaints swelling bilateral legs History of Current Condition First noticed swelling bilateral legs about 2 years ago, [facility] doctor recommended compression stockings, has been wearing knee high compression stockings since then but admits to only wearing about 30% of the time . States seems like getting worse and has skin changes with thickening and blistering . Patient admits to sedentary lifestyle, only exercise is 2days per week pulmonary rehab maintenance. States sits and reads and watches TV a lot. No other treatment for his lymphedema. Lives with daughter (nurse at ) and son -in-law. Prior Treatments and Tests radiation to prostate, left kidney removed, left upper lung lobe removed. 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 Dr. Andrews for kidney issues. Treatment Goals Patient/Caregiver Goals Decrease swelling and help him to self-manage his edema, prevent worsening PT-OP-C Subjective Start: 01/01/23 14:47 Freq: Status: Active Protocol: Document 02/27/23 09:04 [facility] (Rec: 02/27/23 09:25 [facility] [id number]) OP-PT Subjective Patient Comments Patient Comments Continues to wear compression stockings, uses chip bags inside stockings for compression to areas of fibrosis and hyperkeratosis. Doing lymphedema exercises, elevation, lotion application for skin care. Able to do MLD above collar bones, at neck, under arms, at groin, and deep breathing. Has difficulty reaching legs due to shoulder pain and back pain , has tried to use long- handled brush as instructed by PT but still has difficulty reaching all way to feet. Patient not able to come to PT due to schedule conflict, physician appointment. Will continue with home management until next PT appointment PT-OP-G Mobility & Gait Start: 01/01/23 14:47 Freq: Status: Active Protocol: Document 01/02/23 12:31 [facility] (Rec: 01/02/23 17:55 [facility] [id number]) OP Mobility Evaluation Bed Mobility Supine to and from Sit indep but labored Transfers Sit to Stand indep but labored OP Gait Assessment Gait Gait Assistance Required: Independent Assistive Devices Assistive Device Tripod Cane/Hurry Cane Gait Deviations General Gait Pattern Decreased Stride Length, Decreased Feet Clearance Comments Gait Comments limited by edema, generalized weakness PT-OP-J Posture/Palpation/Skin Start: 01/01/23 14:47 Freq: Status: Active Protocol: Document 01/02/23 12:31 [facility] (Rec: 01/02/23 17:55 [facility] [id number]) Palpation Assessment Location manny LE's Palpation Findings Edema,Soft Tissue Tightness Skin Assessment Other Assessments Skin Assessment Comments hyperkeratosis, multiple areas of pappilomas PT-OP-M Strength Start: 01/01/23 14:47 Freq: Status: Active Protocol: Document 01/02/23 12:31 [facility] (Rec: 01/02/23 17:55 [facility] [id number]) Hip Strength Hip Manual Muscle Testing manny Comments grossly 3+ throughout Knee Strength Knee Manual Muscle Testing manny Flexion (S2) 4 Good Extension (L3) 4 Good Ankle/Foot Strength Ankle and Foot Manual Muscle Testing manny Dorsiflexion (L4) 4- Good- Plantarflexion (S1) 4- Good- PT-OP-N Lymphedema Start: 01/01/23 14:47 Freq: Status: Active Protocol: Document 02/14/23 10:30 [facility] (Rec: 02/14/23 10:54 [facility] [id number]) Lymphedema Measurements Lower Extremity Circumference Measurements Right Affected MT Heads 26.2 cm Mid-foot 26.8 cm Medial Malleolus 34.8 cm 10 cm From Medial Malleolus 38 cm 20 cm From Medial Malleolus 48.8 cm 30 cm From Medial Malleolus 51.1 cm 40 cm From Medial Malleolus 52.5 cm 50 cm From Medial Malleolus 59.6 cm 60 cm From Medial Malleolus 68 cm 70 cm From Medial Malleolus 73.4 cm Knee Joint 49.3 cm - from anterior ankle crease Left Affected MT Heads 25.2 cm Mid-foot 26.6 cm Medial Malleolus 35.4 cm 10 cm From Medial Malleolus 38.1 cm 20 cm From Medial Malleolus 48 cm 30 cm From Medial Malleolus 51.5 cm 40 cm From Medial Malleolus 50.6 cm 50 cm From Medial Malleolus 57.1 cm 60 cm From Medial Malleolus 66.5 cm 70 cm From Medial Malleolus 73.8 cm Knee Joint 48.6 cm - from anterior ankle crease PT-OP-T Assessment and Plan Start: 01/01/23 14:47 Freq: Status: Active Protocol: Document 02/27/23 09:04 [facility] (Rec: 02/27/23 09:25 [facility] [id number]) Physical Therapy Assessment Goals Two Impairment activity intolerance Impairment LYmphedema Life impact scale 48% Short Term Goal (STG) Improve Lymphedema Life Impact scale to no greater than 38% as measure of improved activity tolerance and quality of life 02/07/23: goal met STG Duration goal met Detention Goal (LTG) Improve lymphedema Life Impact scale to no greater than 25% as measure of improved activity tolerance and quality of life. 02/27/23: goal progress LTG Duration 04/02/23 One Impairment lymphedema manny LE's Short Term Goal (STG) Patient to be instructed in all aspects of lymphedema care to include skin care, manual lymphatic drainage, compression and lymphedema exercises 02/07/23: goal met STG Duration goal met Detention Goal (LTG) Decrease lymphedema to stable level (no increase or decrease greater than 1 cm over the course of 1 week), patient to be independent with all aspects of lymphedema self- care including obtaining appropriate compression garments. 02/27/23: Patient reports he has been consistently compliant with self-care including skin care, elevation , wearing compression stockings and chip bags, doing lymphedema exercises and increasing his activity level, and doing self-MLD as best he can though his shoulder pain and back pain limit his ability to perform distally, hopeful to obtain sequential pneumatic pump to assist in self care in the home. LTG Duration 04/02/23 Assessment Summary Assessment Patient reporting good compliance to all aspects of self-care with increased activity and exercise, elevation manny LE's, wearing compression stockings with chip bags inside as unable to bandage his legs, skin care. Able to perform self-MLD proximally, but due to pain in shoulders and low back has difficulty performing distally though has been using a long- handled brush as instructed by PT. Feel he would benefit highly from the use of a sequential pneumatic pump for home use to assist in the self -management of his lymphedema. He is at high risk for development of complications related to lymphedema including cellulitis. Physical Therapy Plan Frequency and Duration Frequency of Treatment 20 visits Duration of treatment (weeks) 12 Plan of Care Start Date 01/02/23 Plan of Care End Date 04/03/23 Therapeutic Interventions Therapeutic Interventions Gait Training,Home Exercise Program,Lymphedema Management, Manual Therapy,Self-Care/Home Management,Soft Tissue Mobilization,Therapeutic Activities,Therapeutic Exercises Modalities Vasopneumatic Devices Next Visit Focus/Plan Next Note Type Treatment Note Next Visit Plan Continue Complete Decongestive Therapy to address patient's lymphedema and problem-solve for limitations in function due to shoulder and back pain. Submit further paperwork to try to help patient obtain sequential pneumatic pump for home use.
--- NOTE | 2023-03-05 08:29 | PT.OPPN ---
Current Diagnoses Lymphedema, not elsewhere classified (02/14/23) Physical Therapy Progress Note PT-OP-A Visit Information Start: 01/01/23 14:47 Freq: Status: Active Protocol: Document 02/27/23 09:04 [facility] (Rec: 02/27/23 09:25 [facility] [id number]) Out-Patient Physical Therapy Visit Information Visit Information Visit Type Cancellation Visit Start Time 09:15 Evaluation Information Evaluation Date 02/27/23 Precautions Precautions PMH:Medical History (Updated 09/14/22 @ 10:43 by Sam Danielson MD) Allergic rhinitis CAD (coronary artery disease) Cataracts, bilateral Chicken pox Chronic kidney disease, stage 3b CKD (chronic kidney disease) COPD (chronic obstructive pulmonary disease) Dizziness Do not resuscitate Essential hypertension Former smoker Fractures Glucose intolerance Hearing loss LBBB (left bundle branch block ) Measles Mixed hyperlipidemia Mumps Perforated nasal septum Retinal detachment Severe obesity (BMI >= 40) 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 Tibial plateau fracture, right (~09/2017) Prostate cancer with radiation Surgical History (Reviewed 11/29 @ 03:52 by Sam Danielson MD) Anesthesia H/O left nephrectomy (~2014) History of bilateral knee replacement History of colonoscopy History of lobectomy of lung ( ~2015) Hx of bilateral cataract extraction (~2016) Hx of heart artery stent (~ 2002) PT-OP-B Current Condition Start: 01/01/23 14:47 Freq: Status: Active Protocol: Document 02/27/23 09:04 [facility] (Rec: 02/27/23 09:25 [facility] [id number]) Current Condition History of Current Condition Onset Date 2 years ago Current Complaints swelling bilateral legs History of Current Condition First noticed swelling bilateral legs about 2 years ago, [facility] doctor recommended compression stockings, has been wearing knee high compression stockings since then but admits to only wearing about 30% of the time . States seems like getting worse and has skin changes with thickening and blistering . Patient admits to sedentary lifestyle, only exercise is 2days per week pulmonary rehab maintenance. States sits and reads and watches TV a lot. No other treatment for his lymphedema. Lives with daughter (nurse at ) and son -in-law. Prior Treatments and Tests radiation to prostate, left kidney removed, left upper lung lobe removed. 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 Dr. Andrews for kidney issues. Treatment Goals Patient/Caregiver Goals Decrease swelling and help him to self-manage his edema, prevent worsening PT-OP-C Subjective Start: 01/01/23 14:47 Freq: Status: Active Protocol: Document 02/27/23 09:04 [facility] (Rec: 02/27/23 09:25 [facility] [id number]) OP-PT Subjective Patient Comments Patient Comments Continues to wear compression stockings, uses chip bags inside stockings for compression to areas of fibrosis and hyperkeratosis. Doing lymphedema exercises, elevation, lotion application for skin care. Able to do MLD above collar bones, at neck, under arms, at groin, and deep breathing. Has difficulty reaching legs due to shoulder pain and back pain , has tried to use long- handled brush as instructed by PT but still has difficulty reaching all way to feet. Patient not able to come to PT due to schedule conflict, physician appointment. Will continue with home management until next PT appointment PT-OP-G Mobility & Gait Start: 01/01/23 14:47 Freq: Status: Active Protocol: Document 01/02/23 12:31 [facility] (Rec: 01/02/23 17:55 [facility] [id number]) OP Mobility Evaluation Bed Mobility Supine to and from Sit indep but labored Transfers Sit to Stand indep but labored OP Gait Assessment Gait Gait Assistance Required: Independent Assistive Devices Assistive Device Tripod Cane/Hurry Cane Gait Deviations General Gait Pattern Decreased Stride Length, Decreased Feet Clearance Comments Gait Comments limited by edema, generalized weakness PT-OP-J Posture/Palpation/Skin Start: 01/01/23 14:47 Freq: Status: Active Protocol: Document 01/02/23 12:31 [facility] (Rec: 01/02/23 17:55 [facility] [id number]) Palpation Assessment Location manny LE's Palpation Findings Edema,Soft Tissue Tightness Skin Assessment Other Assessments Skin Assessment Comments hyperkeratosis, multiple areas of pappilomas PT-OP-M Strength Start: 01/01/23 14:47 Freq: Status: Active Protocol: Document 01/02/23 12:31 [facility] (Rec: 01/02/23 17:55 [facility] [id number]) Hip Strength Hip Manual Muscle Testing manny Comments grossly 3+ throughout Knee Strength Knee Manual Muscle Testing manny Flexion (S2) 4 Good Extension (L3) 4 Good Ankle/Foot Strength Ankle and Foot Manual Muscle Testing manny Dorsiflexion (L4) 4- Good- Plantarflexion (S1) 4- Good- PT-OP-N Lymphedema Start: 01/01/23 14:47 Freq: Status: Active Protocol: Document 02/14/23 10:30 [facility] (Rec: 02/14/23 10:54 [facility] [id number]) Lymphedema Measurements Lower Extremity Circumference Measurements Right Affected MT Heads 26.2 cm Mid-foot 26.8 cm Medial Malleolus 34.8 cm 10 cm From Medial Malleolus 38 cm 20 cm From Medial Malleolus 48.8 cm 30 cm From Medial Malleolus 51.1 cm 40 cm From Medial Malleolus 52.5 cm 50 cm From Medial Malleolus 59.6 cm 60 cm From Medial Malleolus 68 cm 70 cm From Medial Malleolus 73.4 cm Knee Joint 49.3 cm - from anterior ankle crease Left Affected MT Heads 25.2 cm Mid-foot 26.6 cm Medial Malleolus 35.4 cm 10 cm From Medial Malleolus 38.1 cm 20 cm From Medial Malleolus 48 cm 30 cm From Medial Malleolus 51.5 cm 40 cm From Medial Malleolus 50.6 cm 50 cm From Medial Malleolus 57.1 cm 60 cm From Medial Malleolus 66.5 cm 70 cm From Medial Malleolus 73.8 cm Knee Joint 48.6 cm - from anterior ankle crease PT-OP-T Assessment and Plan Start: 01/01/23 14:47 Freq: Status: Active Protocol: Document 02/27/23 09:04 [facility] (Rec: 02/27/23 09:25 [facility] [id number]) Physical Therapy Assessment Goals Two Impairment activity intolerance Impairment LYmphedema Life impact scale 48% Short Term Goal (STG) Improve Lymphedema Life Impact scale to no greater than 38% as measure of improved activity tolerance and quality of life 02/07/23: goal met STG Duration goal met [facility] Goal (LTG) Improve lymphedema Life Impact scale to no greater than 25% as measure of improved activity tolerance and quality of life. 02/27/23: goal progress LTG Duration 04/02/23 One Impairment lymphedema manny LE's Short Term Goal (STG) Patient to be instructed in all aspects of lymphedema care to include skin care, manual lymphatic drainage, compression and lymphedema exercises 02/07/23: goal met STG Duration goal met [facility] Goal (LTG) Decrease lymphedema to stable level (no increase or decrease greater than 1 cm over the course of 1 week), patient to be independent with all aspects of lymphedema self- care including obtaining appropriate compression garments. 02/27/23: Patient reports he has been consistently compliant with self-care including skin care, elevation , wearing compression stockings and chip bags, doing lymphedema exercises and increasing his activity level, and doing self-MLD as best he can though his shoulder pain and back pain limit his ability to perform distally, hopeful to obtain sequential pneumatic pump to assist in self care in the home. LTG Duration 04/02/23 Assessment Summary Assessment Patient reporting good compliance to all aspects of self-care with increased activity and exercise, elevation manny LE's, wearing compression stockings with chip bags inside as unable to bandage his legs, skin care. Able to perform self-MLD proximally, but due to pain in shoulders and low back has difficulty performing distally though has been using a long- handled brush as instructed by PT. Feel he would benefit highly from the use of a sequential pneumatic pump for home use to assist in the self -management of his lymphedema. He is at high risk for development of complications related to lymphedema including cellulitis. Physical Therapy Plan Frequency and Duration Frequency of Treatment 20 visits Duration of treatment (weeks) 12 Plan of Care Start Date 01/02/23 Plan of Care End Date 04/03/23 Therapeutic Interventions Therapeutic Interventions Gait Training,Home Exercise Program,Lymphedema Management, Manual Therapy,Self-Care/Home Management,Soft Tissue Mobilization,Therapeutic Activities,Therapeutic Exercises Modalities Vasopneumatic Devices Next Visit Focus/Plan Next Note Type Treatment Note Next Visit Plan Continue Complete Decongestive Therapy to address patient's lymphedema and problem-solve for limitations in function due to shoulder and back pain. Submit further paperwork to try to help patient obtain sequential pneumatic pump for home use.
--- NOTE | 2023-03-07 16:50 | PT.OTN ---
Current Diagnoses Lymphedema, not elsewhere classified (03/07/23) Physical Therapy Treatment Note PT-OP-A Visit Information Start: 01/01/23 14:47 Freq: Status: Active Protocol: Document 03/07/23 10:43 [facility] (Rec: 03/07/23 10:44 [facility] [id number]) Out-Patient Physical Therapy Visit Information Visit Information Visit Type Treatment Note Visit Start Time 10:37 Visit Stop Time 12:00 Total Visit Minutes 83 Visit Number 10 Evaluation Information Evaluation Date 02/27/23 Precautions Precautions PMH:Medical History (Updated 09/14/22 @ 10:43 by Sam Danielson MD) Allergic rhinitis CAD (coronary artery disease) Cataracts, bilateral Chicken pox Chronic kidney disease, stage 3b CKD (chronic kidney disease) COPD (chronic obstructive pulmonary disease) Dizziness Do not resuscitate Essential hypertension Former smoker Fractures Glucose intolerance Hearing loss LBBB (left bundle branch block ) Measles Mixed hyperlipidemia Mumps Perforated nasal septum Retinal detachment Severe obesity (BMI >= 40) 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 Tibial plateau fracture, right (~09/2017) Prostate cancer with radiation Surgical History (Reviewed 11/29 @ 03:52 by Sam Danielson MD) Anesthesia H/O left nephrectomy (~2014) History of bilateral knee replacement History of colonoscopy History of lobectomy of lung ( ~2015) Hx of bilateral cataract extraction (~2016) Hx of heart artery stent (~ 2002) PT-OP-B Current Condition Start: 01/01/23 14:47 Freq: Status: Active Protocol: Document 03/07/23 10:43 [facility] (Rec: 03/07/23 10:44 [facility] [id number]) Current Condition History of Current Condition Onset Date 2 years ago Current Complaints swelling bilateral legs History of Current Condition First noticed swelling bilateral legs about 2 years ago, [facility] doctor recommended compression stockings, has been wearing knee high compression stockings since then but admits to only wearing about 30% of the time . States seems like getting worse and has skin changes with thickening and blistering . Patient admits to sedentary lifestyle, only exercise is 2days per week pulmonary rehab maintenance. States sits and reads and watches TV a lot. No other treatment for his lymphedema. Lives with daughter (nurse at ) and son -in-law. Prior Treatments and Tests radiation to prostate, left kidney removed, left upper lung lobe removed. 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 Dr. Andrews for kidney issues. Treatment Goals Patient/Caregiver Goals Decrease swelling and help him to self-manage his edema, prevent worsening PT-OP-C Subjective Start: 01/01/23 14:47 Freq: Status: Active Protocol: Document 03/07/23 10:43 [facility] (Rec: 03/07/23 16:50 [facility] [id number]) OP-PT Subjective Patient Comments Patient Comments Patient reports he can't get foam or chip bags inside stocking and unable to bandage foam in place as PT did last session for trial. PT-OP-G Mobility & Gait Start: 01/01/23 14:47 Freq: Status: Active Protocol: Document 01/02/23 12:31 [facility] (Rec: 01/02/23 17:55 [facility] [id number]) OP Mobility Evaluation Bed Mobility Supine to and from Sit indep but labored Transfers Sit to Stand indep but labored OP Gait Assessment Gait Gait Assistance Required: Independent Assistive Devices Assistive Device Tripod Cane/Hurry Cane Gait Deviations General Gait Pattern Decreased Stride Length, Decreased Feet Clearance Comments Gait Comments limited by edema, generalized weakness PT-OP-J Posture/Palpation/Skin Start: 01/01/23 14:47 Freq: Status: Active Protocol: Document 01/02/23 12:31 [facility] (Rec: 01/02/23 17:55 [facility] [id number]) Palpation Assessment Location manny LE's Palpation Findings Edema,Soft Tissue Tightness Skin Assessment Other Assessments Skin Assessment Comments hyperkeratosis, multiple areas of pappilomas PT-OP-M Strength Start: 01/01/23 14:47 Freq: Status: Active Protocol: Document 01/02/23 12:31 [facility] (Rec: 01/02/23 17:55 [facility] [id number]) Hip Strength Hip Manual Muscle Testing manny Comments grossly 3+ throughout Knee Strength Knee Manual Muscle Testing manny Flexion (S2) 4 Good Extension (L3) 4 Good Ankle/Foot Strength Ankle and Foot Manual Muscle Testing manny Dorsiflexion (L4) 4- Good- Plantarflexion (S1) 4- Good- PT-OP-N Lymphedema Start: 01/01/23 14:47 Freq: Status: Active Protocol: Document 03/07/23 10:37 [facility] (Rec: 03/07/23 10:58 [facility] [id number]) Lymphedema Measurements Lower Extremity Circumference Measurements Right Affected MT Heads 26.5 cm Mid-foot 25.8 cm Medial Malleolus 33.5 cm 10 cm From Medial Malleolus 38.5 cm 20 cm From Medial Malleolus 46.7 cm 30 cm From Medial Malleolus 50.2 cm 40 cm From Medial Malleolus 51.2 cm 50 cm From Medial Malleolus 59.2 cm 60 cm From Medial Malleolus 65.7 cm 70 cm From Medial Malleolus 73 cm Knee Joint 51.2 cm - from anterior ankle crease Left Affected MT Heads 24.5 cm Mid-foot 26.5 cm Medial Malleolus 35.6 cm 10 cm From Medial Malleolus 37.8 cm 20 cm From Medial Malleolus 47.6 cm 30 cm From Medial Malleolus 51.2 cm 40 cm From Medial Malleolus 50.8 cm 50 cm From Medial Malleolus 57.2 cm 60 cm From Medial Malleolus 65.7 cm 70 cm From Medial Malleolus 72 cm Knee Joint 50.8 cm PT-OP-Q Treatments Start: 01/01/23 14:47 Freq: Status: Active Protocol: Document 03/07/23 10:37 [facility] (Rec: 03/07/23 11:30 [facility] [id number]) Lymphedema Treatment Manual Lymphatic Drainage Location manny LE's Duration 60 Comments alternating with sequential pneumatic pump each leg 30 min each at 50 mm Hg Lymphedema Wrapping Materials patient compression stockings with PT assist; manny 20-30 mm Hg topped with comprilan over black foam on areas of hyperkeratosis on left and right with 1 roll comprilan over from ankle to knee. Review technique for patient to perform at home. Sequential Lymphedema Exercises Location manny LE's Duration 10x Compression Garment Assessment Compression Garment Assessment Details trial Tubigrip Size G lower leg over foam on top of areas of hyperkeratosis with compression stocking under Other Other Cetaphil lotion application manny LE's PT-OP-R Modalities Start: 01/01/23 14:47 Freq: Status: Active Protocol: Document 03/07/23 10:37 [facility] (Rec: 03/07/23 11:30 [facility] [id number]) Compression Pump Treatment Treatment Location Left Leg Pressure Amount (mmHg) (mmHG) 50 Inflation Time (Seconds) 30 Deflation Time (Seconds) 10 Treatment Duration (minutes) 30 Treatment Tolerance Good Treatment Comments decreased circumferential measurements with flattening of areas of elephentiasis/ hyperkeratosis Right Leg Pressure Amount (mmHg) (mmHG) 50 Inflation Time (Seconds) 30 Deflation Time (Seconds) 10 Treatment Duration (minutes) 60 Treatment Tolerance Good Treatment Comments decreased circumferential measurements after with visible flattending of areas of elephantiasis/ hyperkeratosis PT-OP-T Assessment and Plan Start: 01/01/23 14:47 Freq: Status: Active Protocol: Document 03/07/23 10:43 [facility] (Rec: 03/07/23 10:44 [facility] [id number]) Physical Therapy Assessment Goals Two Impairment activity intolerance Impairment LYmphedema Life impact scale 48% Short Term Goal (STG) Improve Lymphedema Life Impact scale to no greater than 38% as measure of improved activity tolerance and quality of life 02/07/23: goal met STG Duration goal met Literature Teacher Goal (LTG) Improve lymphedema Life Impact scale to no greater than 25% as measure of improved activity tolerance and quality of life. 02/27/23: goal progress LTG Duration 04/02/23 One Impairment lymphedema manny LE's Short Term Goal (STG) Patient to be instructed in all aspects of lymphedema care to include skin care, manual lymphatic drainage, compression and lymphedema exercises 02/07/23: goal met STG Duration goal met Nursing Home Goal (LTG) Decrease lymphedema to stable level (no increase or decrease greater than 1 cm over the course of 1 week), patient to be independent with all aspects of lymphedema self- care including obtaining appropriate compression garments. 02/27/23: Patient reports he has been consistently compliant with self-care including skin care, elevation , wearing compression stockings and chip bags, doing lymphedema exercises and increasing his activity level, and doing self-MLD as best he can though his shoulder pain and back pain limit his ability to perform distally, hopeful to obtain sequential pneumatic pump to assist in self care in the home. LTG Duration 04/02/23 Assessment Summary Assessment Cont good compliance to wearing his compression stockings 20-30 mm Hg, has had difficulty with trying to bandage foam over areas of hyperkeratosis and can't get foam inside his compression stockings. Trial today with size G Tubigrip over the foam on top of compression stockings. Physical Therapy Plan Frequency and Duration Frequency of Treatment 20 visits Duration of treatment (weeks) 12 Plan of Care Start Date 01/02/23 Plan of Care End Date 04/03/23 Therapeutic Interventions Therapeutic Interventions Gait Training,Home Exercise Program,Lymphedema Management, Manual Therapy,Self-Care/Home Management,Soft Tissue Mobilization,Therapeutic Activities,Therapeutic Exercises Modalities Vasopneumatic Devices Next Visit Focus/Plan Next Note Type Treatment Note Next Visit Plan Continue Complete Decongestive Therapy to address patient's lymphedema and problem-solve for limitations in function due to shoulder and back pain.
--- NOTE | 2023-04-18 09:46 | PT.OPDS ---
Current Diagnoses Lymphedema, not elsewhere classified (04/18/23) Visit Care Team Role Provider Type Sam Danielson MD Family Provider Physician Primary Care Provider Specialty: Internal Medicine Address: [address] [place] [address], [address] Email: [email or web address] Vora MD Attending Provider Physician Referring Provider Specialty: Wound Care Address: [address] [place] [address], [address] Email: [email or web address] Visit Number Visit Number 10 Discharge Summary PT-OP-B Current Condition Start: 01/01/23 14:47 Freq: Status: Active Protocol: Document 04/18/23 14:29 [facility] (Rec: 04/18/23 15:27 [facility] [id number]) Current Condition History of Current Condition Onset Date 2 years ago Current Complaints swelling bilateral legs History of Current Condition First noticed swelling bilateral legs about 2 years ago, [facility] doctor recommended compression stockings, has been wearing knee high compression stockings since then but admits to only wearing about 30% of the time . States seems like getting worse and has skin changes with thickening and blistering . Patient admits to sedentary lifestyle, only exercise is 2days per week pulmonary rehab maintenance. States sits and reads and watches TV a lot. No other treatment for his lymphedema. Lives with daughter (nurse at ) and son -in-law. Prior Treatments and Tests radiation to prostate, left kidney removed, left upper lung lobe removed. 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 Dr. Andrews for kidney issues. Treatment Goals Patient/Caregiver Goals Decrease swelling and help him to self-manage his edema, prevent worsening PT-OP-C Subjective Start: 01/01/23 14:47 Freq: Status: Active Protocol: Document 04/18/23 14:29 [facility] (Rec: 04/18/23 15:27 [facility] [id number]) OP-PT Subjective Patient Comments Patient Comments Patient here to be insructed in use of compression pump for manny LE 's. Denies any other issues. Continues with wearing compression, doing skin care, ex, MLD as he can reach. PT-OP-G Mobility & Gait Start: 01/01/23 14:47 Freq: Status: Active Protocol: Document 01/02/23 12:31 [facility] (Rec: 01/02/23 17:55 [facility] [id number]) OP Mobility Evaluation Bed Mobility Supine to and from Sit indep but labored Transfers Sit to Stand indep but labored OP Gait Assessment Gait Gait Assistance Required: Independent Assistive Devices Assistive Device Tripod Cane/Hurry Cane Gait Deviations General Gait Pattern Decreased Stride Length, Decreased Feet Clearance Comments Gait Comments limited by edema, generalized weakness PT-OP-J Posture/Palpation/Skin Start: 01/01/23 14:47 Freq: Status: Active Protocol: Document 01/02/23 12:31 [facility] (Rec: 01/02/23 17:55 [facility] [id number]) Palpation Assessment Location manny LE's Palpation Findings Edema,Soft Tissue Tightness Skin Assessment Other Assessments Skin Assessment Comments hyperkeratosis, multiple areas of pappilomas PT-OP-M Strength Start: 01/01/23 14:47 Freq: Status: Active Protocol: Document 01/02/23 12:31 [facility] (Rec: 01/02/23 17:55 [facility] [id number]) Hip Strength Hip Manual Muscle Testing manny Comments grossly 3+ throughout Knee Strength Knee Manual Muscle Testing manny Flexion (S2) 4 Good Extension (L3) 4 Good Ankle/Foot Strength Ankle and Foot Manual Muscle Testing manny Dorsiflexion (L4) 4- Good- Plantarflexion (S1) 4- Good- PT-OP-N Lymphedema Start: 01/01/23 14:47 Freq: Status: Active Protocol: Document 03/07/23 10:37 [facility] (Rec: 03/07/23 10:58 [facility] [id number]) Lymphedema Measurements Lower Extremity Circumference Measurements Right Affected MT Heads 26.5 cm Mid-foot 25.8 cm Medial Malleolus 33.5 cm 10 cm From Medial Malleolus 38.5 cm 20 cm From Medial Malleolus 46.7 cm 30 cm From Medial Malleolus 50.2 cm 40 cm From Medial Malleolus 51.2 cm 50 cm From Medial Malleolus 59.2 cm 60 cm From Medial Malleolus 65.7 cm 70 cm From Medial Malleolus 73 cm Knee Joint 51.2 cm - from anterior ankle crease Left Affected MT Heads 24.5 cm Mid-foot 26.5 cm Medial Malleolus 35.6 cm 10 cm From Medial Malleolus 37.8 cm 20 cm From Medial Malleolus 47.6 cm 30 cm From Medial Malleolus 51.2 cm 40 cm From Medial Malleolus 50.8 cm 50 cm From Medial Malleolus 57.2 cm 60 cm From Medial Malleolus 65.7 cm 70 cm From Medial Malleolus 72 cm Knee Joint 50.8 cm PT-OP-T Assessment and Plan Start: 01/01/23 14:47 Freq: Status: Active Protocol: Document 04/18/23 14:29 [facility] (Rec: 04/18/23 15:27 [facility] [id number]) Physical Therapy Assessment Goals Two Impairment activity intolerance Impairment LYmphedema Life impact scale 48% Short Term Goal (STG) Improve Lymphedema Life Impact scale to no greater than 38% as measure of improved activity tolerance and quality of life 02/07/23: goal met STG Duration goal met Senior Care Goal (LTG) Improve lymphedema Life Impact scale to no greater than 25% as measure of improved activity tolerance and quality of life. 02/27/23: goal progress LTG Duration goa met One Impairment lymphedema manny LE's Short Term Goal (STG) Patient to be instructed in all aspects of lymphedema care to include skin care, manual lymphatic drainage, compression and lymphedema exercises 02/07/23: goal met STG Duration goal met Senior Care Goal (LTG) Decrease lymphedema to stable level (no increase or decrease greater than 1 cm over the course of 1 week), patient to be independent with all aspects of lymphedema self- care including obtaining appropriate compression garments. 02/27/23: Patient reports he has been consistently compliant with self-care including skin care, elevation , wearing compression stockings and chip bags, doing lymphedema exercises and increasing his activity level, and doing self-MLD as best he can though his shoulder pain and back pain limit his ability to perform distally, hopeful to obtain sequential pneumatic pump to assist in self care in the home. LTG Duration goal met Assessment Summary Assessment Patient independent in use of Airos 6 compression pump after instruction today. No further PT needs identified. Patient was issued pump for home use as a component of lymphedema management. He will be discharged from PT Physical Therapy Plan Frequency and Duration Frequency of Treatment 1 visit Duration of treatment (weeks) 3 Plan of Care Start Date 04/03/23 Plan of Care End Date 04/18/23 Therapeutic Interventions Therapeutic Interventions Self-Care/Home Management Discharge Physical Therapy Discharge Reasons Goals Met Discharge Comments Patient issued Airos 6 pneumatic compression pump for home use and instructed in use today. Patient independent in set-up and use after instruction
--- NOTE | 2023-04-18 15:27 | PT.OTRE ---
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 Tibial plateau fracture, right (~09/2017) Surgical History (Last Reviewed 03/19/23 @ 06:14 by Sam Danielson MD) Anesthesia H/O left nephrectomy (~2014) History of bilateral knee replacement History of colonoscopy History of lobectomy of lung (~2015) Hx of bilateral cataract extraction (~2016) Hx of heart artery stent (~2002) Visit Care Team Role Provider Type Sam Danielson MD Family Provider Physician Primary Care Provider Specialty: Internal Medicine Address: [address] [place] [address], [facility] Email: [email or web address] Vora MD Attending Provider Physician Referring Provider Specialty: Wound Care Address: [address] [place] [address], [address] Email: Physical Therapy Re-Evaluation PT-OP-A Visit Information Start: 01/01/23 14:47 Freq: Status: Active Protocol: Document 04/18/23 14:29 [facility] (Rec: 04/18/23 15:27 [facility] [id number]) Out-Patient Physical Therapy Visit Information Visit Information Visit Type Treatment Note Visit Start Time 14:30 Evaluation Information Evaluation Date 02/27/23 Precautions Precautions PMH:Medical History (Updated 09/14/22 @ 10:43 by Sam Danielson MD) Allergic rhinitis CAD (coronary artery disease) Cataracts, bilateral Chicken pox Chronic kidney disease, stage 3b CKD (chronic kidney disease) COPD (chronic obstructive pulmonary disease) Dizziness Do not resuscitate Essential hypertension Former smoker Fractures Glucose intolerance Hearing loss LBBB (left bundle branch block ) Measles Mixed hyperlipidemia Mumps Perforated nasal septum Retinal detachment Severe obesity (BMI >= 40) 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 Tibial plateau fracture, right (~09/2017) Prostate cancer with radiation Surgical History (Reviewed 11/29 @ 03:52 by Sam Danielson MD) Anesthesia H/O left nephrectomy (~2014) History of bilateral knee replacement History of colonoscopy History of lobectomy of lung ( ~2015) Hx of bilateral cataract extraction (~2016) Hx of heart artery stent (~ 2002) PT-OP-B Current Condition Start: 01/01/23 14:47 Freq: Status: Active Protocol: Document 04/18/23 14:29 [facility] (Rec: 04/18/23 15:27 [facility] [id number]) Current Condition History of Current Condition Onset Date 2 years ago Current Complaints swelling bilateral legs History of Current Condition First noticed swelling bilateral legs about 2 years ago, [facility] doctor recommended compression stockings, has been wearing knee high compression stockings since then but admits to only wearing about 30% of the time . States seems like getting worse and has skin changes with thickening and blistering . Patient admits to sedentary lifestyle, only exercise is 2days per week pulmonary rehab maintenance. States sits and reads and watches TV a lot. No other treatment for his lymphedema. Lives with daughter (nurse at ) and son -in-law. Prior Treatments and Tests radiation to prostate, left kidney removed, left upper lung lobe removed. 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 Dr. Andrews for kidney issues. Treatment Goals Patient/Caregiver Goals Decrease swelling and help him to self-manage his edema, prevent worsening PT-OP-C Subjective Start: 01/01/23 14:47 Freq: Status: Active Protocol: Document 04/18/23 14:29 [facility] (Rec: 04/18/23 15:27 [facility] [id number]) OP-PT Subjective Patient Comments Patient Comments Patient here to be insructed in use of compression pump for manny LE 's. Denies any other issues. Continues with wearing compression, doing skin care, ex, MLD as he can reach. PT-OP-G Mobility & Gait Start: 01/01/23 14:47 Freq: Status: Active Protocol: Document 01/02/23 12:31 [facility] (Rec: 01/02/23 17:55 [facility] [id number]) OP Mobility Evaluation Bed Mobility Supine to and from Sit indep but labored Transfers Sit to Stand indep but labored OP Gait Assessment Gait Gait Assistance Required: Independent Assistive Devices Assistive Device Tripod Cane/Hurry Cane Gait Deviations General Gait Pattern Decreased Stride Length, Decreased Feet Clearance Comments Gait Comments limited by edema, generalized weakness PT-OP-J Posture/Palpation/Skin Start: 01/01/23 14:47 Freq: Status: Active Protocol: Document 01/02/23 12:31 [facility] (Rec: 01/02/23 17:55 [facility] [id number]) Palpation Assessment Location manny LE's Palpation Findings Edema,Soft Tissue Tightness Skin Assessment Other Assessments Skin Assessment Comments hyperkeratosis, multiple areas of pappilomas PT-OP-M Strength Start: 01/01/23 14:47 Freq: Status: Active Protocol: Document 01/02/23 12:31 [facility] (Rec: 01/02/23 17:55 [facility] [id number]) Hip Strength Hip Manual Muscle Testing manny Comments grossly 3+ throughout Knee Strength Knee Manual Muscle Testing manny Flexion (S2) 4 Good Extension (L3) 4 Good Ankle/Foot Strength Ankle and Foot Manual Muscle Testing manny Dorsiflexion (L4) 4- Good- Plantarflexion (S1) 4- Good- PT-OP-N Lymphedema Start: 01/01/23 14:47 Freq: Status: Active Protocol: Document 03/07/23 10:37 [facility] (Rec: 03/07/23 10:58 [facility] [id number]) Lymphedema Measurements Lower Extremity Circumference Measurements Right Affected MT Heads 26.5 cm Mid-foot 25.8 cm Medial Malleolus 33.5 cm 10 cm From Medial Malleolus 38.5 cm 20 cm From Medial Malleolus 46.7 cm 30 cm From Medial Malleolus 50.2 cm 40 cm From Medial Malleolus 51.2 cm 50 cm From Medial Malleolus 59.2 cm 60 cm From Medial Malleolus 65.7 cm 70 cm From Medial Malleolus 73 cm Knee Joint 51.2 cm - from anterior ankle crease Left Affected MT Heads 24.5 cm Mid-foot 26.5 cm Medial Malleolus 35.6 cm 10 cm From Medial Malleolus 37.8 cm 20 cm From Medial Malleolus 47.6 cm 30 cm From Medial Malleolus 51.2 cm 40 cm From Medial Malleolus 50.8 cm 50 cm From Medial Malleolus 57.2 cm 60 cm From Medial Malleolus 65.7 cm 70 cm From Medial Malleolus 72 cm Knee Joint 50.8 cm PT-OP-Q Treatments Start: 01/01/23 14:47 Freq: Status: Active Protocol: Document 04/18/23 14:29 [facility] (Rec: 04/18/23 15:27 [facility] [id number]) Lymphedema Treatment Other Other Instruction in use of Airos 6 pneumatic sequential pump for home use. Instructed in set- up and use for manny LE's. Patient able to don manny LE sleeves independently and set up machine after instruction. Patient reports has safe set- up at home for use of pump. No further issues or PT needs identified at this time. Patient to continue with lymphedema management in the home. PT-OP-R Modalities Start: 01/01/23 14:47 Freq: Status: Active Protocol: Document 04/18/23 14:29 [facility] (Rec: 04/18/23 15:27 [facility] [id number]) Compression Pump Treatment Treatment Location Left Leg Pressure Amount (mmHg) (mmHG) 45 Inflation Time (Seconds) 30 Deflation Time (Seconds) 10 Treatment Duration (minutes) 5 Treatment Tolerance Good Treatment Comments decreased circumferential measurements with flattening of areas of elephentiasis/ hyperkeratosis Right Leg Pressure Amount (mmHg) (mmHG) 45 Inflation Time (Seconds) 30 Deflation Time (Seconds) 10 Treatment Duration (minutes) 5 Treatment Tolerance Good Treatment Comments decreased circumferential measurements after with visible flattending of areas of elephantiasis/ hyperkeratosis PT-OP-T Assessment and Plan Start: 01/01/23 14:47 Freq: Status: Active Protocol: Document 04/18/23 14:29 [facility] (Rec: 04/18/23 15:27 [facility] [id number]) Physical Therapy Assessment Goals Two Impairment activity intolerance Impairment LYmphedema Life impact scale 48% Short Term Goal (STG) Improve Lymphedema Life Impact scale to no greater than 38% as measure of improved activity tolerance and quality of life 02/07/23: goal met STG Duration goal met Correction Goal (LTG) Improve lymphedema Life Impact scale to no greater than 25% as measure of improved activity tolerance and quality of life. 02/27/23: goal progress LTG Duration goa met One Impairment lymphedema manny LE's Short Term Goal (STG) Patient to be instructed in all aspects of lymphedema care to include skin care, manual lymphatic drainage, compression and lymphedema exercises 02/07/23: goal met STG Duration goal met Correction Goal (LTG) Decrease lymphedema to stable level (no increase or decrease greater than 1 cm over the course of 1 week), patient to be independent with all aspects of lymphedema self- care including obtaining appropriate compression garments. 02/27/23: Patient reports he has been consistently compliant with self-care including skin care, elevation , wearing compression stockings and chip bags, doing lymphedema exercises and increasing his activity level, and doing self-MLD as best he can though his shoulder pain and back pain limit his ability to perform distally, hopeful to obtain sequential pneumatic pump to assist in self care in the home. LTG Duration goal met Assessment Summary Assessment Patient independent in use of Airos 6 compression pump after instruction today. No further PT needs identified. Patient was issued pump for home use as a component of lymphedema management. He will be discharged from PT Physical Therapy Plan Frequency and Duration Frequency of Treatment 1 visit Duration of treatment (weeks) 3 Plan of Care Start Date 04/03/23 Plan of Care End Date 04/18/23 Therapeutic Interventions Therapeutic Interventions Self-Care/Home Management Discharge Physical Therapy Discharge Reasons Goals Met Discharge Comments Patient issued Airos 6 pneumatic compression pump for home use and instructed in use today. Patient independent in set-up and use after instruction
--- NOTE | 2023-04-18 15:27 | PT.OPPOC ---
Physical, Occupational & Speech Therapy At [facility] Current Diagnoses Lymphedema, not elsewhere classified (04/18/23) Visit Care Team Role Provider Type Sam Danielson MD Family Provider Physician Primary Care Provider Specialty: Internal Medicine Address: [address] [place] [address], [address] Email: [email or web address] Slade Vora MD Attending Provider Physician Referring Provider Specialty: Wound Care Address: [address] [place] [address], [address] Email: Plan Of Care PT-OP-T Assessment and Plan Start: 01/01/23 14:47 Freq: Status: Active Protocol: Document 04/18/23 14:29 [facility] (Rec: 04/18/23 15:27 [facility] [id number]) Physical Therapy Assessment Goals Two Impairment activity intolerance Impairment LYmphedema Life impact scale 48% Short Term Goal (STG) Improve Lymphedema Life Impact scale to no greater than 38% as measure of improved activity tolerance and quality of life 02/07/23: goal met STG Duration goal met [facility] Goal (LTG) Improve lymphedema Life Impact scale to no greater than 25% as measure of improved activity tolerance and quality of life. 02/27/23: goal progress LTG Duration goa met One Impairment lymphedema manny LE's Short Term Goal (STG) Patient to be instructed in all aspects of lymphedema care to include skin care, manual lymphatic drainage, compression and lymphedema exercises 02/07/23: goal met STG Duration goal met [employer] Goal (LTG) Decrease lymphedema to stable level (no increase or decrease greater than 1 cm over the course of 1 week), patient to be independent with all aspects of lymphedema self- care including obtaining appropriate compression garments. 02/27/23: Patient reports he has been consistently compliant with self-care including skin care, elevation , wearing compression stockings and chip bags, doing lymphedema exercises and increasing his activity level, and doing self-MLD as best he can though his shoulder pain and back pain limit his ability to perform distally, hopeful to obtain sequential pneumatic pump to assist in self care in the home. LTG Duration goal met Assessment Summary Assessment Patient independent in use of Airos 6 compression pump after instruction today. No further PT needs identified. Patient was issued pump for home use as a component of lymphedema management. He will be discharged from PT Physical Therapy Plan Frequency and Duration Frequency of Treatment 1 visit Duration of treatment (weeks) 3 Plan of Care Start Date 04/03/23 Plan of Care End Date 04/18/23 Therapeutic Interventions Therapeutic Interventions Self-Care/Home Management Discharge Physical Therapy Discharge Reasons Goals Met Discharge Comments Patient issued Airos 6 pneumatic compression pump for home use and instructed in use today. Patient independent in set-up and use after instruction Plan of Care Dates Plan of Care Start Date 04/03/23 Plan of Care End Date 04/18/23 Electronically Signed by: Radha Tobias, PT 04/18/23 7347 If you are in agreement with this Plan of Care, please return a signed and dated copy. I have reviewed this Plan of Care and certify that the skilled therapy services above are required to meet the patient?s needs. Physician Signature Date Printed Name and Credentials Clinical Instructor Signature Printed Name and Credentials
== END 2023-05-03 10:04 | disposition home or self-care (01) ==
LOC: PHYS 14:30
PROVIDERS: Absent Provider Internal Medicine; Family Provider Internal Medicine; PCP Internal Medicine; Referring Provider Surgery; Visit Provider Surgery
DX: I89.0 Lymphedema, not elsewhere classified (principal)
CPT/HCPCS: 97110; 97140; 97163; 97535

== ENCOUNTER → 2023-04-30 10:01 | Outpatient (CLI) | payer MEDICARE, SELFPAY ==
[2018-04-22 16:10] VITALS: BMI 44.2
== END ==
LOC: WC 10:02
PROVIDERS: Family Provider Internal Medicine; PCP Internal Medicine; Referring Provider Dermatology; Visit Provider Surgery
DX: L59.8 Other specified disorders of the skin and subcutaneous tissue related to radiation (principal); S01.00XD Unspecified open wound of scalp, subsequent encounter
CPT/HCPCS: 99211; 99213

== ENCOUNTER → 2023-07-24 14:08 | Outpatient (CLI) | payer MEDICARE, SELFPAY ==
[2018-04-22 16:10] VITALS: BMI 44.2
[2023-07-24 14:44] LABS: Hematocrit 36.1 % (41-53); Hemoglobin 11.7 g/dL (13.5-17.5); Mean Corpuscular HGB Conc 32.4 % (30-36); Mean Corpuscular Hemoglobin 29.2 PG (26-34); Mean Corpuscular Volume 90.1 fL (80-100); Platelet Count 134 X10^3/uL (150-400); Red Cell Distribution Width 15.4 % (11.6-14.8); White Blood Cell Count 7.6 X10^3/uL (4.5-11.0)
[2023-07-24 15:15] LABS: BUN Creatinine Ratio 29.3 (6-22); Blood Urea Nitrogen 78 mg/dL (9-20); Calcium 8.8 mg/dL (8.4-10.2); Carbon Dioxide 21 mmol/L (22-32); Chloride 110 mmol/L (98-107); Estimated Glomerular Filt Rate 23 mL/min (>60); Glucose 93 mg/dL (80-110); HEMOLYSIS < 15 (0-50); Potassium 4.6 mmol/L (3.4-5.1); Sodium 140 mmol/L (137-145)
== END ==
PROVIDERS: Family Provider Internal Medicine; PCP Internal Medicine; Referring Provider Internal Medicine; Visit Provider Internal Medicine
DX: N18.32 Chronic kidney disease, stage 3b (principal)
CPT/HCPCS: 80048; 85027

== ENCOUNTER 2023-08-13 12:22 | Emergency (ER) | payer MEDICARE, SELFPAY ==
[2018-04-22 16:10] VITALS: BMI 44.2
[2023-08-13] VITALS (15 sets, daily range): BP systolic 92–124; BP diastolic 50–58; PULSE 67–83; RESP 5–17; TEMP 36.4; O2SAT 94–99; BMI 40.4
[2023-08-13] MEDS: PANTOPRAZOLE 40 MG VIAL 80 MG IV (13:06)
[2023-08-13 13:18] LABS: Add Manual Diff / Slide Review NO; Basophils Absolute Auto 0 /uL (0-100); Basophils Percent Auto 0.4 % (0-2); Eosinophils Absolute Auto 100 /uL (0-450); Eosinophils Percent Auto 0.5 % (2-4); Hematocrit 35.5 % (41-53); Hemoglobin 11.9 g/dL (13.5-17.5); Lymphocytes Absolute Auto 900 /uL (1100-4500); Lymphocytes Percent Auto 7.8 % (25-40); Mean Corpuscular HGB Conc 33.4 % (30-36); Mean Corpuscular Hemoglobin 29.6 PG (26-34); Mean Corpuscular Volume 88.7 fL (80-100); Monocytes Absolute Auto 800 /uL (0-900); Monocytes Percent Auto 6.9 % (3-14); Neutrophils Absolute Auto 9300 /uL (1500-7000); Neutrophils Percent Auto 84.4 % (50-75); Platelet Count 168 X10^3/uL (150-400); Red Blood Cell Count 4.01 X10^6/uL (4.5-5.9); Red Cell Distribution Width 15.3 % (11.6-14.8); White Blood Cell Count 11.1 X10^3/uL (4.5-11.0)
[2023-08-13 13:29] LABS: INR 1.3 (0.9-1.3); Prothrombin Time 14.4 SECONDS (9.4-12.5)
[2023-08-13 13:32] LABS: PTT Partial Thromboplastin Tim 40 SECONDS (25.1-36.5)
--- NOTE | 2023-08-13 13:33 | DI.CT.S_ITS ---
PROCEDURE: CT ABDOMEN PELVIS WO CON INDICATIONS: bloody stools; diarrhea; abd px TECHNIQUE: Axial sections were acquired from the lung bases to the pubic symphysis. Coronal and sagittal reformats were performed. For radiation dose reduction, the following was used: automated exposure control, adjustment of mA and/or kV according to patient size. COMPARISON: [facility], CT, CT CHEST ABD PEL WO CON, 03/26/2023, 11:10. FINDINGS: Image quality: Diagnostic. Lower Chest: Stable reticulation with ground-glass in the lung bases, left greater than right. Mild cardiomegaly. Small left pleural effusion. Calcified granuloma. URINARY: Right Kidney: No stones or hydronephrosis. Right Ureter: No hydroureter. Left Kidney: Absent. Left Ureter: No hydroureter. Bladder: Normal wall thickness. No stones. ABDOMEN: Liver: No contour-deforming solid mass. Gallbladder: No radiopaque gallstones or wall thickening. Biliary ducts: No biliary dilation. Pancreas: No ductal dilation. Spleen: Size is within normal limits. Adrenal Glands: No adrenal nodules. Stomach and Bowel: Mild wall thickening of the 2nd and 3rd segments of the duodenum, with very mild adjacent fat stranding. Nonobstructing duodenal diverticulum centered off the 2nd segment. Colonic diverticulosis without evidence of diverticulitis. Peritoneum: No abnormal intraperitoneal fluid. No free air. Ventral Wall: Small umbilical hernia containing fat. Abdominal Nodes: No enlarged retroperitoneal or mesenteric lymph nodes. Vessels: Aorta and inferior vena cava are normal in size. PELVIS: Pelvic Organs: Prostate is mildly enlarged, with fiducial markers present. Pelvic Nodes: Unremarkable. Miscellaneous: No inguinal hernias are seen. Bones: Unremarkable. IMPRESSION: Duodenitis, with wall thickening and pericolonic fat stranding. Alternatively, findings could represent pancreatitis, but this is less likely. Colonic diverticulosis without evidence of diverticulitis. Similar findings in the lung bases, possibly indicating interstitial lung disease or long-term drug reaction. Correlate with dyspnea and consider pulmonology referral if positive. Dictated by: Bartolo Gifford M.D. on 08/13/2023 at 14:41 Approved by: Bartolo Gifford M.D. on 08/13/2023 at 14:49
--- NOTE | 2023-08-13 13:36 | ED.ABDPAIN ---
HPI - Abdominal Pain <Blanca Lazo PA-C - Last Filed: 08/13/23 16:50> General Chief Complaint: Abdominal Pain Stated Complaint: Bloody Stool, Abd pain Time Seen by Provider: 08/13/23 12:36 Source: EMS Mode of arrival: EMS History of Present Illness HPI narrative: 83-year-old male with past medical history hypertension, COPD, CAD, CKD stage 3, prostate cancer, lung cancer, kidney cancer, hyperlipidemia, CHF, venous insufficiency presents to the ED with 1 day of bloody diarrhea. Patient is accompanied by his daughter who is seen nurse, she states that he has been having diarrhea for over a month now. Patient states that he took some Imodium, unclear how much or how often, when the last dose was. Patient also states that it was for 8 years. Patient states that today he noted that his stools looked dark, however denies hematochezia. Patient did receive some antibiotics for ear infection 2 months ago. Patient denies intermittent generalized abdominal pain. Denies fever, chills, chest pain, shortness of breath, nausea, vomiting, dysuria, lightheadedness, dizziness, syncope. Patient's daughter does note that his stability has deteriorated over the last few months. Patient's daughter also states that he has lost about 25 lb over the last month. Patient states that he has a severe loss of appetite and that nothing tastes good. Patient's daughter does endorse that patient has been eating poorly. Patient is DNR. Related Data Home Medications Medication Instructions Recorded Confirmed acetaminophen 500 mg tablet 500 mg PO PRN PRN Pain (Scale 03/23/17 07/25/23 (Tylenol Extra Strength) Score 4-6) ##0 aspirin 81 mg tablet,delayed 81 mg PO DAILY 11/26/17 07/25/23 release calcium carbonate 600 mg-vitamin 1 tab PO BID 11/26/17 07/25/23 D3 10 mcg (400 unit) tablet (Calcium with Vitamin D) vitamins A,C,[id number] 4,296 1 cap PO BID 09/24/18 07/25/23 mcg-226 mg-90 mg capsule (PreserVision AREDS) multivit with min-folic acid 1 tab PO DAILY 02/22/23 07/25/23 [Centrum Adult 50 Plus] Previous Rx's Medication Instructions Recorded atorvastatin 20 mg tablet (Lipitor) 20 mg PO DAILY #90 tabs 10/02/22 amlodipine 5 mg tablet 5 mg PO DAILY #90 tabs 02/19/23 carvedilol 25 mg tablet 25 mg PO BID #180 tabs 02/19/23 ipratropium 20 mcg-albuterol 100 2 puff inhalation Q4H PRN COPD #24 02/22/23 mcg/actuation mist for inhalation grams (Combivent Respimat) losartan 100 1 tab PO DAILY #90 tabs 03/09/23 mg-hydrochlorothiazide 25 mg tablet furosemide 20 mg tablet (Lasix) 20 mg PO DAILY #90 tabs 03/19/23 Allergies Allergy/AdvReac Type Severity Reaction Status Date / Time tamsulosin [TAMSULOSIN] Allergy Severe DIZZINESS, Verified 08/13/23 12:44 LIGHTHEADEDNESS tetanus and diphtheria Allergy Severe HIVES Verified 08/13/23 12:44 toxoids [tetanus & diphtheria toxoids] Penicillins Allergy Unknown PT UNSURE Verified 08/13/23 12:44 OF REACTION Review of Systems <Blanca Lazo PA-C - Last Filed: 08/13/23 16:50> Constitutional Constitutional: Denies chills, Denies fatigue, Denies fever(s), Denies frequent falls, Denies lethargy and Denies weakness Eyes Eyes: Denies change in vision, Denies eye discharge, Denies irritation and Denies loss of vision ENT Ears, Nose, Mouth, and Throat: Denies change in voice, Denies dizziness, Denies neck pain, Denies sore throat and Denies throat swelling Cardiovascular Cardiovascular: Denies chest pain, Denies irregular heart rhythm, Denies lightheadedness, Denies palpitations, Denies dyspnea, Denies dyspnea on exertion and Denies orthopnea Respiratory Respiratory: Denies cough, Denies dyspnea, Denies dyspnea on exertion and Denies wheezing Gastrointestinal Gastrointestinal: Denies abdominal pain, Reports melena, Denies change in bowel habits, Reports diarrhea, Denies nausea and Denies vomiting Musculoskeletal Musculoskeletal: Denies neck pain and Denies numbness Integumentary/Breasts Skin/Breast: Denies pruritus, Denies erythema, Denies rash and Denies wounds Neurologic Neurologic: Denies behavioral changes, Denies confusion, Denies dizziness, Denies frequent falls, Denies loss of vision, Denies numbness and Denies weakness Psychiatric Psychiatric: Denies anxiety, Denies behavioral changes, Denies confusion, Denies depression, Denies homicidal ideation and Denies suicidal ideation Endocrine Endocrine: Denies fatigue, Denies flushing and Denies palpitations Hematologic/Lymphatic Hematologic/Lymphatic: Denies easy bruising Allergic/Immunologic Allergic/Immunologic: Denies urticaria, Denies throat swelling and Denies wheezing Patient History <Blanca Lazo PA-C - Last Filed: 08/13/23 16:50> Medical History Venous (peripheral) insufficiency Allergic rhinitis 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 Do not resuscitate Severe obesity (BMI >= 40) Chronic kidney disease, stage 3b Mixed hyperlipidemia Essential hypertension Fractures Mumps Measles Chicken pox Retinal detachment Hearing loss Cataracts, bilateral Tibial plateau fracture, right (~09/2017) Dizziness Perforated nasal septum Glucose intolerance LBBB (left bundle branch block) CKD (chronic kidney disease) CAD (coronary artery disease) Former smoker COPD (chronic obstructive pulmonary disease) Surgical History Anesthesia Hx of bilateral cataract extraction (~2016) History of colonoscopy Hx of heart artery stent (~2002) History of bilateral knee replacement History of lobectomy of lung (~2015) H/O left nephrectomy (~2014) Social History household members: children occupational status: previously employed Smoking Status: Former smoker Tobacco: How many years used: 40 alcohol intake: current substance use type: does not use Smoking Status: Former smoker alcohol intake frequency: a few times a week Substance Use Type: does not use Exam <Blanca Lazo PA-C - Last Filed: 08/13/23 16:50> Narrative Exam Narrative: Const General:?cooperative, healthy appearing and comfortable [facility] Head:?normal to inspection Ears:?hearing grossly normal bilaterally Nose:?external nose normal Face and sinus:?normal facial exam and sinuses nontender Mouth:?oral mucosae normal Throat:?posterior oropharynx normal Eyes General:?appearance normal, both eyes and all related structures Neck Neck:?normal visual inspection and no lymphadenopathy noted Resp Effort & Inspection:?normal respiratory effort Auscultation:?clear to auscultation bilaterally Cardio Rate:?regular rate Rhythm:?regular rhythm GI Abdomen is soft, nondistended, nontender to palpation. Neuro General:?patient alert, patient awake and patient oriented x3 Initial Vital Signs Initial Vital Signs: Vital Signs Pulse Rate 80 08/13/23 12:26 Pulse Oximetry 94 08/13/23 12:26 <Karla Martinez MD - Last Filed: 08/13/23 17:04> Initial Vital Signs Initial Vital Signs: Vital Signs Pulse Rate 80 08/13/23 12:26 Pulse Oximetry 94 08/13/23 12:26 Course <Blanca Lazo PA-C - Last Filed: 08/13/23 16:50> Orders Ordered: ED Orders 08/13/23 12:45 EKG-12 Lead Stat 08/13/23 13:00 Complete Blood Count AUTO DIFF Stat Comprehensive Metabolic Panel Stat Lipase Stat PTT Partial Thromboplastin Mart Stat Prothrombin Time INR Stat Type and Screen Stat 08/13/23 13:33 CT abdomen pelvis wo con Stat 08/13/23 14:30 Urine Culture Stat Urine Microscopic Stat 08/13/23 15:04 US abdomen limited Stat Discontinued Medications Ondansetron HCl (Ondansetron 4 Mg/2 Ml Inj) 4 mg IV NOW PRN PRN Reason: Nausea And Vomiting Ondansetron HCl (Ondansetron 4 Mg Odt) 4 mg SL NOW PRN PRN Reason: Nausea And Vomiting Pantoprazole Sodium (Pantoprazole 40 Mg Vial) 80 mg IV NOW ONE Stop: 08/13/23 12:46 Last Admin: 08/13/23 13:06 Dose: 80 mg Documented By: SHADY Vital Signs Vital signs: Vital Signs - 8 hr 08/13/23 12:26 08/13/23 12:27 08/13/23 12:27 Temperature Pulse Rate 80 83 Respiratory Rate Blood Pressure 92/50 L Pulse Oximetry 94 98 Oxygen Delivery Method 08/13/23 12:30 08/13/23 12:30 08/13/23 12:41 Temperature 97.6 F Pulse Rate 83 82 Respiratory Rate 15 16 Blood Pressure 100/52 L 100/52 L Pulse Oximetry 97 95 Oxygen Delivery Method Room Air 08/13/23 13:00 08/13/23 13:00 08/13/23 13:30 Temperature Pulse Rate 78 77 Respiratory Rate 17 15 Blood Pressure 98/53 L Pulse Oximetry 95 97 Oxygen Delivery Method Room Air 08/13/23 13:31 08/13/23 13:31 08/13/23 14:00 Temperature Pulse Rate 77 79 Respiratory Rate 15 5 L Blood Pressure 124/56 L Pulse Oximetry 95 98 Oxygen Delivery Method 08/13/23 14:01 08/13/23 14:01 08/13/23 14:23 Temperature Pulse Rate 80 Respiratory Rate 8 L Blood Pressure 106/57 L 105/58 L Pulse Oximetry 98 Oxygen Delivery Method 08/13/23 14:23 08/13/23 14:30 08/13/23 14:30 Temperature Pulse Rate 82 79 Respiratory Rate 16 Blood Pressure 97/56 L Pulse Oximetry 96 98 Oxygen Delivery Method Room Air 08/13/23 15:00 08/13/23 15:00 08/13/23 15:30 Temperature Pulse Rate 77 Respiratory Rate 14 Blood Pressure 97/54 L 104/53 L Pulse Oximetry 97 Oxygen Delivery Method 08/13/23 15:30 08/13/23 16:00 08/13/23 16:00 Temperature Pulse Rate 77 77 Respiratory Rate 13 12 Blood Pressure 102/50 L Pulse Oximetry 98 99 Oxygen Delivery Method Room Air Room Air 08/13/23 16:30 08/13/23 16:30 Temperature Pulse Rate 67 Respiratory Rate 15 Blood Pressure 114/54 L Pulse Oximetry 97 Oxygen Delivery Method <Karla Martinez MD - Last Filed: 08/13/23 17:04> Orders Ordered: ED Orders 08/13/23 12:45 EKG-12 Lead Stat 08/13/23 13:00 Complete Blood Count AUTO DIFF Stat Comprehensive Metabolic Panel Stat Lipase Stat PTT Partial Thromboplastin Mart Stat Prothrombin Time INR Stat Type and Screen Stat 08/13/23 13:33 CT abdomen pelvis wo con Stat 08/13/23 14:30 Urine Culture Stat Urine Microscopic Stat 08/13/23 15:04 US abdomen limited Stat Discontinued Medications Ondansetron HCl (Ondansetron 4 Mg/2 Ml Inj) 4 mg IV NOW PRN PRN Reason: Nausea And Vomiting Ondansetron HCl (Ondansetron 4 Mg Odt) 4 mg SL NOW PRN PRN Reason: Nausea And Vomiting Pantoprazole Sodium (Pantoprazole 40 Mg Vial) 80 mg IV NOW ONE Stop: 08/13/23 12:46 Last Admin: 08/13/23 13:06 Dose: 80 mg Documented By: SHADY Vital Signs Vital signs: Vital Signs - 8 hr 08/13/23 12:26 08/13/23 12:27 08/13/23 12:27 Temperature Pulse Rate 80 83 Respiratory Rate Blood Pressure 92/50 L Pulse Oximetry 94 98 Oxygen Delivery Method 08/13/23 12:30 08/13/23 12:30 08/13/23 12:41 Temperature 97.6 F Pulse Rate 83 82 Respiratory Rate 15 16 Blood Pressure 100/52 L 100/52 L Pulse Oximetry 97 95 Oxygen Delivery Method Room Air 08/13/23 13:00 08/13/23 13:00 08/13/23 13:30 Temperature Pulse Rate 78 77 Respiratory Rate 17 15 Blood Pressure 98/53 L Pulse Oximetry 95 97 Oxygen Delivery Method Room Air 08/13/23 13:31 08/13/23 13:31 08/13/23 14:00 Temperature Pulse Rate 77 79 Respiratory Rate 15 5 L Blood Pressure 124/56 L Pulse Oximetry 95 98 Oxygen Delivery Method 08/13/23 14:01 08/13/23 14:01 08/13/23 14:23 Temperature Pulse Rate 80 Respiratory Rate 8 L Blood Pressure 106/57 L 105/58 L Pulse Oximetry 98 Oxygen Delivery Method 08/13/23 14:23 08/13/23 14:30 08/13/23 14:30 Temperature Pulse Rate 82 79 Respiratory Rate 16 Blood Pressure 97/56 L Pulse Oximetry 96 98 Oxygen Delivery Method Room Air 08/13/23 15:00 08/13/23 15:00 08/13/23 15:30 Temperature Pulse Rate 77 Respiratory Rate 14 Blood Pressure 97/54 L 104/53 L Pulse Oximetry 97 Oxygen Delivery Method 08/13/23 15:30 08/13/23 16:00 08/13/23 16:00 Temperature Pulse Rate 77 77 Respiratory Rate 13 12 Blood Pressure 102/50 L Pulse Oximetry 98 99 Oxygen Delivery Method Room Air Room Air 08/13/23 16:30 08/13/23 16:30 Temperature Pulse Rate 67 Respiratory Rate 15 Blood Pressure 114/54 L Pulse Oximetry 97 Oxygen Delivery Method MDM - Abdominal Pain <Blanca Lazo PA-C - Last Filed: 08/13/23 16:50> Lab Data 08/13/23 13:00 05/06/24 13:00 Labs: Lab Results 08/13/23 08/13/23 Range/Units 13:00 14:30 WBC 11.1 H (4.5-11.0) X10^3/uL RBC 4.01 L (4.5-5.9) X10^6/uL Hgb 11.9 L (13.5-17.5) g/dL Hct 35.5 L (41-53) % MCV 88.7 (80-100) fL MCH 29.6 (26-34) PG MCHC 33.4 (30-36) % RDW 15.3 H (11.6-14.8) % Plt Count 168 (150-400) X10^3/uL Neut % (Auto) 84.4 H (50-75) % Lymph % (Auto) 7.8 L (25-40) % [place] % (Auto) 6.9 (3-14) % Eos % (Auto) 0.5 L (2-4) % Baso % (Auto) 0.4 (0-2) % Neut # (Auto) 9300 H (6880-8659) /uL Lymph # (Auto) 900 L (7624-3784) /uL [place] # (Auto) 800 (0-900) /uL Eos # (Auto) 100 (0-450) /uL Baso # (Auto) 0 (0-100) /uL PT 14.4 H (9.4-12.5) SECONDS INR 1.3 (0.9-1.3) APTT 40 H (25.1-36.5) SECONDS Sodium 138 (137-145) mmol/L Potassium 4.3 (3.4-5.1) mmol/L Chloride 105 (98-107) mmol/L Carbon Dioxide 25 (22-32) mmol/L BUN 73 H (9-20) mg/dL Creatinine 2.84 H (0.66-1.25) mg/dL Estimated GFR 21 L (>60) mL/min BUN/Creatinine Ratio 25.7 H (6-22) Glucose 97 (80-110) mg/dL Calcium 8.5 (8.4-10.2) mg/dL Total Bilirubin 0.4 (0.2-1.3) mg/dL AST 42 (17-59) IU/L ALT 54 H (<50) IU/L Alkaline Phosphatase 163 H (38-126) U/L Total Protein 6.2 L (6.3-8.2) g/dL Albumin 3.2 L (3.5-5.0) g/dL Globulin 3.0 (1.7-4.1) g/dL Albumin/Globulin Ratio 1.1 (1.0-2.8) Lipase 240 (23-300) U/L Urine RBC 0-1/hpf (0-5/HPF) Urine WBC 0-1/hpf (0-5/HPF) Ur Squamous Epith Cells 5-10 /hpf H (0-5/HPF) Urine Bacteria Many (>30) H (None) Hyaline Casts 5-10/lpf (None) Urine Mucus 1+ H (Negative) Ur Culture Indicated? Cult not indicated Vol Urine Centrifuged 10ml (spun) Blood Type A Positive Antibody Screen Negative Point of care testing: Point of Care Testing Stool Occult Blood Positive Urine Dip Bedside Urine Glucose Negative Bedside Urine Bilirubin - Negative Bedside Urine Ketone - Negative Urine Specific [place] 1.015 Bedside Urine Occult Blood + Bedside Urine pH 5.5 Bedside Urine Protein - Negative Bedside Urine Urobilinogen - Negative Bedside Urine Nitrite - Negative Bedside Urine Leukocytes - Negative Esterase MDM Narrative Medical decision making narrative: 83-year-old male with past medical history hypertension, COPD, CAD, CKD stage 3, prostate cancer, lung cancer, kidney cancer, hyperlipidemia, CHF, venous insufficiency presents to the ED with 1 day of bloody diarrhea. Concern for diverticulitis versus anemia versus gastroenteritis versus cdiff vs other intra-abdominal pathology versus other. Will obtain labs, lipase, UA, EKG, CT abdomen pelvis without contrast. Patient has 1 kidney after a surgical nephrectomy from kidney cancer. Patient also has declining kidney function. Patient denies any abdominal pain or discomfort in the ED currently. Will reassess. Labs within normal limits. H&H appears stable, with steady and gradual decline over the last few years, but no acute drop recently. UA without UTI. Guaiac-positive. CT abdomen pelvis shows duodenitis with wall thickening and pericolonic fat stranding. Nonobstructing duodenal diverticulum centered of the 2nd segment. Ultrasound of the abdomen shows a normal-appearing gallbladder and no biliary ductal dilatation. Normal-appearing pancreas. Discussed findings with patient and patient's daughter. Recommend GI follow-up for further evaluation, EGD, colonoscopy. Recommend Imodium, BRAT diet for diarrhea. Recommend follow-up with PCP as soon as possible. ED return precautions were discussed. Patient and patient's daughter verbalized understanding. Medical records reviewed: Yes <Karla Martinez MD - Last Filed: 08/13/23 17:04> Lab Data Labs: Lab Results 08/13/23 08/13/23 Range/Units 13:00 14:30 WBC 11.1 H (4.5-11.0) X10^3/uL RBC 4.01 L (4.5-5.9) X10^6/uL Hgb 11.9 L (13.5-17.5) g/dL Hct 35.5 L (41-53) % MCV 88.7 (80-100) fL MCH 29.6 (26-34) PG MCHC 33.4 (30-36) % RDW 15.3 H (11.6-14.8) % Plt Count 168 (150-400) X10^3/uL Neut % (Auto) 84.4 H (50-75) % Lymph % (Auto) 7.8 L (25-40) % Jasper % (Auto) 6.9 (3-14) % Eos % (Auto) 0.5 L (2-4) % Baso % (Auto) 0.4 (0-2) % Neut # (Auto) 9300 H (1175-2567) /uL Lymph # (Auto) 900 L (1701-9311) /uL Jasper # (Auto) 800 (0-900) /uL Eos # (Auto) 100 (0-450) /uL Baso # (Auto) 0 (0-100) /uL PT 14.4 H (9.4-12.5) SECONDS INR 1.3 (0.9-1.3) APTT 40 H (25.1-36.5) SECONDS Sodium 138 (137-145) mmol/L Potassium 4.3 (3.4-5.1) mmol/L Chloride 105 (98-107) mmol/L Carbon Dioxide 25 (22-32) mmol/L BUN 73 H (9-20) mg/dL Creatinine 2.84 H (0.66-1.25) mg/dL Estimated GFR 21 L (>60) mL/min BUN/Creatinine Ratio 25.7 H (6-22) Glucose 97 (80-110) mg/dL Calcium 8.5 (8.4-10.2) mg/dL Total Bilirubin 0.4 (0.2-1.3) mg/dL AST 42 (17-59) IU/L ALT 54 H (<50) IU/L Alkaline Phosphatase 163 H (38-126) U/L Total Protein 6.2 L (6.3-8.2) g/dL Albumin 3.2 L (3.5-5.0) g/dL Globulin 3.0 (1.7-4.1) g/dL Albumin/Globulin Ratio 1.1 (1.0-2.8) Lipase 240 (23-300) U/L Urine RBC 0-1/hpf (0-5/HPF) Urine WBC 0-1/hpf (0-5/HPF) Ur Squamous Epith Cells 5-10 /hpf H (0-5/HPF) Urine Bacteria Many (>30) H (None) Hyaline Casts 5-10/lpf (None) Urine Mucus 1+ H (Negative) Ur Culture Indicated? Cult not indicated Vol Urine Centrifuged 10ml (spun) Blood Type A Positive Antibody Screen Negative Point of care testing: Point of Care Testing Stool Occult Blood Positive Urine Dip Bedside Urine Glucose Negative Bedside Urine Bilirubin - Negative Bedside Urine Ketone - Negative Urine Specific [place] 1.015 Bedside Urine Occult Blood + Bedside Urine pH 5.5 Bedside Urine Protein - Negative Bedside Urine Urobilinogen - Negative Bedside Urine Nitrite - Negative Bedside Urine Leukocytes - Negative Esterase Discharge Plan Departure Patient Disposition: Home Clinical Impression: Duodenitis Instructions: DI for Duodenitis Activity Restrictions/Additional Instructions: You were evaluated in the ED today for some abdominal pain, diarrhea, blood in the stool. The CT scan did show duodenitis, which is an inflammation of the duodenum as well as some duodenitis diverticuli. The stool did show some blood. The labs are normal. Overall, the duodenitis could be the cause of the blood in the stool, however it is safe for you to go home since your labs are normal and you were stable. Please do follow-up with a GI specialist as soon as possible for further evaluation and imaging such as a colonoscopy and EGD. You may take Imodium for diarrhea. Please also follow the BRAT diet which consists of bananas, rice, apples and toast. Please follow-up with your PCP as soon as possible. Return to the ED if you have worsening symptoms, chest pain, shortness of breath. Prescriptions: No Action acetaminophen [Tylenol Extra Strength] 500 MG tablet 500 mg PO PRN PRN (Reason: Pain (Scale Score 4-6)) Qty: 0 atorvastatin [Lipitor] 20 mg tablet 20 mg PO DAILY Qty: 90 3RF amlodipine 5 mg tablet 5 mg PO DAILY Qty: 90 4RF carvedilol 25 mg tablet 25 mg PO BID Qty: 180 4RF losartan-hydrochlorothiazide 100-25 mg tablet 1 tab PO DAILY Qty: 90 3RF furosemide [Lasix] 20 mg tablet 20 mg PO DAILY Qty: 90 3RF multivit with min-folic acid [Centrum Adult 50 Plus] 1 tab PO DAILY Combivent Respimat 20-100 mcg/actuation mist 2 puff inhalation Q4H PRN (Reason: COPD) Qty: 24 3RF PreserVision AREDS 14,320-226-200 [id number] capsule 1 cap PO BID aspirin 81 mg Tablet,Delayed Release (Dr/Ec) 81 mg PO DAILY calcium carbonate-vitamin D3 [Calcium with Vitamin D] 600 mg(1,500mg) -400 unit Tablet 1 tab PO BID Referrals: Sam Danielson MD [Primary Care Provider] - Stand Alone Forms: Patient Portal/API ED Sign-out <Karla Martinez MD - Last Filed: 08/13/23 17:04> Cosign ED Attending Duncan Attestation: I was immediately available in the department for consultation throughout this patient's visit. Karla Martinez MD
[2023-08-13 13:37] LABS: Alanine Aminotransferase 54 IU/L (<50); Albumin 3.2 g/dL (3.5-5.0); Albumin Globulin Ratio 1.1 (1.0-2.8); Alkaline Phosphatase 163 U/L (38-126); Aspartate Aminotransferase 42 IU/L (17-59); BUN Creatinine Ratio 25.7 (6-22); Bilirubin Total 0.4 mg/dL (0.2-1.3); Blood Urea Nitrogen 73 mg/dL (9-20); Calcium 8.5 mg/dL (8.4-10.2); Carbon Dioxide 25 mmol/L (22-32); Chloride 105 mmol/L (98-107); Estimated Glomerular Filt Rate 21 mL/min (>60); Glucose 97 mg/dL (80-110); HEMOLYSIS < 15 (0-50); Potassium 4.3 mmol/L (3.4-5.1); Sodium 138 mmol/L (137-145); Total Protein 6.2 g/dL (6.3-8.2)
--- NOTE | 2023-08-13 15:04 | DI.US.S_ITS ---
PROCEDURE: US ABDOMEN LIMITED INDICATIONS: abd pain TECHNIQUE: Real-time scanning was performed of the abdominal and retroperitoneal organs, with image documentation. COMPARISON: None. FINDINGS: Liver: Liver is normal in size . Increased liver parenchymal echotexture is seen. No discrete hepatic lesion. Gallbladder: There is no gallstone. No gallbladder wall thickening or pericholecystic fluid. No sonographic Rodriguez's sign. Biliary ducts: Intrahepatic bile ducts are non-dilated. Extrahepatic bile duct caliber measures 5 mm. Normal is 6-7 mm or less in diameter, or 10 mm or less post-cholecystectomy. Pancreas: Visualized portions of the pancreas are sonographically normal. Miscellaneous: No free abdominal fluid. IMPRESSION: 1. Hepatic steatosis, no discrete hepatic lesion. 2. Normal appearing gallbladder. No biliary ductal dilatation. Normal appearing pancreas. Dictated by: Spencer Hagen M.D. on 08/13/2023 at 15:45 Approved by: Spencer Hagen M.D. on 08/13/2023 at 16:06
[2023-08-13 15:18] LABS: Bacteria Urine Many (>30); RBC Urine 0-1/HPF (0-5/HPF); Squamous Epithelial Cell Urine 5-10 /HPF (0-5/HPF); Urine Volume 10mL (spun); WBC Urine 0-1/HPF (0-5/HPF)
[2023-08-13 15:19] LABS: Lipase 240 U/L (23-300)
[2023-08-13 15:19] LABS: Culture Indicated Urine Cult Not Indicated; Hyaline Casts Urine 5-10/LPF; Mucus Urine 1+ (Negative)
== END 2023-08-13 16:59 | disposition home or self-care (01) ==
PROVIDERS: Emergency Provider Student in an Organized Health Care Education/Training Program; Family Provider Internal Medicine; PCP Internal Medicine
DX: K29.80 Duodenitis without bleeding (principal); R10.9 Unspecified abdominal pain
CPT/HCPCS: 36415; 74176; 76705; 80053; 81003; 81015; 82272; 83690; 85025; 85610; 85730; 86850; 86900; 86901; 87086; 93005; 96374; 99284; C9113

== ENCOUNTER → 2023-08-21 15:39 | Outpatient (CLI) | payer MEDICARE, SELFPAY ==
[2023-08-15 15:38] VITALS: BMI 44.2
[2023-08-21 17:15] LABS: Hematocrit 35.2 % (41-53); Hemoglobin 11.5 g/dL (13.5-17.5); Mean Corpuscular HGB Conc 32.8 % (30-36); Mean Corpuscular Hemoglobin 29.3 PG (26-34); Mean Corpuscular Volume 89.2 fL (80-100); Platelet Count 212 X10^3/uL (150-400); Red Blood Cell Count 3.94 X10^6/uL (4.5-5.9); Red Cell Distribution Width 14.9 % (11.6-14.8); White Blood Cell Count 9.5 X10^3/uL (4.5-11.0)
[2023-08-21 17:45] LABS: Alanine Aminotransferase 45 IU/L (<50); Albumin 3.7 g/dL (3.5-5.0); Albumin Globulin Ratio 1.2 (1.0-2.8); Alkaline Phosphatase 180 U/L (38-126); Aspartate Aminotransferase 41 IU/L (17-59); BUN Creatinine Ratio 17.8 (6-22); Bilirubin Total 0.5 mg/dL (0.2-1.3); Blood Urea Nitrogen 49 mg/dL (9-20); Carbon Dioxide 28 mmol/L (22-32); Chloride 102 mmol/L (98-107); Estimated Glomerular Filt Rate 22 mL/min (>60); Globulin 3.2 g/dL (1.7-4.1); Glucose 98 mg/dL (80-110); HEMOLYSIS < 15 (0-50); Potassium 4.6 mmol/L (3.4-5.1); Sodium 138 mmol/L (137-145); Total Protein 6.9 g/dL (6.3-8.2)
== END ==
PROVIDERS: Family Provider Internal Medicine; PCP Internal Medicine; Referring Provider Internal Medicine; Visit Provider Internal Medicine
DX: K29.80 Duodenitis without bleeding (principal)
CPT/HCPCS: 36415; 80053; 85027

== ENCOUNTER → 2023-08-23 09:59 | Outpatient (CLI) | payer MEDICARE, SELFPAY ==
[2023-08-15 15:38] VITALS: BMI 44.2
== END ==
LOC: WC 10:03
PROVIDERS: Family Provider Internal Medicine; PCP Internal Medicine; Referring Provider Internal Medicine; Visit Provider Surgery
DX: L89.323 Pressure ulcer of left buttock, stage 3 (principal); L98.492 Non-pressure chronic ulcer of skin of other sites with fat layer exposed; I10 Essential (primary) hypertension
CPT/HCPCS: 11042; 97597; 99213

== ENCOUNTER → 2023-08-27 08:21 | Outpatient (CLI) | payer MEDICARE, SELFPAY ==
[2023-08-15 15:38] VITALS: BMI 44.2
== END ==
LOC: WC 08-28 08:23
PROVIDERS: Family Provider Internal Medicine; PCP Internal Medicine; Referring Provider Internal Medicine; Visit Provider Surgery
DX: L89.323 Pressure ulcer of left buttock, stage 3 (principal); R21 Rash and other nonspecific skin eruption
CPT/HCPCS: 99213

== ENCOUNTER → 2023-08-29 14:06 | Outpatient (CLI) | payer MEDICARE, SELFPAY ==
[2023-08-15 15:38] VITALS: BMI 44.2
== END ==
LOC: WC 14:08
PROVIDERS: Family Provider Internal Medicine; PCP Internal Medicine; Referring Provider Internal Medicine; Visit Provider Surgery
DX: L89.323 Pressure ulcer of left buttock, stage 3 (principal); L98.492 Non-pressure chronic ulcer of skin of other sites with fat layer exposed; I10 Essential (primary) hypertension
CPT/HCPCS: 11042; 97597

== ENCOUNTER → 2023-08-31 09:38 | Outpatient (CLI) | payer MEDICARE, SELFPAY ==
[2023-08-15 15:38] VITALS: BMI 44.2
== END ==
PROVIDERS: Family Provider Internal Medicine; PCP Internal Medicine; Referring Provider Dermatology; Visit Provider Physician Assistant
DX: L89.323 Pressure ulcer of left buttock, stage 3 (principal); R21 Rash and other nonspecific skin eruption
CPT/HCPCS: 99213

== ENCOUNTER → 2023-09-12 10:12 | Outpatient (CLI) | payer MEDICARE, SELFPAY ==
[2023-08-15 15:38] VITALS: BMI 44.2
== END ==
LOC: WC 10:15
PROVIDERS: Family Provider Internal Medicine; PCP Internal Medicine; Referring Provider Internal Medicine; Visit Provider Surgery
DX: S01.00XA Unspecified open wound of scalp, initial encounter (principal); C44.42 Squamous cell carcinoma of skin of scalp and neck
CPT/HCPCS: 99213

== ENCOUNTER → 2023-11-06 11:25 | Outpatient (CLI) | payer MEDICARE, SELFPAY ==
[2023-08-15 15:38] VITALS: BMI 44.2
[2023-11-06 12:59] LABS: Hematocrit 28.5 % (41-53); Hemoglobin 9.2 g/dL (13.5-17.5); Mean Corpuscular HGB Conc 32.5 % (30-36); Mean Corpuscular Hemoglobin 29.1 PG (26-34); Mean Corpuscular Volume 89.4 fL (80-100); Platelet Count 140 X10^3/uL (150-400); Red Blood Cell Count 3.18 X10^6/uL (4.5-5.9); Red Cell Distribution Width 15.1 % (11.6-14.8); White Blood Cell Count 7.3 X10^3/uL (4.5-11.0)
[2023-11-06 13:36] LABS: BUN Creatinine Ratio 17.4 (6-22); Blood Urea Nitrogen 47 mg/dL (9-20); Calcium 8.7 mg/dL (8.4-10.2); Carbon Dioxide 20 mmol/L (22-32); Chloride 110 mmol/L (98-107); Estimated Glomerular Filt Rate 23 mL/min (>60); Glucose 92 mg/dL (80-110); HEMOLYSIS < 15 (0-50); Sodium 140 mmol/L (137-145)
[2023-11-06 13:38] LABS: Potassium 5.5 mmol/L (3.4-5.1)
[2023-11-06 13:40] LABS: HEMOLYSIS < 15 (0-50); Iron 44 ug/dL (49-181)
[2023-11-06 13:52] LABS: Percent Iron Saturation 11 % (20-50); Total Iron Binding Capacity 413 ug/dL (261-462); Transferrin 315 mg/dL (206-381)
[2023-11-06 14:11] LABS: Ferritin 20 ng/mL (18-464)
== END ==
LOC: LAB 11:26
PROVIDERS: Family Provider Internal Medicine; PCP Internal Medicine; Referring Provider Internal Medicine; Visit Provider Internal Medicine
DX: K92.2 Gastrointestinal hemorrhage, unspecified (principal); N18.32 Chronic kidney disease, stage 3b; D64.9 Anemia, unspecified
CPT/HCPCS: 36415; 80048; 82728; 83540; 83550; 85027

== ENCOUNTER 2024-01-23 12:58 | Inpatient (IN) | payer MEDICARE, SELFPAY ==
[2023-08-15 15:38] VITALS: BMI 44.2
[2024-01-23] VITALS (123 sets, daily range): BP systolic 88–169; BP diastolic 49–129; PULSE 42–100; RESP 11–29; TEMP 30.9–36.2; O2SAT 89–100; BMI 42.5
--- NOTE | 2024-01-23 13:11 | DI.RAD.S_ITS ---
PROCEDURE: XR CHEST 1V INDICATIONS: altered mental status TECHNIQUE: One view of the chest was acquired. COMPARISON: [facility], CR, XR CHEST 1V, 02/20/2023, 14:18. FINDINGS: Surgical changes and devices: None. Lungs and pleura: There is pulmonary vascular congestion. Hazy opacities throughout bilateral lung martin suggestive of pulmonary edema. Superimposed bilateral interstitial infiltrates cannot be excluded. Ill-defined opacity is also seen in right upper lobe and bilateral infrahilar region suggestive of bilateral patchy infiltrates. Small left pleural effusion is seen. No pneumothorax. Mediastinum: Mediastinal contours appear normal. Heart size is enlarged. Bones and chest wall: No suspicious bony lesions. Overlying soft tissues appear unremarkable. IMPRESSION: Congestive changes and pulmonary edema. Small left pleural effusion. Suggestion of bilateral patchy infiltrates as above. No gross pneumothorax. Dictated by: Spencer Hagen M.D. on 01/23/2024 at 13:42 Approved by: Spencer Hagen M.D. on 01/23/2024 at 13:47
--- NOTE | 2024-01-23 13:15 | ED_ITS ---
HPI - Altered Mental Status <Jorge HadleyDO - Last Filed: 01/23/24 18:40> General Chief Complaint: Altered Mental Status Stated Complaint: Hypoglycemic, Found Down T-1 Time Seen by Provider: 01/23/24 13:14 History of Present Illness HPI narrative: Patient is a 83-year-old male with a history of hypertension, COPD, CAD, CKD stage 3, prostate cancer, lung cancer, kidney cancer, hyperlipidemia, CHF, venous insufficiency, comes into the ED from home with EMS for evaluation of altered mental status. According to medics they arrived to the patient's home after family/friends noticed patient was more confused than normal. Noted to have blood sugar in the 40s, was given an amp of D50 to arrival. Unsure of patient's baseline, however at time of initial evaluation patient still appears to be somewhat confused. But unsure baseline. According to medics who talk to family members they state that he is normally slow to talk. Last known normal was maybe 24 hours ago. According to medics they had found the patient on the floor next to a chair, appeared that he might have slipped out of his chair. He states that he was only on the floor for approximately 1 hour. Related Data Home Medications Medication Instructions Recorded Confirmed acetaminophen 500 mg tablet 500 mg PO PRN PRN Pain (Scale 03/23/17 11/20/23 (Tylenol Extra Strength) Score 4-6) ##0 aspirin 81 mg tablet,delayed 81 mg PO DAILY 11/26/17 11/20/23 release calcium carbonate 600 mg-vitamin 1 tab PO BID 11/26/17 11/20/23 D3 10 mcg (400 unit) tablet (Calcium with Vitamin D) vitamins A,C,[id number] 4,296 1 cap PO BID 09/24/18 11/20/23 mcg-226 mg-90 mg capsule (PreserVision AREDS) multivit with min-folic acid 1 tab PO DAILY 02/22/23 11/20/23 [Centrum Adult 50 Plus] Previous Rx's Medication Instructions Recorded carvedilol 25 mg tablet 25 mg PO BID #180 tabs 02/19/23 ipratropium 20 mcg-albuterol 100 2 puff inhalation Q4H PRN COPD #24 02/22/23 mcg/actuation mist for inhalation grams (Combivent Respimat) furosemide 20 mg tablet (Lasix) 20 mg PO DAILY #90 tabs 03/19/23 omeprazole 20 mg capsule,delayed 20 mg PO DAILY #90 caps 08/21/23 release atorvastatin 20 mg tablet (Lipitor) 20 mg PO DAILY #90 tabs 09/18/23 Allergies Allergy/AdvReac Type Severity Reaction Status Date / Time tamsulosin [TAMSULOSIN] Allergy Severe DIZZINESS, Verified 11/20/23 16:11 LIGHTHEADEDNESS tetanus and diphtheria Allergy Severe HIVES Verified 11/20/23 16:11 toxoids [tetanus & diphtheria toxoids] Penicillins Allergy Unknown PT UNSURE Verified 11/20/23 16:11 OF REACTION Review of Systems <Jorge Hadley DO - Last Filed: 01/23/24 18:40> Review of Systems Narrative: Unable to obtain given altered mental status Patient History <Jorge Hadley DO - Last Filed: 01/23/24 18:40> Medical History Anemia Mild cognitive impairment Weight loss GI bleed Sacral decubitus ulcer, stage II Venous (peripheral) insufficiency Allergic rhinitis 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 Do not resuscitate Severe obesity (BMI >= 40) Chronic kidney disease, stage 3b Mixed hyperlipidemia Essential hypertension Fractures Mumps Measles Chicken pox Retinal detachment Hearing loss Cataracts, bilateral Tibial plateau fracture, right (~09/2017) Dizziness Perforated nasal septum Glucose intolerance LBBB (left bundle branch block) CKD (chronic kidney disease) CAD (coronary artery disease) Former smoker COPD (chronic obstructive pulmonary disease) Surgical History Anesthesia Hx of bilateral cataract extraction (~2016) History of colonoscopy Hx of heart artery stent (~2002) History of bilateral knee replacement History of lobectomy of lung (~2015) H/O left nephrectomy (~2014) Social History household members: children occupational status: previously employed Smoking Status: Former smoker Tobacco: How many years used: 40 alcohol intake: current substance use type: does not use Smoking Status: Former smoker alcohol intake frequency: a few times a week Substance Use Type: does not use Exam <DO Griffin Solis Last Filed: 01/23/24 18:40> Narrative Exam Narrative: General: Cooperative, comfortable, well-developed, not in acute distress HEENT: Normocephalic, atraumatic, PERRLA, normal sclera, eyelids normal, Neck: Active full range of motion, atraumatic Chest: Normal to inspection, negative crepitus, no overlying erythema ecchymosis Respiratory: Normal respiratory effort, not in acute respiratory distress, clear to auscultation bilaterally negative cough, wheeze, tachypnea, rhonchi, rales Cardiology: Regular rate rhythm negative gallop, murmur, rubs GI/: Normal to inspection, soft, nonrigid, no tenderness to palpation, exam deferred MSK: Full range of active range of motion of all 4 extremities, atraumatic, patient with edema to bilateral lower extremities appears chronic Skin: No rashes lesions noted Neuro: Patient is able to move all 4 extremities does appear confused slow to speak but no focal deficits Psych: Cooperative, negative suicidal or homicidal ideations Initial Vital Signs Initial Vital Signs: Vital Signs Temperature 97.1 F L 01/23/24 13:14 Pulse Rate 63 01/23/24 13:14 Respiratory Rate 20 01/23/24 13:14 Blood Pressure 115/56 L 01/23/24 13:14 Pulse Oximetry 97 01/23/24 13:14 Oxygen Delivery Method Room Air 01/23/24 13:14 <Yinka Yeung DO - Last Filed: 01/27/24 17:56> Initial Vital Signs Initial Vital Signs: Vital Signs Temperature 97.1 F L 01/23/24 13:14 Pulse Rate 63 01/23/24 13:14 Respiratory Rate 20 01/23/24 13:14 Blood Pressure 115/56 L 01/23/24 13:14 Pulse Oximetry 97 01/23/24 13:14 Oxygen Delivery Method Room Air 01/23/24 13:14 <Karla Martinez MD - Last Filed: 01/24/24 07:44> Initial Vital Signs Initial Vital Signs: Vital Signs Temperature 97.1 F L 01/23/24 13:14 Pulse Rate 63 01/23/24 13:14 Respiratory Rate 20 01/23/24 13:14 Blood Pressure 115/56 L 01/23/24 13:14 Pulse Oximetry 97 01/23/24 13:14 Oxygen Delivery Method Room Air 01/23/24 13:14 Course <Jorge Hadley DO - Last Filed: 01/23/24 18:40> Orders Ordered: Acetaminophen (Ofirmev) 1,000 mg in 100 mls @ 400 mls/hr IV Q6H PRN PRN Reason: Fever/Mild Pain (1-3) Lorazepam (Lorazepam 2 Mg/Ml Oral Sparkle) 0.5 mg PO Q1HR PRN PRN Reason: Anxiety Last Admin: 01/27/24 17:33 Dose: 0.5 mg Documented By: Admin: 01/26/24 18:04 Dose: 0.5 mg Documented By: ANDERSON Morphine Sulfate (Morphine 10 Mg/0.5 Ml Oral Syringe) 10 mg PO Q1HR PRN PRN Reason: Pain, Severe (7-10) Last Admin: 01/27/24 16:48 Dose: 10 mg Documented By: ANDERSON Naloxone HCl (Naloxone 0.4 Mg/Ml Vial) 0.2 mg IV Q2MIN PRN PRN Reason: Opiate Reversal Nystatin (Nystatin Powder 15gm) 1 applic TOP TID PRN PRN Reason: Rash Ondansetron HCl (Ondansetron 4 Mg/2 Ml Inj) 4 mg IV Q8HR PRN PRN Reason: Nausea And Vomiting Scopolamine (Scopolamine 1 Patch) 1 patch TOP Q72H [facility] Last Admin: 01/27/24 17:33 Dose: 1 patch Documented By: ANDERSON Discontinued Medications Dextrose (Dextrose 50 % In Water 25 Gm/50 Ml Syringe) 25 gm IV NOW ONE Stop: 01/24/24 01:17 Last Admin: 01/24/24 01:19 Dose: 25 gm Documented By: EVELIO Furosemide (Furosemide 40 Mg/4 Ml Vial) 20 mg IV NOW ONE Stop: 01/23/24 15:14 Last Admin: 01/23/24 15:25 Dose: 20 mg Documented By: TRAVIS Heparin Sodium (Porcine) (Heparin 5,000 Unit/Ml Vial) 7,500 unit SUBCUT Q8H [facility] Last Admin: 01/26/24 06:36 Dose: 7,500 unit Documented By: Admin: 01/25/24 21:25 Dose: 7,500 unit Documented By: Admin: 01/25/24 14:28 Dose: 7,500 unit Documented By: Admin: 01/25/24 07:02 Dose: 7,500 unit Documented By: Admin: 01/24/24 21:44 Dose: 7,500 unit Documented By: Admin: 01/24/24 14:26 Dose: 7,500 unit Documented By: ALEXA Vancomycin HCl (Vancomycin) 1,000 mg in 200 mls @ 200 mls/hr IV NOW ONE Stop: 01/23/24 16:12 Last Infusion: 01/23/24 17:27 Dose: Infused Documented By: Admin: 01/23/24 16:17 Dose: 200 mls/hr Documented By: TRAVIS Cefepime HCl 1 gm/ Sodium (Chloride) 100 mls @ 200 mls/hr IV NOW ONE Stop: 01/23/24 15:14 Last Infusion: 01/23/24 16:49 Dose: Infused Documented By: Admin: 01/23/24 16:16 Dose: 200 mls/hr Documented By: TRAVIS Magnesium Sulfate (Magnesium Sulfate) 2 gm in 50 mls @ 150 mls/hr IV NOW ONE Stop: 01/23/24 15:37 Last Infusion: 01/23/24 16:00 Dose: Infused Documented By: TRAVIS Co-signed By: MIGUEL Admin: 01/23/24 15:28 Dose: 150 mls/hr Documented By: TRAVIS Co-signed By: MIGUEL Cefepime HCl 1 gm/ Sodium (Chloride) 100 mls @ 200 mls/hr IV DAILY [facility] Last Admin: 01/26/24 09:47 Dose: 200 mls/hr Documented By: Infusion: 01/25/24 10:45 Dose: Infused Documented By: Admin: 01/25/24 09:36 Dose: 200 mls/hr Documented By: Infusion: 01/24/24 17:55 Dose: Infused Documented By: Admin: 01/24/24 17:25 Dose: 200 mls/hr Documented By: ALEXA Dextrose (D10w) 1,000 mls @ 84 mls/hr IV CONT [facility] Last Admin: 01/24/24 08:04 Dose: 84 mls/hr Documented By: MIGUEL Dextrose/Sodium Chloride (Dextrose 5%-0.45% Ns) 1,000 mls @ 84 mls/hr IV CONT [facility] Last Admin: 01/25/24 00:24 Dose: 84 mls/hr Documented By: Infusion: 01/24/24 23:36 Dose: Infused Documented By: Admin: 01/24/24 11:41 Dose: 84 mls/hr Documented By: ALEXA Vancomycin HCl (Vancomycin Per Pharmacy) 1 request MISC NOW PRN PRN Reason: Dosing Vital Signs Vital signs: Vital Signs - 8 hr 01/23/24 23:20 01/23/24 23:21 01/23/24 23:21 Pulse Rate 59 L 55 L Respiratory Rate 24 22 Blood Pressure 112/53 L Pulse Oximetry 96 97 Oxygen Delivery Method Oxygen Flow Rate 01/23/24 23:25 01/23/24 23:30 01/23/24 23:35 Pulse Rate 46 L 65 59 L Respiratory Rate 23 17 20 Blood Pressure Pulse Oximetry 95 97 97 Oxygen Delivery Method Oxygen Flow Rate 01/23/24 23:40 01/23/24 23:40 01/23/24 23:45 Pulse Rate 52 L 58 L Respiratory Rate 19 18 Blood Pressure 111/86 Pulse Oximetry 97 96 Oxygen Delivery Method Oxygen Flow Rate 01/23/24 23:50 01/23/24 23:55 01/24/24 00:00 Pulse Rate 58 L 64 89 Respiratory Rate 18 17 17 Blood Pressure Pulse Oximetry 96 97 96 Oxygen Delivery Method Oxygen Flow Rate 01/24/24 00:01 01/24/24 00:01 01/24/24 00:05 Pulse Rate 101 H 61 Respiratory Rate 18 18 Blood Pressure 145/78 H Pulse Oximetry 96 95 Oxygen Delivery Method Oxygen Flow Rate 01/24/24 00:10 01/24/24 00:10 01/24/24 00:15 Pulse Rate 53 L 50 L Respiratory Rate 17 24 Blood Pressure 113/58 L Pulse Oximetry 96 95 Oxygen Delivery Method Oxygen Flow Rate 01/24/24 00:20 01/24/24 00:21 01/24/24 00:21 Pulse Rate 91 H 64 Respiratory Rate 15 16 Blood Pressure 110/79 Pulse Oximetry 96 96 Oxygen Delivery Method Oxygen Flow Rate 01/24/24 00:25 01/24/24 00:30 01/24/24 00:32 Pulse Rate 49 L 47 L Respiratory Rate 22 17 Blood Pressure 115/88 Pulse Oximetry 95 95 Oxygen Delivery Method Oxygen Flow Rate 01/24/24 00:32 01/24/24 00:35 01/24/24 00:40 Pulse Rate 62 51 L 63 Respiratory Rate 20 20 20 Blood Pressure Pulse Oximetry 95 95 96 Oxygen Delivery Method BiPAP BiPAP Oxygen Flow Rate 01/24/24 00:45 01/24/24 00:50 01/24/24 00:55 Pulse Rate 56 L 56 L 56 L Respiratory Rate 15 16 15 Blood Pressure Pulse Oximetry 95 96 95 Oxygen Delivery Method BiPAP Oxygen Flow Rate 01/24/24 01:00 01/24/24 01:05 01/24/24 01:10 Pulse Rate 52 L 115 H 65 Respiratory Rate 18 17 17 Blood Pressure Pulse Oximetry 96 96 96 Oxygen Delivery Method Oxygen Flow Rate 01/24/24 01:15 01/24/24 01:20 01/24/24 01:25 Pulse Rate 66 91 H 93 H Respiratory Rate 16 18 17 Blood Pressure Pulse Oximetry 96 97 96 Oxygen Delivery Method BiPAP Oxygen Flow Rate 01/24/24 01:30 01/24/24 01:35 01/24/24 01:40 Pulse Rate 46 L 46 L 48 L Respiratory Rate 24 22 24 Blood Pressure Pulse Oximetry 96 96 95 Oxygen Delivery Method BiPAP Oxygen Flow Rate 01/24/24 01:45 01/24/24 01:50 01/24/24 01:55 Pulse Rate 57 L 57 L 50 L Respiratory Rate 24 24 25 H Blood Pressure Pulse Oximetry 96 95 96 Oxygen Delivery Method Oxygen Flow Rate 01/24/24 02:00 01/24/24 02:05 01/24/24 02:10 Pulse Rate 50 L 71 67 Respiratory Rate 22 20 18 Blood Pressure Pulse Oximetry 96 96 97 Oxygen Delivery Method Oxygen Flow Rate 01/24/24 02:12 01/24/24 02:12 01/24/24 02:15 Pulse Rate 66 96 H Respiratory Rate 27 H 18 Blood Pressure 147/63 H Pulse Oximetry 97 96 Oxygen Delivery Method BiPAP Oxygen Flow Rate 01/24/24 02:20 01/24/24 02:20 01/24/24 02:25 Pulse Rate 66 60 Respiratory Rate 20 25 H Blood Pressure 108/70 Pulse Oximetry 97 96 Oxygen Delivery Method Oxygen Flow Rate 01/24/24 02:30 01/24/24 02:35 01/24/24 02:40 Pulse Rate 54 L 58 L 65 Respiratory Rate 18 24 29 H Blood Pressure Pulse Oximetry 96 96 97 Oxygen Delivery Method BiPAP Oxygen Flow Rate 01/24/24 02:40 01/24/24 02:45 01/24/24 02:50 Pulse Rate 63 58 L Respiratory Rate 31 H 24 Blood Pressure 102/71 Pulse Oximetry 96 97 Oxygen Delivery Method Oxygen Flow Rate 01/24/24 02:55 01/24/24 03:00 01/24/24 03:01 Pulse Rate 76 47 L 54 L Respiratory Rate 20 11 L 10 L Blood Pressure Pulse Oximetry 96 99 98 Oxygen Delivery Method Oximask Oximask Oxygen Flow Rate 1.5 1.5 01/24/24 03:01 01/24/24 03:05 01/24/24 03:10 Pulse Rate 56 L 56 L Respiratory Rate 21 17 Blood Pressure 100/51 L Pulse Oximetry 99 99 Oxygen Delivery Method Oximask Oxygen Flow Rate 1.5 01/24/24 03:15 01/24/24 03:20 01/24/24 03:25 Pulse Rate 58 L 57 L 48 L Respiratory Rate 13 16 12 Blood Pressure Pulse Oximetry 99 99 96 Oxygen Delivery Method Oxygen Flow Rate 1.5 01/24/24 03:30 01/24/24 03:31 01/24/24 03:31 Pulse Rate 51 L 51 L Respiratory Rate 16 15 Blood Pressure 86/48 L Pulse Oximetry 98 99 Oxygen Delivery Method Oximask Oxygen Flow Rate 1.5 01/24/24 03:33 01/24/24 03:33 01/24/24 03:34 Pulse Rate 54 L 52 L Respiratory Rate 14 16 Blood Pressure 85/48 L Pulse Oximetry 99 98 Oxygen Delivery Method Oximask Oxygen Flow Rate 1.5 01/24/24 03:34 01/24/24 03:35 01/24/24 03:40 Pulse Rate 54 L 55 L Respiratory Rate 16 14 Blood Pressure 96/48 L Pulse Oximetry 98 99 Oxygen Delivery Method Oxygen Flow Rate 01/24/24 03:45 01/24/24 03:50 01/24/24 03:55 Pulse Rate 59 L 51 L 55 L Respiratory Rate 13 14 12 Blood Pressure Pulse Oximetry 98 98 98 Oxygen Delivery Method Oxygen Flow Rate 01/24/24 04:00 01/24/24 04:05 01/24/24 04:07 Pulse Rate 62 58 L 50 L Respiratory Rate 13 18 12 Blood Pressure Pulse Oximetry 99 98 99 Oxygen Delivery Method Oxygen Flow Rate 01/24/24 04:07 01/24/24 04:10 01/24/24 04:30 Pulse Rate 61 59 L Respiratory Rate 11 L 13 Blood Pressure 124/59 L Pulse Oximetry 99 100 Oxygen Delivery Method Oximask Oxygen Flow Rate 1.5 01/24/24 04:33 01/24/24 04:33 01/24/24 04:35 Pulse Rate 60 60 Respiratory Rate 12 12 Blood Pressure 89/52 L Pulse Oximetry 99 100 Oxygen Delivery Method Oximask Oximask Oxygen Flow Rate 1.5 1.5 01/24/24 04:50 01/24/24 05:00 01/24/24 05:00 Pulse Rate 60 60 Respiratory Rate 14 14 Blood Pressure 90/52 L Pulse Oximetry 100 100 Oxygen Delivery Method Oximask Oxygen Flow Rate 1.5 01/24/24 05:05 01/24/24 05:10 01/24/24 05:15 Pulse Rate 61 58 L 59 L Respiratory Rate 12 15 13 Blood Pressure Pulse Oximetry 100 100 100 Oxygen Delivery Method Oxygen Flow Rate 01/24/24 05:20 01/24/24 05:25 01/24/24 05:30 Pulse Rate 61 56 L 62 Respiratory Rate 11 L 11 L 14 Blood Pressure Pulse Oximetry 100 100 100 Oxygen Delivery Method Oxygen Flow Rate 01/24/24 05:30 01/24/24 05:35 01/24/24 05:40 Pulse Rate 60 50 L Respiratory Rate 13 10 L Blood Pressure 91/50 L Pulse Oximetry 100 100 Oxygen Delivery Method Oxygen Flow Rate 01/24/24 05:45 01/24/24 05:50 01/24/24 05:55 Pulse Rate 61 63 62 Respiratory Rate 14 11 L 11 L Blood Pressure Pulse Oximetry 99 99 99 Oxygen Delivery Method Oxygen Flow Rate 01/24/24 06:00 01/24/24 06:01 01/24/24 06:01 Pulse Rate 62 59 L Respiratory Rate 18 11 L Blood Pressure 99/67 Pulse Oximetry 99 99 Oxygen Delivery Method Oxygen Flow Rate 01/24/24 06:05 01/24/24 06:10 01/24/24 06:15 Pulse Rate 61 61 48 L Respiratory Rate 11 L 11 L 14 Blood Pressure Pulse Oximetry 99 99 99 Oxygen Delivery Method Oxygen Flow Rate 01/24/24 06:20 01/24/24 06:25 01/24/24 06:30 Pulse Rate 61 61 88 Respiratory Rate 11 L 14 20 Blood Pressure Pulse Oximetry 99 99 99 Oxygen Delivery Method Oxygen Flow Rate 01/24/24 06:34 01/24/24 06:34 01/24/24 06:35 Pulse Rate 147 H 129 H Respiratory Rate 18 15 Blood Pressure 117/87 Pulse Oximetry 98 98 Oxygen Delivery Method Oximask Oxygen Flow Rate 1.5 01/24/24 06:40 01/24/24 06:45 01/24/24 06:50 Pulse Rate 68 135 H 126 H Respiratory Rate 15 18 17 Blood Pressure Pulse Oximetry 98 98 98 Oxygen Delivery Method Oxygen Flow Rate 01/24/24 06:55 Pulse Rate 74 Respiratory Rate 15 Blood Pressure Pulse Oximetry 97 Oxygen Delivery Method Oxygen Flow Rate <Yinka Yeung, DO - Last Filed: 01/27/24 17:56> Orders Ordered: Acetaminophen (Ofirmev) 1,000 mg in 100 mls @ 400 mls/hr IV Q6H PRN PRN Reason: Fever/Mild Pain (1-3) Lorazepam (Lorazepam 2 Mg/Ml Oral Sparkle) 0.5 mg PO Q1HR PRN PRN Reason: Anxiety Last Admin: 01/27/24 17:33 Dose: 0.5 mg Documented By: Admin: 01/26/24 18:04 Dose: 0.5 mg Documented By: ANDERSON Morphine Sulfate (Morphine 10 Mg/0.5 Ml Oral Syringe) 10 mg PO Q1HR PRN PRN Reason: Pain, Severe (7-10) Last Admin: 01/27/24 16:48 Dose: 10 mg Documented By: ANDERSON Naloxone HCl (Naloxone 0.4 Mg/Ml Vial) 0.2 mg IV Q2MIN PRN PRN Reason: Opiate Reversal Nystatin (Nystatin Powder 15gm) 1 applic TOP TID PRN PRN Reason: Rash Ondansetron HCl (Ondansetron 4 Mg/2 Ml Inj) 4 mg IV Q8HR PRN PRN Reason: Nausea And Vomiting Scopolamine (Scopolamine 1 Patch) 1 patch TOP Q72H [facility] Last Admin: 01/27/24 17:33 Dose: 1 patch Documented By: ANDERSON Discontinued Medications Dextrose (Dextrose 50 % In Water 25 Gm/50 Ml Syringe) 25 gm IV NOW ONE Stop: 01/24/24 01:17 Last Admin: 01/24/24 01:19 Dose: 25 gm Documented By: EVELIO Furosemide (Furosemide 40 Mg/4 Ml Vial) 20 mg IV NOW ONE Stop: 01/23/24 15:14 Last Admin: 01/23/24 15:25 Dose: 20 mg Documented By: TRAVIS Heparin Sodium (Porcine) (Heparin 5,000 Unit/Ml Vial) 7,500 unit SUBCUT Q8H [facility] Last Admin: 01/26/24 06:36 Dose: 7,500 unit Documented By: Admin: 01/25/24 21:25 Dose: 7,500 unit Documented By: Admin: 01/25/24 14:28 Dose: 7,500 unit Documented By: Admin: 01/25/24 07:02 Dose: 7,500 unit Documented By: Admin: 01/24/24 21:44 Dose: 7,500 unit Documented By: Admin: 01/24/24 14:26 Dose: 7,500 unit Documented By: ALEXA Vancomycin HCl (Vancomycin) 1,000 mg in 200 mls @ 200 mls/hr IV NOW ONE Stop: 01/23/24 16:12 Last Infusion: 01/23/24 17:27 Dose: Infused Documented By: Admin: 01/23/24 16:17 Dose: 200 mls/hr Documented By: TRAVIS Cefepime HCl 1 gm/ Sodium (Chloride) 100 mls @ 200 mls/hr IV NOW ONE Stop: 01/23/24 15:14 Last Infusion: 01/23/24 16:49 Dose: Infused Documented By: Admin: 01/23/24 16:16 Dose: 200 mls/hr Documented By: TRAVIS Magnesium Sulfate (Magnesium Sulfate) 2 gm in 50 mls @ 150 mls/hr IV NOW ONE Stop: 01/23/24 15:37 Last Infusion: 01/23/24 16:00 Dose: Infused Documented By: TRAVIS Co-signed By: MIGUEL Admin: 01/23/24 15:28 Dose: 150 mls/hr Documented By: TRAVIS Co-signed By: MIGUEL Cefepime HCl 1 gm/ Sodium (Chloride) 100 mls @ 200 mls/hr IV DAILY [facility] Last Admin: 01/26/24 09:47 Dose: 200 mls/hr Documented By: Infusion: 01/25/24 10:45 Dose: Infused Documented By: Admin: 01/25/24 09:36 Dose: 200 mls/hr Documented By: Infusion: 01/24/24 17:55 Dose: Infused Documented By: Admin: 01/24/24 17:25 Dose: 200 mls/hr Documented By: ALEXA Dextrose (D10w) 1,000 mls @ 84 mls/hr IV CONT [facility] Last Admin: 01/24/24 08:04 Dose: 84 mls/hr Documented By: MIGUEL Dextrose/Sodium Chloride (Dextrose 5%-0.45% Ns) 1,000 mls @ 84 mls/hr IV CONT [facility] Last Admin: 01/25/24 00:24 Dose: 84 mls/hr Documented By: Infusion: 01/24/24 23:36 Dose: Infused Documented By: Admin: 01/24/24 11:41 Dose: 84 mls/hr Documented By: ALEXA Vancomycin HCl (Vancomycin Per Pharmacy) 1 request MISC NOW PRN PRN Reason: Dosing Vital Signs Vital signs: Vital Signs - 8 hr 01/23/24 23:20 01/23/24 23:21 01/23/24 23:21 Pulse Rate 59 L 55 L Respiratory Rate 24 22 Blood Pressure 112/53 L Pulse Oximetry 96 97 Oxygen Delivery Method Oxygen Flow Rate 01/23/24 23:25 01/23/24 23:30 01/23/24 23:35 Pulse Rate 46 L 65 59 L Respiratory Rate 23 17 20 Blood Pressure Pulse Oximetry 95 97 97 Oxygen Delivery Method Oxygen Flow Rate 01/23/24 23:40 01/23/24 23:40 01/23/24 23:45 Pulse Rate 52 L 58 L Respiratory Rate 19 18 Blood Pressure 111/86 Pulse Oximetry 97 96 Oxygen Delivery Method Oxygen Flow Rate 01/23/24 23:50 01/23/24 23:55 01/24/24 00:00 Pulse Rate 58 L 64 89 Respiratory Rate 18 17 17 Blood Pressure Pulse Oximetry 96 97 96 Oxygen Delivery Method Oxygen Flow Rate 01/24/24 00:01 01/24/24 00:01 01/24/24 00:05 Pulse Rate 101 H 61 Respiratory Rate 18 18 Blood Pressure 145/78 H Pulse Oximetry 96 95 Oxygen Delivery Method Oxygen Flow Rate 01/24/24 00:10 01/24/24 00:10 01/24/24 00:15 Pulse Rate 53 L 50 L Respiratory Rate 17 24 Blood Pressure 113/58 L Pulse Oximetry 96 95 Oxygen Delivery Method Oxygen Flow Rate 01/24/24 00:20 01/24/24 00:21 01/24/24 00:21 Pulse Rate 91 H 64 Respiratory Rate 15 16 Blood Pressure 110/79 Pulse Oximetry 96 96 Oxygen Delivery Method Oxygen Flow Rate 01/24/24 00:25 01/24/24 00:30 01/24/24 00:32 Pulse Rate 49 L 47 L Respiratory Rate 22 17 Blood Pressure 115/88 Pulse Oximetry 95 95 Oxygen Delivery Method Oxygen Flow Rate 01/24/24 00:32 01/24/24 00:35 01/24/24 00:40 Pulse Rate 62 51 L 63 Respiratory Rate 20 20 20 Blood Pressure Pulse Oximetry 95 95 96 Oxygen Delivery Method BiPAP BiPAP Oxygen Flow Rate 01/24/24 00:45 01/24/24 00:50 01/24/24 00:55 Pulse Rate 56 L 56 L 56 L Respiratory Rate 15 16 15 Blood Pressure Pulse Oximetry 95 96 95 Oxygen Delivery Method BiPAP Oxygen Flow Rate 01/24/24 01:00 01/24/24 01:05 01/24/24 01:10 Pulse Rate 52 L 115 H 65 Respiratory Rate 18 17 17 Blood Pressure Pulse Oximetry 96 96 96 Oxygen Delivery Method Oxygen Flow Rate 01/24/24 01:15 01/24/24 01:20 01/24/24 01:25 Pulse Rate 66 91 H 93 H Respiratory Rate 16 18 17 Blood Pressure Pulse Oximetry 96 97 96 Oxygen Delivery Method BiPAP Oxygen Flow Rate 01/24/24 01:30 01/24/24 01:35 01/24/24 01:40 Pulse Rate 46 L 46 L 48 L Respiratory Rate 24 22 24 Blood Pressure Pulse Oximetry 96 96 95 Oxygen Delivery Method BiPAP Oxygen Flow Rate 01/24/24 01:45 01/24/24 01:50 01/24/24 01:55 Pulse Rate 57 L 57 L 50 L Respiratory Rate 24 24 25 H Blood Pressure Pulse Oximetry 96 95 96 Oxygen Delivery Method Oxygen Flow Rate 01/24/24 02:00 01/24/24 02:05 01/24/24 02:10 Pulse Rate 50 L 71 67 Respiratory Rate 22 20 18 Blood Pressure Pulse Oximetry 96 96 97 Oxygen Delivery Method Oxygen Flow Rate 01/24/24 02:12 01/24/24 02:12 01/24/24 02:15 Pulse Rate 66 96 H Respiratory Rate 27 H 18 Blood Pressure 147/63 H Pulse Oximetry 97 96 Oxygen Delivery Method BiPAP Oxygen Flow Rate 01/24/24 02:20 01/24/24 02:20 01/24/24 02:25 Pulse Rate 66 60 Respiratory Rate 20 25 H Blood Pressure 108/70 Pulse Oximetry 97 96 Oxygen Delivery Method Oxygen Flow Rate 01/24/24 02:30 01/24/24 02:35 01/24/24 02:40 Pulse Rate 54 L 58 L 65 Respiratory Rate 18 24 29 H Blood Pressure Pulse Oximetry 96 96 97 Oxygen Delivery Method BiPAP Oxygen Flow Rate 01/24/24 02:40 01/24/24 02:45 01/24/24 02:50 Pulse Rate 63 58 L Respiratory Rate 31 H 24 Blood Pressure 102/71 Pulse Oximetry 96 97 Oxygen Delivery Method Oxygen Flow Rate 01/24/24 02:55 01/24/24 03:00 01/24/24 03:01 Pulse Rate 76 47 L 54 L Respiratory Rate 20 11 L 10 L Blood Pressure Pulse Oximetry 96 99 98 Oxygen Delivery Method Oximask Oximask Oxygen Flow Rate 1.5 1.5 01/24/24 03:01 01/24/24 03:05 01/24/24 03:10 Pulse Rate 56 L 56 L Respiratory Rate 21 17 Blood Pressure 100/51 L Pulse Oximetry 99 99 Oxygen Delivery Method Oximask Oxygen Flow Rate 1.5 01/24/24 03:15 01/24/24 03:20 01/24/24 03:25 Pulse Rate 58 L 57 L 48 L Respiratory Rate 13 16 12 Blood Pressure Pulse Oximetry 99 99 96 Oxygen Delivery Method Oxygen Flow Rate 1.5 01/24/24 03:30 01/24/24 03:31 01/24/24 03:31 Pulse Rate 51 L 51 L Respiratory Rate 16 15 Blood Pressure 86/48 L Pulse Oximetry 98 99 Oxygen Delivery Method Oximask Oxygen Flow Rate 1.5 01/24/24 03:33 01/24/24 03:33 01/24/24 03:34 Pulse Rate 54 L 52 L Respiratory Rate 14 16 Blood Pressure 85/48 L Pulse Oximetry 99 98 Oxygen Delivery Method Oximask Oxygen Flow Rate 1.5 01/24/24 03:34 01/24/24 03:35 01/24/24 03:40 Pulse Rate 54 L 55 L Respiratory Rate 16 14 Blood Pressure 96/48 L Pulse Oximetry 98 99 Oxygen Delivery Method Oxygen Flow Rate 01/24/24 03:45 01/24/24 03:50 01/24/24 03:55 Pulse Rate 59 L 51 L 55 L Respiratory Rate 13 14 12 Blood Pressure Pulse Oximetry 98 98 98 Oxygen Delivery Method Oxygen Flow Rate 01/24/24 04:00 01/24/24 04:05 01/24/24 04:07 Pulse Rate 62 58 L 50 L Respiratory Rate 13 18 12 Blood Pressure Pulse Oximetry 99 98 99 Oxygen Delivery Method Oxygen Flow Rate 01/24/24 04:07 01/24/24 04:10 01/24/24 04:30 Pulse Rate 61 59 L Respiratory Rate 11 L 13 Blood Pressure 124/59 L Pulse Oximetry 99 100 Oxygen Delivery Method Oximask Oxygen Flow Rate 1.5 01/24/24 04:33 01/24/24 04:33 01/24/24 04:35 Pulse Rate 60 60 Respiratory Rate 12 12 Blood Pressure 89/52 L Pulse Oximetry 99 100 Oxygen Delivery Method Oximask Oximask Oxygen Flow Rate 1.5 1.5 01/24/24 04:50 01/24/24 05:00 01/24/24 05:00 Pulse Rate 60 60 Respiratory Rate 14 14 Blood Pressure 90/52 L Pulse Oximetry 100 100 Oxygen Delivery Method Oximask Oxygen Flow Rate 1.5 01/24/24 05:05 01/24/24 05:10 01/24/24 05:15 Pulse Rate 61 58 L 59 L Respiratory Rate 12 15 13 Blood Pressure Pulse Oximetry 100 100 100 Oxygen Delivery Method Oxygen Flow Rate 01/24/24 05:20 01/24/24 05:25 01/24/24 05:30 Pulse Rate 61 56 L 62 Respiratory Rate 11 L 11 L 14 Blood Pressure Pulse Oximetry 100 100 100 Oxygen Delivery Method Oxygen Flow Rate 01/24/24 05:30 01/24/24 05:35 01/24/24 05:40 Pulse Rate 60 50 L Respiratory Rate 13 10 L Blood Pressure 91/50 L Pulse Oximetry 100 100 Oxygen Delivery Method Oxygen Flow Rate 01/24/24 05:45 01/24/24 05:50 01/24/24 05:55 Pulse Rate 61 63 62 Respiratory Rate 14 11 L 11 L Blood Pressure Pulse Oximetry 99 99 99 Oxygen Delivery Method Oxygen Flow Rate 01/24/24 06:00 01/24/24 06:01 01/24/24 06:01 Pulse Rate 62 59 L Respiratory Rate 18 11 L Blood Pressure 99/67 Pulse Oximetry 99 99 Oxygen Delivery Method Oxygen Flow Rate 01/24/24 06:05 01/24/24 06:10 01/24/24 06:15 Pulse Rate 61 61 48 L Respiratory Rate 11 L 11 L 14 Blood Pressure Pulse Oximetry 99 99 99 Oxygen Delivery Method Oxygen Flow Rate 01/24/24 06:20 01/24/24 06:25 01/24/24 06:30 Pulse Rate 61 61 88 Respiratory Rate 11 L 14 20 Blood Pressure Pulse Oximetry 99 99 99 Oxygen Delivery Method Oxygen Flow Rate 01/24/24 06:34 01/24/24 06:34 01/24/24 06:35 Pulse Rate 147 H 129 H Respiratory Rate 18 15 Blood Pressure 117/87 Pulse Oximetry 98 98 Oxygen Delivery Method Oximask Oxygen Flow Rate 1.5 01/24/24 06:40 01/24/24 06:45 01/24/24 06:50 Pulse Rate 68 135 H 126 H Respiratory Rate 15 18 17 Blood Pressure Pulse Oximetry 98 98 98 Oxygen Delivery Method Oxygen Flow Rate 01/24/24 06:55 Pulse Rate 74 Respiratory Rate 15 Blood Pressure Pulse Oximetry 97 Oxygen Delivery Method Oxygen Flow Rate <Karla Martinez MD - Last Filed: 01/24/24 07:44> Orders Ordered: Acetaminophen (Ofirmev) 1,000 mg in 100 mls @ 400 mls/hr IV Q6H PRN PRN Reason: Fever/Mild Pain (1-3) Lorazepam (Lorazepam 2 Mg/Ml Oral Sparkle) 0.5 mg PO Q1HR PRN PRN Reason: Anxiety Last Admin: 01/27/24 17:33 Dose: 0.5 mg Documented By: Admin: 01/26/24 18:04 Dose: 0.5 mg Documented By: ANDERSON Morphine Sulfate (Morphine 10 Mg/0.5 Ml Oral Syringe) 10 mg PO Q1HR PRN PRN Reason: Pain, Severe (7-10) Last Admin: 01/27/24 16:48 Dose: 10 mg Documented By: ANDERSON Naloxone HCl (Naloxone 0.4 Mg/Ml Vial) 0.2 mg IV Q2MIN PRN PRN Reason: Opiate Reversal Nystatin (Nystatin Powder 15gm) 1 applic TOP TID PRN PRN Reason: Rash Ondansetron HCl (Ondansetron 4 Mg/2 Ml Inj) 4 mg IV Q8HR PRN PRN Reason: Nausea And Vomiting Scopolamine (Scopolamine 1 Patch) 1 patch TOP Q72H [facility] Last Admin: 01/27/24 17:33 Dose: 1 patch Documented By: ANDERSON Discontinued Medications Dextrose (Dextrose 50 % In Water 25 Gm/50 Ml Syringe) 25 gm IV NOW ONE Stop: 01/24/24 01:17 Last Admin: 01/24/24 01:19 Dose: 25 gm Documented By: EVELIO Furosemide (Furosemide 40 Mg/4 Ml Vial) 20 mg IV NOW ONE Stop: 01/23/24 15:14 Last Admin: 01/23/24 15:25 Dose: 20 mg Documented By: TRAVIS Heparin Sodium (Porcine) (Heparin 5,000 Unit/Ml Vial) 7,500 unit SUBCUT Q8H [facility] Last Admin: 01/26/24 06:36 Dose: 7,500 unit Documented By: Admin: 01/25/24 21:25 Dose: 7,500 unit Documented By: Admin: 01/25/24 14:28 Dose: 7,500 unit Documented By: Admin: 01/25/24 07:02 Dose: 7,500 unit Documented By: Admin: 01/24/24 21:44 Dose: 7,500 unit Documented By: Admin: 01/24/24 14:26 Dose: 7,500 unit Documented By: ALEXA Vancomycin HCl (Vancomycin) 1,000 mg in 200 mls @ 200 mls/hr IV NOW ONE Stop: 01/23/24 16:12 Last Infusion: 01/23/24 17:27 Dose: Infused Documented By: Admin: 01/23/24 16:17 Dose: 200 mls/hr Documented By: TRAVIS Cefepime HCl 1 gm/ Sodium (Chloride) 100 mls @ 200 mls/hr IV NOW ONE Stop: 01/23/24 15:14 Last Infusion: 01/23/24 16:49 Dose: Infused Documented By: Admin: 01/23/24 16:16 Dose: 200 mls/hr Documented By: TRAVIS Magnesium Sulfate (Magnesium Sulfate) 2 gm in 50 mls @ 150 mls/hr IV NOW ONE Stop: 01/23/24 15:37 Last Infusion: 01/23/24 16:00 Dose: Infused Documented By: TRAVIS Co-signed By: MIGUEL Admin: 01/23/24 15:28 Dose: 150 mls/hr Documented By: TRAVIS Co-signed By: MIGUEL Cefepime HCl 1 gm/ Sodium (Chloride) 100 mls @ 200 mls/hr IV DAILY [facility] Last Admin: 01/26/24 09:47 Dose: 200 mls/hr Documented By: Infusion: 01/25/24 10:45 Dose: Infused Documented By: Admin: 01/25/24 09:36 Dose: 200 mls/hr Documented By: Infusion: 01/24/24 17:55 Dose: Infused Documented By: Admin: 01/24/24 17:25 Dose: 200 mls/hr Documented By: ALEXA Dextrose (D10w) 1,000 mls @ 84 mls/hr IV CONT GWEN Last Admin: 01/24/24 08:04 Dose: 84 mls/hr Documented By: MIGUEL Dextrose/Sodium Chloride (Dextrose 5%-0.45% Ns) 1,000 mls @ 84 mls/hr IV CONT GWEN Last Admin: 01/25/24 00:24 Dose: 84 mls/hr Documented By: Infusion: 01/24/24 23:36 Dose: Infused Documented By: Admin: 01/24/24 11:41 Dose: 84 mls/hr Documented By: ALEXA Vancomycin HCl (Vancomycin Per Pharmacy) 1 request MISC NOW PRN PRN Reason: Dosing Vital Signs Vital signs: Vital Signs - 8 hr 01/23/24 23:20 01/23/24 23:21 01/23/24 23:21 Pulse Rate 59 L 55 L Respiratory Rate 24 22 Blood Pressure 112/53 L Pulse Oximetry 96 97 Oxygen Delivery Method Oxygen Flow Rate 01/23/24 23:25 01/23/24 23:30 01/23/24 23:35 Pulse Rate 46 L 65 59 L Respiratory Rate 23 17 20 Blood Pressure Pulse Oximetry 95 97 97 Oxygen Delivery Method Oxygen Flow Rate 01/23/24 23:40 01/23/24 23:40 01/23/24 23:45 Pulse Rate 52 L 58 L Respiratory Rate 19 18 Blood Pressure 111/86 Pulse Oximetry 97 96 Oxygen Delivery Method Oxygen Flow Rate 01/23/24 23:50 01/23/24 23:55 01/24/24 00:00 Pulse Rate 58 L 64 89 Respiratory Rate 18 17 17 Blood Pressure Pulse Oximetry 96 97 96 Oxygen Delivery Method Oxygen Flow Rate 01/24/24 00:01 01/24/24 00:01 01/24/24 00:05 Pulse Rate 101 H 61 Respiratory Rate 18 18 Blood Pressure 145/78 H Pulse Oximetry 96 95 Oxygen Delivery Method Oxygen Flow Rate 01/24/24 00:10 01/24/24 00:10 01/24/24 00:15 Pulse Rate 53 L 50 L Respiratory Rate 17 24 Blood Pressure 113/58 L Pulse Oximetry 96 95 Oxygen Delivery Method Oxygen Flow Rate 01/24/24 00:20 01/24/24 00:21 01/24/24 00:21 Pulse Rate 91 H 64 Respiratory Rate 15 16 Blood Pressure 110/79 Pulse Oximetry 96 96 Oxygen Delivery Method Oxygen Flow Rate 01/24/24 00:25 01/24/24 00:30 01/24/24 00:32 Pulse Rate 49 L 47 L Respiratory Rate 22 17 Blood Pressure 115/88 Pulse Oximetry 95 95 Oxygen Delivery Method Oxygen Flow Rate 01/24/24 00:32 01/24/24 00:35 01/24/24 00:40 Pulse Rate 62 51 L 63 Respiratory Rate 20 20 20 Blood Pressure Pulse Oximetry 95 95 96 Oxygen Delivery Method BiPAP BiPAP Oxygen Flow Rate 01/24/24 00:45 01/24/24 00:50 01/24/24 00:55 Pulse Rate 56 L 56 L 56 L Respiratory Rate 15 16 15 Blood Pressure Pulse Oximetry 95 96 95 Oxygen Delivery Method BiPAP Oxygen Flow Rate 01/24/24 01:00 01/24/24 01:05 01/24/24 01:10 Pulse Rate 52 L 115 H 65 Respiratory Rate 18 17 17 Blood Pressure Pulse Oximetry 96 96 96 Oxygen Delivery Method Oxygen Flow Rate 01/24/24 01:15 01/24/24 01:20 01/24/24 01:25 Pulse Rate 66 91 H 93 H Respiratory Rate 16 18 17 Blood Pressure Pulse Oximetry 96 97 96 Oxygen Delivery Method BiPAP Oxygen Flow Rate 01/24/24 01:30 01/24/24 01:35 01/24/24 01:40 Pulse Rate 46 L 46 L 48 L Respiratory Rate 24 22 24 Blood Pressure Pulse Oximetry 96 96 95 Oxygen Delivery Method BiPAP Oxygen Flow Rate 01/24/24 01:45 01/24/24 01:50 01/24/24 01:55 Pulse Rate 57 L 57 L 50 L Respiratory Rate 24 24 25 H Blood Pressure Pulse Oximetry 96 95 96 Oxygen Delivery Method Oxygen Flow Rate 01/24/24 02:00 01/24/24 02:05 01/24/24 02:10 Pulse Rate 50 L 71 67 Respiratory Rate 22 20 18 Blood Pressure Pulse Oximetry 96 96 97 Oxygen Delivery Method Oxygen Flow Rate 01/24/24 02:12 01/24/24 02:12 01/24/24 02:15 Pulse Rate 66 96 H Respiratory Rate 27 H 18 Blood Pressure 147/63 H Pulse Oximetry 97 96 Oxygen Delivery Method BiPAP Oxygen Flow Rate 01/24/24 02:20 01/24/24 02:20 01/24/24 02:25 Pulse Rate 66 60 Respiratory Rate 20 25 H Blood Pressure 108/70 Pulse Oximetry 97 96 Oxygen Delivery Method Oxygen Flow Rate 01/24/24 02:30 01/24/24 02:35 01/24/24 02:40 Pulse Rate 54 L 58 L 65 Respiratory Rate 18 24 29 H Blood Pressure Pulse Oximetry 96 96 97 Oxygen Delivery Method BiPAP Oxygen Flow Rate 01/24/24 02:40 01/24/24 02:45 01/24/24 02:50 Pulse Rate 63 58 L Respiratory Rate 31 H 24 Blood Pressure 102/71 Pulse Oximetry 96 97 Oxygen Delivery Method Oxygen Flow Rate 01/24/24 02:55 01/24/24 03:00 01/24/24 03:01 Pulse Rate 76 47 L 54 L Respiratory Rate 20 11 L 10 L Blood Pressure Pulse Oximetry 96 99 98 Oxygen Delivery Method Oximask Oximask Oxygen Flow Rate 1.5 1.5 01/24/24 03:01 01/24/24 03:05 01/24/24 03:10 Pulse Rate 56 L 56 L Respiratory Rate 21 17 Blood Pressure 100/51 L Pulse Oximetry 99 99 Oxygen Delivery Method Oximask Oxygen Flow Rate 1.5 01/24/24 03:15 01/24/24 03:20 01/24/24 03:25 Pulse Rate 58 L 57 L 48 L Respiratory Rate 13 16 12 Blood Pressure Pulse Oximetry 99 99 96 Oxygen Delivery Method Oxygen Flow Rate 1.5 01/24/24 03:30 01/24/24 03:31 01/24/24 03:31 Pulse Rate 51 L 51 L Respiratory Rate 16 15 Blood Pressure 86/48 L Pulse Oximetry 98 99 Oxygen Delivery Method Oximask Oxygen Flow Rate 1.5 01/24/24 03:33 01/24/24 03:33 01/24/24 03:34 Pulse Rate 54 L 52 L Respiratory Rate 14 16 Blood Pressure 85/48 L Pulse Oximetry 99 98 Oxygen Delivery Method Oximask Oxygen Flow Rate 1.5 01/24/24 03:34 01/24/24 03:35 01/24/24 03:40 Pulse Rate 54 L 55 L Respiratory Rate 16 14 Blood Pressure 96/48 L Pulse Oximetry 98 99 Oxygen Delivery Method Oxygen Flow Rate 01/24/24 03:45 01/24/24 03:50 01/24/24 03:55 Pulse Rate 59 L 51 L 55 L Respiratory Rate 13 14 12 Blood Pressure Pulse Oximetry 98 98 98 Oxygen Delivery Method Oxygen Flow Rate 01/24/24 04:00 01/24/24 04:05 01/24/24 04:07 Pulse Rate 62 58 L 50 L Respiratory Rate 13 18 12 Blood Pressure Pulse Oximetry 99 98 99 Oxygen Delivery Method Oxygen Flow Rate 01/24/24 04:07 01/24/24 04:10 01/24/24 04:30 Pulse Rate 61 59 L Respiratory Rate 11 L 13 Blood Pressure 124/59 L Pulse Oximetry 99 100 Oxygen Delivery Method Oximask Oxygen Flow Rate 1.5 01/24/24 04:33 01/24/24 04:33 01/24/24 04:35 Pulse Rate 60 60 Respiratory Rate 12 12 Blood Pressure 89/52 L Pulse Oximetry 99 100 Oxygen Delivery Method Oximask Oximask Oxygen Flow Rate 1.5 1.5 01/24/24 04:50 01/24/24 05:00 01/24/24 05:00 Pulse Rate 60 60 Respiratory Rate 14 14 Blood Pressure 90/52 L Pulse Oximetry 100 100 Oxygen Delivery Method Oximask Oxygen Flow Rate 1.5 01/24/24 05:05 01/24/24 05:10 01/24/24 05:15 Pulse Rate 61 58 L 59 L Respiratory Rate 12 15 13 Blood Pressure Pulse Oximetry 100 100 100 Oxygen Delivery Method Oxygen Flow Rate 01/24/24 05:20 01/24/24 05:25 01/24/24 05:30 Pulse Rate 61 56 L 62 Respiratory Rate 11 L 11 L 14 Blood Pressure Pulse Oximetry 100 100 100 Oxygen Delivery Method Oxygen Flow Rate 01/24/24 05:30 01/24/24 05:35 01/24/24 05:40 Pulse Rate 60 50 L Respiratory Rate 13 10 L Blood Pressure 91/50 L Pulse Oximetry 100 100 Oxygen Delivery Method Oxygen Flow Rate 01/24/24 05:45 01/24/24 05:50 01/24/24 05:55 Pulse Rate 61 63 62 Respiratory Rate 14 11 L 11 L Blood Pressure Pulse Oximetry 99 99 99 Oxygen Delivery Method Oxygen Flow Rate 01/24/24 06:00 01/24/24 06:01 01/24/24 06:01 Pulse Rate 62 59 L Respiratory Rate 18 11 L Blood Pressure 99/67 Pulse Oximetry 99 99 Oxygen Delivery Method Oxygen Flow Rate 01/24/24 06:05 01/24/24 06:10 01/24/24 06:15 Pulse Rate 61 61 48 L Respiratory Rate 11 L 11 L 14 Blood Pressure Pulse Oximetry 99 99 99 Oxygen Delivery Method Oxygen Flow Rate 01/24/24 06:20 01/24/24 06:25 01/24/24 06:30 Pulse Rate 61 61 88 Respiratory Rate 11 L 14 20 Blood Pressure Pulse Oximetry 99 99 99 Oxygen Delivery Method Oxygen Flow Rate 01/24/24 06:34 01/24/24 06:34 01/24/24 06:35 Pulse Rate 147 H 129 H Respiratory Rate 18 15 Blood Pressure 117/87 Pulse Oximetry 98 98 Oxygen Delivery Method Oximask Oxygen Flow Rate 1.5 01/24/24 06:40 01/24/24 06:45 01/24/24 06:50 Pulse Rate 68 135 H 126 H Respiratory Rate 15 18 17 Blood Pressure Pulse Oximetry 98 98 98 Oxygen Delivery Method Oxygen Flow Rate 01/24/24 06:55 Pulse Rate 74 Respiratory Rate 15 Blood Pressure Pulse Oximetry 97 Oxygen Delivery Method Oxygen Flow Rate MDM - Altered Mental Status <Jorge Hadley, - Last Filed: 01/23/24 18:40> Differential Diagnosis Differential diagnosis: Likely altered mental status, dementia, other, subarachnoid hemorrhage and sepsis Lab Data 01/26/24 06:47 01/26/24 06:47 Labs: Lab Results 01/23/24 01/23/24 01/23/24 Range/Units 13:07 13:21 15:59 WBC 9.0 (4.5-11.0) X10^3/uL RBC 3.53 L (4.5-5.9) X10^6/uL Hgb 9.3 L (13.5-17.5) g/dL Hct 29.5 L (41-53) % MCV 83.6 (80-100) fL MCH 26.5 (26-34) PG MCHC 31.7 (30-36) % RDW 17.9 H (11.6-14.8) % Plt Count 61 L (150-400) X10^3/uL Neut % (Auto) 89.1 H (50-75) % Lymph % (Auto) 4.3 L (25-40) % [place] % (Auto) 5.8 (3-14) % Eos % (Auto) 0.6 L (2-4) % Baso % (Auto) 0.2 (0-2) % Neut # (Auto) 8100 H (9231-0083) /uL Lymph # (Auto) 400 L (2657-7493) /uL [place] # (Auto) 500 (0-900) /uL Eos # (Auto) 100 (0-450) /uL Baso # (Auto) 0 (0-100) /uL ABG Sample Site Right radial ABG pH 7.20 L* (7.35-7.45) ABG pCO2 66.2 H* (35-45) mmHg ABG pO2 118 H (80-100) mmHg ABG HCO3 26 (23-27) mmol/L ABG Total CO2 27 (23-27) mmol/L ABG O2 Saturation 97 (95-100) % ABG Base Excess -2.8 L (-2-3) mmol/L Александр Test Positive Respiration Rate O2 Delivery Device Cannula FiO2 % 28 % % Sodium 144 (137-145) mmol/L Potassium 4.7 (3.4-5.1) mmol/L Chloride 109 H (98-107) mmol/L Carbon Dioxide 25 (22-32) mmol/L BUN 61 H (9-20) mg/dL Creatinine 3.03 H (0.66-1.25) mg/dL Estimated GFR 20 L (>60) mL/min BUN/Creatinine Ratio 20.1 (6-22) Glucose 94 (80-110) mg/dL Lactate (0.7-2.1) mmol/L Calcium 9.2 (8.4-10.2) mg/dL Magnesium 2.0 (1.6-2.3) mg/dL Total Bilirubin 0.7 (0.2-1.3) mg/dL AST 41 (17-59) IU/L ALT 30 (<50) IU/L Alkaline Phosphatase 176 H (38-126) U/L Ammonia < 9 L (9-30) umol/L Total Creatine Kinase 177 H (55-170) U/L Troponin I 0.015 (0.01-0.034) ng/mL NT-Pro-B Natriuret Pep 3460 H (<450) pg/mL Total Protein 6.5 (6.3-8.2) g/dL Albumin 3.5 (3.5-5.0) g/dL Globulin 3.0 (1.7-4.1) g/dL Albumin/Globulin Ratio 1.2 (1.0-2.8) Urine RBC (0-5/HPF) Urine WBC (0-5/HPF) Ur Squamous Epith Cells (0-5/HPF) Urine Bacteria (None) Ur Culture Indicated? Vol Urine Centrifuged U Opiates 300ng/mL cut (Negative) Ur Oxycodone Screen (Negative) Urine Methadone Screen (Negative) Ur Barbiturates Screen (Negative) U Tricyclic Antidepress (Negative) Ur Phencyclidine Scrn (Negative) Ur Amphetamines Screen (Negative) U Methamphetamines Scrn (Negative) Ur MDMA Scrn (Ecstasy) (Negative) U Benzodiazepines Scrn (Negative) Urine Cocaine Screen (Negative) U Marijuana (THC) Screen (Negative) Urine pH (Normal) Urine Specific [place] (Normal) Ur Creatinine (Normal) Chlamy pneumoniae PCR Not detected (Not Detect) Adenovirus (PCR) Not detected (Not Detect) B. pertussis DNA (PCR) Not detected (Not Detect) B.parapertussis DNA PCR Not detected (Not Detecte) Coronavirus OC43 (PCR) Not detected (Not Detect) Coronavirus HKU1 (PCR) Not detected (Not Detect) Coronavirus 229E (PCR) Not detected (Not Detect) SARS-CoV-2 (PCR) Not detected (Not Detecte) Coronavirus NL63 (PCR) Not detected (Not Detect) Human Metapneumovir PCR Not detected (Not Detect) Influenza Type A (PCR) Not detected (Not Detect) Influenza Type B (PCR) Not detected (Not Detect) M. pneumoniae (PCR) Not detected (Not Detect) Parainfluenza 1 (PCR) Not detected (Not Detect) Parainfluenza 2 (PCR) Not detected (Not Detect) Parainfluenza 3 (PCR) Not detected (Not Detect) Parainfluenza 4 (PCR) Not detected (Not Detect) RSV (PCR) Not detected (Not Detect) Entero/Rhino (PCR) Not detected (Not Detect) 01/23/24 01/23/24 01/23/24 Range/Units 16:21 18:48 19:09 WBC (4.5-11.0) X10^3/uL RBC (4.5-5.9) X10^6/uL Hgb (13.5-17.5) g/dL Hct (41-53) % MCV (80-100) fL MCH (26-34) PG MCHC (30-36) % RDW (11.6-14.8) % Plt Count (150-400) X10^3/uL Neut % (Auto) (50-75) % Lymph % (Auto) (25-40) % [place] % (Auto) (3-14) % Eos % (Auto) (2-4) % Baso % (Auto) (0-2) % Neut # (Auto) (7540-2518) /uL Lymph # (Auto) (4907-6036) /uL [place] # (Auto) (0-900) /uL Eos # (Auto) (0-450) /uL Baso # (Auto) (0-100) /uL ABG Sample Site Right radial ABG pH 7.21 L* (7.35-7.45) ABG pCO2 64.0 H* (35-45) mmHg ABG pO2 140 H (80-100) mmHg ABG HCO3 26 (23-27) mmol/L ABG Total CO2 27 (23-27) mmol/L ABG O2 Saturation 99 (95-100) % ABG Base Excess -3.0 L (-2-3) mmol/L Александр Test Positive Respiration Rate 24 O2 Delivery Device Bipap FiO2 % 30.0 % % Sodium (137-145) mmol/L Potassium (3.4-5.1) mmol/L Chloride (98-107) mmol/L Carbon Dioxide (22-32) mmol/L BUN (9-20) mg/dL Creatinine (0.66-1.25) mg/dL Estimated GFR (>60) mL/min BUN/Creatinine Ratio (6-22) Glucose (80-110) mg/dL Lactate 0.8 (0.7-2.1) mmol/L Calcium (8.4-10.2) mg/dL Magnesium (1.6-2.3) mg/dL Total Bilirubin (0.2-1.3) mg/dL AST (17-59) IU/L ALT (<50) IU/L Alkaline Phosphatase (38-126) U/L Ammonia (9-30) umol/L Total Creatine Kinase (55-170) U/L Troponin I (0.01-0.034) ng/mL NT-Pro-B Natriuret Pep (<450) pg/mL Total Protein (6.3-8.2) g/dL Albumin (3.5-5.0) g/dL Globulin (1.7-4.1) g/dL Albumin/Globulin Ratio (1.0-2.8) Urine RBC None seen (0-5/HPF) Urine WBC None seen (0-5/HPF) Ur Squamous Epith Cells None seen (0-5/HPF) Urine Bacteria None seen (None) Ur Culture Indicated? Cult not indicated Vol Urine Centrifuged 10ml (spun) U Opiates 300ng/mL cut Negative (Negative) Ur Oxycodone Screen Negative (Negative) Urine Methadone Screen Negative (Negative) Ur Barbiturates Screen Negative (Negative) U Tricyclic Antidepress Negative (Negative) Ur Phencyclidine Scrn Negative (Negative) Ur Amphetamines Screen Negative (Negative) U Methamphetamines Scrn Negative (Negative) Ur MDMA Scrn (Ecstasy) Negative (Negative) U Benzodiazepines Scrn Negative (Negative) Urine Cocaine Screen Negative (Negative) U Marijuana (THC) Screen Negative (Negative) Urine pH Normal (Normal) Urine Specific [place] Normal (Normal) Ur Creatinine Normal (Normal) Chlamy pneumoniae PCR (Not Detect) Adenovirus (PCR) (Not Detect) B. pertussis DNA (PCR) (Not Detect) B.parapertussis DNA PCR (Not Detecte) Coronavirus OC43 (PCR) (Not Detect) Coronavirus HKU1 (PCR) (Not Detect) Coronavirus 229E (PCR) (Not Detect) SARS-CoV-2 (PCR) (Not Detecte) Coronavirus NL63 (PCR) (Not Detect) Human Metapneumovir PCR (Not Detect) Influenza Type A (PCR) (Not Detect) Influenza Type B (PCR) (Not Detect) M. pneumoniae (PCR) (Not Detect) Parainfluenza 1 (PCR) (Not Detect) Parainfluenza 2 (PCR) (Not Detect) Parainfluenza 3 (PCR) (Not Detect) Parainfluenza 4 (PCR) (Not Detect) RSV (PCR) (Not Detect) Entero/Rhino (PCR) (Not Detect) 01/24/24 01/24/24 Range/Units 02:46 06:35 WBC 9.7 (4.5-11.0) X10^3/uL RBC 3.23 L (4.5-5.9) X10^6/uL Hgb 8.5 L (13.5-17.5) g/dL Hct 27.4 L (41-53) % MCV 84.9 (80-100) fL MCH 26.4 (26-34) PG MCHC 31.1 (30-36) % RDW 17.8 H (11.6-14.8) % Plt Count 59 L (150-400) X10^3/uL Neut % (Auto) 87.3 H (50-75) % Lymph % (Auto) 5.9 L (25-40) % [place] % (Auto) 5.8 (3-14) % Eos % (Auto) 0.6 L (2-4) % Baso % (Auto) 0.4 (0-2) % Neut # (Auto) 8500 H (9272-5811) /uL Lymph # (Auto) 600 L (5096-4044) /uL [place] # (Auto) 600 (0-900) /uL Eos # (Auto) 100 (0-450) /uL Baso # (Auto) 0 (0-100) /uL ABG Sample Site Right radial ABG pH 7.36 (7.35-7.45) ABG pCO2 42.6 (35-45) mmHg ABG pO2 71 L (80-100) mmHg ABG HCO3 24 (23-27) mmol/L ABG Total CO2 24 (23-27) mmol/L ABG O2 Saturation 93 L (95-100) % ABG Base Excess -1.7 (-2-3) mmol/L Александр Test Positive Respiration Rate O2 Delivery Device avaps FiO2 % 21 % % Sodium 146 H (137-145) mmol/L Potassium 4.7 (3.4-5.1) mmol/L Chloride 112 H (98-107) mmol/L Carbon Dioxide 22 (22-32) mmol/L BUN 65 H (9-20) mg/dL Creatinine 3.38 H (0.66-1.25) mg/dL Estimated GFR 17 L (>60) mL/min BUN/Creatinine Ratio 19.2 (6-22) Glucose 78 L (80-110) mg/dL Lactate (0.7-2.1) mmol/L Calcium 8.9 (8.4-10.2) mg/dL Magnesium (1.6-2.3) mg/dL Total Bilirubin (0.2-1.3) mg/dL AST (17-59) IU/L ALT (<50) IU/L Alkaline Phosphatase (38-126) U/L Ammonia (9-30) umol/L Total Creatine Kinase 168 (55-170) U/L Troponin I 0.021 (0.01-0.034) ng/mL NT-Pro-B Natriuret Pep 4190 H (<450) pg/mL Total Protein (6.3-8.2) g/dL Albumin (3.5-5.0) g/dL Globulin (1.7-4.1) g/dL Albumin/Globulin Ratio (1.0-2.8) Urine RBC (0-5/HPF) Urine WBC (0-5/HPF) Ur Squamous Epith Cells (0-5/HPF) Urine Bacteria (None) Ur Culture Indicated? Vol Urine Centrifuged U Opiates 300ng/mL cut (Negative) Ur Oxycodone Screen (Negative) Urine Methadone Screen (Negative) Ur Barbiturates Screen (Negative) U Tricyclic Antidepress (Negative) Ur Phencyclidine Scrn (Negative) Ur Amphetamines Screen (Negative) U Methamphetamines Scrn (Negative) Ur MDMA Scrn (Ecstasy) (Negative) U Benzodiazepines Scrn (Negative) Urine Cocaine Screen (Negative) U Marijuana (THC) Screen (Negative) Urine pH (Normal) Urine Specific [place] (Normal) Ur Creatinine (Normal) Chlamy pneumoniae PCR (Not Detect) Adenovirus (PCR) (Not Detect) B. pertussis DNA (PCR) (Not Detect) B.parapertussis DNA PCR (Not Detecte) Coronavirus OC43 (PCR) (Not Detect) Coronavirus HKU1 (PCR) (Not Detect) Coronavirus 229E (PCR) (Not Detect) SARS-CoV-2 (PCR) (Not Detecte) Coronavirus NL63 (PCR) (Not Detect) Human Metapneumovir PCR (Not Detect) Influenza Type A (PCR) (Not Detect) Influenza Type B (PCR) (Not Detect) M. pneumoniae (PCR) (Not Detect) Parainfluenza 1 (PCR) (Not Detect) Parainfluenza 2 (PCR) (Not Detect) Parainfluenza 3 (PCR) (Not Detect) Parainfluenza 4 (PCR) (Not Detect) RSV (PCR) (Not Detect) Entero/Rhino (PCR) (Not Detect) Point of Care Testing Glucose POC 69 Urine Dip Bedside Urine Glucose Negative Bedside Urine Bilirubin - Negative Bedside Urine Ketone +/- 5 Urine Specific [place] 1.025 Bedside Urine Occult Blood - Negative Bedside Urine pH 5.5 Bedside Urine Protein +/- 15 Bedside Urine Urobilinogen - Negative Bedside Urine Nitrite - Negative Bedside Urine Leukocytes - Negative Esterase Imaging Data CT scan - head: Radiologist's Impression: [place] [address] CT Scan Report Signed Patient: Atilio Pires MR#: [id number] : 1940 Acct:[id number] Age/Sex: 83 / M Date of Service: 01/23/24 Loc: ED Accession Number: [id number] Procedure: CT head/brain wo con Ordering Provider: Jorge Hadley D.O. PROCEDURE: CT HEAD/BRAIN WO CON INDICATIONS: AMS TECHNIQUE: Noncontrast 4.5 mm thick angled axial sections acquired from the foramen magnum to the vertex, with coronal and sagittal reformats. For radiation dose reduction, the following was used: automated exposure control, adjustment of mA and/or kV according to patient size. COMPARISON: MRI of brain dated 01/31/2016 and 04/12/2015. FINDINGS: Image quality: Diagnostic. CSF spaces: Basal cisterns are patent. No extra-axial fluid collections. The ventricles are symmetric in size and shape. Brain: No intracranial bleeds or masses. There is cerebral volume loss for age, with resultant ventricular and sulcal prominence. There are periventricular and deep white matter chronic small vessel ischemic changes. There is intracranial internal carotid artery atherosclerosis. Skull and face: Calvarium and visualized facial bones appear intact, without suspicious lesions. Sinuses: Visualized sinuses and mastoids are clear. IMPRESSION: No acute intracranial pathology. CT chest/abd/pelvis: Radiologist's Impression: [address] [address] [address] Scan Report Signed Patient: Atilio Pires MR#: [id number] : 1940 Acct:[id number] Age/Sex: 83 / M Date of Service: 01/23/24 Loc: ED Accession Number: [id number] Procedure: CT chest abd pel wo con Ordering Provider: Joreg Hadley D.O. PROCEDURE: CT CHEST ABD PEL WO CON INDICATIONS: Trauma, altered mental status, fall TECHNIQUE: After the administration of oral contrast, 5 mm thick sections acquired from the lung apices to the symphysis pubis. 5 mm thick coronal and sagittal reformats acquired, with additional 7 mm coronal MIP reformats through the lungs. For radiation dose reduction, the following was used: automated exposure control, adjustment of mA and/or kV according to patient size. COMPARISON: [facility], CT, CT ABDOMEN PELVIS WO CON, 08/13/2023, 13:53. [facility], CT, CT CHEST ABD PEL WO CON, 03/26/2023, 11:10. FINDINGS: Image quality: Diagnostic. CHEST: Lower Neck: No enlarged lymph nodes. Thyroid: No thyroid nodules which require sonographic follow up, per consensus guidelines. Axillae: No enlarged lymph nodes. Chest Wall: Unremarkable. Bones: Unremarkable. Lungs and Pleura: Small to moderate bilateral pleural effusion with compressive atelectasis in posterior aspect of bilateral lung martin is seen. Hazy ground- glass opacities and airspace opacities are seen scattered in bilateral lung martin more notably in bilateral lower lobes and left lingular segment. No pneumothorax. Central and peripheral airway is patent. Previously described tree-in-bud appearance in upper lobes are again seen suggestive of small airway disease. Heart: Heart size is enlarged. No pericardial effusion. Thoracic Vessels: The aorta and pulmonary arteries demonstrate normal size. 3 vessel coronary artery calcifications are seen. Mediastinum and Carine: No enlarged lymph nodes. Mildly prominent subcentimeter lymph nodes are seen in mediastinum measures up to 9 mm in short axis diameter in right paratracheal space. Esophagus: No wall thickening . No hiatal hernia. ABDOMEN: Liver: No solid mass. Gallbladder: No radiopaque gallstones or wall thickening. Biliary ducts: No biliary dilation. Pancreas: No ductal dilation. Spleen: Size is within normal limits. Adrenal Glands: No adrenal nodules. Kidneys and Ureters: Prior left nephrectomy is again seen and unchanged. No right-sided hydronephrosis. No solid mass. No complex renal cystic lesion which requires follow up. Stomach and Bowel: Normal colonic caliber, without significant wall thickening. No abscess collection. Peritoneum: No abnormal intraperitoneal fluid. No free air. Ventral Wall: No hernia. Abdominal Nodes: No retroperitoneal or mesenteric adenopathy by size criteria. Vessels: Aorta and inferior vena cava are normal in size. PELVIS: Pelvic Organs: Fiducial markers are noted in prostate gland. Bladder: Unremarkable. Pelvic Nodes: No enlarged lymph nodes. Miscellaneous: No inguinal hernias are seen. Bones: No aggressive osseous abnormality. No acute displaced rib fractures. Pelvic ring is intact. No acute vertebral body compression fracture. IMPRESSION: 1. Small to moderate bilateral pleural effusion with compressive atelectasis in posterior aspect of bilateral lung martin. Patchy airspace consolidations and ground- glass opacities scattered in bilateral lung martin suggestive of bilateral multilobar infiltrates and pulmonary edema more notably in lower lobes and left lingular segment. No pneumothorax. 2. No acute solid organ injury is seen in abdomen or pelvis. No free fluid or free air. 3. Cardiomegaly, no pericardial effusion. Subcentimeter lymph nodes seen in mediastinum as above. 4. Other incidental findings including prior left nephrectomy and fiducial markers in prostate gland unchanged from prior studies. 5. No displaced rib fracture. No acute vertebral body compression fracture or spondylolisthesis. Pelvic ring is intact. ECG Data Attestation: I personally reviewed and interpreted this ECG as follows: Interpretation: Initial EKG sinus bradycardia 51 beats per minute QTC [address] changes, Repeat EKG AFib at 52 beats per minute QTC [address] changes no STEMI MDM Narrative Medical decision making narrative: Patient is a 83-year-old male hypertension, COPD, CAD, CKD stage 3, prostate cancer, lung cancer, kidney cancer, hyperlipidemia, CHF, venous insufficiency, presents by EMS from home for evaluation of altered mental status medics noted that patient with a blood sugar of 40 was given amp of D50 prior to arrival. At time of initial evaluation patient appears confused but answers question appropriately just slowed. 1525: Discussed with contact friend Melo mendez states that he is normally able to hold a conversation. Did give me patients daughters phone number (MARIELLA) [phone] , states that he does not know anymore about his chronic history. 1527: Attempted to call patient's daughter, however went straight to voicemail, left hip or compliant voicemail. 1537: Mariella gave call back states that he is normally able to walk with a cane. States that he has had some slight slurred speech over the past few days, speech is slowed but is able to hold a conversation. Last talked to him on [id number]. States at that at that time he was his normal. States had pneumonia about 2 months ago. States no history of diabetes and not on any meds for this. Not on any chemo or radiation currently. 1545: Discussed case with Dr. issa, is recommending Ck and ABG before admission. 1700: Obtain ABG, pH 7.2, pCO2 66.2, PO2 118, bicarb 25.9, patient hypercapnic acidotic, requiring supplemental oxygen, will place him on BiPAP, altered mental status possibly due to hypercapnia, given change in patient's oxygenation will require transfer to higher level care. Call placed out. 1727: Lengthy conversation was performed with patient's daughter Mariella again, she verified patient's code status via his pulse form states that she will try to e- mail to us. He said he has a DNR DNI and limited intervention. I informed her that patient is in a tenuous situation and is requiring transfer. She understands agrees with this plan. She states that she is willing to try peripheral pressors if needed but would not want to have a central line placed. States that she does have medical power of finance attorney. And will also be trying to send this information to us. 1830: discussed case with Dr. Masterson from [facility], accepts admission, but pending bed placement <Yinka Yeung, - Last Filed: 01/27/24 17:56> Lab Data Labs: Lab Results 01/23/24 01/23/2424 Range/Units 13:07 13:21 15:59 WBC 9.0 (4.5-11.0) X10^3/uL RBC 3.53 L (4.5-5.9) X10^6/uL Hgb 9.3 L (13.5-17.5) g/dL Hct 29.5 L (41-53) % MCV 83.6 (80-100) fL MCH 26.5 (26-34) PG MCHC 31.7 (30-36) % RDW 17.9 H (11.6-14.8) % Plt Count 61 L (150-400) X10^3/uL Neut % (Auto) 89.1 H (50-75) % Lymph % (Auto) 4.3 L (25-40) % [place] % (Auto) 5.8 (3-14) % Eos % (Auto) 0.6 L (2-4) % Baso % (Auto) 0.2 (0-2) % Neut # (Auto) 8100 H (4494-4442) /uL Lymph # (Auto) 400 L (8901-0307) /uL [place] # (Auto) 500 (0-900) /uL Eos # (Auto) 100 (0-450) /uL Baso # (Auto) 0 (0-100) /uL ABG Sample Site Right radial ABG pH 7.20 L* (7.35-7.45) ABG pCO2 66.2 H* (35-45) mmHg ABG pO2 118 H (80-100) mmHg ABG HCO3 26 (23-27) mmol/L ABG Total CO2 27 (23-27) mmol/L ABG O2 Saturation 97 (95-100) % ABG Base Excess -2.8 L (-2-3) mmol/L Александр Test Positive Respiration Rate O2 Delivery Device Cannula FiO2 % 28 % % Sodium 144 (137-145) mmol/L Potassium 4.7 (3.4-5.1) mmol/L Chloride 109 H (98-107) mmol/L Carbon Dioxide 25 (22-32) mmol/L BUN 61 H (9-20) mg/dL Creatinine 3.03 H (0.66-1.25) mg/dL Estimated GFR 20 L (>60) mL/min BUN/Creatinine Ratio 20.1 (6-22) Glucose 94 (80-110) mg/dL Lactate (0.7-2.1) mmol/L Calcium 9.2 (8.4-10.2) mg/dL Magnesium 2.0 (1.6-2.3) mg/dL Total Bilirubin 0.7 (0.2-1.3) mg/dL AST 41 (17-59) IU/L ALT 30 (<50) IU/L Alkaline Phosphatase 176 H (38-126) U/L Ammonia < 9 L (9-30) umol/L Total Creatine Kinase 177 H (55-170) U/L Troponin I 0.015 (0.01-0.034) ng/mL NT-Pro-B Natriuret Pep 3460 H (<450) pg/mL Total Protein 6.5 (6.3-8.2) g/dL Albumin 3.5 (3.5-5.0) g/dL Globulin 3.0 (1.7-4.1) g/dL Albumin/Globulin Ratio 1.2 (1.0-2.8) Urine RBC (0-5/HPF) Urine WBC (0-5/HPF) Ur Squamous Epith Cells (0-5/HPF) Urine Bacteria (None) Ur Culture Indicated? Vol Urine Centrifuged U Opiates 300ng/mL cut (Negative) Ur Oxycodone Screen (Negative) Urine Methadone Screen (Negative) Ur Barbiturates Screen (Negative) U Tricyclic Antidepress (Negative) Ur Phencyclidine Scrn (Negative) Ur Amphetamines Screen (Negative) U Methamphetamines Scrn (Negative) Ur MDMA Scrn (Ecstasy) (Negative) U Benzodiazepines Scrn (Negative) Urine Cocaine Screen (Negative) U Marijuana (THC) Screen (Negative) Urine pH (Normal) Urine Specific [place] (Normal) Ur Creatinine (Normal) Chlamy pneumoniae PCR Not detected (Not Detect) Adenovirus (PCR) Not detected (Not Detect) B. pertussis DNA (PCR) Not detected (Not Detect) B.parapertussis DNA PCR Not detected (Not Detecte) Coronavirus OC43 (PCR) Not detected (Not Detect) Coronavirus HKU1 (PCR) Not detected (Not Detect) Coronavirus 229E (PCR) Not detected (Not Detect) SARS-CoV-2 (PCR) Not detected (Not Detecte) Coronavirus NL63 (PCR) Not detected (Not Detect) Human Metapneumovir PCR Not detected (Not Detect) Influenza Type A (PCR) Not detected (Not Detect) Influenza Type B (PCR) Not detected (Not Detect) M. pneumoniae (PCR) Not detected (Not Detect) Parainfluenza 1 (PCR) Not detected (Not Detect) Parainfluenza 2 (PCR) Not detected (Not Detect) Parainfluenza 3 (PCR) Not detected (Not Detect) Parainfluenza 4 (PCR) Not detected (Not Detect) RSV (PCR) Not detected (Not Detect) Entero/Rhino (PCR) Not detected (Not Detect) 01/23/24 01/23/24 01/23/24 Range/Units 16:21 18:48 19:09 WBC (4.5-11.0) X10^3/uL RBC (4.5-5.9) X10^6/uL Hgb (13.5-17.5) g/dL Hct (41-53) % MCV (80-100) fL MCH (26-34) PG MCHC (30-36) % RDW (11.6-14.8) % Plt Count (150-400) X10^3/uL Neut % (Auto) (50-75) % Lymph % (Auto) (25-40) % [place] % (Auto) (3-14) % Eos % (Auto) (2-4) % Baso % (Auto) (0-2) % Neut # (Auto) (9555-7375) /uL Lymph # (Auto) (6244-8796) /uL [place] # (Auto) (0-900) /uL Eos # (Auto) (0-450) /uL Baso # (Auto) (0-100) /uL ABG Sample Site Right radial ABG pH 7.21 L* (7.35-7.45) ABG pCO2 64.0 H* (35-45) mmHg ABG pO2 140 H (80-100) mmHg ABG HCO3 26 (23-27) mmol/L ABG Total CO2 27 (23-27) mmol/L ABG O2 Saturation 99 (95-100) % ABG Base Excess -3.0 L (-2-3) mmol/L Александр Test Positive Respiration Rate 24 O2 Delivery Device Bipap FiO2 % 30.0 % % Sodium (137-145) mmol/L Potassium (3.4-5.1) mmol/L Chloride (98-107) mmol/L Carbon Dioxide (22-32) mmol/L BUN (9-20) mg/dL Creatinine (0.66-1.25) mg/dL Estimated GFR (>60) mL/min BUN/Creatinine Ratio (6-22) Glucose (80-110) mg/dL Lactate 0.8 (0.7-2.1) mmol/L Calcium (8.4-10.2) mg/dL Magnesium (1.6-2.3) mg/dL Total Bilirubin (0.2-1.3) mg/dL AST (17-59) IU/L ALT (<50) IU/L Alkaline Phosphatase (38-126) U/L Ammonia (9-30) umol/L Total Creatine Kinase (55-170) U/L Troponin I (0.01-0.034) ng/mL NT-Pro-B Natriuret Pep (<450) pg/mL Total Protein (6.3-8.2) g/dL Albumin (3.5-5.0) g/dL Globulin (1.7-4.1) g/dL Albumin/Globulin Ratio (1.0-2.8) Urine RBC None seen (0-5/HPF) Urine WBC None seen (0-5/HPF) Ur Squamous Epith Cells None seen (0-5/HPF) Urine Bacteria None seen (None) Ur Culture Indicated? Cult not indicated Vol Urine Centrifuged 10ml (spun) U Opiates 300ng/mL cut Negative (Negative) Ur Oxycodone Screen Negative (Negative) Urine Methadone Screen Negative (Negative) Ur Barbiturates Screen Negative (Negative) U Tricyclic Antidepress Negative (Negative) Ur Phencyclidine Scrn Negative (Negative) Ur Amphetamines Screen Negative (Negative) U Methamphetamines Scrn Negative (Negative) Ur MDMA Scrn (Ecstasy) Negative (Negative) U Benzodiazepines Scrn Negative (Negative) Urine Cocaine Screen Negative (Negative) U Marijuana (THC) Screen Negative (Negative) Urine pH Normal (Normal) Urine Specific [place] Normal (Normal) Ur Creatinine Normal (Normal) Chlamy pneumoniae PCR (Not Detect) Adenovirus (PCR) (Not Detect) B. pertussis DNA (PCR) (Not Detect) B.parapertussis DNA PCR (Not Detecte) Coronavirus OC43 (PCR) (Not Detect) Coronavirus HKU1 (PCR) (Not Detect) Coronavirus 229E (PCR) (Not Detect) SARS-CoV-2 (PCR) (Not Detecte) Coronavirus NL63 (PCR) (Not Detect) Human Metapneumovir PCR (Not Detect) Influenza Type A (PCR) (Not Detect) Influenza Type B (PCR) (Not Detect) M. pneumoniae (PCR) (Not Detect) Parainfluenza 1 (PCR) (Not Detect) Parainfluenza 2 (PCR) (Not Detect) Parainfluenza 3 (PCR) (Not Detect) Parainfluenza 4 (PCR) (Not Detect) RSV (PCR) (Not Detect) Entero/Rhino (PCR) (Not Detect) 01/24/24 01/24/24 Range/Units 02:46 06:35 WBC 9.7 (4.5-11.0) X10^3/uL RBC 3.23 L (4.5-5.9) X10^6/uL Hgb 8.5 L (13.5-17.5) g/dL Hct 27.4 L (41-53) % MCV 84.9 (80-100) fL MCH 26.4 (26-34) PG MCHC 31.1 (30-36) % RDW 17.8 H (11.6-14.8) % Plt Count 59 L (150-400) X10^3/uL Neut % (Auto) 87.3 H (50-75) % Lymph % (Auto) 5.9 L (25-40) % [place] % (Auto) 5.8 (3-14) % Eos % (Auto) 0.6 L (2-4) % Baso % (Auto) 0.4 (0-2) % Neut # (Auto) 8500 H (2678-3119) /uL Lymph # (Auto) 600 L (2287-2998) /uL [place] # (Auto) 600 (0-900) /uL Eos # (Auto) 100 (0-450) /uL Baso # (Auto) 0 (0-100) /uL ABG Sample Site Right radial ABG pH 7.36 (7.35-7.45) ABG pCO2 42.6 (35-45) mmHg ABG pO2 71 L (80-100) mmHg ABG HCO3 24 (23-27) mmol/L ABG Total CO2 24 (23-27) mmol/L ABG O2 Saturation 93 L (95-100) % ABG Base Excess -1.7 (-2-3) mmol/L Александр Test Positive Respiration Rate O2 Delivery Device avaps FiO2 % 21 % % Sodium 146 H (137-145) mmol/L Potassium 4.7 (3.4-5.1) mmol/L Chloride 112 H (98-107) mmol/L Carbon Dioxide 22 (22-32) mmol/L BUN 65 H (9-20) mg/dL Creatinine 3.38 H (0.66-1.25) mg/dL Estimated GFR 17 L (>60) mL/min BUN/Creatinine Ratio 19.2 (6-22) Glucose 78 L (80-110) mg/dL Lactate (0.7-2.1) mmol/L Calcium 8.9 (8.4-10.2) mg/dL Magnesium (1.6-2.3) mg/dL Total Bilirubin (0.2-1.3) mg/dL AST (17-59) IU/L ALT (<50) IU/L Alkaline Phosphatase (38-126) U/L Ammonia (9-30) umol/L Total Creatine Kinase 168 (55-170) U/L Troponin I 0.021 (0.01-0.034) ng/mL NT-Pro-B Natriuret Pep 4190 H (<450) pg/mL Total Protein (6.3-8.2) g/dL Albumin (3.5-5.0) g/dL Globulin (1.7-4.1) g/dL Albumin/Globulin Ratio (1.0-2.8) Urine RBC (0-5/HPF) Urine WBC (0-5/HPF) Ur Squamous Epith Cells (0-5/HPF) Urine Bacteria (None) Ur Culture Indicated? Vol Urine Centrifuged U Opiates 300ng/mL cut (Negative) Ur Oxycodone Screen (Negative) Urine Methadone Screen (Negative) Ur Barbiturates Screen (Negative) U Tricyclic Antidepress (Negative) Ur Phencyclidine Scrn (Negative) Ur Amphetamines Screen (Negative) U Methamphetamines Scrn (Negative) Ur MDMA Scrn (Ecstasy) (Negative) U Benzodiazepines Scrn (Negative) Urine Cocaine Screen (Negative) U Marijuana (THC) Screen (Negative) Urine pH (Normal) Urine Specific [place] (Normal) Ur Creatinine (Normal) Chlamy pneumoniae PCR (Not Detect) Adenovirus (PCR) (Not Detect) B. pertussis DNA (PCR) (Not Detect) B.parapertussis DNA PCR (Not Detecte) Coronavirus OC43 (PCR) (Not Detect) Coronavirus HKU1 (PCR) (Not Detect) Coronavirus 229E (PCR) (Not Detect) SARS-CoV-2 (PCR) (Not Detecte) Coronavirus NL63 (PCR) (Not Detect) Human Metapneumovir PCR (Not Detect) Influenza Type A (PCR) (Not Detect) Influenza Type B (PCR) (Not Detect) M. pneumoniae (PCR) (Not Detect) Parainfluenza 1 (PCR) (Not Detect) Parainfluenza 2 (PCR) (Not Detect) Parainfluenza 3 (PCR) (Not Detect) Parainfluenza 4 (PCR) (Not Detect) RSV (PCR) (Not Detect) Entero/Rhino (PCR) (Not Detect) Point of Care Testing Glucose POC 69 Urine Dip Bedside Urine Glucose Negative Bedside Urine Bilirubin - Negative Bedside Urine Ketone +/- 5 Urine Specific [place] 1.025 Bedside Urine Occult Blood - Negative Bedside Urine pH 5.5 Bedside Urine Protein +/- 15 Bedside Urine Urobilinogen - Negative Bedside Urine Nitrite - Negative Bedside Urine Leukocytes - Negative Esterase MDM Narrative Medical decision making narrative: Patient is a 83-year-old male hypertension, COPD, CAD, CKD stage 3, prostate cancer, lung cancer, kidney cancer, hyperlipidemia, CHF, venous insufficiency, presents by EMS from home for evaluation of altered mental status medics noted that patient with a blood sugar of 40 was given amp of D50 prior to arrival. At time of initial evaluation patient appears confused but answers question appropriately just slowed. 1525: Discussed with contact friend Melo andrea states that he is normally able to hold a conversation. Did give me patients daughters phone number (MARIELLA) [phone] , states that he does not know anymore about his chronic history. 1527: Attempted to call patient's daughter, however went straight to voicemail, left hip or compliant voicemail. 1537: Mariella gave call back states that he is normally able to walk with a cane. States that he has had some slight slurred speech over the past few days, speech is slowed but is able to hold a conversation. Last talked to him on [id number]. States at that at that time he was his normal. States had pneumonia about 2 months ago. States no history of diabetes and not on any meds for this. Not on any chemo or radiation currently. 1545: Discussed case with Dr. issa, is recommending Ck and ABG before admission. 1700: Obtain ABG, pH 7.2, pCO2 66.2, PO2 118, bicarb 25.9, patient hypercapnic acidotic, requiring supplemental oxygen, will place him on BiPAP, altered mental status possibly due to hypercapnia, given change in patient's oxygenation will require transfer to higher level care. Call placed out. 172: Lengthy conversation was performed with patient's daughter Mariella again, she verified patient's code status via his pulse form states that she will try to e- mail to us. He said he has a DNR DNI and limited intervention. I informed her that patient is in a tenuous situation and is requiring transfer. She understands agrees with this plan. She states that she is willing to try peripheral pressors if needed but would not want to have a central line placed. States that she does have medical power of finance attorney. And will also be trying to send this information to us. 183: discussed case with Dr. Masterson from [facility], accepts admission, but pending bed placement Dr yeung: Received turned over. Review patient's history and physical exam. Patient has been stable overnight. Repeat ABG show an improvement of his acidosis to a pH of 7.3 and a pCO2 down to 42 from size 66. We were able to take the patient off of BiPAP. He was maintained his oxygen saturations by simple OxyMask. Has had some episodes of bradycardia that have resolved on their own. Patient was hypoglycemic for a 2nd time and was given D50 which improved this issue. Patient diuresed just under 1 L after receiving Lasix. Care turned over to day provider to continue to observe until disposition. <Karla Martinez MD - Last Filed: 01/24/24 07:44> Lab Data Labs: Lab Results 01/23/24 01/23/24 01/23/24 Range/Units 13:07 13:21 15:59 WBC 9.0 (4.5-11.0) X10^3/uL RBC 3.53 L (4.5-5.9) X10^6/uL Hgb 9.3 L (13.5-17.5) g/dL Hct 29.5 L (41-53) % MCV 83.6 (80-100) fL MCH 26.5 (26-34) PG MCHC 31.7 (30-36) % RDW 17.9 H (11.6-14.8) % Plt Count 61 L (150-400) X10^3/uL Neut % (Auto) 89.1 H (50-75) % Lymph % (Auto) 4.3 L (25-40) % [place] % (Auto) 5.8 (3-14) % Eos % (Auto) 0.6 L (2-4) % Baso % (Auto) 0.2 (0-2) % Neut # (Auto) 8100 H (1298-4909) /uL Lymph # (Auto) 400 L (4911-9548) /uL [place] # (Auto) 500 (0-900) /uL Eos # (Auto) 100 (0-450) /uL Baso # (Auto) 0 (0-100) /uL ABG Sample Site Right radial ABG pH 7.20 L* (7.35-7.45) ABG pCO2 66.2 H* (35-45) mmHg ABG pO2 118 H (80-100) mmHg ABG HCO3 26 (23-27) mmol/L ABG Total CO2 27 (23-27) mmol/L ABG O2 Saturation 97 (95-100) % ABG Base Excess -2.8 L (-2-3) mmol/L Александр Test Positive Respiration Rate O2 Delivery Device Cannula FiO2 % 28 % % Sodium 144 (137-145) mmol/L Potassium 4.7 (3.4-5.1) mmol/L Chloride 109 H (98-107) mmol/L Carbon Dioxide 25 (22-32) mmol/L BUN 61 H (9-20) mg/dL Creatinine 3.03 H (0.66-1.25) mg/dL Estimated GFR 20 L (>60) mL/min BUN/Creatinine Ratio 20.1 (6-22) Glucose 94 (80-110) mg/dL Lactate (0.7-2.1) mmol/L Calcium 9.2 (8.4-10.2) mg/dL Magnesium 2.0 (1.6-2.3) mg/dL Total Bilirubin 0.7 (0.2-1.3) mg/dL AST 41 (17-59) IU/L ALT 30 (<50) IU/L Alkaline Phosphatase 176 H (38-126) U/L Ammonia < 9 L (9-30) umol/L Total Creatine Kinase 177 H (55-170) U/L Troponin I 0.015 (0.01-0.034) ng/mL NT-Pro-B Natriuret Pep 3460 H (<450) pg/mL Total Protein 6.5 (6.3-8.2) g/dL Albumin 3.5 (3.5-5.0) g/dL Globulin 3.0 (1.7-4.1) g/dL Albumin/Globulin Ratio 1.2 (1.0-2.8) Urine RBC (0-5/HPF) Urine WBC (0-5/HPF) Ur Squamous Epith Cells (0-5/HPF) Urine Bacteria (None) Ur Culture Indicated? Vol Urine Centrifuged U Opiates 300ng/mL cut (Negative) Ur Oxycodone Screen (Negative) Urine Methadone Screen (Negative) Ur Barbiturates Screen (Negative) U Tricyclic Antidepress (Negative) Ur Phencyclidine Scrn (Negative) Ur Amphetamines Screen (Negative) U Methamphetamines Scrn (Negative) Ur MDMA Scrn (Ecstasy) (Negative) U Benzodiazepines Scrn (Negative) Urine Cocaine Screen (Negative) U Marijuana (THC) Screen (Negative) Urine pH (Normal) Urine Specific [place] (Normal) Ur Creatinine (Normal) Chlamy pneumoniae PCR Not detected (Not Detect) Adenovirus (PCR) Not detected (Not Detect) B. pertussis DNA (PCR) Not detected (Not Detect) B.parapertussis DNA PCR Not detected (Not Detecte) Coronavirus OC43 (PCR) Not detected (Not Detect) Coronavirus HKU1 (PCR) Not detected (Not Detect) Coronavirus 229E (PCR) Not detected (Not Detect) SARS-CoV-2 (PCR) Not detected (Not Detecte) Coronavirus NL63 (PCR) Not detected (Not Detect) Human Metapneumovir PCR Not detected (Not Detect) Influenza Type A (PCR) Not detected (Not Detect) Influenza Type B (PCR) Not detected (Not Detect) M. pneumoniae (PCR) Not detected (Not Detect) Parainfluenza 1 (PCR) Not detected (Not Detect) Parainfluenza 2 (PCR) Not detected (Not Detect) Parainfluenza 3 (PCR) Not detected (Not Detect) Parainfluenza 4 (PCR) Not detected (Not Detect) RSV (PCR) Not detected (Not Detect) Entero/Rhino (PCR) Not detected (Not Detect) 01/23/24 01/23/24 01/23/24 Range/Units 16:21 18:48 19:09 WBC (4.5-11.0) X10^3/uL RBC (4.5-5.9) X10^6/uL Hgb (13.5-17.5) g/dL Hct (41-53) % MCV (80-100) fL MCH (26-34) PG MCHC (30-36) % RDW (11.6-14.8) % Plt Count (150-400) X10^3/uL Neut % (Auto) (50-75) % Lymph % (Auto) (25-40) % [place] % (Auto) (3-14) % Eos % (Auto) (2-4) % Baso % (Auto) (0-2) % Neut # (Auto) (3615-9914) /uL Lymph # (Auto) (5727-2151) /uL [place] # (Auto) (0-900) /uL Eos # (Auto) (0-450) /uL Baso # (Auto) (0-100) /uL ABG Sample Site Right radial ABG pH 7.21 L* (7.35-7.45) ABG pCO2 64.0 H* (35-45) mmHg ABG pO2 140 H (80-100) mmHg ABG HCO3 26 (23-27) mmol/L ABG Total CO2 27 (23-27) mmol/L ABG O2 Saturation 99 (95-100) % ABG Base Excess -3.0 L (-2-3) mmol/L Александр Test Positive Respiration Rate 24 O2 Delivery Device Bipap FiO2 % 30.0 % % Sodium (137-145) mmol/L Potassium (3.4-5.1) mmol/L Chloride (98-107) mmol/L Carbon Dioxide (22-32) mmol/L BUN (9-20) mg/dL Creatinine (0.66-1.25) mg/dL Estimated GFR (>60) mL/min BUN/Creatinine Ratio (6-22) Glucose (80-110) mg/dL Lactate 0.8 (0.7-2.1) mmol/L Calcium (8.4-10.2) mg/dL Magnesium (1.6-2.3) mg/dL Total Bilirubin (0.2-1.3) mg/dL AST (17-59) IU/L ALT (<50) IU/L Alkaline Phosphatase (38-126) U/L Ammonia (9-30) umol/L Total Creatine Kinase (55-170) U/L Troponin I (0.01-0.034) ng/mL NT-Pro-B Natriuret Pep (<450) pg/mL Total Protein (6.3-8.2) g/dL Albumin (3.5-5.0) g/dL Globulin (1.7-4.1) g/dL Albumin/Globulin Ratio (1.0-2.8) Urine RBC None seen (0-5/HPF) Urine WBC None seen (0-5/HPF) Ur Squamous Epith Cells None seen (0-5/HPF) Urine Bacteria None seen (None) Ur Culture Indicated? Cult not indicated Vol Urine Centrifuged 10ml (spun) U Opiates 300ng/mL cut Negative (Negative) Ur Oxycodone Screen Negative (Negative) Urine Methadone Screen Negative (Negative) Ur Barbiturates Screen Negative (Negative) U Tricyclic Antidepress Negative (Negative) Ur Phencyclidine Scrn Negative (Negative) Ur Amphetamines Screen Negative (Negative) U Methamphetamines Scrn Negative (Negative) Ur MDMA Scrn (Ecstasy) Negative (Negative) U Benzodiazepines Scrn Negative (Negative) Urine Cocaine Screen Negative (Negative) U Marijuana (THC) Screen Negative (Negative) Urine pH Normal (Normal) Urine Specific [place] Normal (Normal) Ur Creatinine Normal (Normal) Chlamy pneumoniae PCR (Not Detect) Adenovirus (PCR) (Not Detect) B. pertussis DNA (PCR) (Not Detect) B.parapertussis DNA PCR (Not Detecte) Coronavirus OC43 (PCR) (Not Detect) Coronavirus HKU1 (PCR) (Not Detect) Coronavirus 229E (PCR) (Not Detect) SARS-CoV-2 (PCR) (Not Detecte) Coronavirus NL63 (PCR) (Not Detect) Human Metapneumovir PCR (Not Detect) Influenza Type A (PCR) (Not Detect) Influenza Type B (PCR) (Not Detect) M. pneumoniae (PCR) (Not Detect) Parainfluenza 1 (PCR) (Not Detect) Parainfluenza 2 (PCR) (Not Detect) Parainfluenza 3 (PCR) (Not Detect) Parainfluenza 4 (PCR) (Not Detect) RSV (PCR) (Not Detect) Entero/Rhino (PCR) (Not Detect) 01/24/24 01/24/24 Range/Units 02:46 06:35 WBC 9.7 (4.5-11.0) X10^3/uL RBC 3.23 L (4.5-5.9) X10^6/uL Hgb 8.5 L (13.5-17.5) g/dL Hct 27.4 L (41-53) % MCV 84.9 (80-100) fL MCH 26.4 (26-34) PG MCHC 31.1 (30-36) % RDW 17.8 H (11.6-14.8) % Plt Count 59 L (150-400) X10^3/uL Neut % (Auto) 87.3 H (50-75) % Lymph % (Auto) 5.9 L (25-40) % [place] % (Auto) 5.8 (3-14) % Eos % (Auto) 0.6 L (2-4) % Baso % (Auto) 0.4 (0-2) % Neut # (Auto) 8500 H (4404-5240) /uL Lymph # (Auto) 600 L (8085-4272) /uL [place] # (Auto) 600 (0-900) /uL Eos # (Auto) 100 (0-450) /uL Baso # (Auto) 0 (0-100) /uL ABG Sample Site Right radial ABG pH 7.36 (7.35-7.45) ABG pCO2 42.6 (35-45) mmHg ABG pO2 71 L (80-100) mmHg ABG HCO3 24 (23-27) mmol/L ABG Total CO2 24 (23-27) mmol/L ABG O2 Saturation 93 L (95-100) % ABG Base Excess -1.7 (-2-3) mmol/L Александр Test Positive Respiration Rate O2 Delivery Device avaps FiO2 % 21 % % Sodium 146 H (137-145) mmol/L Potassium 4.7 (3.4-5.1) mmol/L Chloride 112 H (98-107) mmol/L Carbon Dioxide 22 (22-32) mmol/L BUN 65 H (9-20) mg/dL Creatinine 3.38 H (0.66-1.25) mg/dL Estimated GFR 17 L (>60) mL/min BUN/Creatinine Ratio 19.2 (6-22) Glucose 78 L (80-110) mg/dL Lactate (0.7-2.1) mmol/L Calcium 8.9 (8.4-10.2) mg/dL Magnesium (1.6-2.3) mg/dL Total Bilirubin (0.2-1.3) mg/dL AST (17-59) IU/L ALT (<50) IU/L Alkaline Phosphatase (38-126) U/L Ammonia (9-30) umol/L Total Creatine Kinase 168 (55-170) U/L Troponin I 0.021 (0.01-0.034) ng/mL NT-Pro-B Natriuret Pep 4190 H (<450) pg/mL Total Protein (6.3-8.2) g/dL Albumin (3.5-5.0) g/dL Globulin (1.7-4.1) g/dL Albumin/Globulin Ratio (1.0-2.8) Urine RBC (0-5/HPF) Urine WBC (0-5/HPF) Ur Squamous Epith Cells (0-5/HPF) Urine Bacteria (None) Ur Culture Indicated? Vol Urine Centrifuged U Opiates 300ng/mL cut (Negative) Ur Oxycodone Screen (Negative) Urine Methadone Screen (Negative) Ur Barbiturates Screen (Negative) U Tricyclic Antidepress (Negative) Ur Phencyclidine Scrn (Negative) Ur Amphetamines Screen (Negative) U Methamphetamines Scrn (Negative) Ur MDMA Scrn (Ecstasy) (Negative) U Benzodiazepines Scrn (Negative) Urine Cocaine Screen (Negative) U Marijuana (THC) Screen (Negative) Urine pH (Normal) Urine Specific [place] (Normal) Ur Creatinine (Normal) Chlamy pneumoniae PCR (Not Detect) Adenovirus (PCR) (Not Detect) B. pertussis DNA (PCR) (Not Detect) B.parapertussis DNA PCR (Not Detecte) Coronavirus OC43 (PCR) (Not Detect) Coronavirus HKU1 (PCR) (Not Detect) Coronavirus 229E (PCR) (Not Detect) SARS-CoV-2 (PCR) (Not Detecte) Coronavirus NL63 (PCR) (Not Detect) Human Metapneumovir PCR (Not Detect) Influenza Type A (PCR) (Not Detect) Influenza Type B (PCR) (Not Detect) M. pneumoniae (PCR) (Not Detect) Parainfluenza 1 (PCR) (Not Detect) Parainfluenza 2 (PCR) (Not Detect) Parainfluenza 3 (PCR) (Not Detect) Parainfluenza 4 (PCR) (Not Detect) RSV (PCR) (Not Detect) Entero/Rhino (PCR) (Not Detect) Point of Care Testing Glucose POC 69 Urine Dip Bedside Urine Glucose Negative Bedside Urine Bilirubin - Negative Bedside Urine Ketone +/- 5 Urine Specific [place] 1.025 Bedside Urine Occult Blood - Negative Bedside Urine pH 5.5 Bedside Urine Protein +/- 15 Bedside Urine Urobilinogen - Negative Bedside Urine Nitrite - Negative Bedside Urine Leukocytes - Negative Esterase MDM Narrative Medical decision making narrative: Patient is a 83-year-old male hypertension, COPD, CAD, CKD stage 3, prostate cancer, lung cancer, kidney cancer, hyperlipidemia, CHF, venous insufficiency, presents by EMS from home for evaluation of altered mental status medics noted that patient with a blood sugar of 40 was given amp of D50 prior to arrival. At time of initial evaluation patient appears confused but answers question appropriately just slowed. 1525: Discussed with contact friend Melochantel mendez states that he is normally able to hold a conversation. Did give me patients daughters phone number ([facility]) [phone] , states that he does not know anymore about his chronic history. 1527: Attempted to call patient's daughter, however went straight to voicemail, left hip or compliant voicemail. 1537: Mariella gave call back states that he is normally able to walk with a cane. States that he has had some slight slurred speech over the past few days, speech is slowed but is able to hold a conversation. Last talked to him on [id number]. States at that at that time he was his normal. States had pneumonia about 2 months ago. States no history of diabetes and not on any meds for this. Not on any chemo or radiation currently. 1545: Discussed case with Dr. issa, is recommending Ck and ABG before admission. 1700: Obtain ABG, pH 7.2, pCO2 66.2, PO2 118, bicarb 25.9, patient hypercapnic acidotic, requiring supplemental oxygen, will place him on BiPAP, altered mental status possibly due to hypercapnia, given change in patient's oxygenation will require transfer to higher level care. Call placed out. 1727: Lengthy conversation was performed with patient's daughter Mariella again, she verified patient's code status via his pulse form states that she will try to e- mail to us. He said he has a DNR DNI and limited intervention. I informed her that patient is in a tenuous situation and is requiring transfer. She understands agrees with this plan. She states that she is willing to try peripheral pressors if needed but would not want to have a central line placed. States that she does have medical power of finance attorney. And will also be trying to send this information to us. 1830: discussed case with Dr. Masterson from [facility], accepts admission, but pending bed placement Dr yeung: Received turned over. Review patient's history and physical exam. Patient has been stable overnight. Repeat ABG show an improvement of his acidosis to a pH of 7.3 and a pCO2 down to 42 from size 66. We were able to take the patient off of BiPAP. He was maintained his oxygen saturations by simple OxyMask. Has had some episodes of bradycardia that have resolved on their own. Patient was hypoglycemic for a 2nd time and was given D50 which improved this issue. Patient diuresed just under 1 L after receiving Lasix. Care turned over to day provider to continue to observe until disposition. 01/[address] Martinez care reviewed. s: 83-year-old gentleman DNR with appropriate measures otherwise presents with hypercarbic respiratory failure, acute congestive heart failure, metabolic encephalopathy, hypoglycemia and possible pneumonia was on BiPAP overnight diuresed almost a L of fluid, is now off BiPAP blood sugars are continuing to drift down and this morning 78. Still somewhat lethargic not interested in eating overall. Has not required pressors, blood pressures have been stable Objective: 2 L of oxygen per OxyMask, afebrile, saturations 97%, blood pressure 117/87, heart rate 64 sinus bradycardia, respiratory rate of 15 unlabored Somnolent Chest: minimal bibasilar crackles, unlabored respiration, no retractions no significant rhonchi Cardiovascular: Slow, no significant murmurs Abdomen: Soft, no pain behaviors with palpation Lower extremities: Chronic venous stasis changes still 2+ edema but clearly less than yesterday Labs this morning show white count is not elevated H&H is slightly decreased with no evidence of obvious bleeding Chemistries show slight increase in BUN to 65, creatinine slight increased from 3.0-3.4 Bicarb currently at 22 Glucose remains relatively low at 78 Troponin remains unremarkable BNP slightly elevated from 3460 to 4109 Assessment and plan: Chronically ill 83-year-old gentleman with multiple end-stage diseases currently with metabolic encephalopathy and acute congestive heart failure. He has been treated for pneumonia although it has not clear that there was any sign of infection. Because of BiPAP use and concerns for acuity yesterday, admission to [facility] was declined. Still no beds available at [facility]. In review this morning, this does appear to be congestive heart failure in the setting of chronic kidney disease without acute coronary syndrome, no evidence of sepsis. We will review with the hospitalist this morning. This appears to be entirely medical management with no indication for subspecialty consultation. Given the fact that he is DNR with the express discussion of no pressors and no intubation, I believe that this gentleman will be best served with a admission to [facility]. We have reviewed this with his power of finance attorney, his daughter who currently is in [place]. She is quite relieved at the probability that he will be able to stay at [facility]. Patient may in fact be in the process of actively dying from chronic congestive heart failure and may benefit from palliative care if not hospice care at some point in the next couple of days if entire clinical situation does not continue to improve. Daughter is comfortable with this possibility. We will review care with the hospitalist service, Dr Danielson (also his primary care provider) agrees to admit CHF- continue lasix, 20mg. Obvious diuresis. Hypercarbic resp failure - no longer requiring bipap, 2L oxymask to continue Chronic Kidney disease- needs to be balanced with his need for diuresis Hypoglycemia - not awake enough to eat. D10 at 85cc/hr Pneumonia - doubt he has an infectious etiology. Renal dosing for vanco and cefepime initiated. Will discussed with hospitalist need for continuation Metabolic encephalopathy: minimally changed Critical Care Time <Yinka Yeung DO - Last Filed: 01/27/24 17:56> Critical Care Time Critical Care Time: Yes Total Critical Care Time: 65 Attestation: The high probability of a clinically significant, sudden or life threatening deterioration of the [respiratory, cardiovascular] system(s) required my full and direct attention, intervention and personal management. The aggregate critical care time was [65] minutes. This time is in addition to time spent performing reported procedures but includes the following: [x] Data Review and interpretation [x] Patient assessment and monitoring of vital signs [x] Documentation [x] Medication orders and management Discharge Plan Departure Patient Disposition: Admitted As Inpatient Clinical Impression: Multifocal pneumonia, Acute metabolic encephalopathy, Hypoglycemia CHF (congestive heart failure) Qualifiers: Heart failure type: unspecified Heart failure chronicity: acute on chronic Q ualified Code(s): I50.9 - Heart failure, unspecified CKD (chronic kidney disease) Qualifiers: Chronic kidney disease stage: unspecified stage Qualified Code(s): N18.9 - Chronic kidney disease, unspecified Admit Date/Time: 01/24/24 07:45 Admit Provider: Sam Danielson V
[2024-01-23 13:23] LABS: Add Manual Diff / Slide Review NO; Basophils Absolute Auto 0 /uL (0-100); Basophils Percent Auto 0.2 % (0-2); Eosinophils Absolute Auto 100 /uL (0-450); Eosinophils Percent Auto 0.6 % (2-4); Hematocrit 29.5 % (41-53); Hemoglobin 9.3 g/dL (13.5-17.5); Lymphocytes Absolute Auto 400 /uL (1100-4500); Lymphocytes Percent Auto 4.3 % (25-40); Mean Corpuscular HGB Conc 31.7 % (30-36); Mean Corpuscular Hemoglobin 26.5 PG (26-34); Mean Corpuscular Volume 83.6 fL (80-100); Monocytes Absolute Auto 500 /uL (0-900); Monocytes Percent Auto 5.8 % (3-14); Neutrophils Absolute Auto 8100 /uL (1500-7000); Neutrophils Percent Auto 89.1 % (50-75); Platelet Count 61 X10^3/uL (150-400); Red Blood Cell Count 3.53 X10^6/uL (4.5-5.9); Red Cell Distribution Width 17.9 % (11.6-14.8)
--- NOTE | 2024-01-23 13:23 | DI.CT.S_ITS ---
PROCEDURE: CT HEAD/BRAIN WO CON INDICATIONS: AMS TECHNIQUE: Noncontrast 4.5 mm thick angled axial sections acquired from the foramen magnum to the vertex, with coronal and sagittal reformats. For radiation dose reduction, the following was used: automated exposure control, adjustment of mA and/or kV according to patient size. COMPARISON: MRI of brain dated 01/31/2016 and 04/12/2015. FINDINGS: Image quality: Diagnostic. CSF spaces: Basal cisterns are patent. No extra-axial fluid collections. The ventricles are symmetric in size and shape. Brain: No intracranial bleeds or masses. There is cerebral volume loss for age, with resultant ventricular and sulcal prominence. There are periventricular and deep white matter chronic small vessel ischemic changes. There is intracranial internal carotid artery atherosclerosis. Skull and face: Calvarium and visualized facial bones appear intact, without suspicious lesions. Sinuses: Visualized sinuses and mastoids are clear. IMPRESSION: No acute intracranial pathology. Dictated by: Spencer Hagen M.D. on 01/23/2024 at 14:48 Approved by: Spencer Hagen M.D. on 01/23/2024 at 14:49
--- NOTE | 2024-01-23 13:25 | EKG_ITS ---
[place] [address] [address] [place] [id number] Test Date: 2024-01-23 Pat Name: Atilio Pires Department: [facility] Room: Gender: Male Grey Goods Marker: SYLVIA : 1940 Requested By: Order Number: [id number] Reading MD: Jorge Wisdom Measurements Intervals [place] Rate: 51 P: 57 WV: 464 QRS: -11 QRSD: 186 T: 163 QT: 564 QTc: 519 Interpretive Statements Sinus bradycardia with 1st degree AV block with occasional premature ventricular complexes Left bundle branch block Electronically Signed On 01-23-2024 18:10:05 PDT by Jorge Wisdom
[2024-01-23 13:37] LABS: Alanine Aminotransferase 30 IU/L (<50); Albumin 3.5 g/dL (3.5-5.0); Albumin Globulin Ratio 1.2 (1.0-2.8); Alkaline Phosphatase 176 U/L (38-126); Aspartate Aminotransferase 41 IU/L (17-59); BUN Creatinine Ratio 20.1 (6-22); Bilirubin Total 0.7 mg/dL (0.2-1.3); Blood Urea Nitrogen 61 mg/dL (9-20); Calcium 9.2 mg/dL (8.4-10.2); Carbon Dioxide 25 mmol/L (22-32); Chloride 109 mmol/L (98-107); Estimated Glomerular Filt Rate 20 mL/min (>60); Glucose 94 mg/dL (80-110); HEMOLYSIS 15 (0-50); Potassium 4.7 mmol/L (3.4-5.1); Sodium 144 mmol/L (137-145); Total Protein 6.5 g/dL (6.3-8.2)
--- NOTE | 2024-01-23 13:48 | DI.CT.S_ITS ---
PROCEDURE: CT CHEST ABD PEL WO CON INDICATIONS: Trauma, altered mental status, fall TECHNIQUE: After the administration of oral contrast, 5 mm thick sections acquired from the lung apices to the symphysis pubis. 5 mm thick coronal and sagittal reformats acquired, with additional 7 mm coronal MIP reformats through the lungs. For radiation dose reduction, the following was used: automated exposure control, adjustment of mA and/or kV according to patient size. COMPARISON: [facility], CT, CT ABDOMEN PELVIS WO CON, 08/13/2023, 13:53. [facility], CT, CT CHEST ABD PEL WO CON, 03/26/2023, 11:10. FINDINGS: Image quality: Diagnostic. CHEST: Lower Neck: No enlarged lymph nodes. Thyroid: No thyroid nodules which require sonographic follow up, per consensus guidelines. Axillae: No enlarged lymph nodes. Chest Wall: Unremarkable. Bones: Unremarkable. Lungs and Pleura: Small to moderate bilateral pleural effusion with compressive atelectasis in posterior aspect of bilateral lung martin is seen. Hazy ground-glass opacities and airspace opacities are seen scattered in bilateral lung martin more notably in bilateral lower lobes and left lingular segment. No pneumothorax. Central and peripheral airway is patent. Previously described tree-in-bud appearance in upper lobes are again seen suggestive of small airway disease. Heart: Heart size is enlarged. No pericardial effusion. Thoracic Vessels: The aorta and pulmonary arteries demonstrate normal size. 3 vessel coronary artery calcifications are seen. Mediastinum and [place]: No enlarged lymph nodes. Mildly prominent subcentimeter lymph nodes are seen in mediastinum measures up to 9 mm in short axis diameter in right paratracheal space. Esophagus: No wall thickening . No hiatal hernia. ABDOMEN: Liver: No solid mass. Gallbladder: No radiopaque gallstones or wall thickening. Biliary ducts: No biliary dilation. Pancreas: No ductal dilation. Spleen: Size is within normal limits. Adrenal Glands: No adrenal nodules. Kidneys and Ureters: Prior left nephrectomy is again seen and unchanged. No right-sided hydronephrosis. No solid mass. No complex renal cystic lesion which requires follow up. Stomach and Bowel: Normal colonic caliber, without significant wall thickening. No abscess collection. Peritoneum: No abnormal intraperitoneal fluid. No free air. Ventral Wall: No hernia. Abdominal Nodes: No retroperitoneal or mesenteric adenopathy by size criteria. Vessels: Aorta and inferior vena cava are normal in size. PELVIS: Pelvic Organs: Fiducial markers are noted in prostate gland. Bladder: Unremarkable. Pelvic Nodes: No enlarged lymph nodes. Miscellaneous: No inguinal hernias are seen. Bones: No aggressive osseous abnormality. No acute displaced rib fractures. Pelvic ring is intact. No acute vertebral body compression fracture. IMPRESSION: 1. Small to moderate bilateral pleural effusion with compressive atelectasis in posterior aspect of bilateral lung martin. Patchy airspace consolidations and ground-glass opacities scattered in bilateral lung martin suggestive of bilateral multilobar infiltrates and pulmonary edema more notably in lower lobes and left lingular segment. No pneumothorax. 2. No acute solid organ injury is seen in abdomen or pelvis. No free fluid or free air. 3. Cardiomegaly, no pericardial effusion. Subcentimeter lymph nodes seen in mediastinum as above. 4. Other incidental findings including prior left nephrectomy and fiducial markers in prostate gland unchanged from prior studies. 5. No displaced rib fracture. No acute vertebral body compression fracture or spondylolisthesis. Pelvic ring is intact. Dictated by: Spencer Hagen M.D. on 01/23/2024 at 14:49 Approved by: Spencer Hagen M.D. on 01/23/2024 at 14:59
[2024-01-23 13:52] LABS: Ammonia (NH3) < 9 umol/L (9-30)
[2024-01-23 14:09] LABS: Adenovirus Not Detected (Not Detect); B. parapertussis Not Detected (Not Detecte); Bordetella pertussis Not Detected (Not Detect); Chlamydophila pneumoniae Not Detected (Not Detect); Coronavirus 229E Not Detected (Not Detect); Coronavirus HKU1 Not Detected (Not Detect); Coronavirus NL 63 Not Detected (Not Detect); Coronavirus OC43 Not Detected (Not Detect); Human Metapneumovirus Not Detected (Not Detect); Human Rhinovirus/Enterovirus Not Detected (Not Detect); Influenza A Not Detected (Not Detect); Influenza B Not Detected (Not Detect); Mycoplasma pneumoniae Not Detected (Not Detect); Parainfluenza Virus 1 Not Detected (Not Detect); Parainfluenza Virus 2 Not Detected (Not Detect); Parainfluenza Virus 3 Not Detected (Not Detect); Parainfluenza Virus 4 Not Detected (Not Detect); Respiratory Syncytial Virus Not Detected (Not Detect); SARS- CoV-2 Not Detected (Not Detecte)
--- NOTE | 2024-01-23 14:53 | EKG_ITS ---
[place] [address] [place] [address] Test Date: 2024-01-23 Pat Name: Atilio Pires Department: [facility] Room: Gender: Male Toll Line Inspector: SYLVIA : 1940 Requested By: Order Number: [id number] Reading MD: Jorge Wisdom Measurements Intervals [place] Rate: 52 P: [place]: QRS: -12 QRSD: 184 T: 178 QT: 590 QTc: 548 Interpretive Statements Atrial fibrillation with slow ventricular response with premature ventricular or aberrantly conducted complexes Left bundle branch block Electronically Signed On 01-23-2024 18:10:11 PDT by Jorge Wisdom
[2024-01-23 15:02] LABS: NT-proBNP (BNP-Adult 18+) 3460 pg/mL (<450)
[2024-01-23] MEDS: FUROSEMIDE 40 MG/4 ML VIAL 20 MG IV (15:25)
[2024-01-23] MEDS: MAGNESIUM SULFATE 2 GM/50 ML PIGGYBACK IV (15:28)
--- NOTE | 2024-01-23 15:47 | PM.CALLCOV.1 ---
Call Coverage Note Note Date of Patient Contact: 01/23/24 Narrative of Care Provided: 83 M, ER provider asking for admission for acute encephalopathy. He was found down on the floor, reports only one hour or so but not entirely known. He has a history of CHFpEF (55-60% 02/2023), CAD with abnormal stress testing 06/2022 (fixed lesion), COPD, HTN, HLD, CKD stage 3b, lung and kidney cancer, cognitive impairment (SLUMS ). Head CT negative. Imaging consistent with volume overload. He is also hypotensive. Recommendations: I ordered CK, ABG, and troponin for further evaluation as differentials include rhabdo, ACS, hypercapnea. If there is rhabdomyolysis in a patient with CHF clinically with volume overload that is also hypotensive (88/49) will recommend transfer for higher level of care. Will re-assess after the above is complete.
[2024-01-23 16:00] LABS: Creatine Kinase 177 U/L (55-170)
[2024-01-23 16:03] LABS: Allen Test for ABG Passed? Positive; Base Excess ABG -2.8 mmol/L (-2-3); Blood Gas Collection Site Right Radial; Delivery System Cannula; HCO3 ABG 26 mmol/L (23-27); Oxygen Saturation ABG 97 % (95-100); PCO2 ABG 66.2 mmHg (35-45); PO2 ABG 118 mmHg (80-100); TCO2 ABG 27 mmol/L (23-27)
[2024-01-23 16:12] LABS: Troponin I 0.015 ng/mL (0.01-0.034)
[2024-01-23] MEDS: CEFEPIME 1 GM in SODIUM CHLORIDE 0.9% 100 ML IV (16:16)
[2024-01-23] MEDS: VANCOMYCIN 1,000 MG/200 ML PIGGYBACK 200 MG IV (16:17)
[2024-01-23 16:39] LABS: UR Morphine/Opiate cutoff 300 Negative (Negative); Ur Creatinine Normal (Normal); Ur Specific Gravity Normal (Normal); Urine Amphetamines Negative (Negative); Urine Barbiturates Negative (Negative); Urine Benzodiazepines Negative (Negative); Urine Cocaine Negative (Negative); Urine MDMA Negative (Negative); Urine Methadone Negative (Negative); Urine Methamphetamines Negative (Negative); Urine Oxycodone Negative (Negative); Urine Phencyclidine Negative (Negative); Urine Tetrahydrocannabinol Negative (Negative); Urine Tricyclic Antidepressant Negative (Negative); Urine pH Normal (Normal)
[2024-01-23 16:47] LABS: Urine Volume 10mL (spun)
[2024-01-23 16:48] LABS: Bacteria Urine None Seen; Culture Indicated Urine Cult Not Indicated; RBC Urine None Seen (0-5/HPF); Squamous Epithelial Cell Urine None Seen (0-5/HPF); WBC Urine None Seen (0-5/HPF)
[2024-01-23 19:12] LABS: Lactate (Lactic Acid) 0.8 mmol/L (0.7-2.1)
[2024-01-23 19:14] LABS: Allen Test for ABG Passed? Positive; Blood Gas Collection Site Right Radial; Delivery System BiPAP; HCO3 ABG 26 mmol/L (23-27); Oxygen Saturation ABG 99 % (95-100); PO2 ABG 140 mmHg (80-100); Respiratory Rate 24; TCO2 ABG 27 mmol/L (23-27); pH ABG 7.21 (7.35-7.45)
[2024-01-24] VITALS (114 sets, daily range): BP systolic 85–147; BP diastolic 38–88; PULSE 46–147; RESP 10–31; TEMP 35.8–36.4; O2SAT 92–100; BMI 42.1
[2024-01-24] MEDS: DEXTROSE 50 % IN WATER 25 GM/50 ML SYRINGE IV (01:19)
--- NOTE | 2024-01-24 02:16 | PC.NURSE ---
HOUSEKEEPING LAUNDRY WORKER note: Placed patient in a more comfortable bed, placed him on his right side.
--- NOTE | 2024-01-24 02:37 | PC.NURSE ---
I took over for Cindy Baeza CNA, the transfer paperwork indicates that this patient was place on the waitlist at [facility], [facility], and around 1730 on 01/22. Pt was accepted at by Dr. Masterson at 1830 I contacted around 1999 for an update and they informed me they were currently looking at all of their 8 hospitals [address] to [address] 14 other pts as well as this one. 0240 they contacted us to chat with the RN about possible bed options, no definitive bed/hospital at this time.
[2024-01-24 02:53] LABS: Allen Test for ABG Passed? Positive; Base Excess ABG -1.7 mmol/L (-2-3); Blood Gas Collection Site Right Radial; Delivery System avaps; HCO3 ABG 24 mmol/L (23-27); Oxygen Saturation ABG 93 % (95-100); PCO2 ABG 42.6 mmHg (35-45); PO2 ABG 71 mmHg (80-100); TCO2 ABG 24 mmol/L (23-27); pH ABG 7.36 (7.35-7.45)
--- NOTE | 2024-01-24 03:38 | RT ---
Pt was taken off Bipap at 0300 and placed on an oxymask at 1.5L sat 99%. Pt is comfortable and stable at this time.
--- NOTE | 2024-01-24 06:31 | DI.RAD.S_ITS ---
PROCEDURE: XR CHEST 1V INDICATIONS: eval for PNA TECHNIQUE: One view of the chest was acquired. COMPARISON: [facility], CR, XR CHEST 1V, 01/23/2024, 13:09. FINDINGS: Surgical changes and devices: None. Lungs and pleura: Extensive airspace opacities scattered throughout bilateral lung martin more notably in bilateral lower lobes. No significant pleural effusions or pneumothorax. Mediastinum: Mediastinal contours appear normal. Heart size is enlarged. Bones and chest wall: No suspicious bony lesions. Overlying soft tissues appear unremarkable. IMPRESSION: Finding is suggestive of extensive bilateral multilobar infiltrates. No significant pleural effusion or gross pneumothorax. No discrepancies from preliminary reading. Dictated by: Spencer Hagen M.D. on 01/24/2024 at 8:13 Approved by: Spencer Hagen M.D. on 01/24/2024 at 8:14
[2024-01-24 06:43] LABS: Add Manual Diff / Slide Review NO; Basophils Absolute Auto 0 /uL (0-100); Basophils Percent Auto 0.4 % (0-2); Eosinophils Absolute Auto 100 /uL (0-450); Eosinophils Percent Auto 0.6 % (2-4); Hematocrit 27.4 % (41-53); Hemoglobin 8.5 g/dL (13.5-17.5); Lymphocytes Absolute Auto 600 /uL (1100-4500); Lymphocytes Percent Auto 5.9 % (25-40); Mean Corpuscular HGB Conc 31.1 % (30-36); Mean Corpuscular Hemoglobin 26.4 PG (26-34); Mean Corpuscular Volume 84.9 fL (80-100); Monocytes Absolute Auto 600 /uL (0-900); Monocytes Percent Auto 5.8 % (3-14); Neutrophils Absolute Auto 8500 /uL (1500-7000); Neutrophils Percent Auto 87.3 % (50-75); Platelet Count 59 X10^3/uL (150-400); Red Blood Cell Count 3.23 X10^6/uL (4.5-5.9); Red Cell Distribution Width 17.8 % (11.6-14.8); White Blood Cell Count 9.7 X10^3/uL (4.5-11.0)
[2024-01-24 06:54] LABS: BUN Creatinine Ratio 19.2 (6-22); Blood Urea Nitrogen 65 mg/dL (9-20); Calcium 8.9 mg/dL (8.4-10.2); Carbon Dioxide 22 mmol/L (22-32); Chloride 112 mmol/L (98-107); Creatine Kinase 168 U/L (55-170); Estimated Glomerular Filt Rate 17 mL/min (>60); Glucose 78 mg/dL (80-110); HEMOLYSIS < 15 (0-50); Potassium 4.7 mmol/L (3.4-5.1); Sodium 146 mmol/L (137-145)
[2024-01-24 07:06] LABS: NT-proBNP (BNP-Adult 18+) 4190 pg/mL (<450); Troponin I 0.021 ng/mL (0.01-0.034)
[2024-01-24] MEDS: DEXTROSE 10 % IN WATER 1,000 ML 84 ML IV (08:04)
[2024-01-24] MEDS: DEXTROSE 5%-0.45% NS 1,000 ML 84 ML IV (11:41)
--- NOTE | 2024-01-24 13:19 | PM.HP.1 ---
History of Present Illness History of Present Illness Date Patient Seen: 01/24/24 Time Patient Seen: 09:45 Date of Onset of Symptoms: 01/23/24 Chief complaint: Hypoglycemic, Found Down T-1 Narrative: 83-year-old man under the primary care of Dr. Sam Danielson was noted to be progressively confused by family and friends who called paramedics. He was had and have blood sugar in the 40s and was given an ampule of D50 in the field, brought to emergency department in a persistent state of confusion and decreased mental status. According to the emergency department report paramedics reported that he was found on the floor next to a chair, appearing that he may have slipped out of his chair, and he reported himself that he was only on the floor for about 1 hour in the emergency room. Initial evaluation was notable for multifocal pulmonary infiltrates consistent with pneumonia versus congestive heart failure with white blood count 9.0 and NT-proBNP 3460. CPK was low at 177 and creatinine elevated at 3.38 mg/dL over his baseline of approximately 2.7 mg/dL. Arterial blood gas testing initially showed pH 7.21, pCO2 64, PO2 140 on BiPAP FiO2 0.3. Head CT and cardiac enzymes were unremarkable. He was given IV antibiotics and hydrated. Initial plans were to transfer him to tertiary care level facility but given difficulties with this, and further clarification with the patient's daughter that he would not wish a higher level of care, and that he may be in decline towards a comfort care approach, patient is admitted for further management and evaluation. He is unresponsive to voice on interview on arrival to the medical floor. 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 Do not resuscitate Severe obesity (BMI >= 40) Chronic kidney disease, stage 3b Mixed hyperlipidemia Essential hypertension Fractures Mumps Measles Chicken pox Retinal detachment Hearing loss Cataracts, bilateral Tibial plateau fracture, right (~09/2017) Dizziness Perforated nasal septum Glucose intolerance LBBB (left bundle branch block) CKD (chronic kidney disease) CAD (coronary artery disease) Former smoker COPD (chronic obstructive pulmonary disease) Surgical History Anesthesia Hx of bilateral cataract extraction (~2016) History of colonoscopy Hx of heart artery stent (~2002) History of bilateral knee replacement History of lobectomy of lung (~2015) H/O left nephrectomy (~2014) Social History household members: children occupational status: previously employed Smoking Status: Former smoker Tobacco: How many years used: 40 alcohol intake: current substance use type: does not use Meds Home Medications and Allergies Home Medications Medication Instructions Recorded Confirmed Type acetaminophen 500 mg tablet 500 mg PO PRN PRN Pain (Scale 03/23/17 11/20/23 History (Tylenol Extra Strength) Score 4-6) ##0 aspirin 81 mg tablet,delayed 81 mg PO DAILY 11/26/17 11/20/23 History release calcium carbonate 600 mg-vitamin 1 tab PO BID 11/26/17 11/20/23 History D3 10 mcg (400 unit) tablet (Calcium with Vitamin D) vitamins A,C,C-obyg-nbijkq 4,296 1 cap PO BID 09/24/18 11/20/23 History mcg-226 mg-90 mg capsule (PreserVision AREDS) carvedilol 25 mg tablet 25 mg PO BID #180 tabs 02/19/23 11/20/23 Rx ipratropium 20 mcg-albuterol 100 2 puff inhalation Q4H PRN COPD #24 02/22/23 11/20/23 Rx mcg/actuation mist for inhalation grams (Combivent Respimat) multivit with min-folic acid 1 tab PO DAILY 02/22/23 11/20/23 History [Centrum Adult 50 Plus] furosemide 20 mg tablet (Lasix) 20 mg PO DAILY #90 tabs 03/19/23 11/20/23 Rx omeprazole 20 mg capsule,delayed 20 mg PO DAILY #90 caps 08/21/23 11/20/23 Rx release atorvastatin 20 mg tablet (Lipitor) 20 mg PO DAILY #90 tabs 09/18/23 11/20/23 Rx Allergies Allergy/AdvReac Type Severity Reaction Status Date / Time tamsulosin [TAMSULOSIN] Allergy Severe DIZZINESS, Verified 11/20/23 16:11 LIGHTHEADEDNESS tetanus and diphtheria Allergy Severe HIVES Verified 11/20/23 16:11 toxoids [tetanus & diphtheria toxoids] Penicillins Allergy Unknown PT UNSURE Verified 11/20/23 16:11 OF REACTION Review of Systems Review of Systems ROS: Yes All systems reviewed with the patient and are negative except as otherwise documented Exam Vital Signs (past 8 hours): - 01/24/24 05:20 01/24/24 05:25 01/24/24 05:30 Temperature Pulse Rate 61 56 L 62 Respiratory Rate 11 L 11 L 14 Blood Pressure Pulse Oximetry 100 100 100 Oxygen Delivery Method Oxygen Flow Rate 01/24/24 05:30 01/24/24 05:35 01/24/24 05:40 Temperature Pulse Rate 60 50 L Respiratory Rate 13 10 L Blood Pressure 91/50 L Pulse Oximetry 100 100 Oxygen Delivery Method Oxygen Flow Rate 01/24/24 05:45 01/24/24 05:50 01/24/24 05:55 Temperature Pulse Rate 61 63 62 Respiratory Rate 14 11 L 11 L Blood Pressure Pulse Oximetry 99 99 99 Oxygen Delivery Method Oxygen Flow Rate 01/24/24 06:00 01/24/24 06:01 01/24/24 06:01 Temperature Pulse Rate 62 59 L Respiratory Rate 18 11 L Blood Pressure 99/67 Pulse Oximetry 99 99 Oxygen Delivery Method Oxygen Flow Rate 01/24/24 06:05 01/24/24 06:10 01/24/24 06:15 Temperature Pulse Rate 61 61 48 L Respiratory Rate 11 L 11 L 14 Blood Pressure Pulse Oximetry 99 99 99 Oxygen Delivery Method Oxygen Flow Rate 01/24/24 06:20 01/24/24 06:25 01/24/24 06:30 Temperature Pulse Rate 61 61 88 Respiratory Rate 11 L 14 20 Blood Pressure Pulse Oximetry 99 99 99 Oxygen Delivery Method Oxygen Flow Rate 01/24/24 06:34 01/24/24 06:34 01/24/24 06:35 Temperature Pulse Rate 147 H 129 H Respiratory Rate 18 15 Blood Pressure 117/87 Pulse Oximetry 98 98 Oxygen Delivery Method Oximask Oxygen Flow Rate 1.5 01/24/24 06:40 01/24/24 06:45 01/24/24 06:50 Temperature Pulse Rate 68 135 H 126 H Respiratory Rate 15 18 17 Blood Pressure Pulse Oximetry 98 98 98 Oxygen Delivery Method Oxygen Flow Rate 01/24/24 06:55 01/24/24 07:00 01/24/24 07:00 Temperature Pulse Rate 74 58 L Respiratory Rate 15 14 Blood Pressure 102/55 L Pulse Oximetry 97 99 Oxygen Delivery Method Oximask Oxygen Flow Rate 1.5 01/24/24 07:00 01/24/24 07:05 01/24/24 07:10 Temperature 97.0 F L Pulse Rate 62 61 64 Respiratory Rate 19 16 14 Blood Pressure 115/56 L Pulse Oximetry 99 98 99 Oxygen Delivery Method Oximask Oxygen Flow Rate 0 1.5 01/24/24 07:15 01/24/24 07:20 01/24/24 07:25 Temperature Pulse Rate 62 61 66 Respiratory Rate 14 15 14 Blood Pressure Pulse Oximetry 98 98 98 Oxygen Delivery Method Oximask Oxygen Flow Rate 1.5 01/24/24 07:30 01/24/24 07:30 01/24/24 07:35 Temperature Pulse Rate 103 H 86 Respiratory Rate 14 14 Blood Pressure 102/67 Pulse Oximetry 98 99 Oxygen Delivery Method Oxygen Flow Rate 01/24/24 07:40 01/24/24 07:45 01/24/24 07:50 Temperature Pulse Rate 55 L 51 L 61 Respiratory Rate 15 12 11 L Blood Pressure Pulse Oximetry 98 98 99 Oxygen Delivery Method Oximask Oxygen Flow Rate 1.5 01/24/24 07:55 01/24/24 08:00 01/24/24 08:00 Temperature Pulse Rate 60 65 Respiratory Rate 10 L 10 L Blood Pressure 87/50 L Pulse Oximetry 98 98 Oxygen Delivery Method Oximask Oxygen Flow Rate 1.5 01/24/24 08:00 01/24/24 08:05 01/24/24 08:10 Temperature Pulse Rate 61 61 Respiratory Rate 10 L 11 L Blood Pressure Pulse Oximetry 99 99 Oxygen Delivery Method Nasal Cannula Oxygen Flow Rate 01/24/24 08:15 01/24/24 11:28 01/24/24 12:00 Temperature 97.1 F L Pulse Rate 49 L 55 L Respiratory Rate 11 L 19 Blood Pressure 114/39 L Pulse Oximetry 99 93 93 Oxygen Delivery Method Oximask Room Air Oxygen Flow Rate 1.5 0 Fraction of Inspired Oxygen 25 Oxygen Delivery Method Room Air Oxygen Flow Rate 0 Narrative Exam Narrative: GENERAL: This is a well-nourished, well-developed patient, appears to blink to voice but no verbal response. HEAD: Atraumatic. Normocephalic. No temporal or scalp tenderness. EYES: Pupils equal round and reactive. Extraocular motions intact. No scleral icterus. No injection or drainage. ENT: Mucous membranes pink and dry. NECK: Trachea midline. No JVD, bruits or lymphadenopathy. Supple, nontender, no meningeal signs. CARDIOVASCULAR: Regular rate and rhythm without murmurs, gallops, or rubs. RESPIRATORY: Scattered bilateral rhonchi, crackles. GASTROINTESTINAL: Abdomen soft, non-tender, nondistended. EXTREMITIES: 2+ edema with chronic stasis changes. NEUROLOGIC: Alert, oriented, speech fluent, full upper and lower motor strength, no focal deficits evident. DERMATOLOGIC: Chronic stasis changes. No rashes or skin lesions. Objective ECG Impression: Sinus bradycardia with first-degree AV block with occasional PVCs at 51 beats per minute, left bundle branch block. Imaging Imaging:: Radiologist's impression: 1. Chest x-ray 01/23/2024: Congestive changes and pulmonary edema. Small left pleural effusion. Suggestion of bilateral patchy infiltrates as above. No gross pneumothorax. 2. Head CT 01/23/2024: No acute intracranial pathology. 3. Chest/abdomen/pelvis CT 01/23/2024: 1. Small to moderate bilateral pleural effusion with compressive atelectasis in posterior aspect of bilateral lung martin. Patchy airspace consolidations and ground-glass opacities scattered in bilateral lung martin suggestive of bilateral multilobar infiltrates and pulmonary edema more notably in lower lobes and left lingular segment. No pneumothorax. 2. No acute solid organ injury is seen in abdomen or pelvis. No free fluid or free air. 3. Cardiomegaly, no pericardial effusion. Subcentimeter lymph nodes seen in mediastinum as above. 4. Other incidental findings including prior left nephrectomy and fiducial markers in prostate gland unchanged from prior studies. 5. No displaced rib fracture. No acute vertebral body compression fracture or spondylolisthesis. Pelvic ring is intact. 4. Chest x-ray 01/24/2024: Finding is suggestive of extensive bilateral multilobar infiltrates. No significant pleural effusion or gross pneumothorax. Labs 01/24/24 06:35 01/24/24 06:35 Labs: Laboratory Results - last 24 hr 01/23/24 01/23/24 01/23/24 13:07 13:21 15:59 WBC 9.0 RBC 3.53 L Hgb 9.3 L Hct 29.5 L MCV 83.6 MCH 26.5 MCHC 31.7 RDW 17.9 H Plt Count 61 L Neut % (Auto) 89.1 H Lymph % (Auto) 4.3 L [place] % (Auto) 5.8 Eos % (Auto) 0.6 L Baso % (Auto) 0.2 Neut # (Auto) 8100 H Lymph # (Auto) 400 L [place] # (Auto) 500 Eos # (Auto) 100 Baso # (Auto) 0 ABG Sample Site Right radial ABG pH 7.20 L* ABG pCO2 66.2 H* ABG pO2 118 H ABG HCO3 26 ABG Total CO2 27 ABG O2 Saturation 97 ABG Base Excess -2.8 L Александр Test Positive Respiration Rate O2 Delivery Device Cannula FiO2 % 28 % Sodium 144 Potassium 4.7 Chloride 109 H Carbon Dioxide 25 BUN 61 H Creatinine 3.03 H Estimated GFR 20 L BUN/Creatinine Ratio 20.1 Glucose 94 Lactate Calcium 9.2 Magnesium 2.0 Total Bilirubin 0.7 AST 41 ALT 30 Alkaline Phosphatase 176 H Ammonia < 9 L Total Creatine Kinase 177 H Troponin I 0.015 NT-Pro-B Natriuret Pep 3460 H Total Protein 6.5 Albumin 3.5 Globulin 3.0 Albumin/Globulin Ratio 1.2 Urine RBC Urine WBC Ur Squamous Epith Cells Urine Bacteria Ur Culture Indicated? Vol Urine Centrifuged U Opiates 300ng/mL cut Ur Oxycodone Screen Urine Methadone Screen Ur Barbiturates Screen U Tricyclic Antidepress Ur Phencyclidine Scrn Ur Amphetamines Screen U Methamphetamines Scrn Ur MDMA Scrn (Ecstasy) U Benzodiazepines Scrn Urine Cocaine Screen U Marijuana (THC) Screen Urine pH Urine Specific Oriental Ur Creatinine Chlamy pneumoniae PCR Not detected Adenovirus (PCR) Not detected B. pertussis DNA (PCR) Not detected B.parapertussis DNA PCR Not detected Coronavirus OC43 (PCR) Not detected Coronavirus HKU1 (PCR) Not detected Coronavirus 229E (PCR) Not detected SARS-CoV-2 (PCR) Not detected Coronavirus NL63 (PCR) Not detected Human Metapneumovir PCR Not detected Influenza Type A (PCR) Not detected Influenza Type B (PCR) Not detected M. pneumoniae (PCR) Not detected Parainfluenza 1 (PCR) Not detected Parainfluenza 2 (PCR) Not detected Parainfluenza 3 (PCR) Not detected Parainfluenza 4 (PCR) Not detected RSV (PCR) Not detected Entero/Rhino (PCR) Not detected 10/16/24 10/16/24 10/16/24 16:21 18:48 19:09 WBC RBC Hgb Hct MCV MCH MCHC RDW Plt Count Neut % (Auto) Lymph % (Auto) [place] % (Auto) Eos % (Auto) Baso % (Auto) Neut # (Auto) Lymph # (Auto) [place] # (Auto) Eos # (Auto) Baso # (Auto) ABG Sample Site Right radial ABG pH 7.21 L* ABG pCO2 64.0 H* ABG pO2 140 H ABG HCO3 26 ABG Total CO2 27 ABG O2 Saturation 99 ABG Base Excess -3.0 L Александр Test Positive Respiration Rate 24 O2 Delivery Device Bipap FiO2 % 30.0 % Sodium Potassium Chloride Carbon Dioxide BUN Creatinine Estimated GFR BUN/Creatinine Ratio Glucose Lactate 0.8 Calcium Magnesium Total Bilirubin AST ALT Alkaline Phosphatase Ammonia Total Creatine Kinase Troponin I NT-Pro-B Natriuret Pep Total Protein Albumin Globulin Albumin/Globulin Ratio Urine RBC None seen Urine WBC None seen Ur Squamous Epith Cells None seen Urine Bacteria None seen Ur Culture Indicated? Cult not indicated Vol Urine Centrifuged 10ml (spun) U Opiates 300ng/mL cut Negative Ur Oxycodone Screen Negative Urine Methadone Screen Negative Ur Barbiturates Screen Negative U Tricyclic Antidepress Negative Ur Phencyclidine Scrn Negative Ur Amphetamines Screen Negative U Methamphetamines Scrn Negative Ur MDMA Scrn (Ecstasy) Negative U Benzodiazepines Scrn Negative Urine Cocaine Screen Negative U Marijuana (THC) Screen Negative Urine pH Normal Urine Specific [place] Normal Ur Creatinine Normal Chlamy pneumoniae PCR Adenovirus (PCR) B. pertussis DNA (PCR) B.parapertussis DNA PCR Coronavirus OC43 (PCR) Coronavirus HKU1 (PCR) Coronavirus 229E (PCR) SARS-CoV-2 (PCR) Coronavirus NL63 (PCR) Human Metapneumovir PCR Influenza Type A (PCR) Influenza Type B (PCR) M. pneumoniae (PCR) Parainfluenza 1 (PCR) Parainfluenza 2 (PCR) Parainfluenza 3 (PCR) Parainfluenza 4 (PCR) RSV (PCR) Entero/Rhino (PCR) 01/24/24 01/24/24 02:46 06:35 WBC 9.7 RBC 3.23 L Hgb 8.5 L Hct 27.4 L MCV 84.9 MCH 26.4 MCHC 31.1 RDW 17.8 H Plt Count 59 L Neut % (Auto) 87.3 H Lymph % (Auto) 5.9 L [place] % (Auto) 5.8 Eos % (Auto) 0.6 L Baso % (Auto) 0.4 Neut # (Auto) 8500 H Lymph # (Auto) 600 L [place] # (Auto) 600 Eos # (Auto) 100 Baso # (Auto) 0 ABG Sample Site Right radial ABG pH 7.36 ABG pCO2 42.6 ABG pO2 71 L ABG HCO3 24 ABG Total CO2 24 ABG O2 Saturation 93 L ABG Base Excess -1.7 Александр Test Positive Respiration Rate O2 Delivery Device avaps FiO2 % 21 % Sodium 146 H Potassium 4.7 Chloride 112 H Carbon Dioxide 22 BUN 65 H Creatinine 3.38 H Estimated GFR 17 L BUN/Creatinine Ratio 19.2 Glucose 78 L Lactate Calcium 8.9 Magnesium Total Bilirubin AST ALT Alkaline Phosphatase Ammonia Total Creatine Kinase 168 Troponin I 0.021 NT-Pro-B Natriuret Pep 4190 H Total Protein Albumin Globulin Albumin/Globulin Ratio Urine RBC Urine WBC Ur Squamous Epith Cells Urine Bacteria Ur Culture Indicated? Vol Urine Centrifuged U Opiates 300ng/mL cut Ur Oxycodone Screen Urine Methadone Screen Ur Barbiturates Screen U Tricyclic Antidepress Ur Phencyclidine Scrn Ur Amphetamines Screen U Methamphetamines Scrn Ur MDMA Scrn (Ecstasy) U Benzodiazepines Scrn Urine Cocaine Screen U Marijuana (THC) Screen Urine pH Urine Specific [place] Ur Creatinine Chlamy pneumoniae PCR Adenovirus (PCR) B. pertussis DNA (PCR) B.parapertussis DNA PCR Coronavirus OC43 (PCR) Coronavirus HKU1 (PCR) Coronavirus 229E (PCR) SARS-CoV-2 (PCR) Coronavirus NL63 (PCR) Human Metapneumovir PCR Influenza Type A (PCR) Influenza Type B (PCR) M. pneumoniae (PCR) Parainfluenza 1 (PCR) Parainfluenza 2 (PCR) Parainfluenza 3 (PCR) Parainfluenza 4 (PCR) RSV (PCR) Entero/Rhino (PCR) Assessment & Plan Assessment & Plan narrative: 1. Acute metabolic encephalopathy, likely infectious versus metabolic. 2. Multifocal pulmonary infiltrates, pneumonia versus congestive heart failure. Treat with empiric antibiotics and gentle hydration. 3. Acute kidney injury superimposed on chronic stage 4 kidney disease. 4. Acute on chronic diastolic congestive heart failure. 5. Hypercarbic respiratory failure due to the above. 6. Hypotension, likely due to volume depletion in the setting of acute illness. 7. Hypoglycemia likely due to acute illness. 8. Anemia due to chronic kidney disease. 9. Thrombocytopenia, likely infectious. 10. Coronary artery disease. no evidence of myocardial 11. Hypertension. Hold antihypertensives. 12. Hyperlipidemia. 13. History of lung, prostate and renal cell carcinoma. No evidence of recurrence. 14. DVT prophylaxis: Contraindicated given thrombocytopenia. 15. Code status: Do not resuscitate. The patient has a POLST form signed enclosed in the chart. Discussion: The patient's daughter Mariella is currently in [place] and returning tomorrow night. I contacted her by phone and reviewed the patient's clinical course over the past few months to years. He has clearly been declining gradually with progressive failure to thrive, chronic congestive heart failure, and progressive weakness, with possible developing cognitive impairment. She wishes a conservative approach with IV fluids, antibiotics and observation with possible progression to comfort care/palliative measures if he fails this approach. She understands that his previously expressed wishes are for do not resuscitate code status and is in agreement. Plan: -IV fluids -IV vancomycin and cefepime -supplemental oxygen -monitor clinical status, consider comfort care measures -do not resuscitate Quality VTE Deep Vein Thrombosis/Pulmonary Embolism Present on Admission: No MIPS - Admit I confirm the patient?s Advance Care Plan is present, Code status is documented, Surrogate decision maker is in patient?s record [If Yes, STOP here]: Yes [facility] - Meds 'Current medications' to include all prescriptions, [id number] products, herbals, cannabis/cannabidiol products, and vitamin/mineral/dietary (nutritional) supplements. I have utilized all available resources to obtain, update, or review the patient?s current medications. [If Yes, STOP here]: Yes [facility] Charge Codes Initial inpatient/observation care: [id number]
--- NOTE | 2024-01-24 14:04 | PC.NURSE ---
Pt resting in bed-sleeping, appears comfortable. FLACC 0. Heart rate is in the low 40's, bp currently 93/36 MAP 55, O2 sat 96% RA. Resps even and unlabored. Notified Dr. Danielson-no new orders at this time, will continue to monitor. Pt's BLE's are quite edematous with blistering and weeping. Dr. Danielson stated scd's could be left off to prevent further discomfort or skin/blister breakage. Will continue to monitor.
[2024-01-24] MEDS: HEPARIN 5,000 UNIT/ML VIAL 7500 UNIT SUBCUT ×2 (14:26→21:44)
[2024-01-24] MEDS: CEFEPIME 1 GM in SODIUM CHLORIDE 0.9% 100 ML IV (17:25)
[2024-01-25] VITALS (12 sets, daily range): BP systolic 103–136; BP diastolic 54–86; PULSE 58–80; RESP 18; TEMP 36.2–37; O2SAT 92–98
[2024-01-25] MEDS: DEXTROSE 5%-0.45% NS 1,000 ML 84 ML IV (00:24)
[2024-01-25 06:29] LABS: Add Manual Diff / Slide Review NO; Basophils Absolute Auto 0 /uL (0-100); Basophils Percent Auto 0.4 % (0-2); Eosinophils Absolute Auto 100 /uL (0-450); Eosinophils Percent Auto 1.3 % (2-4); Hemoglobin 8.7 g/dL (13.5-17.5); Lymphocytes Absolute Auto 600 /uL (1100-4500); Lymphocytes Percent Auto 8.3 % (25-40); Mean Corpuscular HGB Conc 31.1 % (30-36); Mean Corpuscular Hemoglobin 26.3 PG (26-34); Mean Corpuscular Volume 84.7 fL (80-100); Monocytes Absolute Auto 600 /uL (0-900); Monocytes Percent Auto 7.8 % (3-14); Neutrophils Absolute Auto 6200 /uL (1500-7000); Neutrophils Percent Auto 82.2 % (50-75); Platelet Count 77 X10^3/uL (150-400); Red Cell Distribution Width 18.3 % (11.6-14.8); White Blood Cell Count 7.6 X10^3/uL (4.5-11.0)
[2024-01-25 06:39] LABS: BUN Creatinine Ratio 18.5 (6-22); Blood Urea Nitrogen 68 mg/dL (9-20); Calcium 8.9 mg/dL (8.4-10.2); Carbon Dioxide 25 mmol/L (22-32); Chloride 112 mmol/L (98-107); Estimated Glomerular Filt Rate 16 mL/min (>60); Glucose 124 mg/dL (80-110); HEMOLYSIS < 15 (0-50); Potassium 4.3 mmol/L (3.4-5.1); Sodium 144 mmol/L (137-145)
[2024-01-25 06:51] LABS: Troponin I 0.027 ng/mL (0.01-0.034)
[2024-01-25] MEDS: HEPARIN 5,000 UNIT/ML VIAL 7500 UNIT SUBCUT ×3 (07:02→21:25)
--- NOTE | 2024-01-25 07:27 | P.PN_ITS ---
Subjective Subjective Date Patient Seen: 01/25/24 Time Patient Seen: 13:50 Interval history: 83-year-old man under the primary care of Dr. Sam Danielson was noted to be progressively confused by family and friends who called paramedics. He was had and have blood sugar in the 40s and was given an ampule of D50 in the field, brought to emergency department in a persistent state of confusion and decreased mental status. According to the emergency department report paramedics reported that he was found on the floor next to a chair, appearing that he may have slipped out of his chair, and he reported himself that he was only on the floor for about 1 hour in the emergency room. Initial evaluation was notable for multifocal pulmonary infiltrates consistent with pneumonia versus congestive heart failure with white blood count 9.0 and NT-proBNP 3460. CPK was low at 177 and creatinine elevated at 3.38 mg/dL over his baseline of approximately 2.7 mg/dL. Arterial blood gas testing initially showed pH 7.21, pCO2 64, PO2 140 on BiPAP FiO2 0.3. Head CT and cardiac enzymes were unremarkable. He was given IV antibiotics and hydrated. Initial plans were to transfer him to tertiary care level facility but given difficulties with this, and further clarification with the patient's daughter that he would not wish a higher level of care, and that he may be in decline towards a comfort care approach, patient is admitted for further management and evaluation. He is unresponsive to voice on interview on arrival to the medical floor. Interval history: The patient is more alert today, seen in family conference with his granddaughter Aurora and in telephone video conference with his daughter Mariella. Patient has no specific complaints though is very weak today. We discussed possible comfort care/hospice approach, and he and family feel that this is appropriate to pursue at this point. However he does also wish to continue to treat this current infection conservatively with antibiotics and close monitoring at this point. Exam Vital Signs (past 8 hours): - 01/25/24 02:00 01/25/24 03:00 01/25/24 06:00 Temperature 98.6 F 98.6 F Pulse Rate 74 74 Respiratory Rate 18 18 Blood Pressure 118/86 130/77 Pulse Oximetry 96 94 98 Oxygen Delivery Method Oximask Oxygen Flow Rate 0 2 2 Fraction of Inspired Oxygen 25 Oxygen Delivery Method Oximask Oxygen Flow Rate 2 Narrative Exam Narrative: GENERAL: This is a well-nourished, well-developed patient, appears to blink to voice but no verbal response. EYES: Pupils equal round and reactive. Extraocular motions intact. No scleral icterus. No injection or drainage. ENT: Mucous membranes pink and dry. NECK: Trachea midline. No JVD, bruits or lymphadenopathy. Supple, nontender, no meningeal signs. CARDIOVASCULAR: Regular rate and rhythm without murmurs, gallops, or rubs. RESPIRATORY: Scattered bilateral rhonchi, crackles. GASTROINTESTINAL: Abdomen soft, non-tender, nondistended. EXTREMITIES: 2+ edema with chronic stasis changes. NEUROLOGIC: Alert, oriented, speech fluent, full upper and lower motor strength, no focal deficits evident. DERMATOLOGIC: Chronic stasis changes. No rashes or skin lesions. Objective Labs 01/25/24 06:15 01/25/24 06:15 Labs: Laboratory Results - last 24 hr 01/25/24 06:15 WBC 7.6 RBC 3.30 L Hgb 8.7 L Hct 28.0 L MCV 84.7 MCH 26.3 MCHC 31.1 RDW 18.3 H Plt Count 77 L Neut % (Auto) 82.2 H Lymph % (Auto) 8.3 L Nicholas % (Auto) 7.8 Eos % (Auto) 1.3 L Baso % (Auto) 0.4 Neut # (Auto) 6200 Lymph # (Auto) 600 L Nicholas # (Auto) 600 Eos # (Auto) 100 Baso # (Auto) 0 Sodium 144 Potassium 4.3 Chloride 112 H Carbon Dioxide 25 BUN 68 H Creatinine 3.68 H Estimated GFR 16 L BUN/Creatinine Ratio 18.5 Glucose 124 H Calcium 8.9 Troponin I 0.027 PFSH Medical History Anemia Mild cognitive impairment Weight loss GI bleed Sacral decubitus ulcer, stage II Venous (peripheral) insufficiency Allergic rhinitis 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 Do not resuscitate Severe obesity (BMI >= 40) Chronic kidney disease, stage 3b Mixed hyperlipidemia Essential hypertension Fractures Mumps Measles Chicken pox Retinal detachment Hearing loss Cataracts, bilateral Tibial plateau fracture, right (~09/2017) Dizziness Perforated nasal septum Glucose intolerance LBBB (left bundle branch block) CKD (chronic kidney disease) CAD (coronary artery disease) Former smoker COPD (chronic obstructive pulmonary disease) Surgical History Anesthesia Hx of bilateral cataract extraction (~2016) History of colonoscopy Hx of heart artery stent (~2002) History of bilateral knee replacement History of lobectomy of lung (~2015) H/O left nephrectomy (~2014) Social History household members: children occupational status: previously employed Smoking Status: Former smoker Tobacco: How many years used: 40 alcohol intake: current substance use type: does not use Assessment & Plan Assessment & Plan narrative: 1. Acute metabolic encephalopathy, likely infectious versus metabolic. Improving. Continue to monitor. 2. Multifocal pulmonary infiltrates, pneumonia versus congestive heart failure. Cultures negative to date. Treat with empiric cefepime and gentle hydration. 3. Acute kidney injury superimposed on chronic stage 4 kidney disease. stable. Continue to monitor. 4. Acute on chronic diastolic congestive heart failure. Consider advancing diuresis tomorrow pending clinical course. 5. Hypercarbic respiratory failure due to the above. Clinically improved. 6. Hypotension, likely due to volume depletion in the setting of acute illness. Continue to monitor. 7. Hypoglycemia likely due to acute illness. Resolved. 8. Anemia due to chronic kidney disease. stable. 9. Thrombocytopenia, likely infectious. Monitor 10. Coronary artery disease. rule out for myocardial infarction. 11. Hypertension. Hold antihypertensives. 12. Hyperlipidemia. 13. History of lung, prostate and renal cell carcinoma. No evidence of recurrence. 14. DVT prophylaxis: Contraindicated given thrombocytopenia. 15. Code status: Do not resuscitate. The patient has a POLST form signed enclosed in the chart. Discussion: The patient wishes to pursue hospice consultation. He also wishes to continue current treatment as detailed above. Plan: -IV fluids -IV cefepime -supplemental oxygen -monitor clinical status, consider comfort care measures -hospice consultation -do not resuscitate Time-Based Coding :: [TOTAL MINUTES] spent with patient and on the chart (including review of chart, obtaining history, exam, reviewing outside data, placing orders, documenting exam and treatment plan, and counseling patient) on [DATE]. Quality VTE Deep Vein Thrombosis/Pulmonary Embolism Present on Admission: No PROFEE Charge codes Subsequent inpatient/observation care: 38735
[2024-01-25] MEDS: CEFEPIME 1 GM in SODIUM CHLORIDE 0.9% 100 ML IV (09:36)
--- NOTE | 2024-01-25 15:31 | CM.DPNOTE ---
DCP Cont: Faxed over clinicals to [facility] via right fax. Nadia Leiva RN/Senior Control Systems Engineer
--- NOTE | 2024-01-25 16:50 | CM.DANOTE ---
B DCP Assessment note pt is an 83yo M here after found down in home/failure to thrive. Lives in [place] with dtr. PCP Dr. Danielson Payer Medicare and [employer] MATERIAL SPREADER reviewed EMR. Per hospitalist in morning rounds, still getting abx while here but for the most part dtr prefers CC for pt. Hopeful for hospice plan for home. Dtr Mariella ( employee?) on way back from [place] today, granddaughter in room. MATERIAL SPREADER attempted to meet with [facility], either meeting with provider or on phone. Left this MATERIAL SPREADER number and the [facility] information in room. MATERIAL SPREADER spoke with Martine from [facility]. kindly agreed to review referral. ([facility] does not have SOC for another two weeks). MATERIAL SPREADER faxed referral information. soonest SOC in the home in [place] is sunday. Martine will reach out to family for informational visit. P: home with [facility] hospice when can be arranged. Need POLST, transport plan, POA ppwk(?), and continued coordination with family/[facility]. MONTSERRAT Freitas Discharge Planning/Care Management CM Discharge Assessment Start: 01/25/24 16:49 Freq: Status: Active Protocol: Document 01/25/24 16:49 (Rec: 01/25/24 16:50 [id number]) Discharge Planning Assessment Assigned Boat Washer MONTSERRAT Peng DPOA/Assigned Designee Name Mariella Brewer Contact Information [phone] Advance Directives? Yes: POLST Advance Directives on File No History Provided By Patient,Medical Record Prior Living Arrangements House Household Members children Type of transporation used prior to Relies on Others admit Independent with ADL's No Is patient alert and oriented? No Discharge Plan Hospice Transportation Arrangement BLS? Referrals Initiated Other Additional Comment [facility] Whiteboard Updated in Patient Room with Yes name and ext. # of Boat Washer Review Status In Process Please Provide Date Initial DC 01/25/24 Assessment Was Performed Next Review Type Continued Stay Review
[2024-01-26] VITALS (7 sets, daily range): BP systolic 125–140; BP diastolic 52–86; PULSE 66–88; RESP 18–21; TEMP 36.1–37.1; O2SAT 90–93
[2024-01-26] MEDS: HEPARIN 5,000 UNIT/ML VIAL 7500 UNIT SUBCUT (06:36)
[2024-01-26 06:53] LABS: Eosinophils Absolute Auto 100 /uL (0-450); Eosinophils Percent Auto 0.9 % (2-4); Lymphocytes Absolute Auto 800 /uL (1100-4500); Monocytes Absolute Auto 700 /uL (0-900); White Blood Cell Count 8.4 X10^3/uL (4.5-11.0)
[2024-01-26 06:57] LABS: Add Manual Diff / Slide Review NO; Basophils Absolute Auto 100 /uL (0-100); Basophils Percent Auto 0.7 % (0-2); Hematocrit 29.8 % (41-53); Hemoglobin 9.3 g/dL (13.5-17.5); Lymphocytes Percent Auto 9.3 % (25-40); Mean Corpuscular HGB Conc 31.3 % (30-36); Mean Corpuscular Hemoglobin 26.1 PG (26-34); Mean Corpuscular Volume 83.4 fL (80-100); Monocytes Percent Auto 8.3 % (3-14); Neutrophils Absolute Auto 6800 /uL (1500-7000); Neutrophils Percent Auto 80.8 % (50-75); Platelet Count 94 X10^3/uL (150-400); Red Blood Cell Count 3.58 X10^6/uL (4.5-5.9); Red Cell Distribution Width 17.8 % (11.6-14.8)
[2024-01-26 07:05] LABS: BUN Creatinine Ratio 17.8 (6-22); Blood Urea Nitrogen 69 mg/dL (9-20); Calcium 9.1 mg/dL (8.4-10.2); Carbon Dioxide 23 mmol/L (22-32); Chloride 113 mmol/L (98-107); Estimated Glomerular Filt Rate 15 mL/min (>60); Glucose 72 mg/dL (80-110); HEMOLYSIS 17 (0-50); Potassium 4.5 mmol/L (3.4-5.1); Sodium 145 mmol/L (137-145)
[2024-01-26] MEDS: CEFEPIME 1 GM in SODIUM CHLORIDE 0.9% 100 ML IV (09:47)
--- NOTE | 2024-01-26 13:13 | PM.PN.1 ---
Subjective Subjective Date Patient Seen: 01/26/24 Time Patient Seen: 10:40 Interval history: 83-year-old man under the primary care of Dr. Sam Danielson was noted to be progressively confused by family and friends who called paramedics. He was had and have blood sugar in the 40s and was given an ampule of D50 in the field, brought to emergency department in a persistent state of confusion and decreased mental status. According to the emergency department report paramedics reported that he was found on the floor next to a chair, appearing that he may have slipped out of his chair, and he reported himself that he was only on the floor for about 1 hour in the emergency room. Initial evaluation was notable for multifocal pulmonary infiltrates consistent with pneumonia versus congestive heart failure with white blood count 9.0 and NT-proBNP 3460. CPK was low at 177 and creatinine elevated at 3.38 mg/dL over his baseline of approximately 2.7 mg/dL. Arterial blood gas testing initially showed pH 7.21, pCO2 64, PO2 140 on BiPAP FiO2 0.3. Head CT and cardiac enzymes were unremarkable. He was given IV antibiotics and hydrated. Initial plans were to transfer him to tertiary care level facility but given difficulties with this, and further clarification with the patient's daughter that he would not wish a higher level of care, and that he may be in decline towards a comfort care approach, patient is admitted for further management and evaluation. He is unresponsive to voice on interview on arrival to the medical floor. Interval history: The patient is alert, mildly confused. He is seen with his daughter Mariella and granddaughter Aurora at bedside. He is agreeable to comfort care/hospice in discussion today, and wishes to return home with his daughter, who will be able to help provide support, though will need additional support. They are looking forward to further discussions regarding this. Exam Vital Signs (past 8 hours): - 01/26/24 06:00 Temperature 98.8 F Pulse Rate 74 Respiratory Rate 20 Blood Pressure 130/66 Pulse Oximetry 91 Oxygen Flow Rate 0 Fraction of Inspired Oxygen 25 Oxygen Delivery Method Room Air Oxygen Flow Rate 0 Narrative Exam Narrative: GENERAL: This is a well-nourished, well-developed patient, alert, answers questions, appears mildly confused, forgetful. EYES: Pupils equal round and reactive. Extraocular motions intact. No scleral icterus. No injection or drainage. ENT: Mucous membranes pink and dry. NECK: Trachea midline. No JVD, bruits or lymphadenopathy. Supple, nontender, no meningeal signs. CARDIOVASCULAR: Regular rate and rhythm without murmurs, gallops, or rubs. RESPIRATORY: Scattered bilateral rhonchi, crackles. GASTROINTESTINAL: Abdomen soft, non-tender, nondistended. EXTREMITIES: 2+ edema with chronic stasis changes. NEUROLOGIC: Alert, oriented, speech fluent, full upper and lower motor strength, no focal deficits evident. DERMATOLOGIC: Chronic stasis changes. No rashes or skin lesions. Objective Labs 01/26/24 06:47 01/26/24 06:47 Labs: Laboratory Results - last 24 hr 01/26/24 06:47 WBC 8.4 RBC 3.58 L Hgb 9.3 L Hct 29.8 L MCV 83.4 MCH 26.1 MCHC 31.3 RDW 17.8 H Plt Count 94 L Neut % (Auto) 80.8 H Lymph % (Auto) 9.3 L Socorro % (Auto) 8.3 Eos % (Auto) 0.9 L Baso % (Auto) 0.7 Neut # (Auto) 6800 Lymph # (Auto) 800 L [place] # (Auto) 700 Eos # (Auto) 100 Baso # (Auto) 100 Sodium 145 Potassium 4.5 Chloride 113 H Carbon Dioxide 23 BUN 69 H Creatinine 3.87 H Estimated GFR 15 L BUN/Creatinine Ratio 17.8 Glucose 72 L Calcium 9.1 [facility] Medical History Anemia Mild cognitive impairment Weight loss GI bleed Sacral decubitus ulcer, stage II Venous (peripheral) insufficiency Allergic rhinitis 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 Do not resuscitate Severe obesity (BMI >= 40) Chronic kidney disease, stage 3b Mixed hyperlipidemia Essential hypertension Fractures Mumps Measles Chicken pox Retinal detachment Hearing loss Cataracts, bilateral Tibial plateau fracture, right (~09/2017) Dizziness Perforated nasal septum Glucose intolerance LBBB (left bundle branch block) CKD (chronic kidney disease) CAD (coronary artery disease) Former smoker COPD (chronic obstructive pulmonary disease) Surgical History Anesthesia Hx of bilateral cataract extraction (~2016) History of colonoscopy Hx of heart artery stent (~2002) History of bilateral knee replacement History of lobectomy of lung (~2015) H/O left nephrectomy (~2014) Social History household members: children occupational status: previously employed Smoking Status: Former smoker Tobacco: How many years used: 40 alcohol intake: current substance use type: does not use Assessment & Plan Assessment & Plan narrative: 1. Acute metabolic encephalopathy, likely infectious versus metabolic. Lengthy discussion today regarding options including hospice. The patient, daughter and granddaughter are in agreement with this approach. His daughter wishes to bring him home, which is where he wishes to go. Will start a palliative/comfort care approach with stopping of antibiotics, and administration of analgesic an angiolytic medications as needed. 2. Multifocal pulmonary infiltrates, pneumonia versus congestive heart failure. Cultures negative to date. 3. Acute kidney injury superimposed on chronic stage 4 kidney disease. progressive decline. 4. Acute on chronic diastolic congestive heart failure. 5. Hypercarbic respiratory failure due to the above. 6. Hypotension, likely due to volume depletion in the setting of acute illness. 7. Hypoglycemia likely due to acute illness. Resolved. 8. Anemia due to chronic kidney disease. 9. Thrombocytopenia, likely infectious. 10. Coronary artery disease. ruled out for myocardial infarction. 11. Hypertension. Hold antihypertensives. 12. Hyperlipidemia. 13. History of lung, prostate and renal cell carcinoma. No evidence of recurrence. 14. DVT prophylaxis: Not indicated on hospice/palliative care. 15. Code status: Do not resuscitate. The patient has a POLST form signed enclosed in the chart. Discussion: The patient wishes to pursue hospice care in the home setting. Palliative Care as above. Plan: -discontinue IV fluids -discontinue IV cefepime -supplemental oxygen -lorazepam and morphine sublingual as needed -hospice consultation -do not resuscitate Time-Based Coding :: [TOTAL MINUTES] spent with patient and on the chart (including review of chart, obtaining history, exam, reviewing outside data, placing orders, documenting exam and treatment plan, and counseling patient) on [DATE]. Quality VTE Deep Vein Thrombosis/Pulmonary Embolism Present on Admission: No PROFEE Charge codes Subsequent inpatient/observation care: 39443
--- NOTE | 2024-01-26 15:45 | CM.DPNOTE ---
DCP Note FLATWORK TIER reviewed EMR. per construction foreman nurse for [facility], SOC scheduled for 10am likely 10am? DME to be delivered Sunday and they will note that family would like a phone info session Sunday. FLATWORK TIER met with dtr Mariella in room. Reviewed CG options PP. Dtr wants to look into pt's LTC benefit and see if they cover any LTC in the home. Dtr works here at and is concerned about meeting his needs while she works. Dtr will look into pt's financial resources for determining if they want to pursue comfort care at a facility vs home with dtr and additional CG support. Dtr signed updated POLST. Dtr reports verbal understanding there may be a bill associated with BLS transport but is in agreement that at this point that is the safest transport option. provider signed POLST form. FLATWORK TIER made copy, placed in scanning folder to be scanned into chart. FLATWORK TIER placed original in room along with pt's ins policy number information. FLATWORK TIER placed copy of FMLA policy in room for dtr to review. FLATWORK TIER faxed DPOA ppwk, POLST, and updated PN to [facility] P: facility with CC vs home with [facility] Sunday pending family preference. Transport via BLS, POLST completed form needed. CM team will continue to follow closely MONTSERRAT Freitas
[2024-01-26] MEDS: LORazepam 2 MG/ML ORAL SOL 0.5 MG PO (18:04)
[2024-01-27 06:00] VITALS: O2SAT 95
--- NOTE | 2024-01-27 11:46 | PM.PN.1 ---
Subjective Subjective Date Patient Seen: 01/27/24 Time Patient Seen: 09:50 Interval history: 83-year-old man under the primary care of Dr. Sam Danielson was noted to be progressively confused by family and friends who called paramedics. He was had and have blood sugar in the 40s and was given an ampule of D50 in the field, brought to emergency department in a persistent state of confusion and decreased mental status. According to the emergency department report paramedics reported that he was found on the floor next to a chair, appearing that he may have slipped out of his chair, and he reported himself that he was only on the floor for about 1 hour in the emergency room. Initial evaluation was notable for multifocal pulmonary infiltrates consistent with pneumonia versus congestive heart failure with white blood count 9.0 and NT-proBNP 3460. CPK was low at 177 and creatinine elevated at 3.38 mg/dL over his baseline of approximately 2.7 mg/dL. Arterial blood gas testing initially showed pH 7.21, pCO2 64, PO2 140 on BiPAP FiO2 0.3. Head CT and cardiac enzymes were unremarkable. He was given IV antibiotics and hydrated. Initial plans were to transfer him to tertiary care level facility but given difficulties with this, and further clarification with the patient's daughter that he would not wish a higher level of care, and that he may be in decline towards a comfort care approach, patient is admitted for further management and evaluation. He is unresponsive to voice on interview on arrival to the medical floor. Interval history: The patient is difficult to arouse, opens eyes to voice but without verbal response. He continues on comfort care measures anticipating hospice placement. Family is hoping to bring him home though given declined at this point may be imminent. Exam Vital Signs (past 8 hours): - 01/27/24 06:00 01/27/24 07:45 Pulse Oximetry 95 Oxygen Delivery Method Room Air Oxygen Flow Rate 1 Fraction of Inspired Oxygen 25 Oxygen Delivery Method Room Air Oxygen Flow Rate 1 Narrative Exam Narrative: GENERAL: Somnolent, arousable, moving arms nonspecifically, appears mildly restless, in no apparent respiratory distress. EYES: Pupils equal round and reactive. Extraocular motions intact. No scleral icterus. No injection or drainage. ENT: Mucous membranes pink and dry. NECK: No meningeal signs. CARDIOVASCULAR: Regular rate and rhythm without murmurs, gallops, or rubs. RESPIRATORY: Scattered bilateral rhonchi, crackles. GASTROINTESTINAL: Abdomen soft, non-tender, nondistended. EXTREMITIES: 2+ edema with chronic stasis changes. NEUROLOGIC: Difficult to arouse, no focal deficits evident. DERMATOLOGIC: Chronic stasis changes. No rashes or skin lesions. 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 Do not resuscitate Severe obesity (BMI >= 40) Chronic kidney disease, stage 3b Mixed hyperlipidemia Essential hypertension Fractures Mumps Measles Chicken pox Retinal detachment Hearing loss Cataracts, bilateral Tibial plateau fracture, right (~09/2017) Dizziness Perforated nasal septum Glucose intolerance LBBB (left bundle branch block) CKD (chronic kidney disease) CAD (coronary artery disease) Former smoker COPD (chronic obstructive pulmonary disease) Surgical History Anesthesia Hx of bilateral cataract extraction (~2016) History of colonoscopy Hx of heart artery stent (~2002) History of bilateral knee replacement History of lobectomy of lung (~2015) H/O left nephrectomy (~2014) Social History household members: children occupational status: previously employed Smoking Status: Former smoker Tobacco: How many years used: 40 alcohol intake: current substance use type: does not use Assessment & Plan Assessment & Plan narrative: 1. Acute metabolic encephalopathy, likely infectious versus metabolic. Continue comfort care measures and hospice consultation. may be imminent in the next 24-48 hours. 2. Multifocal pulmonary infiltrates, pneumonia versus congestive heart failure. Cultures negative to date. 3. Acute kidney injury superimposed on chronic stage 4 kidney disease. progressive decline. 4. Acute on chronic diastolic congestive heart failure. 5. Hypercarbic respiratory failure due to the above. 6. Hypotension, likely due to volume depletion in the setting of acute illness. 7. Hypoglycemia likely due to acute illness. Resolved. 8. Anemia due to chronic kidney disease. 9. Thrombocytopenia, likely infectious. 10. Coronary artery disease. ruled out for myocardial infarction. 11. Hypertension. Hold antihypertensives. 12. Hyperlipidemia. 13. History of lung, prostate and renal cell carcinoma. No evidence of recurrence. 14. DVT prophylaxis: Not indicated on hospice/palliative care. 15. Code status: Do not resuscitate. The patient has a POLST form signed enclosed in the chart. Discussion: The patient wishes to pursue hospice care in the home setting. Palliative Care as above. Plan: -comfort care measures -lorazepam and morphine sublingual as needed -hospice consultation -do not resuscitate Quality VTE Deep Vein Thrombosis/Pulmonary Embolism Present on Admission: No PROFEE Charge codes Subsequent inpatient/observation care: 49573
[2024-01-27 12:00] VITALS: BP 136/62; PULSE 74; RESP 21; TEMP 36.1; O2SAT 89
--- NOTE | 2024-01-27 14:25 | CM.DPNOTE ---
DCP Note SENIOR INFORMATION SECURITY ARCHITECT reviewed EMR. per chart review/provider report in morning rounds, pt declining since yesterday. unclear if pt expected to pass here vs home with hospice. SENIOR INFORMATION SECURITY ARCHITECT met with dtr and granddaughter in room. Pt not alert during conversation. Dtr reports open to seeing how next 24 hours go if we want to pursue a home plan vs if pt imminent open to remaining here for him to pass. Dtr reports her spouse/pt VICKEY on way home to assist her at the home/with next steps. provider entered room during DCP conversation. in agreement with plan. P: pt either to pass here vs home with [facility] support. DME being delivered Sunday. SOC for [facility] Sunday 10am. transport via [employer], [employer] complete transport form needed. If pt expected to pass here, CM team will cancel referral with [facility]. CM team will continue to follow closely MONTSERRAT Freitas
[2024-01-27] MEDS: MORPHINE 10 MG/0.5 ML ORAL SYRINGE PO ×2 (16:48→18:16)
[2024-01-27] MEDS: SCOPOLAMINE 1 PATCH TOP (17:33)
[2024-01-27] MEDS: LORazepam 2 MG/ML ORAL SOL 0.5 MG PO (17:33)
[2024-01-27] MEDS: MORPHINE 2 MG/ML INJ IV (20:12)
[2024-01-27 21:00] VITALS: BP 103/54; PULSE 87; RESP 32; TEMP 36.4; O2SAT 90
[2024-01-28 02:00] VITALS: BP 61/26; PULSE 77; RESP 13; TEMP 36.3; O2SAT 77
--- NOTE | 2024-01-28 07:48 | PM.PN.1 ---
Subjective Subjective Interval history: Interval history: The patient is difficult to arouse, opens eyes to voice but without verbal response. He continues on comfort care measures anticipating hospice placement. Family is hoping to bring him home though given declined at this point may be imminent. He is on comfort care. S: The patient was obtunded and nonverbal. Exam Vital Signs (past 8 hours): - 01/28/24 02:00 01/28/24 03:02 Temperature 97.3 F L Pulse Rate 77 Respiratory Rate 13 Blood Pressure 61/26 L Pulse Oximetry 77 L Oxygen Delivery Method Oximask Oxygen Flow Rate 2.5 2 Fraction of Inspired Oxygen 25 Oxygen Delivery Method Oximask Oxygen Flow Rate 2 Narrative Exam Narrative: Obtunded, no acute distress. Lungs are clear, normal effort and rate. Heart is regular, no murmur. Abdomen is soft. Extremities are free of edema. 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 Do not resuscitate Severe obesity (BMI >= 40) Chronic kidney disease, stage 3b Mixed hyperlipidemia Essential hypertension Fractures Mumps Measles Chicken pox Retinal detachment Hearing loss Cataracts, bilateral Tibial plateau fracture, right (~09/2017) Dizziness Perforated nasal septum Glucose intolerance LBBB (left bundle branch block) CKD (chronic kidney disease) CAD (coronary artery disease) Former smoker COPD (chronic obstructive pulmonary disease) Surgical History Anesthesia Hx of bilateral cataract extraction (~2016) History of colonoscopy Hx of heart artery stent (~2002) History of bilateral knee replacement History of lobectomy of lung (~2015) H/O left nephrectomy (~2014) Social History household members: children occupational status: previously employed Smoking Status: Former smoker Tobacco: How many years used: 40 alcohol intake: current substance use type: does not use Assessment & Plan Assessment & Plan narrative: 1. Acute metabolic encephalopathy, likely infectious versus metabolic. Continue comfort care measures and hospice consultation. may be imminent in the next 24-48 hours. 2. Multifocal pulmonary infiltrates, pneumonia versus congestive heart failure. Cultures negative to date. 3. Acute kidney injury superimposed on chronic stage 4 kidney disease. progressive decline. 4. Acute on chronic diastolic congestive heart failure. 5. Hypercarbic respiratory failure due to the above. 6. Hypotension, likely due to volume depletion in the setting of acute illness. 7. Hypoglycemia likely due to acute illness. Resolved. 8. Anemia due to chronic kidney disease. 9. Thrombocytopenia, likely infectious. 10. Coronary artery disease. ruled out for myocardial infarction. 11. Hypertension. Hold antihypertensives. 12. Hyperlipidemia. 13. History of lung, prostate and renal cell carcinoma. No evidence of recurrence. 14. DVT prophylaxis: Not indicated on hospice/palliative care. 15. Code status: Do not resuscitate. The patient has a POLST form signed enclosed in the chart. Discussion: The patient wishes to pursue hospice care in the home setting. Palliative Care as above. Plan: -comfort care measures -lorazepam and morphine sublingual as needed -anticipate expiration in the hospital. We will cancel hospice. -DNR -ISAAC 1-2 days Time-Based Coding :: [TOTAL MINUTES] spent with patient and on the chart (including review of chart, obtaining history, exam, reviewing outside data, placing orders, documenting exam and treatment plan, and counseling patient) on [DATE]. Quality VTE Deep Vein Thrombosis/Pulmonary Embolism Present on Admission: No
[2024-01-28 09:00] VITALS: BP 52/24; PULSE 51; RESP 12; TEMP 36.2; O2SAT 85
[2024-01-28] MEDS: MORPHINE 2 MG/ML INJ IV (09:32)
--- NOTE | 2024-01-28 10:43 | CM.DPNOTE ---
Addendum entered by MONTSERRAT Freitas 01/28/24 15:09: From nursing staff, pt ended up passing away. off the floor, no CM needs at this time. SL Original Note: DCP Note STATISTICS TUTOR reviewed EMR. Per hospitalist and nursing staff, pt could potentially pass today. STATISTICS TUTOR spoke with Martine from [facility], cancelled referral. STATISTICS TUTOR messaged Em Chapman re: therapy dogs? She kindly agreed to inquire about therapy dog availability. Dtr not in room during attempted interaction. P: pt likely imminent. CM team will continue to follow with bereavement resources and as needed MONTSERRAT Freitas
[2024-01-28] MEDS: MORPHINE 50 MG in SODIUM CHLORIDE 0.9% 45 ML IV (11:16)
--- NOTE | 2024-01-28 16:21 | PC.NURSE ---
Time of was 13:[address] Danielson who was in the room. Dr. Danielson informed Dr. Lucas. Pt's daughter was present in room at [facility]. She collected all of his belongings, except for his pillow. IV and catheter removed. [email or web address] arrived at 16:15 and took patient as well as the patient's pillow.
--- NOTE | 2024-01-28 18:59 | P.DN_ITS ---
Discharge Summary History of Illness Narrative: From H&P: 83-year-old man under the primary care of Dr. Sam Danielson was noted to be progressively confused by family and friends who called paramedics. He was had and have blood sugar in the 40s and was given an ampule of D50 in the field, brought to emergency department in a persistent state of confusion and decreased mental status. According to the emergency department report paramedics reported that he was found on the floor next to a chair, appearing that he may have slipped out of his chair, and he reported himself that he was only on the floor for about 1 hour in the emergency room. Initial evaluation was notable for multifocal pulmonary infiltrates consistent with pneumonia versus congestive heart failure with white blood count 9.0 and NT-proBNP 3460. CPK was low at 177 and creatinine elevated at 3.38 mg/dL over his baseline of approximately 2.7 mg/dL. Arterial blood gas testing initially showed pH 7.21, pCO2 64, PO2 140 on BiPAP FiO2 0.3. Head CT and cardiac enzymes were unremarkable. He was given IV antibiotics and hydrated. Initial plans were to transfer him to tertiary care level facility but given difficulties with this, and further clarification with the patient's daughter that he would not wish a higher level of care, and that he may be in decline towards a comfort care approach, patient is admitted for further management and evaluation. He is unresponsive to voice on interview on arrival to the medical floor. Hospital Course Date of Admission: 01/24/24 07:45 Primary care provider: Sam Danielson MD Consults: 01/28/24 10:32 Consult to Discharge Planning Routine Comment: Discharge provider: Александр Lucas MD Discharge Diagnosis: 1. Acute metabolic encephalopathy, likely infectious versus metabolic. 2. Multifocal pulmonary infiltrates, pneumonia versus congestive heart failure. 3. Acute kidney injury superimposed on chronic stage 4 kidney disease. progressive decline. 4. Acute on chronic diastolic congestive heart failure. 5. Hypercarbic respiratory failure due to the above. 6. Hypotension, likely due to volume depletion in the setting of acute illness. 7. Hypoglycemia likely due to acute illness. Resolved. 8. Anemia due to chronic kidney disease. 9. Thrombocytopenia, likely infectious. 10. Coronary artery disease. ruled out for myocardial infarction. 11. Hypertension. Hold antihypertensives. 12. Hyperlipidemia. 13. History of lung, prostate and renal cell carcinoma. No evidence of recurrence. 14. Expiration on comfort care. Cause is pneumonia and respiratory failure. Hospital Course: Patient was an 83-year-old male who was admitted by Dr. Danielson for confusion. He had a blood sugar in the 40s and was given dextrose. The patient was found to have evidence of respiratory failure with pCO2 of 64. He was initially treated with BiPAP. A head CT was unremarkable. He was given IV antibiotics for possible infectious process. The patient was somewhat improved on January 24. A family conference was held and the possibility of comfort care versus hospice was discussed. The patient did want to pursue comfort based treatment. He also did want to continue antibiotics. On January 25 he was still confused. Antibiotics were continued. On January 25 he was difficult to arouse and was nonverbal. Comfort measures were continued. On the morning of January 27, an opiate infusion was started to mitigate discomfort. The patient a short time later, around noon. Objective Imaging Multiple studies:: Radiologist's impression: Chest x-ray: Finding is suggestive of extensive bilateral multilobar infiltrates. No significant pleural effusion or gross pneumothorax. Chest, abdomen, pelvis CT: 1. Small to moderate bilateral pleural effusion with compressive atelectasis in posterior aspect of bilateral lung martin. Patchy airspace consolidations and ground- glass opacities scattered in bilateral lung martin suggestive of bilateral multilobar infiltrates and pulmonary edema more notably in lower lobes and left lingular segment. No pneumothorax. 2. No acute solid organ injury is seen in abdomen or pelvis. No free fluid or free air. 3. Cardiomegaly, no pericardial effusion. Subcentimeter lymph nodes seen in mediastinum as above. 4. Other incidental findings including prior left nephrectomy and fiducial markers in prostate gland unchanged from prior studies. 5. No displaced rib fracture. No acute vertebral body compression fracture or spondylolisthesis. Pelvic ring is intact. Head CT: No acute intracranial pathology. Labs 01/26/24 06:47 01/26/24 06:47
== END 2024-01-28 16:15 | disposition expired | DRG 871 ==
LOC: ED 01-24 07:44 → AC 01-24 07:47
PROVIDERS: Internal Medicine; Student in an Organized Health Care Education/Training Program; Admitting Provider Internal Medicine; Emergency Provider Emergency Medicine; Family Provider Internal Medicine; PCP Internal Medicine; Referring Provider Emergency Medicine; Visit Provider Internal Medicine
DX: A41.9 Sepsis, unspecified organism (principal); G93.41 Metabolic encephalopathy; J18.9 Pneumonia, unspecified organism; I50.33 Acute on chronic diastolic (congestive) heart failure; J96.92 Respiratory failure, unspecified with hypercapnia; N17.9 Acute kidney failure, unspecified; I13.0 Hypertensive heart and chronic kidney disease with heart failure and stage 1 through stage 4 chronic kidney disease, or unspecified chronic kidney disease; N18.4 Chronic kidney disease, stage 4 (severe); I95.9 Hypotension, unspecified; E16.2 Hypoglycemia, unspecified; D63.1 Anemia in chronic kidney disease; D69.6 Thrombocytopenia, unspecified; E78.5 Hyperlipidemia, unspecified; E86.9 Volume depletion, unspecified; I25.10 Atherosclerotic heart disease of native coronary artery without angina pectoris; Z87.891 Personal history of nicotine dependence; Z51.5 Encounter for palliative care; Z85.46 Personal history of malignant neoplasm of prostate; Z85.118 Personal history of other malignant neoplasm of bronchus and lung; Z85.528 Personal history of other malignant neoplasm of kidney; Z66 Do not resuscitate
CPT/HCPCS: 36415; 36600; 70450; 71045; 71250; 74176; 80048; 80053; 80305; 81003; 81015; 82140; 82550; 82805; 82962; 83605; 83735; 83880; 84484; 85025; 87040; 87633; 93005; 94660; 96361; 96365; 96367; 96368; 96375; 99284; 99291; J0692; J1644; J1940; J2270; J3475